=== PATIENT | female | born 1960 | race Caucasian/White ===

== ENCOUNTER 2017-08-21 05:50 | Day surgery (SDC) | payer OTHER ==
[~2017-08-21] VITALS: Ht 167.6 cm; Wt 53.5 kg
[~2017-08-21 05:50] MED LIST: ALLEGRA ALLERGY60 MG PO; CITRACAL + BON1 EACH PO; ESTRADIOL0.5 MG PO; HYDROCODON-ACE1 EA14 PO; PREMARIN0.625 MG PO; VALTREX1000 MG PO
[2017-08-21] MEDS ORDERED: ADVIL200 MG PO (06:10)
[2017-08-21] MEDS ORDERED: TYLENOL EXTRA500 MG PO (06:10)
--- NOTE | 2017-08-21 08:30 | NUR ---
08/21/17 0830 AntonioDerrick SAT 100, O2 REMOVED. PT AWOKE WITH THIS AND DENIES ANY PAIN.
--- NOTE | 2017-08-21 08:50 | NUR ---
PT UP TO BR W/RN STANDBY. PT REPORTS "A LITTLE" DIZZINESS. PT REPORTS SUCCESSFUL VOID AND IS BACK IN BED W/SCDS IN PLACE. ICE TO RIGHT SHOULDER. JESUS HUGGER ON WARM. ICED WATER GIVEN AND CALL LIGHT W/IN REACH.
--- NOTE | 2017-08-21 09:56 | NUR ---
PT EATS APPLESAUCE AND CRACKERS. MORE ICED WATER GIVEN. PT TOLERATING PO WELL.
[2017-08-21] MEDS ORDERED: ULTRAM50 MG PO (10:04)
--- NOTE | 2017-08-21 10:41 | NUR ---
VERBAL DC INSTRUCTIONS GIVEN IN PRESENCE OF PT'S , DAUGHTER AND SON. ALL VERBALIZE UNDERSTANDING. I HELP PT DRESS SELF AND SHE MANEUVERS WELL. PT TRANSFERS SELF WELL TO WC.
--- NOTE | 2017-08-26 07:19 | OR ---
[facility] [address], [place] [address] Signed DATE OF PROCEDURE: 08/21/17 PREOPERATIVE DIAGNOSIS Impingement, right shoulder with early partial-thickness rotator cuff tear. POSTOPERATIVE DIAGNOSIS Impingement, right shoulder with early partial-thickness rotator cuff tear. PROCEDURE Shoulder arthroscopy with subacromial decompression. SURGEON: Willie Olguin MD ANESTHESIA: General. SPECIMENS: None. COMPLICATIONS: None. TOURNIQUET: Not used. BLOOD LOSS: Minimal. DESCRIPTION OF PROCEDURE The patient was taken to the operating room. After anesthesia was induced and airway secured, the patient was placed in the modified beach chair position. After routine prep and sterile drape, the bony topography was outlined with a skin marking pen. The arthroscope was inserted into the shoulder joint through the standard posterior portal. The humeral head and glenoid were pristine. The biceps tendon was unremarkable as was the biceps anchor and the entire labrum. There were no anterior ligamentous abnormalities. The arm was then abduc charlie and we carefully inspected the supraspinatus, subscapularis and infraspinatus insertions and there were no significant tears on the articular side. We then redirected the scope into the subacromial space and created an auxiliary lateral portal. There was a rather red dense bursitis in the subacromial space. The VAPR electrosurgical device was then introduced and we were able to do a subacromial bursectomy. This allowed us to carefully inspect the bursal side of the rotator cuff and there was some small minor fraying on the bursal side of the supraspinatus. This was gently debrided with the VAPR. We then used the VAPR to remove the soft tissue off the undersurface of the acromion. Electronically Signed By: WILLIE OLGUIN MD 08/26/17 0719 PATIENT NAME: WILFREDO MANLEY OPERATIVE REPORT DATE OF : 62 PHYSICIAN: WILLIE OLGUIN MD REPORT #: [id number] REPORT IS CONFIDENTIAL AND NOT TO BE RELEASED WITHOUT AUTHORIZATION [facility] [address], [place] [address] Signed Once we had accomplished this, we used the 4 mm kristi to do a subacromial decompression. At this point, we moved medially and the AC joint appeared unremarkable. There did not appear to be any impingement of the distal clavicle on the supraspinatus, so we therefore did not resect any of the clavicle. The subacromial space was irrigated and drained. Routine wound closure was accomplished and sterile dressings applied. She was placed in a sling and awakened to the recovery room where she arrived in stable condition. Counts were correct and antibiotic protocols were followed. Willie Olguin MD WFB/Modl /[id number] cc: Brendon Loaiza MD Electronically Signed By: WILLIE OLUGIN MD 08/26/17 0719 PATIENT NAME: WILFREDO MANLEY OPERATIVE REPORT DATE OF : 62 PHYSICIAN: WILLIE OLGUIN MD REPORT #: [id number] REPORT IS CONFIDENTIAL AND NOT TO BE RELEASED WITHOUT AUTHORIZATION
[2017-10-16] MEDS ORDERED: NORCO 7.5-3251 EACH PO (11:56)
[2017-10-16] MEDS ORDERED: ZOFRAN ODT4 MG PO (11:58)
[2017-10-21] MEDS ORDERED: NORCO 7.5-3251 EACH PO (13:51)
== END 2017-08-21 10:35 | disposition home or self-care (01) ==
LOC: DS 05:50
PROVIDERS: Orthopaedic Surgery
PROC: 0RBJ4ZZ Excision of Right Shoulder Joint, Percutaneous Endoscopic Approach (ICD-10-PCS; principal; 2017-08-21 06:45)
DX: M25.811 Other specified joint disorders, right shoulder (principal); D64.9 Anemia, unspecified
CPT/HCPCS: 01630; 64415; 76942; J0690; J1100; J1885; J2250; J2370; J2405; J2704; J2765; J2795; J3010; J7120

== ENCOUNTER → 2017-10-21 | Emergency (ER) | payer OTHER ==
[~2017-10-21] VITALS: Ht 167.6 cm; Wt 53.5 kg
[~2017-10-21] MED LIST changes: +ADVIL200 MG PO; +NORCO 7.5-3251 EACH PO; +TYLENOL EXTRA500 MG PO; +ULTRAM50 MG PO; +ZOFRAN ODT4 MG PO
--- OUTSIDE RECORDS SUMMARY | 2017-10-21 14:13 | XMS ---
Demographics + + + | Address | [address] | | | [place] [address] | + + + | Preferred Language | Unknown | + + + | Marital Status | Unknown | + + + | Confucianism Affiliation | Unknown | + + + | Race | Unknown | + + + | Ethnic Group | Unknown | + + + Author + + + | Author | [facility] | + + + | Organization | [facility] | + + + | Address | [address] | | | [place], [place] [id number] | + + + | Phone | | + + + Care Team Providers + + + + | Care Genetic Counsellor Name | Role | Phone | + + + + Unavailable | Unavailable | + + + + PROBLEMS Unknown Problems ALLERGIES No Information SOCIAL HISTORY Never Assessed PLAN OF CARE VITAL SIGNS MEDICATIONS Unknown Medications RESULTS No Results PROCEDURES No Known procedures IMMUNIZATIONS No Known Immunizations MEDICAL (GENERAL) HISTORY + + +------+ | Type | Description | Date | + + +------+ | Medical History | back pain | | + + +------+ | Medical History | anemia | | + + +------+ | Surgical History | spinal fusion L5-S1 | 2014 | + + +------+ | Surgical History | Hysterectomy | 1990 | + + +------+ | Surgical History | tonsilectomy | 1977 | + + +------+ | Surgical History | Ovarian Cyst | 1987 | + + +------+"
--- OUTSIDE RECORDS SUMMARY | 2017-10-21 14:13 | XMS ---
Demographics + + + | Address | [address] | | | [place] [address] | + + + | Preferred Language | Unknown | + + + | Marital Status | Unknown | + + + | Shinto Affiliation | Unknown | + + + | Race | Unknown | + + + | Ethnic Group | Unknown | + + + Author + + + | Author | [facility] | + + + | Organization | [facility] | + + + | Address | [address] | | | [place] [id number] | + + + | Phone | | + + + Care Team Providers + + + + | Care Dispenser Operator Name | Role | Phone | + + + + Unavailable | Unavailable | + + + + PROBLEMS Unknown Problems ALLERGIES No Known Allergies SOCIAL HISTORY No smoking Hx information available PLAN OF CARE VITAL SIGNS MEDICATIONS No Known Medications RESULTS No Results PROCEDURES No Known procedures IMMUNIZATIONS No Known Immunizations"
--- OUTSIDE RECORDS SUMMARY | 2017-10-21 14:13 | XMS ---
Demographics + + + | Address | [address] | | | [place] [address] | + + + | Preferred Language | Unknown | + + + | Marital Status | Unknown | + + + | Jehovah'S Witness Affiliation | Unknown | + + + | Race | Unknown | + + + | Ethnic Group | Unknown | + + + Author + + + | Author | [facility] | + + + | Organization | [facility] | + + + | Address | [address] | | | [place], [place] [id number] | + + + | Phone | | + + + Care Team Providers + + + + | Care Business Operations Coordinator Name | Role | Phone | + [...]
== END ==
LOC: ED 13:33
DX: G89.18 Other acute postprocedural pain (principal); M25.512 Pain in left shoulder; M62.838 Other muscle spasm; Z90.710 Acquired absence of both cervix and uterus; Z88.5 Allergy status to narcotic agent; Z79.899 Other long term (current) drug therapy
CPT/HCPCS: 96372; 99283; J1885

== ENCOUNTER 2019-05-12 20:55 | Emergency (ER) | payer OTHER ==
[~2019-05-12] VITALS: Ht 167.6 cm; Wt 0.5 kg
[2019-05-12] MEDS ORDERED: OMEPRAZOLE20 MG PO (21:10)
--- NOTE | 2019-05-13 08:00 | EKG ---
[facility] [address] [facility] [place], [place] [address] Signed Sinus rhythm with marked sinus arrhythmia Nonspecific ST abnormality Abnormal ECG No previous ECGs available Confirmed by REYNALDO NARAYAN MD ([id number]) on 05/13/2019 8:00:12 AM Electronically Signed By: REYNALDO NARAYAN MD 05/13/19 0800 PATIENT NAME: WILFREDO MANLEY Electrocardiogram DATE OF : 62 PHYSICIAN: REYNALDO NARAYAN MD REPORT #: [id number] REPORT IS CONFIDENTIAL AND NOT TO BE RELEASED WITHOUT AUTHORIZATION
== END 2019-05-12 23:20 | disposition home or self-care (01) ==
LOC: ED 20:55
DX: R07.2 Precordial pain (principal); D64.9 Anemia, unspecified; Z88.5 Allergy status to narcotic agent; Z79.899 Other long term (current) drug therapy
CPT/HCPCS: 71045; 80053; 83735; 84484; 85025; 85379; 93005; 93010; 93225; 93226; 93227; 99285-25

== ENCOUNTER 2020-03-28 17:46 | Emergency (ER) | payer OTHER ==
[~2020-03-28] VITALS: Ht 167.6 cm; Wt 54.4 kg
--- OUTSIDE RECORDS SUMMARY | ~2020-03-28 | XMS | Encounter Summary ---
Demographics + + + | Address | [address] | | | [place] [address] | + + + | Home Phone | | + + + | Preferred Language | Unknown | + + + | Marital Status | | + + + | Mormonism Affiliation | 1027 | + + + | Race | Unknown | + + + | Ethnic Group | Unknown | + + + Author + + + | Author | [facility] | | | and [place] | + + + | Organization | [facility] | | | and [...] Team Providers + +------+ + | Care Senior Electronics Technician Name | Role | Phone | + +------+ + | Brendon Loaiza MD | PCP | | + +------+ + Reason for Visit +--------+ + | Reason | Comments | +--------+ + | Pain | | +--------+ + Encounter Details +--------+ + + + + | Date | Type | Department | Care Team | Description | +--------+ + + + + | 04/26/ | Telephone | [facility] [place] | Freddie Parham, | Pain | | 2015 | | NEUROSURGERY [address] | DO [address] | | | | | [address] | [address] [place], [place] | | | | | [place], [place] | [address] | | | | | [address] | | | | | | [phone] | | | +--------+ + + + [...] on file | | + + + + + + + | Job Start Date | Occupation | Industry | + + + + | Not on file | Not on file | Not on file | + + + + + + + + | Travel History | Travel Start | Travel End | + + + + + + | No recent travel history available. | + + documented as of this encounter Plan of Treatment +--------+ + + + + | Date | Type | Specialty | Care Team | Description | +--------+ + + + + | 04/06/ | Virtual | Pulmonology | Josr Garcia MD | | | 2019 | Office | | [address] | | | | Visit | | [place] | | | | | | [address] | | | | | | | | +--------+ + + + + documented as of this encounter Visit Diagnoses Not on filedocumented in this encounter"
--- OUTSIDE RECORDS SUMMARY | ~2020-03-28 | XMS | Encounter Summary ---
Demographics + + + | Address | [address] | | | [place] [address] | + + + | Home Phone | | + + + | Preferred Language | Unknown | + + + | Marital Status | | + + + | Adventism Affiliation | 1027 | + + + | Race | Unknown | + + + | Ethnic Group | Unknown | + + + Author + + + | Author | [facility] | | | and [place] | + + + | Organization | [facility] | | | [...] Team Providers + +------+ + | Care Transmission Specialist Name | Role | Phone | + +------+ + | Brendon Loaiza MD | PCP | | + +------+ + Reason for Visit +--------+ + | Reason | Comments | +--------+ + | Other | labs from [facility] | +--------+ + Encounter Details +--------+ + + + + | Date | Type | Department | Care Team | Description | +--------+ + + + + | 03/21/ | Documentati | [facility] | Messi, | Other (labs from | | 2019 | on | PULMONOLOGY [address] | Melania Christine, [facility] | [facility]) | | | | [address] | [employer]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 Labeled and scanned into PT chart documented in this encounter Plan of Treatment +--------+ + [...] [place] | | | | | | [address] | | | | | | | | +--------+ + + + + documented as of this encounter Visit Diagnoses Not on filedocumented in this encounter"
--- OUTSIDE RECORDS SUMMARY | ~2020-03-28 | XMS | Encounter Summary ---
Demographics + + + | Address | [address] | | | [place] [address] | + + + | Home Phone | | + + + | Preferred Language | Unknown | + + + | Marital Status | | + + + | Catholic Affiliation | 1027 | + + + | Race | Unknown | + + + | Ethnic Group | Unknown | + + + Author + + + | Author | [facility] | | | and [place] | + + + | Organization | [facility] | | [...] Team Providers + +------+ + | Care Wind Farm Designer Name | Role | Phone | + +------+ + | Brendon Loaiza MD | PCP | | + +------+ + Reason for Visit + + + | Reason | Comments | + + + | Follow-up | Pre-op | + + + Encounter Details +--------+---------+ + + + | Date | Type | Department | Care Team | Description | +--------+---------+ + + + | 07/12/ | Office | [facility] [place] | Hussein Mayers, | Osteoarthritis of | | 2015 | Visit | NEUROSURGERY [address] | PA-C [address] | spine with | | | | [address] | [address] [place] | radiculopathy, | | | | [place], [place] | [place] [address] | lumbar region | | | | [address] | [phone] | (Primary Dx) | | | | [phone] | | | +--------+---------+ + + + Social History + +-------+ [...] + + documented as of this encounter Last Filed Vital Signs + + + + + | Vital Sign | Reading | Time Taken | Comments | + + + + + | Blood Pressure | 108/63 | 07/12/2015 8:51 AM | | | | | PDT | | + + + + + | Pulse | 73 | 07/12/2015 8:51 AM | | | | | PDT | | + + + + + | Temperature | - | - | | + + + + + | Respiratory Rate | 16 | 07/12/2015 8:51 AM | | | | | PDT | | + + + + + | Oxygen Saturation | - | - | | + + + + + | Inhaled Oxygen | - | - | | | Concentration | | | | + + + + + | Weight | 53.8 kg (118 lb 9.6 | 07/12/2015 8:51 AM | | | | oz) | PDT | | + + + + + | Height | 167.6 cm (5' 6") | 07/12/2015 8:51 AM | | | | | PDT | | + + + + + | Body Mass Index | 19.14 | 07/12/2015 8:51 AM | | | | | PDT | | + + + + + documented in this encounter Patient Instructions Patient Instructions Hussein Mayers PA - 07/12/2015 9:41 AM PDTPlease remember not to take any anti-inflammatories within 7 days of surgery. This includes ibuprofen, Motrin, Adv il, aspirin, naproxen, and Aleve. You may have a small glass of water on the morning of to take your normal morning medications. Otherwise, nothing to eat or drink after midn ight. If you have any change in your health status, please call and let us know. Lastly, If you have any questions, please feel free to give our office a call. Otherwise, we will see you on the morning of surgery. documented in this encounter Progress Notes Hussein Mayers PA - 07/12/2015 9:19 AM PDTFormatting of this note might be different f rom the original. TAMMY Bui [address] [place] [address] [address] [place] [address] FAX: NEUROSURGERY HISTORY AND PHYSICAL EXAMINATION CHIEF COMPLAINT: Chief Complaint Patient presents with Follow-up Pre-op HISTORY OF PRESENT ILLNESS: Mady presents to our clinic today for a preoperative exam ination. She is scheduled for a L5-S1 fusion. The patient is a 55 y.o. female with the com plaint of back symptoms that began 6 months ago. The patient describes lifting heavy boxes and feeling an immediate change in her low back. The symptoms have been gradually improving . She rates the pain as moderate. The symptoms are daily, continuous. She describes the anthony n as aching. The patient describes leg symptoms that occur on right side. The leg symptoms account for greater than or equal to 50% of her symptoms. The leg symptoms are intermittent and the sym ptoms travels from the buttock down the side of her right leg. She has had no interval changes in the severity or character of her symptoms since her las t visit. She denies any shortness of breath or chest pain. She denies any fever or chills. She has no open sores on her body and has not had any antibiotics recently. The PCP has see n her and they have cleared her for surgery. The patient does not report any change in bowel or bladder function recently. Her symptoms improve with rest, changing position and standing. Her symptoms worsen with sitting, bending and twisting. She has tried lifestyle modification, rest, ice/heat, physical therapy, pain medications. PAST MEDICAL HISTORY: Past Medical History Diagnosis Date Anemia PAST SURGICAL HISTORY: Past Surgical History Procedure Laterality Date Hysterectomy Ovarian cyst surgery CURRENT MEDICATIONS: Current Outpatient Prescriptions Medication Sig Dispense Refill estradiol (ESTRACE) 1 mg tablet Take 1 mg by mouth Daily. valACYclovir (VALTREX) 500 mg tablet Take 500 mg by mouth Daily. No current facility-administered medications for this visit. ALLERGIES: No Known Allergies SOCIAL HISTORY: The patient reports that she has never smoked. She does not have any smokeless tobacco his tory on file. She reports that she does not drink alcohol or use illicit drugs. FAMILY HISTORY: Family History Problem Relation Age of Onset Cancer Paternal Grandmother Arthritis Father REVIEW OF SYSTEMS GENERALLY: No fever, no night sweats, + anemia, no fatigue, no recent profound weight giraldo es. EYES: No eye problems, + use of corrective lenses, no eye injury, no double vision, no blin dness. EARS, NOSE, AND THROAT: + changes in taste or smell, no hearing difficulty, no ringing in t he ears, no ear drainage, no dizziness, no voice changes, no difficulty swallowing, no signi ficant snoring, no sleep apnea, no sinus problems, no major dental work. NEUROLOGICALLY: Please see the review of systems discussed above in the history of present illness. In addition, the patient has pain in back. PSYCHIATRIC: No depression, no sleep disorders, no anxiety, no bipolar disorder, no psychot ic episodes. CARDIOVASCULAR: No heart attacks, no heart murmur, no heart fluttering, no chest pain, no a nkle swelling. LUNG DISEASE: No shortness of breath, no cough, no tuberculosis, no bloody cough, no asthma , no emphysema/COPD. GASTROINTESTINAL: No bowel disease, no nausea or vomiting, no rectal bleeding, no constipat ion, no stool incontinence, no liver disease, no gallbladder disease, no abdominal pain, no ulcers. KIDNEY DISEASE: No urinary frequency, no painful or difficult urination, no incontinence. ENDOCRINE: No diabetes, no thyroid disease, no osteopenia or osteoporosis, no breast draina ge. SKIN: No breast lumps, no skin changes, no rashes, no itches. HEMATOLOGIC/LYMPHATIC: No enlarged lymph nodes, no easy or unusual bleeding, no personal hi story of cancer. RHEUMATOLOGIC: No joint arthritis, no rheumatoid arthritis. PHYSICAL EXAMINATION: Blood pressure 108/63, pulse 73, resp. rate 16, height 1.676 m (5' 6"), weight 53.797 kg (1 18 lb 9.6 oz). Body mass index is 19.15 kg/(m^2). GENERAL: Mady Munoz is in no acute distress with unlabored respirations. The patien komal does appear uncomfortable throughout the exam today. HEENT: HEAD/FACE: EYES: EARS: NASOPHARNYX: OROPHARNYX: Normocephalic and atraumatic. There are no areas of recent trauma. Normal sclerae without icterus. No drainage or tenderness. Clear without drainage. Clear without erythema. NECK (ANTERIOR): Supple and without palpable masses. CHEST: Clear to ausculation without crackles or wheeze. HEART: Regular rate and rhythm without murmurs. ABDOMEN: Soft, non-tender, non-distended, and without palpable masses. The patient is notob vivi. SPINE: There is no tenderness in the midline of the cervical or thoracic spine. There is n o major palpable deformity of the spine. The lumbar spine shows there is tenderness in the midline of the L5, S1 levels. To palpati on, there is signficant bilateral myofascial tenderness. EXTREMITIES: No cyanosis, clubbing, or edema. Distal pulses are palpable. NEUROLOGICAL EXAM: MENTAL STATUS: The patient is awake, alert, and oriented. She follows simple and complex commands. She speech is fluent, her comprehends speech well, and her repeats well. She has no apparent deficits with short or intermediate manager memory. CRANIAL NERVES: II: Acuity is intact. Lewis are full to confrontation. III, IV, : The pupils are reactive. Extraocular movements are intact. No ptosis is note d. V: Facial sensation is intact and symmetric. VII: Facial movements are symmetric. VIII: Hearing is intact bilaterally. IX, X: The uvula and palate move appropriately. XI: Shrug is equal bilaterally. XII: Tongue protrusion is midline. MOTOR EXAM: (5 IS NORMAL) * Indicates pain limited MUSCLE/ MOVEMENT: RIGHT LEFT Hip Flexion 5 5 Hip Extension 5 5 Knee Flexion 5 5 Knee Extension 5 5 Dorsiflexion 5 5 Extensor Hallicus Longus 5 5 Plantarflexion 5 5 SENSORY EXAM: Sensory exam shows right L5 and S1-type dysesthesia. REFLEXES: (2 OR 2+ IS NORMAL) REFLEX: RIGHT LEFT PATELLAR 2 2 ACHILLES 2 2 ALEMAN'S ABSENT ABSENT PLANTAR DOWNGOING DOWNGOING GAIT: Gait is steady. PERIPHERAL NERVE/MISC: Straight leg raise is negative bilaterally. Jeff's test of the hips is negative bilaterally. RADIOGRAPHIC REVIEW: The patient's imaging was reviewed in detail with the patient today during the visit. The MRI of the lumbar spine from 02/03/15 demonstrates loss of lumbar lordosis. There is spondylos is and stenosis L5-S1 with a ventral epidural mass behind the L5 vertebral body consistent w ith a disc herniation. There is resulting central and lateral recess stenosis at L5-S1 and b ehind the L5 vertebral body. Lumbar flexion and extension views show no dynamic instability. ASSESSMENT: NEUROSURGICAL DIAGNOSES: Encounter Diagnosis Name Primary? Osteoarthritis of spine with radiculopathy, lumbar region Yes GENERAL DIAGNOSES: Past Medical History Diagnosis Date Anemia PLAN: Mady Munoz presented today, and it was a pleasure seeing this patient and assessing her problems. The patient has spondylosis and stenosis with a central disc herniation at L5 -S1. This is likely contributing to her back and leg pain. I had a lengthy discussion with the patient about her options for care including surgical a nd non-surgical options. Patient has received the facet injections which are of minimal riaz g-term help. She has failed conservative management and is very limited in her daily activi ties from back pain. She has voiced a preference for proceeding with definitive treatment a nd has no other questions or concerns at this time. We discussed the risks, alternatives, and benefits to surgical intervention with Ms. Ana virgen in clinic. These risks included but were not limited to , stroke, heart attack, numb ness, weakness, paralysis, failure of fusion, failure of hardware, subsidence, adjacent segm ent degeneration, cerebrospinal fluid leak, bleeding, infection, injury to surrounding tissu es and organs, injury from positioning, injury to the nerves, difficulty with breathing, dif ficulty with swallowing, difficulty with voice change, and need for additional surgery. Surgical options were discussed and the technique to be employed was described in detail to her. All her questions were answered. We discussed that the goal of the surgery is to prevent progression of her disease, but it is not considered a cure. We also discussed that although some patients may obtain 100% sym ptom relief, it is realistic to anticipate that some symptoms will continue postoperatively despite a successful surgery. We also discussed that there is no guarantee that surgery will provide improvement in her c ondition, and indeed may even worsen the symptoms. We also discussed that in the course of the procedure the operative plan may be altered to include more, less, or different levels d epending upon findings in order to provide her with the best possible outcome. I recommended for this patient that she be fitted with a brace before surgery to improve he r stability now to support her weak muscles and to reduce pain by restricting mobility. For multiple (more than 1 level fusions), I recommend the use of a bone growth stimulator p ostoperatively. This is to improve the probability and rate of fusion. Patient has been seen by her primary care doctor and she is medically cleared for surgery a t this time. ELECTRONICALLY SIGNED BY: TAMMY Bui, 07/12/2015 10:19 documented in this encounter Plan of Treatment +--------+ + + + + | Date | Type | Specialty | Care Team | Description | +--------+ + + + + | 04/06/ | Virtual | Pulmonology | Josr Garcia MD | | | 2019 | Office | | [address] | | | | Visit | | [place], [place] | | | | | | [address] | | | | | | | | +--------+ + + + + documented as of this encounter Visit Diagnoses + + | Diagnosis | + + | Osteoarthritis of spine with radiculopathy, lumbar region - Primary | + + documented in this encounter
--- OUTSIDE RECORDS SUMMARY | ~2020-03-28 | XMS | Encounter Summary ---
Demographics + + + | Address | [address] | | | [place] [address] | + + + | Home Phone | | + + + | Preferred Language | Unknown | + + + | Marital Status | | + + + | Congregational Affiliation | 1027 | + + + | Race | Unknown | + + + | Ethnic Group | Unknown | + + + Author + + + | Author | [facility] | | | and [place] | + + + | Organization | [facility] | | | [...] Team Providers + +------+ + | Care Rose Grader Name | Role | Phone | + +------+ + | Brendon Loaiza MD | PCP | | + +------+ + Reason for Visit + + + | Reason | Comments | + + + | Post-op Question | Neno monroe? | + + + Encounter Details +--------+ + + + + | Date | Type | Department | Care Team | Description | +--------+ + + + + | 05/19/ | Telephone | [facility] | Freddie Parham, | Post-op Question | | 2018 | | NEUROSURGERY [address] | DO [address] | (Roller coasters?) | | | | [address] | [address] [place], [place] | | | | | [place], [place] | [address] | | | | | [address] | | | | | | [phone] | | | +--------+ + + + [...] | | 2019 | Office | | [address] | | | | Visit | | [place] | | | | | | [address] | | | | | | | | +--------+ + + + + documented as of this encounter Visit Diagnoses Not on filedocumented in this encounter"
--- OUTSIDE RECORDS SUMMARY | ~2020-03-28 | XMS | Encounter Summary ---
Demographics + + + | Address | [address] | | | [place] [address] | + + + | Home Phone | | + + + | Preferred Language | Unknown | + + + | Marital Status | | + + + | Church Affiliation | 1027 | + + + | Race | Unknown | + + + | Ethnic Group | Unknown | + + + Author + + + | Author | [facility] | | | and [place] | + + + | Organization | [facility] | | | and [...] Team Providers + +------+ + | Care Affirmative Action Specialist Name | Role | Phone | + +------+ + | Brendon Loaiza MD | PCP | | + +------+ + Reason for Visit + + + | Reason | Comments | + + + | Referral | | + + + Encounter Details +--------+ + + + + | Date | Type | Department | Care Team | Description | +--------+ + + + + | 03/07/ | Telephone | [facility] | Kyree, | Referral | | 2020 | | PULMONOLOGY [address] | Aliya Benitez, | | | | | [address] | MD [address] | | | | | [facility] [place] | [place], | | | | | [address] | [place] [address] | | | | | [phone] | [phone] | | | | | | | [...] | | Visit | | [place] | | | | | | [address] | | | | | | | | +--------+ + + + + documented as of this encounter Visit Diagnoses Not on filedocumented in this encounter"
--- OUTSIDE RECORDS SUMMARY | ~2020-03-28 | XMS | Encounter Summary ---
Demographics + + + | Address | [address] | | | [place] [address] | + + + | Home Phone | | + + + | Preferred Language | Unknown | + + + | Marital Status | | + + + | Bahai Affiliation | 1027 | + + + [...] Team Providers + +------+ + | Care Musical Instrument Maker Name | Role | Phone | + +------+ + | Brendon Loaiza MD | PCP | | + +------+ + Encounter Details +--------+ + + + + | Date | Type | Department | Care Team | Description | +--------+ + + + + | 03/14/ | Preadmit | [facility] | Josr Garcia MD | | | 2020 | Visit | [facility] | [address] | | | | | CLINIC [address] | [place], [place] | | | | | [place], [place] | [address] | | | | | [address] | | | | | | [phone] | | | +--------+ + + + [...] over the phone. documented in this encounter Plan of Treatment +--------+ + + + + | Date | Type | Specialty | Care Team | Description | +--------+ + + + + | 04/06/ | Virtual | Pulmonology | Jors Garcia MD | | | 2019 | Office | | [address] | | | | Visit | | [place], [place] | | | | | | [address] | | | | | | | | +--------+ + + + + documented as of this encounter Visit Diagnoses Not on filedocumented in this encounter"
--- OUTSIDE RECORDS SUMMARY | ~2020-03-28 | XMS | Encounter Summary ---
Demographics + + + | Address | [address] | | | [place] [address] | + + + | Home Phone | | + + + | Preferred Language | Unknown | + + + | Marital Status | | + + + | Anabaptist Affiliation | 1027 | + + + | Race | Unknown | + + + | Ethnic Group | Unknown | + + + Author + + + | Author | [facility] | | | and [place] | + + + | Organization | [facility] | | | [...] Team Providers + +------+ + | Care Critical Care Unit Manager Name | Role | Phone | + +------+ + | Brendon Loaiza MD | PCP | | + +------+ + Encounter Details +--------+ + + + + | Date | Type | Department | Care Team | Description | +--------+ + + + + | 07/12/ | [facility] | [facility] | Freddie Parham, | Anemia, unspecified | | 2015 | Encounter | MED CTR | DO [address] | anemia type; | | | | [facility] | [address] [place], [place] | Lumbosacral | | | | [address] [place] | [address] | spondylosis without | | | | [place] [address] | | myelopathy; | | | | [phone] | | Displacement of | | | | | | lumbar | | | | | | intervertebral disc | | | | | | without myelopathy; | | | | | | Spinal stenosis, | | | | | | lumbar region, | | | | | | without neurogenic | | | | | | claudication | +--------+ + + + + Social [...] + + documented as of this encounter Medications at Time of Discharge [...] | | Visit | | [place], [place] | | | | | | [address] | | | | | | | | +--------+ + + + + + +------+--------+ + + | Name | Type | Priori | Associated Diagnoses | Order Schedule | | | | ty | | | + +------+--------+ + + | ECG 12 lead | ECG | Routin | Anemia, | 1 Occurrences | | | | e | unspecified anemia | starting 07/12/2015 | | | | | type Lumbosacral | until 07/12/2015 | | | | | spondylosis without | | | | | | myelopathy | | | | | | Displacement of | | | | | | lumbar | | | | | | intervertebral disc | | | | | | without myelopathy | | | | | | Spinal stenosis, | | | | | | lumbar region, | | | | | | without neurogenic | | | | | | claudication | | + +------+--------+ + + documented as of this encounter Visit Diagnoses + + | Diagnosis | + + | Anemia, unspecified anemia type | + + | Lumbosacral spondylosis without myelopathy | + + | Displacement of lumbar intervertebral disc without myelopathy | + + | Spinal stenosis, lumbar region, without neurogenic claudication | + + documented in this encounter"
--- OUTSIDE RECORDS SUMMARY | ~2020-03-28 | XMS | Encounter Summary ---
Demographics + + + | Address | [address] | | | [place] [address] | + + + | Home Phone | | + + + | Preferred Language | Unknown | + + + | Marital Status | | + + + | Latter Day Affiliation | 1027 | + + + | Race | Unknown | + + + | Ethnic Group | Unknown | + + + Author + + + | Author | [facility] | | | and [place] | + + + | Organization | [facility] | | | and [...] Team Providers + +------+ + | Care Vending Machine Collector Name | Role | Phone | + [...] + + | 03/17/ | Surgery | [facility] | Josr Garcia MD | ULTRASOUND | | 2020 | | [facility] | [address] | ENDOBRONCHIAL | | | | INTRA OP [address] | [place], [place] | | | | | [place], [place] | [id number] | | | | | [address] | | | | | | [phone] | | | +--------+---------+ + + + [...] + + + | Blood Pressure | 125/59 | 03/17/2020 4:21 PM | | | | | PDT | | + + + + + | Pulse | 56 | 03/17/2020 4:21 PM | | | | | PDT | | + + + + + | Temperature | 36.8 C (98.3 F) | 03/17/2020 4:21 PM | | | | | PDT | | + + + + + | Respiratory Rate | 16 | 03/17/2020 4:21 PM | | | | | PDT | | + + + + + | Oxygen Saturation | 100% | 03/17/2020 4:21 PM | | | | | PDT [...] of breath and diaphoresis, report immediately to [facility] Emergency Room or call . Diet: Regular [...] daily | capsule | | 20 | | | capsule | as needed for [...] lungs 2 times | | | | | | ol (ADVAIR, WIXELA | daily. [...] [place] | | | | | | [address] | | | | | | | [...] | + +--------+ + + + | [facility] | Routin | 03/17/2020 | [...] PATIENT NAME:MADY MANLEY | INCYTE | | RHODESGENDER: Enmanuel : 1960 SPECIMEN(S): A NBX, STATION [...] component | | | was performed by [facility], [address] | | | [place] [address] ([employer] Paralegal: Papi Bundy D.O.; CLIA#: | | | [id number]). Professionalinterpretation was performed by [facility] | | | Diagnostics[address], | | | [place] [address] ([employer] Paralegal: Trey Hernandez M.D.; CLIA#: | | | [id number]). Diagnostician: Cyndie Wagoner | | | CT([facility])CytotechnologistDiagnostician: Karine Christine Backer | | | MDPathologistElectronically Signed 03/20/2020 | [...] | |The technical component was performed by [facility], [address] [place] [address] ([employer] Paralegal: Papi Bundy D.O.; CLIA#: [id number]). Candace burns | | |interpretation was performed by [facility], [facility], [address] [place] [id number] ([employer] Paralegal: Trey Hernandez M.D.; CLIA#: [id number] ). | | | | | |Diagnostician: Cyndie Wagoner CT([facility]) | | |Vict[employer] Advocate Clerk/Specialist | | |Diagnostician: Karine Bales MD | [...] component was performed | | | by [facility], [address] [place] [address] (Medical | | | Director: Karine Bales MD; CLIA# [id number]). Professional | | | interpretation was performed by[facility], [facility] | | | [address] [address] (Medical | | | Director: Trey Hernandez M.D.; CLIA#: [id number]). Diagnostician: | | | Karine Bales MDPathologistElectronically Signed 03/20/2020 | | |question about this report, please contact Client Services. | | | | | |PERFORMING LABORATORY: | | |The technical component was performed by [facility], [address] [place] [address] ([employer] Paralegal: Karine Bales MD; CLIA# [id number]). Professional interpretation was performed by | | |[facility] [address] ([employer] Paralegal: Trey Hernandez M.D.; CLIA#: [id number]). | | | | | |Diagnostician: Karine [...] Performed At | + + + | Jaclyn | [place] | | [facility] | PROVATION | | [facility] | | | Patient Name: Mady Manley | | | Procedure Date: 03/17/2020 2:48 PMMRN: [id number] | | | Date of : 1960Note [...] | | | | | | Josr Radha, 03/17/2020 4:08:01 PMThis report has been | | | signed electronically.Number of Addenda: 0 Note Initiated On: | | | 03/17/2020 2:48 PM [facility] - Endoscopy | | | Department | | |This report has been signed electronically. | | |Number of Addenda: 0 | | | | | |Note Initiated On: 03/17/2020 2:48 PM | | | | | | [facility] - Endoscopy Department | | [...] + + + + + + | RBC | 3.62 (L) | 3.70 - 5.10 | [facility] | | | | | M/uL | LABORATORY | | [...] | | | Absolute | performed at [facility];[address] | K/uL | LABORATORY | | | | [facility], [place] | | | | | | [address] | | | | + + + + + + + + | Specimen | + + | Blood | + + + + + + + | Performing | Address | City/State/Zipcode | Phone Number | | Organization | | | | + + + + + | [facility] | [address] | [place] [address] | [phone] | + + + + + documented [...]
--- OUTSIDE RECORDS SUMMARY | ~2020-03-28 | XMS | Encounter Summary ---
Demographics + + + | Address | [address] | | | [place] [address] | + + + | Home Phone | | + + + | Preferred Language | Unknown | + + + | Marital Status | | + + + | Hindu Affiliation | 1027 | + + + | Race | Unknown | + + + | Ethnic Group | Unknown | + + + Author + + + | Author | [facility] | | | and [place] | + + + | Organization | [facility] | | | and [...] Team Providers + +------+ + | Care Drilling Superintendent Name | Role | Phone | + +------+ + | Brendon Loaiza MD | PCP | | + +------+ + Encounter Details +--------+ + + + + | Date | Type | Department | Care Team | Description | +--------+ + + + + | // | Orders Only | [facility] | Ferddie Parham, | Osteoarthritis of | | 2016 | | NEUROSURGERY [address] | DO [address] | spine with | | | | [address] | [address] [place], [place] | radiculopathy, | | | | [place], [place] | [address] | lumbar region; S/P | | | | [address] | | lumbar fusion | | | | [phone] | | | +--------+ + + + [...] [place] | | | | | | [address] | | | | | | | | +--------+ + + + + documented as of this encounter Visit Diagnoses + + | Diagnosis | + + | Osteoarthritis of spine with radiculopathy, lumbar region | + + | S/P lumbar fusion Arthrodesis status | + + documented in this encounter"
--- OUTSIDE RECORDS SUMMARY | ~2020-03-28 | XMS | Encounter Summary ---
Demographics + + + | Address | [address] | | | [place] [address] | + + + | Home Phone | | + + + | Preferred Language | Unknown | + + + | Marital Status | | + + + | Hoahaoism Affiliation | 1027 | + + + | Race | Unknown | + + + | Ethnic Group | Unknown | + + + Author + + + | Author | [facility] | | | and [place] | + + + | Organization | [facility] | | | [...] Team Providers + +------+ + | Care Rejoiner Name | Role | Phone | + [...] | | | | | | | CO ARTHDSIS | | | | | | [...] + + + + | 07/18/ | Anesthesia | [address] | Chris Kearney | | | 2015 | Event | MED CTR OR INTRA OP | MD Gin [address] | | | | | [address] | [address] [place] [address] | | | | | [place] | [address] | | | | | [address] | [phone] | | | | | [phone] | | | +--------+ + + + + Anesthesia Record + + + + + | Procedure Name | Responsible | Anesthesia Start | Anesthesia Stop Time | | | Anesthesiologist | Time | | + + + + + | L5-S1 Transforaminal | Chris Kearney, | 07/18/15 1206 | 07/18/15 1400 | | Lumbar Interbody | MD | | | | Fusion (Right Spine | | | | | Lumbar) | | | | + + + + + +----+---+ + + | Da | T | Event | Comment | | te | i | | | | | m | | | | | e | | | +----+---+ + + | 08 | 1 | | | | /1 | 1 | | | | 8/ | 5 | | | | 20 | 4 | | | | 15 | | | | +----+---+ + + | | 1 | An Checkout | Pre-use anesthesia machine/equipment checkout. | | | 2 | | | | | 0 | | | | | 0 | | | +----+---+ + + | | 1 | An Start | Reassessment prior to anesthesia induction/procedure. | | | 2 | | | | | 0 | | | | | 6 | | | +----+---+ + + | | 1 | an ambar now | IN OR #2 | | | 2 | | | | | 0 | | | | | 9 | | | +----+---+ + + | | 1 | Antibiotic | | | | 2 | Given | | | | 1 | | | | | 0 | | | +----+---+ + + | | 1 | Preoxygenat | | | | 2 | ed | | | | 1 | | | | | 3 | | | +----+---+ + + | | 1 | An | | | | 2 | Induction | | | | 1 | | | | | 5 | | | +----+---+ + + | | 1 | An | | | | 2 | Intubation | | | | 1 | | | | | 6 | | | +----+---+ + + | | 1 | an ambar now | PRONE | | | 2 | | | | | 2 | | | | | 1 | | | +----+---+ + + | | 1 | Pre-Procedu | | | | 2 | ral Timeout | | | | 2 | Completed | | | | 7 | | | +----+---+ + + | | 1 | an ambar now | Begin | | | 2 | | | | | 2 | | | | | 9 | | | +----+---+ + + | | 1 | an ambar now | SUPINE | | | 3 | | | | | 4 | | | | | 7 | | | +----+---+ + + | | 1 | Breathing | | | | 3 | Spontaneous | | | | 4 | ly | | | | 7 | | | +----+---+ + + | | 1 | Oropharynx | | | | 3 | Suctioned | | | | 5 | | | | | 0 | | | +----+---+ + + | | 1 | Extubated | | | | 3 | Deep | | | | 5 | | | | | 0 | | | +----+---+ + + | | 1 | an ambar now | PACU | | | 3 | | | | | 5 | | | | | 2 | | | +----+---+ + + | | 1 | an stop | | | | 3 | data | | | | 5 | | | | | 5 | | | +----+---+ + + | | 1 | An Stop | Patient handed off to recovery nurse. | | | 0 | | | | | 0 | | | +----+---+ + + +------+ | Meds | +------+ + +---------+ | Name | Total | + +---------+ | propofol | 150 mg | + +---------+ | ketamine | 25 mg | + +---------+ | fentaNYL | 100 mcg | + +---------+ | HYDROmorphone | 2 mg | + +---------+ | succinylcholine | 80 mg | + +---------+ | ondansetron | 4 mg | + +---------+ | dexamethasone | 8 mg | + +---------+ | ceFAZolin in dextrose (ANCEF) | 2 g | | IVPB 2 g | | + +---------+ | midazolam | 2 mg | + +---------+ | magnesium sulfate | 1 g | + +---------+ | sodium chloride 0.9% (NS) | 950 mL | | infusion | | + +---------+ + + | Name | + + | N2O Flow Rate (L/Min) | + + | O2 Flow Rate (L/Min) | + + | Insp O2 | + + | Exp SEV | + + | Air Flow Rate (L/Min) | + + + + | No blood administrations on file. | + + +--------+ + + + | Type | Details | Placement | Removal | +--------+ + + + | [READ | 07/18/15; 1027; 07/20/15; 1730 | 07/18/15 1027 by | 07/20/15 1730 by | | ONLY] | | Iman Goode, | Mady Rothman | | | | JOHN | JOHN Tillman | | Periph | | | | | eral | | | | | IV - | | | | | Single | | | | | Lumen | | | | | | | | | +--------+ + + + | Drain/ | 07/18/15; 1252; #1; Right:; | 07/18/15 1252 by | 07/20/15 1145 by | | Device | posterior; back; 10 fr round | Bhargav Justice RN | Mady Rothman | | Site | drain; 07/20/15; 1145 | | JHON Tillman | +--------+ + + + | Read | 07/18/15; 1321; back; 02/23/19 | 07/18/15 1321 by | 02/23/19 1342 by | | only - | (Completed/Removed by Utility); | Bhargav Justice RN | User Epic | | | 1342 (Completed/Removed by | | | | Incisi | Utility) | | | | on | | | | +--------+ + + + documented in this encounter Social History + +-------+ +--------+------+ | Tobacco [...] | | Visit | | [place] | | | | | | [address] | | | | | | | | +--------+ + + + + documented as of this encounter Visit Diagnoses Not on filedocumented in this encounter Administered Medications + +--------+ +------+------+------+ | Medication Order | MAR | Action | Dose | Rate | Site | | | Action | Date | | | | + +--------+ +------+------+------+ | ceFAZolin in dextrose (ANCEF) | Given | 07/18/20 | 2 g | | | | IVPB 2 g 2 g, Intravenous, | | 15 12:10 | | | | | Administer over 30 Minutes, Prior | | PM PDT | | | | | to Incision, Starting Fri | | | | | | | 07/18/15 at 0934, For 1 dose, | | | | | | | Administer within 1 hour of | | | | | | | surgical incision., Pre-op | | | | | | + +--------+ +------+------+------+ +---+---+ | | | +---+---+ + +-------+ +------+---+---+ | dexamethasone (DECADRON) 10 | Given | 07/18/20 | 8 mg | | | | mg/mL injection Intravenous, | | 15 12:10 | | | | | PRN, Starting Fri07/18/15 at | | PM PDT | | | | | 1210, Anesthesia Intra-op | | | | | | + +-------+ +------+---+---+ +---+---+ | | | +---+---+ + +-------+ +---------+---+---+ | fentaNYL injection | Given | 07/18/20 | 100 mcg | | | | Intravenous, PRN, Pain, Starting | | 15 12:10 | | | | | 07/18/15 at 1210, Anesthesia | | PM PDT | | | | | Intra-op | | | | | | + +-------+ +---------+---+---+ +---+---+ | | | +---+---+ + +-------+ +------+---+---+ | HYDROmorphone (PF) (DILAUDID) 2 | Given | 07/18/20 | 1 mg | | | | mg/mL injection Intravenous, | | 15 12:30 | | | | | PRN, Pain, Starting 07/18/15 | | PM PDT | | | | | at 1216, Anesthesia Intra-op | | | | | | + +-------+ +------+---+---+ +-------+ +------+---+---+ | Given | 08/18/20 | 1 mg | | | | | 15 12:16 | | | | | | PM PDT | | | | +-------+ +------+---+---+ +---+---+ | | | +---+---+ + +-------+ +-------+---+---+ | ketamine 50 mg/mL injection | Given | 07/18/20 | 25 mg | | | | Intravenous, PRN, Starting Tue | | 15 12:30 | | | | | 07/18/15 at 1230, Anesthesia | | PM PDT | | | | | Intra-op | | | | | | + +-------+ +-------+---+---+ +---+---+ | | | +---+---+ + +-------+ +-----+---+---+ | magnesium sulfate 500 mg/mL | Given | 07/18/20 | 1 g | | | | injection PRN, Starting Tue | | 15 12:30 | | | | | 15 at 1230, Anesthesia | | PM PDT | | | | | Intra-op | | | | | | + +-------+ +-----+---+---+ +---+---+ | | | +---+---+ + +-------+ +------+---+---+ | midazolam (VERSED) 1 mg/mL | Given | 07/18/20 | 2 mg | | | | injection Intravenous, PRN, | | 15 12:10 | | | | | Anxiety, Starting 07/18/15 at | | PM PDT | | | | | 1210, Anesthesia Intra-op | | | | | | + +-------+ +------+---+---+ +---+---+ | | | +---+---+ + +-------+ +------+---+---+ | ondansetron (ZOFRAN) injection | Given | 07/18/20 | 4 mg | | | | Intravenous, PRN, Nausea, | | 15 12:10 | | | | | Vomiting, Starting 07/18/15 at | | PM PDT | | | | | 1210, Anesthesia Intra-op | | | | | | + +-------+ +------+---+---+ +---+---+ | | | +---+---+ + +-------+ +--------+---+---+ | propofol (DIPRIVAN) injection | Given | 07/18/20 | 150 mg | | | | Intravenous, PRN, Starting Tue | | 15 12:15 | | | | | 07/18/15 at 1215, Anesthesia | | PM PDT | | | | | Intra-op | | | | | | + +-------+ +--------+---+---+ +---+---+ | | | +---+---+ + +-------+ +-------+---+---+ | succinylcholine (ANECTINE) | Given | 07/18/20 | 80 mg | | | | injection Intravenous, PRN, | | 15 12:15 | | | | | Starting 07/18/15 at 1215, | | PM PDT | | | | | Anesthesia Intra-op | | | | | | + +-------+ +-------+---+---+ +---+---+ | | | +---+---+ documented in this encounter"
--- OUTSIDE RECORDS SUMMARY | ~2020-03-28 | XMS | Encounter Summary ---
Demographics + + + | Address | [address] | | | [place] [address] | + + + | Home Phone | | + + + | Preferred Language | Unknown | + + + | Marital Status | | + + + | Gnosticism Affiliation | 1027 | + + + | Race | Unknown | + + + | Ethnic Group | Unknown | + + + Author + + + | Author | [facility] | | | and [place] | + + + | Organization | [facility] | | | [...] Team Providers + +------+ + | Care Leather Stripping Machine Operator Name | Role | Phone | + +------+ + | Brendon Loaiza MD | PCP | | + +------+ + Reason for Visit + + + | Reason | Comments | + + + | Follow-up | s/p fusion, follow up on symptoms | + + + Encounter Details +--------+---------+ + + + | Date | Type | Department | Care Team | Description | +--------+---------+ + + + | 05/17/ | Office | [facility] | Hussein Mayers, | S/P lumbar fusion | | 2016 | Visit | NEUROSURGERY [address] | PA-C [address] | (Primary Dx); Lumbar | | | | [address] | [address] [place] | strain, initial | | | | [place] | [place] [address] | encounter | | | | [id number] | [phone] | | | | | [phone] | | | +--------+---------+ + + + [...] + + + | Blood Pressure | 106/56 | 05/17/2016 9:33 AM | | | | | PDT | | + + + + + | Pulse | 62 | 05/17/2016 9:33 AM | | | | | PDT | | + + + + + | Temperature | - | - | | + + + + + | Respiratory Rate | 16 | 05/17/2016 9:33 AM | | | | | PDT | | + + + + + | Oxygen Saturation | - | - | | + + + + + | Inhaled Oxygen | - | - | | | Concentration | | | | + + + + + | Weight | 54.4 kg (120 lb) | 05/17/2016 9:33 AM | | | | | PDT | | + + + + + | Height | 170.2 cm (5' 7") | 05/17/2016 9:33 AM | | | | | PDT | | + + + + + | Body Mass Index | 18.79 | 05/17/2016 9:33 AM | | | | | PDT | | + + + + + documented in this encounter Patient Instructions Patient Instructions Hussein Mayers PA - 05/17/2016 10:19 AM PDTIf you're stomach will tolerate it, please begin taking 1 tablet of Aleve in the morning and 1 at nighttime with fo od. Also, please try and use wet heat applications for 20 minutes 3 times a day. In additi on, I would recommend going backinto your'e brace anytime you're getting up and walking [employer] for more than a few minutes. I would further recommend not bending over and picking up i tems, not twisting, and limit your lifting to 5 pounds. I suspect in the next 5-10 days wi ll begin to notice improvement in your back pain. In 2-3 weeks, if you're back pain improve s, you can very slowly begin increasing your activities as tolerated. If after a couple of weeks your back pain is not any better please call my office and I will order a CAT scan of your back. documented in this encounter Progress Notes Hussein Mayers PA - 05/17/2016 10:18 AM PDTFormatting of this note might be different f rom the original. TAMMY Bui [address] [facility], [address] [place], [place] [address] FAX: NEUROSURGERY FOLLOW-UP CHIEF COMPLAINT: Chief Complaint Patient presents with Follow-up s/p fusion, follow up on symptoms HISTORY OF PRESENT ILLNESS: The patient is a 56 y.o. female that had a L5-S1 fusion by me for back and leg pain on July 2015. She returns and overall is doing fair. Prior to armando rgery patient had significant leg pain. 6 months out from surgery patient reports that she was completely pain-free of her leg pain and to this day is still pain-free. However, appro ximately 2 weeks ago patient lifted the back of her treadmill she estimates weighs about 50 or 60 pounds. Since then patient has noticed a marked increase pain in her back. In the ea rly morning she states that her back pain is around a 1 or 2. However, by noon her pain is typically around a 5 or 6 and by the evening the pain commonly gets up to a 8 or 9. The pat ient is very reluctant to use any formal pain medication but has been using tramadol in the evening and this does help allowing her to get to sleep. Otherwise, patient has no complain ts of pain, tingling, or numbness in her legs. She has not experienced weakness in her legs . There have been no changes in her bowel or bladder status. PAST MEDICAL HISTORY: Past Medical History Diagnosis Date Anemia PONV (postoperative nausea and vomiting) Wears dentures upper front H/O cold sores PAST SURGICAL HISTORY: Past Surgical History Procedure Laterality Date Hysterectomy Ovarian cyst surgery Tonsillectomy Lumbar laminectomy Right 07/18/2015 Procedure: L5-S1 Transforaminal Lumbar Interbody Fusion; Surgeon: Freddie Parham, DO; Ryan ocation: [facility] CURRENT MEDICATIONS: Current Outpatient Prescriptions Medication Sig Dispense Refill estradiol (ESTRACE) 1 mg tablet Take 1 mg by mouth Daily. HYDROcodone-acetaminophen (NORCO) 5-325 mg per tablet Take 1-2 tablets by mouth every 4 hours as needed for Pain. 120 tablet 0 methocarbamol (ROBAXIN) 750 mg tablet Take 1 tablet by mouth 3 times daily. (Patient martinez mares differently: Take 750 mg by mouth as needed.) 90 tablet 1 traMADol (ULTRAM) 50 mg tablet Take 50 mg by mouth nightly. valACYclovir (VALTREX) 500 mg tablet Take 500 [...] Arthritis Father INTERIM PHYSICAL EXAMINATION: Blood pressure 106/56, pulse 62, resp. rate 16, height 1.702 m (5' 7"), weight 54.432 kg (1 20 lb), not currently . Body mass index is 18.79 kg/(m^2). GENERAL: Mady Munoz is in no acute distress with unlabored respirations. HEENT: HEAD/FACE: Normocephalic and atraumatic. There are no areas of recent trauma. CHEST: Clear to ausculation without crackles or wheeze. HEART: Regular rate and rhythm without murmurs. SPINE: The patient s incisions are healed well. EXTREMITIES: No lower extremity edema. NEUROLOGICAL EXAMINATION: MENTAL STATUS: The patient is awake, alert, and oriented. She follows simple and complex commands MOTOR EXAM: Motor strength is 5/5. SENSORY EXAM: The sensory examination is normal. REFLEXES: Reflexes are unchanged from her preoperative history and physical. RADIOGRAPHIC REVIEW: The patient s postoperative x-rays show stable instrumentation and alignment and were rev iewed with the patient today during the visit. There has not been increased arthrodesis sin ce the patient s last x-ray which was also reviewed for comparison. ASSESSMENT: Encounter Diagnoses Name Primary? S/P lumbar fusion Yes Lumbar strain, initial encounter Past Medical History Diagnosis Date Anemia PONV (postoperative nausea and vomiting) Wears dentures upper front H/O cold sores PLAN: Overall, the patient is doing fairly well. I think most likely with time her back pain chantell l improve. For now, I have recommended that she start taking Aleve twice daily along with w arm moist applications to her back. I've also recommended that she go back into her back br tanvi for a couple of weeks anytime she is walking around for extended periods. Lastly, I rec ommended that she implement lifting and twisting restrictions until we get better control of her pain. If after a couple of weeks her pain continues I will order a CAT scan. In a couple of weeks if her back pain is better she can begin to wean out of her back brace and slowly become more active. As a precaution, I will see the patient back in approximate ly 6 weeks. Otherwise, I will see her on an as-needed basis. ELECTRONICALLY SIGNED BY: TAMMY Bui, 05/17/2016 10:18 documented in this encounter Plan of Treatment +--------+ + + + + | Date | Type | Specialty | Care Team | Description | +--------+ + + + + | 04/06/ | Virtual | Pulmonology | Josr Garcia MD | | | 2019 | Office | | [address] | | | | Visit | | [facility] [place] | | | | | | [phone] | | | | | | | | +--------+ + + + + documented as of this encounter Visit Diagnoses + + | Diagnosis | + + | S/P lumbar fusion - Primary Arthrodesis status | + + | Lumbar strain, initial encounter | + + documented in this encounter
--- OUTSIDE RECORDS SUMMARY | ~2020-03-28 | XMS | Clinical Summary ---
Demographics + + + | Address | [address] | | | [place] [address] | + + + | Home Phone | | + + + | Preferred Language | Unknown | + + + | Marital Status | | + + + | Shinto Affiliation | 1027 | + + + | Race | Unknown | + + + | Ethnic Group | Unknown | + + + Author + + + | Author | [facility] | | | and [place] | + + + | Organization | [facility] | | | and [...] Team Providers + +------+ + | Care Airdrop Systems Technician Name | Role | Phone | + +------+ + | Brendon Loaiza MD | PCP | | + +------+ + Allergies + + + + + + | Active Allergy | Reactions | Severity | Noted | Comments | | | | | Date | | + + + + + + | Codeine | Nausea And Vomiting | High | 03/14/20 | | | | | | 20 | | + + + + + + | Morphine | Other (See Comments) | | 07/12/20 | " I don't like the | | | | | 15 | feeling", bad | | | | | | nightmares | + + + + + + | Morphine And Related | Nausea And Vomiting | | 03/14/20 | | | | | | 20 | | + + + + + + Medications + + + +---------+------+------+-------+ | Medication | Sig | Dispensed | Refills | Star | End | Statu | | | | | | t | Date | s | | | | | | Date | | | + + + +---------+------+------+-------+ | valACYclovir | Take 500 mg by mouth | | 0 | | | Activ | | (VALTREX) 500 mg | Daily. Oral Cold | | | | | e | | tablet | sores | | | | | | + + + +---------+------+------+-------+ | estradiol | Take 1 mg by mouth | | 0 | | | Activ | | (ESTRACE) 1 mg | Daily. | | | | | e | | tablet | | | | | | | + + + +---------+------+------+-------+ | benzonatate | Take 1 capsule by | 30 | 0 | 04/1 | | Activ | | (TESSALON) 100 mg | mouth 3 times daily | capsule | | 3/20 | | e | | capsule | as needed for Cough. | | | 20 | | | + + + +---------+------+------+-------+ | | Take by mouth | | 0 | | | Activ | | MAGNESIUM-POTASSIUM | nightly. RLS | | | | | e | | PO | | | | | | | + + + +---------+------+------+-------+ | Cholecalciferol | Take 2,000 Units by | | 0 | | | Activ | | (VITAMIN D-3 PO) | mouth nightly. | | | | | e | + + + +---------+------+------+-------+ | Biotin w/ Vitamins | Take by mouth | | 0 | | | Activ | | C & E | Daily. | | | | | e | | (HAIR/SKIN/NAILS PO) | | | | | | | + + + +---------+------+------+-------+ | ALBUTEROL IN | Inhale into the | | 0 | | | Activ | | | lungs Daily as | | | | | e | | | needed. | | | | | | + + + +---------+------+------+-------+ | | Inhale 1 puff into | | 0 | | | Activ | | fluticasone-salmeter | the lungs 2 times | | | | | e | | ol (ADVAIR, WIXELA | daily. | | | | | | | INHUB) 100-50 | | | | | | | | mcg/puff diskus | | | | | | | | inhaler | | | | | | | + + + +---------+------+------+-------+ | promethazine | Take 12.5 mg by | | 0 | | | Activ | | (PHENERGAN) 12.5 MG | mouth every 6 hours | | | | | e | | tablet | as needed for | | | | | | | | Nausea. | | | | | | + + + +---------+------+------+-------+ | predniSONE | 60mg for 4 days, | 20 | 0 | 04/2 | | Activ | | (DELTASONE) 10 mg | 40mg daily for 4 | tablet | | 0/20 | | e | | tablet | weeks | | | 20 | | | + + + +---------+------+------+-------+ | | Take 1 tablet by | 30 | 0 | 04/2 | | Activ | | sulfamethoxazole-tri | mouth Three times a | tablet | | 0/20 | | e | | methoprim (BACTRIM | week. | | | 20 | | | | DS) 800-160 mg per | | | | | | | | tablet | | | | | | | + + + +---------+------+------+-------+ | | Take 1-2 tablets by | 120 | 0 | 11/2 | 04/1 | Disco | | HYDROcodone-acetamin | mouth every 4 hours | tablet | | 0/20 | 3/20 | ntinu | | ophen (NORCO) 5-325 | as needed for Pain. | | | 15 | 20 | ed | | mg per tablet | | | | | | (Ther | | | | | | | | apy | | | | | | | | compl | | | | | | | | eted) | + + + +---------+------+------+-------+ | traMADol (ULTRAM) | Take 1 tablet by | 120 | 0 | 06/2 | 04/1 | Disco | | 50 mg | mouth nightly. | tablet | | 8/20 | 3/20 | ntinu | | tabletIndications: | | | | 16 | 20 | ed | | Lumbar radicular | | | | | | (Ther | | pain, Lumbosacral | | | | | | apy | | spondylosis without | | | | | | compl | | myelopathy | | | | | | eted) | + + + +---------+------+------+-------+ Active Problems + + + | Problem | Noted Date | + + + | Mediastinal lymphadenopathy | 03/13/2020 | + + + + + | Overview: Added automatically from request for surgery | | [id number] | + + + + + | S/P hysterectomy | 07/17/2015 | + + + | Drug Intolerance - Morphine | 07/17/2015 | + + + | Lumbosacral spondylosis without myelopathy | 07/17/2015 | + + + | Lumbar radicular pain | 07/17/2015 | + + + | Anemia | | + + + | PONV (postoperative nausea and vomiting) | | + + + Encounters +--------+ + + + + | Date | Type | Specialty | Care Team | Description | +--------+ + + + + | 03/28/ | Telephone | Pulmonology | Vita Loo RN | | 2019 | | | | | +--------+ + + + + | 03/21/ | Documentati | Pulmonology | Messi, | Hieu (labs from | | 2019 | on | | Emerald Limon | interpath) | | | | | Credit Analyst | | +--------+ + + + + | 03/20/ | Orders Only | Pulmonology | Josr Garcia MD | | 2019 | | | | | +--------+ + + + + | 03/17/ | Anesthesia | | Devonte García, | | | 2019 | Event | | COLBY Gaona, | | | | | | COLBY Abdi | | +--------+ + + + + | 03/17/ | Surgery | | Josr Garcia MD | ULTRASOUND | | 2020 | | | | ENDOBRONCHIAL | +--------+ + + + + | 03/17/ | Hospital | | Josr Garcia MD | Mediastinal | | 2020 | Encounter | | | lymphadenopathy; | | | | | | Mediastinal | | | | | | lymphadenopathy | +--------+ + + + + | 03/14/ | Preadmit | Pre-Admission | Josr Garcia MD | | | 2020 | Visit | Testing | | | +--------+ + + + + | 03/13/ | Office | Pulmonology | Josr Garcia MD | Mediastinal | | 2020 | Visit | | | lymphadenopathy | | | | | | (Primary Dx) | +--------+ + + + + | 03/07/ | Telephone | Pulmonology | Kyree, | Referral | | 2020 | | | Aliya Benitez, | | | | | | MD | | +--------+ + + + + from Last 3 Months Family History + + +------+ + | Medical History | Relation | Name | Comments | + + +------+ + | Arthritis | Father | | | + + +------+ + | Cancer | Paternal | | | | | Grandmoth | | | | | er | | | + + +------+ + | Malig hypertherm | Neg Hx | | | + + +------+ + + +------+ + + | Relation | Name | Status | Comments | + +------+ + + | Father | | | | + +------+ + + | Paternal Grandmother | | | Breast Cancer | | | | (Age | | | | | 65) | | + +------+ + + Social History + +-------+ +--------+------+ [...] recent travel history available. | + + Last Filed Vital Signs + + + [...] + + + + | Weight | 56.7 kg (125 lb) | 03/13/2020 12:33 PM | | | | | PDT | | + + + + + | Height | 170.2 cm (5' 7") | 05/17/2016 9:33 AM | | | | | PDT | | + + + + + | Body Mass Index | 19.58 | 05/17/2016 9:33 AM | | | | | PDT | | + + + + + Plan of Treatment +--------+ + + + + | Date | Type | Specialty | Care Team | Description | +--------+ + + + + | 04/06/ | Virtual | Pulmonology | Josr Garcia MD | | | 2020 | Office | | [address] | | | | Visit | | [place] | | | | | | [address] | | | | | | | | +--------+ + + + + + + + + + | Health Maintenance | Due Date | Last Done | Comments | + + + + + | Hepatitis C | | | | | Screening | 1 | | | + + + + + | Vaccine: | | | | | Dtap/Tdap/Td (1 - | 2 | | | | Tdap) | | | | + + + + + | Colorectal Cancer | | | | | Screening | 1 | | | | (Colonoscopy) | | | | + + + + + | Vaccine: Zoster (1 | | | | | of 2) | 1 | | | + + + + + | Breast Cancer | | | | | Screening | 6 | | | + + + + + | Vaccine: Influenza | | | | | (Season Ended) | 0 | | | + + + + + Implants + +------+--------+ +--------+--------+--------+ | Implanted | Type | Area | Manufacture | Device | Shelf | Model | | | | | r | | Expira | / | | | | | | Identi | tion | Serial | | | | | | fier | Date | / Lot | + +------+--------+ +--------+--------+--------+ | Graft Infuse Bone Kit Xxs - | | Right: | SOF[employer]UL[employer]OR | | 04/30/ | [id number] | | [id number]: Qty: 1 on | | Spine | DANEK - DIV | | 2016 | 0 / / | | 07/18/2015 by Freddie Parham | | | [employer] | | | | | A, DO at [facility] | | Lumbar | - [facility] | | | | | [facility] | | | | | | | + +------+--------+ +--------+--------+--------+ | Bone Chips 15cc - | | Right: | [place] | | 02/20/ | [id number] | | [id number]: Qty: 1 | | Spine | RED CROSS - | | 2020 | | | on 07/18/2015 by Dione, | | | AMRR | | | /[id number] | | Freddie Rothman DO at [facility] | | Lumbar | | | | 0-023 | | [facility] | | | | | | /38-34 | | | | | | | | 54 | + +------+--------+ +--------+--------+--------+ | Screw Beto Solera 6.5x45mm - | | Right: | SOFAMOR | | | [id number] | | [id number]: Qty: 1 on | | Spine | DANEK - DIV | | | [id number] | | 07/18/2015 by Freddie Parham | | | [employer] | | | / / | | DO Lorna at [facility] | | Lumbar | - [facility] | | | | | [facility] | | | | | | | + +------+--------+ +--------+--------+--------+ | Screw Beto Solera 6.5x50mm - | | Right: | SOFAMOR | | | [id number] | | [id number]: Qty: 1 on | | Spine | DANEK - DIV | | | [id number] | | 07/18/2015 by Freddie Parham | | | [employer] | | | / / | | DO Lorna at [facility] | | Lumbar | - [facility] | | | | | [facility] | | | | | | | + +------+--------+ +--------+--------+--------+ | Screw Mas G5 Slra 7.5x40 Cn - | | Right: | SOFAMOR | | | [id number] | | [id number]: Qty: 2 | | Spine | DANEK - DIV | | | [id number] | | on 07/18/2015 by Dione, | | | [employer] | | | / / | | Freddie Rothman DO at [facility] | | Lumbar | - [facility] | | | | | [facility] | | | | | | | + +------+--------+ +--------+--------+--------+ | Set Scrw Ns G5 Brk Off Ti | | Right: | SOFAMOR | | | [id number] | | 4.75 - [id number]: | | Spine | DANEK - DIV | | | 0 / / | | Qty: 4 on 07/18/2015 by | | | [employer] | | | | | Freddie Parham DO at [facility] | | Lumbar | - [facility] | | | | | [facility] | | | | | | | | [facility]ENTER | | | | | | | + +------+--------+ +--------+--------+--------+ | Thom Dorykomal Kedar [id number] - | | Right: | SOFAMOR | | | [id number] | | [id number]: Qty: 2 on | | Spine | DANEK - DIV | | | [id number] / | | 07/18/2015 by Freddie Parham | | | [employer] | | | / | | DO Lorna at [facility] | | Lumbar | - [facility] | | | | | [facility] | | | | | | | + +------+--------+ +--------+--------+--------+ | Impl Vincen r Stephaniee | | Right: | [employer] - | | 05/15/ | [id number] | | [id number] - [id number]: | | Spine | MEDT | | 2023 | 0 / | | Qty: 1 on 07/18/2015 by | | | | | | /[id number] | | Freddie Parham DO at [facility] | | Lumbar | | | | 235 | | [facility] | | | | | | | | CENTER | | | | | | | + +------+--------+ +--------+--------+--------+ Procedures + +--------+ + + + | [...] | + +--------+ + + + | ANE AIRWAY NOTE | Routin | 03/17/2020 | | Results for this | | | e | 3:00 PM | | procedure are in the | | | | PDT | | results section. | + +--------+ + + + | IN BRNCHSC INCL | Routin | 03/17/2020 | [...] | | + +--------+ + + + from Last 3 Months Results LABS - EXTERNAL SCAN (03/20/2020 12:00 [...] component | | | was performed by [facility], [address] [place] [address] | | | [place] [address] ([employer]: Papi Bnudy D.O.; CLIA#: | | | [id number]). Professionalinterpretation was performed by [facility] | | | [facility], | | | [place] [address] ([employer]: Trey Hernandez M.D.; CLIA#: | | | [id number]). Diagnostician: Cyndie Wagoner | | | CT([facility])CytotechnologistDiagnostician: Karine Christine Backer | | | MDPathologistElectronically [...] | |The technical component was performed by [facility], [address] [place] [address] ([employer]: Papi Bundy D.O.; CLIA#: [id number]). Candace burns | | |interpretation was performed by [facility], [address] [address] ([employer]: Trey Hernandez M.D.; CLIA#: [id number] ). | | | | | |Diagnostician: Cyndie HANSON([facility]) | | |Front Office Manager | | |Diagnostician: Karine Bales MD | | |Pathologist | | |Electronically Signed 03/20/2020 | | | | | | | | + + + + +---------+ + + | Performing | Address | City/State/Rustcode | Phone Number | | Organization | [...] component was performed | | | by [facility], [address] [place] [address] (Medical | | | Director: Karine Bales MD; CLIA# [id number]). Professional | | | [facility] | | | [place] [address] (Medical | | | Director: Trey Hernandez M.D.; CLIA#: [id number]). Diagnostician: | | | Karine HIathologistElectronically Signed 03/20/2020 | | |question about this report, please contact Client Services. | | | | | |PERFORMING LABORATORY: | | |The technical component was performed by [facility], [address] [place] [address] ([employer]: Karine Bales MD; CLIA# [id number]). Professional interpretation was performed by | | |[facility] [address] ([employer]: Trey Hernandez M.D.; CLIA#: [id number]). | | | | | |Diagnostician: Karine [...] | | | + +---------+ + + Airway (03/17/2020 3:00 PM PDT) + + + | Narrative | Performed At | + + + | Devonte García CRNA 03/17/2020 3:00 PM Anesthesia Airway | | | Placement 03/17/2020 2:51 PM Preprocedure check: patient | | | identified, oxygen, airway assessed, airway equipment checked, | | | patient reassessment prior to induction and suction Rapid Sequence | | | Induction: no Mask ventilation: easy Successful technique: Domenico | | | Laryngoscope blade size: 2 Airway grade: 1 (Full view of glottis) | | | Other equipment: stylette Attempts: 1 Airway type: endotracheal | | | Size: 8 Cuffed: cuffed Route, reference point: right side of mouth | | | Tube depth: 21 cm Tube secured with: adhesive tape Trauma: none | | | Tube placement verification: bilateral chest rise, carbon dioxide | | | detection and equal bilateral breath sounds Performing provider: Devonte | | | Lorna García CRNA Authorizing provider: Devonte García CRNA | | | Please see intraoperative grid for any additional medication | | | documentation. | | + + + Bronchoscopy (03/17/2020 2:48 PM PDT) + + | Specimen | + + | | + + + + + | Narrative | Performed At | + + + | [facility] | [facility] | | [facility] | PROVATION | | CenterPulmonology | | | Patient Name: Mady Manley | | | Procedure Date: 03/17/2020 2:48 PMMRN: [id number] | | | Date of : 1960Note [...] | | | right hilum using an RAZ Mobile EBUS-TBNA 19 gauge needle and sent | [...] | | | | | | Josr Garcia, 03/17/2020 4:08:01 PMThis report has been | | | signed electronically.Number of Addenda: 0 Note Initiated On: | | | 03/17/2020 2:[address] [facility] | | | Department | | |This report has been signed electronically. | | |Number of Addenda: 0 | | | | | |Note Initiated On: 03/17/2020 2:48 PM | | | | | | [facility] | | + + [...] | | | Absolute | performed at [facility] | LABORATORY | | | | [address];[place], [place] | | | | | | [address] | | | | + + + + + + + + | Specimen | + + | Blood | + + + + + + + | Performing | Address | City/State/Zipcode | Phone Number | | Organization | | | | + + + + + | [facility] | [address] | [place] [address] | [phone] | + + + + + from Last 3 Months Insurance + +--------+ +--------+ +---------+------+ | Payer | Benefi | Subscriber | Effect | Phone | Address | Type | | | t Plan | ID | aurea | | | | | | / | | Dates | | | | | | Group | | | | | | + +--------+ +--------+ +---------+------+ | [employer] | PACIFI | [id number] | 12/01/19 | [phone] | | PPO | | | [employer] | | 20-Pre | 2 | | | | | E | | sent | | | | | | FIRST | | | | | | | | CHOICE | | | | | | + +--------+ +--------+ +---------+------+ | [facility] | PHP | [id number] | 12/01/19 | [phone] | | PPO | | PLAN | PERSON | | 16-Pre | 5 | | | | | [place] | | sent | | | | | | OPEN | | | | | | | | OPTION | | | | | | + +--------+ +--------+ +---------+------+ + +--------+ +--------+ + + | Guarantor Name | Accoun | Relation to | Date | Phone | Billing Address | | | t Type | Patient | of | | | | | | | | | | + +--------+ +--------+ + + | Mady Manley | Person | Self [birth year] | [address] | | | al/Fam | | 1960 | [phone] | [place] | | | jimmie | | | [address] (Home) | [address] | + +--------+ +--------+ + + | Mady Manley | Person | Self | [birth year] | | [address] | | | al/Fam | | 1960 | [phone] | [place] | | | [place] | | | [address] (Home) | [address] | + +--------+ +--------+ + + Advance Directives + + + + + | Type | Date Recorded | Patient | Explanation | | | | Windscreen Fitter | | + + + + + | Power of | | | | | Sorter/Assay Tech | | | | + + + + + | Advance | 03/13/2020 1:34 | | | | Directive | PM | | | + + + + + + + + + + | Code Status | Date | Date | Comments | | | Activated | Inactivated | | + + + + + | Full Code | 07/18/2015 | 07/20/2015 | | | | 3:51 PM | 8:06 PM | | + + + + +
--- OUTSIDE RECORDS SUMMARY | ~2020-03-28 | XMS | Encounter Summary ---
Demographics + + + | Address | [address] | | | [place] [address] | + + + | Home Phone | | + + + | Preferred Language | Unknown | + + + | Marital Status | | + + + | Voodoo Affiliation | 1027 | + + + | Race | Unknown | + + + | Ethnic Group | Unknown | + + + Author + + + | Author | [facility] | | | and [place] | + + + | Organization | [facility] | | | [...] Team Providers + +------+ + | Care Cnc Operator Machinist Name | Role | Phone | + +------+ + | Brendon Loaiza MD | PCP | | + +------+ + Reason for Visit +--------+ + | Reason | Comments | +--------+ + | Nausea | | +--------+ + Encounter Details +--------+ + + + + | Date | Type | Department | Care Team | Description | +--------+ + + + + | 07/22/ | Telephone | [facility] | Max Gutierrez MD | Nausea | | 2015 | | NEUROSURGERY [address] | [address] | | | | | [address] | [place] [address] | | | | | [place] | [phone] | | | | | [address] | | | | | | [phone] | | | +--------+ + + + [...] [place] | | | | | | [address] | | | | | | | | +--------+ + + + + documented as of this encounter Visit Diagnoses Not on filedocumented in this encounter"
--- OUTSIDE RECORDS SUMMARY | ~2020-03-28 | XMS | Encounter Summary ---
Demographics + + + | Address | [address] | | | [place] [address] | + + + | Home Phone [...] Team Providers + +------+ + | Care Inspector Line Name | Role | Phone | + +------+ + | Marin Lima DO | PCP | | + +------+ + Encounter Details +--------+ + + + + | Date | Type | Department | Care Team | Description | +--------+ + + + + | 03/09/ | Orders Only | [facility] | Freddie Parham, | Back pain, | | 2015 | | NEUROSURGERY [address] | DO [address] | unspecified location | | | | [address] | [address] [place], [place] | (Primary Dx) | | | | [place] | [address] | | | | | [address] | | | | | | [phone] | | | +--------+ + + + [...] [place] | | | | | | [address] | | | | | | | | +--------+ + + + + documented as of this encounter Results XR Lumbar Spine 2 or 3 Vw (03/29/2015 10:23 AM PDT) + + | Specimen | + + | | + + + + + | Narrative | Performed At | + + + | XR LUMBAR SPINE 2 OR 3 VW. 03/29/2015 10:23 AM HISTORY: back | [facility] | | pain . COMPARISON: MRI lumbar spine 02/03/2015 FINDINGS: | [facility] | | Vertebral body alignment is maintained on the upright neutral view, | [facility] | | with anterolisthesis of L4 on L5 seen on the flexion view only. | - IMAGING | | Vertebral body heights are maintained. Mild degenerative disc disease. | | | Mild decrease in disc height at L1-2. No significant facet | | | degenerative hypertrophy. IMPRESSION - Anterolisthesis of L4 | | | on L5 seen on the flexion view only. Dictated and Signed by: Philip | | | MD Caden Electronically signed: 03/29/2015 3:47 PM | | + + + + + | Procedure Note | + + | David, Rad Results In - 03/29/2015 3:50 PM PDT XR LUMBAR SPINE 2 OR 3 VW. 03/29/2015 | | 10:23 AMHISTORY: back pain . COMPARISON: MRI lumbar spine 02/03/2015FINDINGS:Vertebral | | body alignment is maintained on the upright neutral view, withanterolisthesis of L4 on | | L5 seen on the flexion view only.Vertebral body heights are maintained. Mild | | degenerative disc disease. Milddecrease in disc height at L1-2. No significant facet | | degenerative hypertrophy.IMPRESSION -Anterolisthesis of L4 on L5 seen on the flexion | | view only.Dictated and Signed by: Philip Negrete MD Electronically signed: 03/29/2015 | | 3:47 PM | |anterolisthesis of L4 on L5 seen on the flexion view only. | |Vertebral body heights are maintained. Mild degenerative disc disease. Mild | |decrease in disc height at L1-2. No significant facet degenerative hypertrophy. | | | | | |IMPRESSION - | |Anterolisthesis of L4 on L5 seen on the flexion view only. | | | |Dictated and Signed by: Philip Negrete MD | | Electronically signed: 03/29/2015 3:47 PM | + + + + + + + | Performing | Address | City/State/Zipcode | Phone Number | | Organization | | | | + + + + + | [facility] | [address] | [place] | [phone] | | [facility] | | [address] | | | - IMAGING | | | | + + + + + documented in this encounter Visit Diagnoses + + | Diagnosis | + + | Back pain, unspecified location - Primary | + + documented in this encounter"
--- OUTSIDE RECORDS SUMMARY | ~2020-03-28 | XMS | Encounter Summary ---
Demographics + + + | Address | [address] | | | [place] [address] | + + + | Home Phone | | + + + | Preferred Language | Unknown | + + + | Marital Status | | + + + | Tenriism Affiliation | 1027 | + + + | Race | Unknown | + + + | Ethnic Group | Unknown | + + + Author + + + | Author | [facility] | | | and [place] | + + + | Organization | [facility] | | | [...] Team Providers + +------+ + | Care Demolition Expert Name | Role | Phone | + +------+ + | Brendon Loaiza MD | PCP | | + +------+ + Encounter Details +--------+ + + + + | Date | Type | Department | Care Team | Description | +--------+ + + + + | 08/10/ | Orders Only | [facility] | Freddie Parham, | Status post lumbar | | 2015 | | NEUROSURGERY [address] | DO [address] | spinal fusion | | | | [address] | [address] [place], [place] | (Primary Dx) | | | | [place], [place] | [address] | | | | | [address] | | | | | | [phone] | | | +--------+ + + + [...] | | Visit | | [place] | | | | | | [address] | | | | | | | | +--------+ + + + + + +---------+--------+ + + | Name | Type | Priori | Associated Diagnoses | Order Schedule | | | | ty | | | + +---------+--------+ + + | XR Lumbar Spine 2 or | Imaging | Routin | Status post lumbar | Expected: 08/07/2015 | | 3 Vw | | e | spinal fusion | (Approximate), | | | | | | Expires: 07/09/2016 | + +---------+--------+ + + documented as of this encounter Visit Diagnoses + + | Diagnosis | + + | Status post lumbar spinal fusion - Primary Arthrodesis status | + + documented in this encounter"
--- OUTSIDE RECORDS SUMMARY | ~2020-03-28 | XMS | Encounter Summary ---
Demographics + + + | Address | [address] | | | [place] [address] | + + + | Home Phone | | + + + | Preferred Language | Unknown | + + + | Marital Status | | + + + | Gnosticism Affiliation | 1027 | + + + | Race | Unknown | + + + | Ethnic Group | Unknown | + + + Author + + + | Author | [facility] | | | and [place] | + + + | Organization | [facility] | | | [...] Providers + +------+ + | Care Senior Interactive Developer Name | Role | Phone | + +------+ + | Brendon Loaiza MD | PCP | | + +------+ + Reason for Visit +--------+ + | Reason | Comments | +--------+ + | Pain | | +--------+ + Encounter Details +--------+ + + + + | Date | Type | Department | Care Team | Description | +--------+ + + + + | 10/09/ | Telephone | [facility] [place] | Freddie Parham, | Pain | | 2014 | | NEUROSURGERY [address] | DO [address] | | | | | [address] | [address] [place], [place] | | | | | [place], [place] | [address] | | | | | [address] | | | | | | [phone] | | | +--------+ + + + [...] [place] | | | | | | [address] | | | | | | | | +--------+ + + + + documented as of this encounter Visit Diagnoses Not on filedocumented in this encounter"
--- OUTSIDE RECORDS SUMMARY | ~2020-03-28 | XMS | Encounter Summary ---
Demographics + + + | Address | [address] | | | [place] [address] | + + + | Home Phone | | + + + | Preferred Language | Unknown | + + + | Marital Status | | + + + | Evangelical Affiliation | 1027 | + + + [...] Team Providers + +------+ + | Care Buffer Machine Name | Role | Phone | + [...] + + | 03/17/ | Hospital | [facility] | Josr Garcia MD | Mediastinal | | 2020 | Encounter | [facility] | [address] | lymphadenopathy; | | | | INTRA OP [address] | [address] [facility] [place] | Mediastinal | | | | [address], [place] | [address] | lymphadenopathy | | | | [address] | | | | | | [phone] | | | +--------+ + + + [...] of breath and diaphoresis, report immediately to [facility] Emergency Room or call . Diet: Regular [...] [place] | | | | | | [address] | | | | | | | [...] | + +--------+ + + + | [facility] | Routin | 03/17/2020 | [...] component | | | was performed by [facility], [address] [place] [address] | | | [place] [address] (Tank Wagon Operator: Papi Bundy D.O.; CLIA#: | | | [id number]). Professionalinterpretation was performed by [facility] | | | [facility], [address], | | | [place] [address] (Tank Wagon Operator: Trey Hernandez M.D.; CLIA#: | | | [id number]). Diagnostician: Cyndie Wagoner | | | CT([facility])CytotechnologistDiagnostician: Karine Christine Backer | | [...] | |The technical component was performed by [facility], [address] [place] [address] (Tank Wagon Operator: Papi Bundy D.O.; CLIA#: [id number]). Candace burns | | |interpretation was performed by [facility], [facility], [address] [place] [address] (Tank Wagon Operator: Trey Hernandez M.D.; CLIA#: [id number] ). | | | | | |Diagnostician: Cyndie HANSON([facility]) | | |Vat Operator | | |Diagnostician: Karine Bales MD | [...] | results with the patient's concurrent cytology ([id number]). | | | AMB:emb:C2NR MICROSCOPIC EXAMINATION:Histologic sections [...] component was performed | | | by [facility], [address] [place] [address] (Medical | | | Director: Karine Bales MD; CLIA# [id number]). Professional | | | interpretation was performed by[facility], [facility] | | | [address] [address] (Medical | | | Director: Trey Hernandez M.D.; CLIA#: [id number]). Diagnostician: | | | Karine HIathologistElectronically Signed 03/20/2020 | | |question about this report, please contact Client Services. | | | | | |PERFORMING LABORATORY: | | |The technical component was performed by [facility], [address] [place] [address] (Tank Wagon Operator: Karine Bales MD; CLIA# [id number]). Professional interpretation was performed by | | |[facility] [address] (Tank Wagon Operator: Trey Hernandez M.D.; CLIA#: [id number]). | | | | | |Diagnostician: Karine [...] Performed At | + + + | [facility] | [facility] | | [facility] | PROVATION | | [facility] | | | Patient Name: Mady Manley | | | Procedure Date: 03/17/2020 2:48 PMMRN: [id number] | | | Date of : 1960Note [...] On: | | | 03/17/2020 2:48 PM [facility] - Endoscopy | | | Department | | |This report has been signed electronically. | | |Number of Addenda: 0 | | | | | |Note Initiated On: 03/17/2020 2:48 PM | | | | | | [facility] - Endoscopy Department | | + [...] | | | Absolute | performed at [facility];[address] | [address] | LABORATORY | | | | Nicole Johnson;[place] | | | | | | [address] | | | | + + + + + + + + | Specimen | + + | Blood | + + + + + + + | Performing | Address | City/State/Zipcode | Phone Number | | Organization | | | | + + + + + | [facility] | Lakshmi Johnson | [place] [address] | [phone] | + + + + + documented [...]
--- OUTSIDE RECORDS SUMMARY | ~2020-03-28 | XMS | Encounter Summary ---
Demographics + + + | Address | [address] | | | [place] [address] | + + + | Home Phone | | + + + | Preferred Language | Unknown | + + + | Marital Status | | + + + | Tenriism Affiliation | 1027 | + + + | Race | Unknown | + + + | Ethnic Group | Unknown | + + + Author + + + | Author | [facility] | | | and [place] | + + + | Organization | [facility] | | | [...] Team Providers + +------+ + | Care Hog Buyer Name | Role | Phone | + +------+ + | Marin Lima DO | PCP | | + +------+ + Reason for Visit + + + | Reason | Comments | + + + | Back Pain | | + + + Evaluate & Treat (Routine) +--------+--------+ + + + + | Status | Reason | Specialty | Diagnoses / | Referred By | Referred To | | | | | Procedures | Contact | Contact | +--------+--------+ + + + + | Closed | | Neurosurgery | Diagnoses | Janie, | Dione, | | | | | Lumbar disc | Marin Calderon, | Freddie Rothman DO | | | | | | DO [address] | [address] | | | | | displacement | ST [place] | [address] | | | | | without | [place], [place] | [place] | | | | | myelopathy | [address] | [address] Phone: | | | | | Procedures | Phone: | [phone] | | | | | [place] OFFICE | [phone] | Fax: | | | | | CONSULTATION | Fax: | [phone] | | | | | NEW/ESTAB | [phone] | | | | | | PATIENT 60 | | | | | | | MIN | | | +--------+--------+ + + + + Encounter Details +--------+---------+ + + + | Date | Type | Department | Care Team | Description | +--------+---------+ + + + | 03/29/ | Office | [facility] | Freddie Parham, | Osteoarthritis of | | 2015 | Visit | NEUROSURGERY [address] | DO [address] | spine with | | | | [address] | [address] [place], [place] | radiculopathy, | | | | [place], [place] | [address] | lumbar region | | | | [address] | | (Primary Dx); Lumbar | | | | [phone] | | disc herniation; | | | | | | Lumbar stenosis; | | | | | | Lumbar radicular | | | | | | pain; Midline low | | | | | | back pain with | | | | | | right-sided sciatica | +--------+---------+ + + + Social History [...] + + + | Blood Pressure | 109/62 | 03/29/2015 10:41 AM | | | | | PDT | | + + + + + | Pulse | 60 | 03/29/2015 10:41 AM | | | | | PDT | | + + + + + | Temperature | - | - | | + + + + + | Respiratory Rate | 15 | 03/29/2015 10:41 AM | | | | | PDT | | + + + + + | Oxygen Saturation | - | - | | + + + + + | Inhaled Oxygen | - | - | | | Concentration | | | | + + + + + | Weight | 55.3 kg (122 lb) | 03/29/2015 10:41 AM | | | | | PDT | | + + + + + | Height | 167.6 cm (5' 6") | 03/29/2015 10:41 AM | | | | | PDT | | + + + + + | Body Mass Index | 19.69 | 03/29/2015 10:41 AM | | | | | PDT | | + + + + + documented in this encounter Patient Instructions Patient Instructions Freddie Parham DO - 03/29/2015 11:29 AM PDTPlease undergo bilateral L5-S1 facet injections. Please call if the injections do not help and you would like to proceed with surgery.Electr onically signed by Freddie Parham DO at 03/29/2015 11:30 AM PDT documented in this encounter Progress Notes Freddie Parham DO - 03/29/2015 11:30 AM PDTFormatting of this note might be different fro m the original. Freddie Parham DO [address] [facility], [address] [place], [place] [id number] FAX: NEUROSURGERY HISTORY AND PHYSICAL EXAMINATION CHIEF COMPLAINT: Chief Complaint Patient presents with Back Pain HISTORY OF PRESENT ILLNESS: The patient is a 54 y.o. female with the complaint of back sym ptoms that began 6 months ago. The patient describes lifting heavy boxes and feeling an imm ediate change in her low back. The symptoms [...] has no apparent deficits with short or prison memory. CRANIAL NERVES: II: Acuity is intact. [...] Intrinsics 5 5 Ulnar Intrinsics 5 5 Inspector Integrated Circuits Strength 5 5 Hip Flexion 5 5 [...] to continue conservative management. I will refer h er for bilateral L5-S1 facet injections. If this relieves her pain, she may follow-up as jessica dominique. If her symptoms persist, we discussed the [...] improve the probability and rate of fusion. She will call us after the facet injections if she would like to proceed with the surgical option. ELECTRONICALLY SIGNED BY: Freddie Parham DO, 03/29/2015 11:38 documented in this en counter Plan of [...] [place] | | | | | | [address] | | | | | | | | +--------+ + + + + documented as of this encounter Visit Diagnoses + + | Diagnosis | + + | Osteoarthritis of spine with radiculopathy, lumbar region - Primary | + + | Lumbar disc herniation Displacement of lumbar intervertebral disc without myelopathy | + + | Lumbar stenosis Spinal stenosis, lumbar region, without neurogenic claudication | + + | Lumbar radicular pain Thoracic or lumbosacral neuritis or radiculitis, unspecified | + + | Midline low back pain with right-sided sciatica | + + documented in this encounter
--- OUTSIDE RECORDS SUMMARY | ~2020-03-28 | XMS | Encounter Summary ---
Demographics + + + | Address | [address] | | | [place] [address] | + + + | Home Phone | | + + + | Preferred Language | Unknown | + + + | Marital Status | | + + + | Evangelical Affiliation | 1027 | + + + | Race | Unknown | + + + | Ethnic Group | Unknown | + + + Author + + + | Author | [facility] | | | and [place] | + + + | Organization | [facility] | | | [...] Team Providers + +------+ + | Care Slitter Cut Off Operator Name | Role | Phone | + +------+ + | Brendon Loaiza MD | PCP | | + +------+ + Reason for Visit +--------+ + | Reason | Comments | +--------+ + | Other | | +--------+ + Encounter Details +--------+ + + + + | Date | Type | Department | Care Team | Description | +--------+ + + + + | 02/12/ | Telephone | [facility] [place] | Freddie Parham, | Other | | 2015 | | NEUROSURGERY [address] | DO [address] | | | | | [address] | [address] [place], [place] | | | | | [place], [place] | [address] | | | | | [address] | | | | | | [phone] | | | +--------+ + + + [...] [place] | | | | | | [address] | | | | | | | | +--------+ + + + + documented as of this encounter Visit Diagnoses Not on filedocumented in this encounter"
--- OUTSIDE RECORDS SUMMARY | ~2020-03-28 | XMS | Encounter Summary ---
Demographics + + + | Address | [address] | | | [place] [address] | + + + | Home Phone | | + + + | Preferred Language | Unknown | + + + | Marital Status | | + + + | Cheondoism Affiliation | 1027 | + + + | Race | Unknown | + + + | Ethnic Group | Unknown | + + + Author + + + | Author | [facility] | | | and [place] | + + + | Organization | [facility] | | [...] Providers + +------+ + | Care Risk Lead Name | Role | Phone | + [...] + + | 04/18/ | Telephone | [facility] [place] | Avery Vaughan | Other | | 2014 | | PHYSIATRY [address] | T, [address] | | | | [address] | [place], [place] | | | | | [place], [place] | [address] | | | | | [address] | | | | | | [phone] | | | +--------+ + + + [...] | | Visit | | [address] [place] | | | | | | [id number] | | | | | | | | +--------+ + + + + documented as of this encounter Visit Diagnoses Not on filedocumented in this encounter"
--- OUTSIDE RECORDS SUMMARY | ~2020-03-28 | XMS | Encounter Summary ---
Demographics + + + | Address | [address] | | | [place] [address] | + + + | Home Phone | | + + + | Preferred Language | Unknown | + + + | Marital Status | | + + + | Sabianism Affiliation | 1027 | + + + | Race | Unknown | + + + | Ethnic Group | Unknown | + + + Author + + + | Author | [facility] | | | and [place] | + + + | Organization | [facility] | | [...] Team Providers + +------+ + | Care Outsole Handler Name | Role | Phone | + [...] | | | | | | | [place] [facility] | | | | | | [...] + + | 07/18/ | Hospital | [facility] | Freddie Parham, | | | 2014 - | Encounter | MED CTR SURGICAL | DO [address] | | | | | [address] | [address] | | | 07/20/ | | [place] [address] | [id number] | | | 2014 | | [phone] | | | +--------+ + + + [...] might be differen t from the original. [facility] NEUROSURGERY DISCHARGE SUMMARY Patient Name: Mady Munoz [...] sent through Care Everywhere.LUMBAR FUSION, DISCHARGE INSTRUCTIONS (GHANAIAN)SPINAL FUSION, DISCHARGE INSTRUCTIONS (GHANAIAN)TRANSFORAMINA L LUMBAR INTERBODY FUSION (TLIF) (GHANAIAN)documented in this encounter Medications at Time of [...] + documented as of this encounter Progress Jcarlos Hartmann PA - 07/19/2015 9:12 AM PDTFormatting of this note might be differen t from the original. [facility] PROGRESS NOTE Pt. Name/Age/: Mady Alexander 55 y.o. 1960 Med. Record Number: [id number] Date of admission: 07/18/2015 Subjective: The patient [...] Electronically signed by: Jcarlos Vasquez, 07/19/2015 9:12 [facility] documented in th is encounter Plan of Treatment +--------+ + + [...] [place] | | | | | | [address] | | | | | | | [...] formation is again evident within the superior [id number] endplate and is similar | | to [...] St | [place] | | | [facility] | | [address] | | | - BLOOD BANK | [...] | | | | Muscle spasms, Starting Fri | | PM PDT | | | [...]
--- OUTSIDE RECORDS SUMMARY | ~2020-03-28 | XMS | Encounter Summary ---
Demographics + + + | Address | [address] | | | [place] [address] | + + + | Home Phone | | + + + | Preferred Language | Unknown | + + + | Marital Status | | + + + | Roman Catholic Affiliation | 1027 | + + + | Race | Unknown | + + + | Ethnic Group | Unknown | + + + Author + + + | Author | [facility] | | | and [place] | + + + | Organization | [facility] | | [...] Team Providers + +------+ + | Care Single Resource Boss Name | Role | Phone | + +------+ + | Brendon Loaiza MD | PCP | | + +------+ + Encounter Details +--------+ + + + + | Date | Type | Department | Care Team | Description | +--------+ + + + + | 03/20/ | Orders Only | [facility] | Josr Garcia MD | | | 2020 | | PULMONOLOGY [address] | [address] | | | | | [address] | [address] [place], [place] | | | | | [place], [place] | [address] | | | | | [address] | | | | | | [phone] | | | +--------+ + + + [...] | | Visit | | [address] [place] | | | | | | [address] | | | | | | | | +--------+ + + + + documented as of this encounter Visit Diagnoses Not on filedocumented in this encounter"
--- OUTSIDE RECORDS SUMMARY | ~2020-03-28 | XMS | Encounter Summary ---
Demographics + + + | Address | [address] | | | [place] [address] | + + + | Home Phone | | + + + | Preferred Language | Unknown | + + + | Marital Status | | + + + | Jewish Affiliation | 1027 | + + + | Race | Unknown | + + + | Ethnic Group | Unknown | + + + Author + + + | Author | [facility] | | | and [place] | + + + | Organization | [facility] | | | and [...] Team Providers + +------+ + | Care Asthma Educator Name | Role | Phone | + +------+ + | Brendon Loaiza MD | PCP | | + +------+ + Encounter Details +--------+ + + + + | Date | Type | Department | Care Team | Description | +--------+ + + + + | 07/12/ | Hospital | [facility] | Freddie Parham, | | | 2014 | Encounter | MED CTR LABORATORY | DO [address] | | | | | [address] | [address] [place] | | | | | [place] | [address] | | | | | [address] | | | | | | [phone] | | | +--------+ + + + [...] [place] | | | | | | [id number] | | | | | | | | +--------+ + + + + documented as of this encounter Visit Diagnoses Not on filedocumented in this encounter"
--- OUTSIDE RECORDS SUMMARY | ~2020-03-28 | XMS | Encounter Summary ---
Demographics + + + | Address | [address] | | | [place] [address] | + + + | Home Phone | | + + + | Preferred Language | Unknown | + + + | Marital Status | | + + + | Mu-Ism Affiliation | 1027 | + + + | Race | Unknown | + + + | Ethnic Group | Unknown | + + + Author + + + | Author | [facility] | | | and [place] | + + + | Organization | [facility] | | | [...] Team Providers + +------+ + | Care Fish Bait Processing Supervisor Name | Role | Phone | + +------+ + PCP | Unavailable | + +------+ + Encounter Details +--------+ + + + + | Date | Type | Department | Care Team | Description | +--------+ + + + + | 08/16/ | Hospital | [facility] | | | | 2001 - | Encounter | MED CTR CANCER | | | | | | CENTER Timmy Oswald | | | | 11/14/ | | [place] | | | | 2001 | | [address] | | | | | | [phone] | | | +--------+ + + + [...] [place] | | | | | | [address] | | | | | | | | +--------+ + + + + documented as of this encounter Visit Diagnoses Not on filedocumented in this encounter"
--- OUTSIDE RECORDS SUMMARY | ~2020-03-28 | XMS | Encounter Summary ---
Demographics + + + | Address | [address] | | | [place] [address] | + + + | Home Phone | | + + + | Preferred Language | Unknown | + + + | Marital Status | | + + + | Voodoo Affiliation | 1027 | + + + | Race | Unknown | + + + | Ethnic Group | Unknown | + + + Author + + + | Author | [facility] | | | and [place] | + + + | Organization | [facility] | | [...] Team Providers + +------+ + | Care Marketing Analyst Name | Role | Phone | + +------+ + | Brendon Loaiza MD | PCP | | + +------+ + Reason for Visit +--------+ + | Reason | Comments | +--------+ + | Other | MRI scheduled | +--------+ + Encounter Details +--------+ + + + + | Date | Type | Department | Care Team | Description | +--------+ + + + + | 11/07/ | Telephone | [facility] | Freddie Parham, | Other (MRI | | 2015 | | NEUROSURGERY [address] | DO [address] | scheduled) | | | | [address] | [address] [place], [place] | | | | | [place], [place] | [address] | | | | | [address] | | | | | | [phone] | | | +--------+ + + + [...] [place] | | | | | | [address] | | | | | | | | +--------+ + + + + documented as of this encounter Visit Diagnoses Not on filedocumented in this encounter"
--- OUTSIDE RECORDS SUMMARY | ~2020-03-28 | XMS | Encounter Summary ---
Demographics + + + | Address | [address] | | | [place] [address] | + + + | Home Phone | | + + + | Preferred Language | Unknown | + + + | Marital Status | | + + + | Christianity Affiliation | 1027 | + + + | Race | Unknown | + + + | Ethnic Group | Unknown | + + + Author + + + | Author | [facility] | | | and [place] | + + + | Organization | [facility] | | [...] Team Providers + +------+ + | Care Waist Presser Name | Role | Phone | + [...] | | | | [address] | [place], [place] | | | | | | [place], | [address] Phone: | | | | | | [place] [address] | [phone] | | | | | | Phone: | Fax: | | | | | | [phone] | [phone] | | | | | | Fax: | | | | | | | [phone] | | + +--------+ + + + + Encounter Details +--------+---------+ + + + | Date | Type | Department | Care Team | Description | +--------+---------+ + + + | 03/13/ | Office | [facility] | Josr Garcia MD | Mediastinal | | 2020 | Visit | PULMONOLOGY [address] | [address] | lymphadenopathy | | | | [address] | [facility] | (Primary Dx) | | | | [place], [place] | [address] | | | | | [address] | | | | | | [phone] | | | +--------+---------+ + + + [...] Dec of this year when she visited [place]. She went to see a [employer] and when she came back from where she came back with severe cough along with shortness of breath. She complai pool of severe myalgias, fever. She was very sick and could barely move out of the bed. Her and her son also had similar symptoms. When she came back to her house in [facility] she was in touch with 2 other people from [facility] who got similar illness and then respecti [...] "chest heaviness". Went on va cation in [place] Dysphagia pills, foods, meats Exertional shortness of [...] file Gets together: Not on file Attends zoroastrian service: Not on file Active member of [...] mediastinal lymphadenopathy or lymphoma, sarcoidosis etc. Sh e will need an endobronchial ultrasound along with [...] Garcia MD Pulmonary and Critical Care Medicine [facility] [address], [facility] [place] [address] documented in this enco unter Plan of Treatment +--------+ + + + + | Date | Type | Specialty | Care Team | Description | +--------+ + + + + | 04/06/ | Virtual | Pulmonology | Josr Garcia MD | | | 2019 | Office | | [address] | | | | Visit | | [place], [place] | | | | | | [...]
--- OUTSIDE RECORDS SUMMARY | ~2020-03-28 | XMS | Encounter Summary ---
Demographics + + + | Address | [address] | | | [place] [address] | + + + | Home Phone | | + + + | Preferred Language | Unknown | + + + | Marital Status | | + + + | Islam Affiliation | 1027 | + + + | Race | Unknown | + + + | Ethnic Group | Unknown | + + + Author + + + | Author | [facility] | | | and [place] | + + + | Organization | [facility] | | [...] Providers + +------+ + | Care Corporate Compliance Officer Name | Role | Phone | + +------+ + | Brendon Loaiza MD | PCP | | + +------+ + Encounter Details +--------+ + + + + | Date | Type | Department | Care Team | Description | +--------+ + + + + | 03/28/ | Telephone | [facility] | Vita Loo RN | | | 2020 | | PULMONOLOGY [address] | | | | | | [address] | | | | | | [place] | | | | | | [address] | | | | | | [phone] | | | +--------+ + + + [...] [place] | | | | | | [address] | | | | | | | | +--------+ + + + + documented as of this encounter Visit Diagnoses Not on filedocumented in this encounter"
--- OUTSIDE RECORDS SUMMARY | ~2020-03-28 | XMS | Encounter Summary ---
Demographics + + + | Address | [address] | | | [place] [address] | + + + | Home Phone [...] Team Providers + +------+ + | Care Loading Supervisor Name | Role | Phone | + +------+ + | Brendon Loaiza MD | PCP | | + +------+ + Encounter Details +--------+ + + + + | Date | Type | Department | Care Team | Description | +--------+ + + + + | 07/12/ | Preadmit | [facility] | Freddie Parham, | Anemia, unspecified | | 2015 | Visit | [facility] | DO [address] | anemia type; | | | | CLINIC [address] | [address] [place], [place] | Lumbosacral | | | | [place], [place] | [address] | spondylosis without | | | | [address] | | myelopathy; | | | | [...] | | Visit | | [place] | | | | | | [phone] | | | | | | | [...] | | | | mmol/L | [facility] | | | [facility] | [facility]ICAL | | | | | | CENTER - | | | | | | LABORATORY | | + + + + + + | K | 3.8 | 3.5 - 5.1 | [facility] | | | | | mmol/L | [facility] | | | | [...] | | | | | | [facility] | | | | | | [facility]ICAL | | | | | | CENTER - | | | | | | LABORATORY | | + + + + + + | BUN | 10 | 7 - 18 mg/dL | [facility] | | | | | | [facility] | | | | | | [facility]ICAL | | | | | | CENTER - | | | | | | LABORATORY | | + + + + + + | Creatinine | 0.77 | 0.60 - 1.30 | [facility] | | | | | mg/dL | [facility] | | | | | | MEDICAL | | | | | | CENTER - | | | | | | LABORATORY | | + + + + + + | eGFR if not | >60Comment: GLOMERULAR | >=60 | [facility] | | | | FILTRATION | mL/min/1.73m2 | [facility] | | | AFGHAN | RATE,ESTIMATED | | MEDICAL | | | | mL/min/1.67e1Izfs than | | CENTER - | | [...] | | | | mg/dL | [facility] | | | | | | MEDICAL | | | | | | CENTER - | | | | | | LABORATORY | | + + + + + + | BUN/Creatin | 13.0 | | [facility] | | | ine Ratio | | | [facility] | | [...] + | [facility] | [address] | [place], [place] | [phone] | | [facility] | | [address] | | | - LABORATORY | | [...] [facility] | | | | | | [facility] | | | [...] | + + + + + | [facility] | [address] | [place] | [phone] | | [facility] | | [address] | | | - LABORATORY | | [...] | Time | | seconds | [facility] | | | | | | MEDICAL | | | | | | CENTER - | | | | | | LABORATORY | | + + + + + + | INR | 1.00Comment: Usual Oral | 0.90 - 1.10 | [facility] | | | | Anticoagulation Range: | | [facility] | | | | 2.0 - 3.0High [...] [address] | [place] | [phone] | | [facility] | | [address] | | | - LABORATORY | | | | + + + + + CBC with Differential (07/12/2015 10:44 AM PDT) + + + + + + | Component | Value | Ref Range | Performed | Pathologist | | | | | At | Signature | + + + + + + | WBC | 4.4 | 4.0 - 11.0 K/uL | [facility] | | | | | | [facility] | | | | | | MEDICAL | | | | | | CENTER - | | | | | | LABORATORY | | + + + + + + | RBC | 3.64 (L) | 3.70 - 5.20 | [facility] | | | | | M/uL | [facility] | | | | | | MEDICAL | | | | | | CENTER - | | | | | | LABORATORY | | + + + + + + | Hemoglobin | 12.6 | 11.5 - 16.0 | [facility] | | | | | g/dL | . [facility] | | | | | | [...] | Basophils | | K/uL | [facility] | [...] ST. | [address] | [place] | [phone] | | [facility] | | [address] | | | - LABORATORY | | [...]
--- OUTSIDE RECORDS SUMMARY | ~2020-03-28 | XMS | Encounter Summary ---
Demographics + + + | Address | [address] | | | [place] [address] | + + + | Home Phone | | + + + | Preferred Language | Unknown | + + + | Marital Status | | + + + | Sabianism Affiliation | 1027 | + + + | Race | Unknown | + + + | Ethnic Group | Unknown | + + + Author + + + | Author | [facility] | | | and [place] | + + + | Organization | [facility] | | | [...] Team Providers + +------+ + | Care Diesel Power Mechanic Name | Role | Phone | + +------+ + | Brendon Loaiza MD | PCP | | + +------+ + Reason for Visit + + + | Reason | Comments | + + + | Follow-up | Post-op | + + + Encounter Details +--------+ + + + + | Date | Type | Department | Care Team | Description | +--------+ + + + + | 07/26/ | Telephone | [facility] | Freddie Parham, | Follow-up (Post-op) | | 2015 | | Group Neurosurgery | DO [address] | | | | | Clinic [address] | [address] [place], [place] | | | | | [address] | [phone] | | | | | [place], [place] | | | | | | [address] | | | | | | [phone] | | | +--------+ + + + [...] [place] | | | | | | [address] | | | | | | | | +--------+ + + + + documented as of this encounter Visit Diagnoses Not on filedocumented in this encounter"
--- OUTSIDE RECORDS SUMMARY | ~2020-03-28 | XMS | Encounter Summary ---
Demographics + + + | Address | [address] | | | [place] [address] | + + + | Home Phone | | + + + | Preferred Language | Unknown | + + + | Marital Status | | + + + | Faith Affiliation | 1027 | + + + [...] Providers + +------+ + | Care Manager Application Name | Role | Phone | + [...] | Lumbosacral | [place], | [address] | | | | | spondylosis | Avery Vaz MD | [place], | | | | | without | [address] | [place] | | | | | myelopathy | [place] | [address] | | | | | Procedures | [place], [place] | Phone: | | | | | [place] | [address] | [phone] | | | | | DX/THER AGNT | Phone: | Fax: | | | | | [place] | [phone] | [phone] | | | | | FACET JOINT, | Fax: | | | | | | LUMBAR/SAC, | [phone] | | | | | | 1ST LEVEL | | | | | | | [place] | | | | | | | [...] + + | 05/11/ | Hospital | [facility] | Avery Vaughan | Lumbar spondylosis, | | 2015 | Encounter | MED CTR XRAY [address] | T, [address] | unspecified spinal | | | | [address] | [place], [place] | osteoarthritis | | | | [place] [address] | [address] | | | | | [phone] | | | | | | | Leather Products Supervisor, Marilyn | | | | | | [...] [place] | | | | | | [address] | | | | | | | [...] Bilateral Lumbar Facet Steroid Injections Diagnosis: | [facility] | | Lumbar Spondylosis ICD-9 Code 721.3 Madykehinde Munoz presents | [facility] | | to the fluoroscopy suite for fluoroscopically-guided bilateral [facility] | | L5-S1 facet injections as [...] + | Performing | Address | City/State/[facility] | Phone Number | | Organization | | | | + + + + + | [facility] | [address] | [place] | [phone] | | [facility] | | [address] | | | - IMAGING | | [...] 4:10 | | | | | ONCE, [facility] 05/11/15 at 1630, For 1 | | [...] PDT | | | | | ONCE, [facility] 05/11/15 at 1630, For 1 | | | | | | | dose, Shake well. Not for IV | | | | | | | use., | | | | | | + +-------+ +-------+---+---+ +---+---+ | | | +---+---+ documented in this encounter"
--- OUTSIDE RECORDS SUMMARY | ~2020-03-28 | XMS | Encounter Summary ---
Demographics + + + | Address | [address] | | | [place] [address] | + + + | Home Phone [...] Team Providers + +------+ + | Care Cementer Machine Name | Role | Phone | [...] Interbody | | | | [address] | [address] [place] | Fusion | | | | [place] | [address] | | | | | [address] | | | | | | [phone] | | | +--------+---------+ + + + [...] might be differen t from the original. [facility] NEUROSURGERY DISCHARGE SUMMARY Patient Name: Mady Munoz [...] sent through Care Everywhere.LUMBAR FUSION, DISCHARGE INSTRUCTIONS (BULGARIAN)SPINAL FUSION, DISCHARGE INSTRUCTIONS (BULGARIAN)TRANSFORAMINA L LUMBAR INTERBODY FUSION (TLIF) (BULGARIAN)documented in this encounter Medications at Time of [...] AM PDTFormatting of this note might be kimberly sauceda from the original. [facility] PROGRESS NOTE Pt. Name/Age/: Mady Munoz 55 y.o. 1960 Med. Record Number: [id number] Date of admission: 07/18/2015 Subjective: The patient [...] Electronically signed by: Jcarlos Vasquez, 07/19/2015 9:[address] [facility] documented in th is encounter Plan of Treatment +--------+ + + + + | Date | Type | Specialty | Care Team | Description | +--------+ + + + + | 04/06/ | Virtual | Pulmonology | Josr Garcia MD | | | 2019 | Office | | [address] | | | | Visit | | [place] | | | | | | [address] | | | | | | | [...] | Procedure Note | + + | Cristiano Hernandez Results In - 07/18/2015 5:43 PM PDT [...] formation is again evident within the superior [id number] endplate and is similar | | to [...] ST. | [address] | [place] | | | [facility] | | [address] | | | - BLOOD BANK | [...]
--- OUTSIDE RECORDS SUMMARY | ~2020-03-28 | XMS | Encounter Summary ---
Demographics + + + | Address | [address] | | | [place] [address] | + + + | Home Phone [...] Team Providers + +------+ + | Care Plastics Fabrication Supervisor Name | Role | Phone | [...] (Primary | | | | [address] | [address] [place], [place] | Dx); Lumbosacral | | | | [place] | [address] | spondylosis without | | | | [address] | | myelopathy; | | | | [phone] | | Displacement of | | | [...] [place] | | | | | | [address] | | | | | | | [...] + | Cristiano Hernandez Results In - 07/12/2015 11:04 AM PDT [...] | [facility] | [address] | [place] | [phone] | | [facility] | | [address] | | | - IMAGING | | [...] | | | | | mmol/L | [facility] | | | | | | MEDICAL | | | | | | CENTER - | | | | | | LABORATORY | | + + + + + + | K | 3.8 | 3.5 - 5.1 | [facility] | | | | | mmol/L | [facility] | | | | | [...] not | >60Comment: GLOMERULAR | >=60 | [facility] | | | | FILTRATION | mL/min/1.73m2 | [facility] | | | SUDANESE | RATE,ESTIMATED | | MEDICAL | | | | mL/min/1.21l1Huvj than | | CENTER - | | [...] [address] | [place] | [phone] | | [facility] | | [address] | | | - LABORATORY | | [...] [address] | [place] | [phone] | | [facility] | | [address] | | | - LABORATORY | | [...] [address] | [place] | [phone] | | [facility] | | [address] | | | - LABORATORY | | [...] [address] | [place] | [phone] | | [facility] | | [address] | | | - LABORATORY | | [...]
--- OUTSIDE RECORDS SUMMARY | ~2020-03-28 | XMS | Encounter Summary ---
Demographics + + + | Address | [address] | | | [place] [address] | + + + | Home Phone | | + + + | Preferred Language | Unknown | + + + | Marital Status | | + + + | Scientology Affiliation | 1027 | + + + | Race | Unknown | + + + | Ethnic Group | Unknown | + + + Author + + + | Author | [facility] | | | and [place] | + + + | Organization | [facility] | | | and [...] Team Providers + +------+ + | Care Specialty Person Name | Role | Phone | + [...] | Freddie Parham, | Other | | 2014 | | NEUROSURGERY [address] | DO [address] | | | | | [address] | [address] [place], [place] | | | | | [place] | [address] | | | | | [address] | | | | | | [phone] | | | +--------+ + + + [...] [place] | | | | | | [address] | | | | | | | | +--------+ + + + + documented as of this encounter Visit Diagnoses Not on filedocumented in this encounter"
--- OUTSIDE RECORDS SUMMARY | ~2020-03-28 | XMS | Encounter Summary ---
Demographics + + + | Address | [address] | | | [place] [address] | + + + | Home Phone [...] Team Providers + +------+ + | Care Refractory Grinder Operator Name | Role | Phone | + +------+ + | Brendon Loaiza MD | PCP | | + +------+ + Reason for Visit +--------+ + | Reason | Comments | +--------+ + | Other | Surgery Reminder | +--------+ + Encounter Details +--------+ + + + + | Date | Type | Department | Care Team | Description | +--------+ + + + + | 07/14/ | Telephone | [facility] | Freddie Parham, | Other (Surgery | | 2015 | | NEUROSURGERY [address] | DO [address] | Reminder) | | | | [address] | [address] [place], [place] | | | | | [place], [place] | [phone] | | | | | [address] | | | | | | [phone] | | | +--------+ + + + [...] [place] | | | | | | [address] | | | | | | | | +--------+ + + + + documented as of this encounter Visit Diagnoses Not on filedocumented in this encounter"
--- OUTSIDE RECORDS SUMMARY | ~2020-03-28 | XMS | Encounter Summary ---
Demographics + + + | Address | [address] | | | [place] [address] | + + + | Home Phone | | + + + | Preferred Language | Unknown | + + + | Marital Status | | + + + | Orthodox Affiliation | 1027 | + + + | Race | Unknown | + + + | Ethnic Group | Unknown | + + + Author + + + | Author | [facility] | | | and [place] | + + + | Organization | [facility] | | [...] Team Providers + +------+ + | Care Shoveler Name | Role | Phone | + +------+ + | Brendon Loaiza MD | PCP | | + +------+ + Reason for Visit + + + | Reason | Comments | + + + | Medication Refill | | + + + Encounter Details +--------+--------+ + + + [...] [address] [place] | | | | | [place], [place] | [place] [address] | | | | | [address] | [phone] | | | | | [phone] | | | +--------+--------+ + + + [...] [place] | | | | | | [address] | | | | | | | [...]
--- OUTSIDE RECORDS SUMMARY | ~2020-03-28 | XMS | Encounter Summary ---
Demographics + + + | Address | [address] | | | [place] [address] | + + + | Home Phone | | + + + | Preferred Language | Unknown | + + + | Marital Status | | + + + | Zoroastrianism Affiliation | 1027 | + + + | Race | Unknown | + + + | Ethnic Group | Unknown | + + + Author + + + | Author | [facility] | | | and [place] | + + + | Organization | [facility] | | [...] Team Providers + +------+ + | Care Paraprofessional Aide Teacher Name | Role | Phone | + +------+ + | Marin Lima DO | PCP | | + +------+ + Encounter Details +--------+ + + + + | Date | Type | Department | Care Team | Description | +--------+ + + + + | 03/29/ | Hospital | [facility] | Freddie Parham, | Back pain, | | 2015 | Encounter | MED CTR XRAY [address] | DO [address] | unspecified location | | | | [place] | [address] [place], [place] | | | | | [place] [address] | [address] | | | | | [phone] | | | +--------+ + + + [...] [place] | | | | | | [address] | | | | | | | [...] view only. Dictated and Signed by: Philip León | | MD Caden Electronically signed: 03/29/2015 [...] + + | Performing | Address | City/State/[facility] | Phone Number | | Organization | | | | + + + + + | [address] | [address] | [place] | [phone] | | [facility] | | [address] | | | - IMAGING | | | | + + + + + documented in this encounter Visit Diagnoses + + | Diagnosis | + + | Back pain, unspecified location | + + documented in this encounter"
--- OUTSIDE RECORDS SUMMARY | ~2020-03-28 | XMS | Encounter Summary ---
Demographics + + + | Address | [address] | | | [place] [address] | + + + | Home Phone | | + + + | Preferred Language | Unknown | + + + | Marital Status | | + + + | Confucianism Affiliation | 1027 | + + + | Race | Unknown | + + + | Ethnic Group | Unknown | + + + Author + + + | Author | [facility] | | | and [place] | + + + | Organization | [facility] [place] [facility] | | [...] Team Providers + +------+ + | Care Swing Grinder Name | Role | Phone | + [...] + + | 08/15/ | [facility] [place] | Hussein Mayers, | Osteoarthritis of | | 2014 | Visit | NEUROSURGERY [address] | PA-C [address] | spine with | | | | [address] | [address] [place] | radiculopathy, | | | | [place], [place] | [place] [address] | lumbar region | | | | [address] | [phone] | (Primary Dx); Status | | | | [phone] | | post lumbar spinal | | [...] you out of the brace slowly over th e next several weeks. WEEK 1 If [...] your back and use good technique when pick remover things and bending. documented in this encounter Progress Notes Hussein Mayers PA - 08/15/2015 11:29 AM PDTFormatting of this note might be different f rom the original. TAMMY Bui [address] [facility], [address] [place], [place] [address] FAX: NEUROSURGERY SURGICAL FOLLOW-UP CHIEF COMPLAINT: Chief [...] | | Visit | | [address] [place], [place] | | | | | | [phone] | | | | | | | [...]
--- OUTSIDE RECORDS SUMMARY | ~2020-03-28 | XMS | Encounter Summary ---
Demographics + + + | Address | [address] | | | [place] [address] | + + + | Home Phone [...] Team Providers + +------+ + | Care Psych Arnp Name | Role | Phone | + [...] 2014 | | PHYSIATRY [address] | EARTH SCIENCE TECHNICIAN | unspecified spinal | | | | [address] | | osteoarthritis | | | | [place] | | (Primary Dx) | | | | [address] | | | | | | [phone] | | | +--------+ + + + [...] | | Visit | | [place] | | | | | | [address] | | | | | | | [...] ICD-9 Code 721.3 Mady Munoz presents | [facility] | | to the fluoroscopy suite for fluoroscopically-guided bilateral [facility] | | L5-S1 facet injections as [...] | [facility] | [address] | [place] | [phone] | | [facility] | | [address] | | | - IMAGING | | | | + + + + + documented in this encounter Visit Diagnoses + + | Diagnosis | + + | Lumbar spondylosis, unspecified spinal osteoarthritis - Primary | + + documented in this encounter"
--- OUTSIDE RECORDS SUMMARY | ~2020-03-28 | XMS | Encounter Summary ---
Demographics + + + | Address | [address] | | | [place] [address] | + + + | Home Phone | | + + + | Preferred Language | Unknown | + + + | Marital Status | | + + + | Episcopal Affiliation | 1027 | + + + | Race | Unknown | + + + | Ethnic Group | Unknown | + + + Author + + + | Author | [facility] | | | and [place] | + + + | Organization | [facility] | | [...] Providers + +------+ + | Care Gas Operation Manager Name | Role | Phone | [...] | Radiology | Diagnoses | Dione | Marilyn Mri | | | | | | Freddie Rothman DO | [address] | | | | | Osteoarthrit | [address] | [place], | | | | | is of spine | [address] | [place] | | | | | with | [place] | [address] | | | | | radiculopath | [address] | Phone: | | | | | y, lumbar | Phone: | [phone] | | | | | region S/P | [phone] | Fax: | | | | | lumbar | Fax: | [phone] | | | | | fusion | [phone] | | | | | | Procedures [...] + + | 10/20/ | [facility] | [facility] | Freddie Parham, | Osteoarthritis of | | 2015 | Visit | NEUROSURGERY [address] | DO [address] | spine with | | | | [address] | [address] [place], [place] | radiculopathy, | | | | [place], [place] | [address] | lumbar region | | | | [address] | | (Primary Dx); S/P | | | | [phone] | | lumbar fusion | +--------+---------+ + [...] m the original. Freddie Parham DO [address] [facility], [address] [place], [place] [address] FAX: NEUROSURGERY FOLLOW-UP CHIEF COMPLAINT: Chief Complaint [...] | | Visit | | [address] [place] | | | | | | [id number] | | | | | | | [...]
--- OUTSIDE RECORDS SUMMARY | ~2020-03-28 | XMS | Encounter Summary ---
Demographics + + + | Address | [address] | | | [place] [address] | + + + | Home Phone | | + + + | Preferred Language | Unknown | + + + | Marital Status | | + + + | Pentecostalism Affiliation | 1027 | + + + | Race | Unknown | + + + | Ethnic Group | Unknown | + + + Author + + + | Author | [facility] | | | and [place] | + + + | Organization | [facility] | | | [...] Team Providers + +------+ + | Care Operator Specialist Communications Name | Role | Phone | + [...] [address] | DO [address] | | | | | [address] | [address] [place] | | | | | [place] | [address] | | | | | [address] | | | | | | [phone] | | | +--------+ + + + [...] [place] | | | | | | [address] | | | | | | | | +--------+ + + + + documented as of this encounter Visit Diagnoses Not on filedocumented in this encounter"
--- OUTSIDE RECORDS SUMMARY | ~2020-03-28 | XMS | Encounter Summary ---
Demographics + + + | Address | [address] | | | [place] [address] | + + + | Home Phone [...] Team Providers + +------+ + | Care Supervisor General Name | Role | Phone | + [...] [address] | [address] [place], [place] | | | | | [place], [place] | [address] | | | | | [address] | | | | | | [phone] | | | +--------+ + + + [...] [place] | | | | | | [address] | | | | | | | | +--------+ + + + + documented as of this encounter Visit Diagnoses Not on filedocumented in this encounter"
--- OUTSIDE RECORDS SUMMARY | ~2020-03-28 | XMS | Encounter Summary ---
Demographics + + + | Address | [address] | | | [place] [address] | + + + | Home Phone [...] | Author | [facility] | | | and [place] | + + + | Organization | [facility] | | | and [...] Team Providers + +------+ + | Care Abstract Writer Name | Role | Phone | + [...] + + | 03/17/ | Anesthesia | [facility] | Devonte García, | | | 2020 | Event [facility] | CARTRIDGE ASSEMBLING MACHINE ADJUSTER [address] | | | | | INTRA OP [address] | [place] [address] | | | | | BLVD [place], [place] | [phone] | | | | | [address] | | | | | | [phone] | Trinidad Gaona, | | | | | | CARTRIDGE ASSEMBLING MACHINE ADJUSTER [address] | | | | | | [place] [address] | | | | | | [phone] | | | | | | | [...] | Placement Time: 1450 (created via | Deovnte García CRNA | Devonte García CRNA | [...] [place] | | | | | | [address] | | | | | | | [...] | +---+---+ + +-------+ +--------+---+---+ | glycopyrrolate (NADINE) | Given | 03/17/20 | 0.4 mg [...] 3:36 | | | | | Starting Fri03/17/20 at 1536, | | PM PDT | [...]
--- OUTSIDE RECORDS SUMMARY | ~2020-03-28 | XMS | Encounter Summary ---
Demographics + + + | Address | [address] | | | [place] [address] | + + + | Home Phone [...] + | Author | [facility] | | | and [place] | + + + | Organization | [facility] | | | and [...] Team Providers + +------+ + | Care Traffic Analyst Name | Role | Phone | + +------+ + | Brendon Loaiza MD | PCP | | + +------+ + Encounter Details +--------+ + + + + | Date | Type | Department | Care Team | Description | +--------+ + + + + | 07/12/ | [facility] | [facility] | Freddie Parham, | Anemia, unspecified | | 2015 | Encounter | MED CTR XRAY [address] | DO [address] | anemia type; | | | | [place] | [address] [place], [place] | Lumbosacral | | | | [place] [address] | [address] | spondylosis without | | | | [phone] | | myelopathy; | | | | [...] mouth | 240 mL | 0 | 08/20/20 | | | mL solution | Daily [...] [place] | | | | | | [address] | | | | | | | [...] | [address] | [address] | [place] | [phone] | | [facility] | | [address] | | | - IMAGING | | [...]
--- OUTSIDE RECORDS SUMMARY | ~2020-03-28 | XMS | Encounter Summary ---
Demographics + + + | Address | [address] | | | [place] [address] | + + + | Home Phone [...] Team Providers + +------+ + | Care Structural Rigger Name | Role | Phone | + [...] | MRI | Diagnoses | Dione | [address] | | | | | Pain Leg | Freddie Rothman DO | [facility] | | | | | pain, | [address] | HOSPITAL | | | | | bilateral | [address] | [address] | | | | | Low back | [place] [address] | AVE | | | | | pain with | [id number] | [place], [place] | | | | | left-sided | Phone: | [address] | | | | | sciatica, | [phone] | Phone: | | | | | unspecified | Fax: | [phone] | | | | | back pain | [phone] | Fax: | | | | | laterality | | [phone] | | | | | Procedures | | | | | | | MRI Lumbar | | | | | | | Spine wo | | | | | | | Contrast | | | +--------+--------+ + + + + Reason for Visit +--------+ + | [...] [address] | [address] [place], [place] | | | | | [place], [place] | [address] | | | | | [address] | | | | | | [phone] | | | +--------+ + + + [...] | | Visit | | [place] | | | | | | [id number] | | | | | | | [...] laterality | + + documented in this encounter"
--- OUTSIDE RECORDS SUMMARY | ~2020-03-28 | XMS | Encounter Summary ---
Demographics + + + | Address | [address] | | | [place] [address] | + + + | Home Phone | | + + + | Preferred Language | Unknown | + + + | Marital Status | | + + + | Baptism Affiliation | 1027 | + + + | Race | Unknown | + + + | Ethnic Group | Unknown | + + + Author + + + | Author | [facility] | | | and [place] | + + + | Organization | [facility] | | [...] Team Providers + +------+ + | Care Paraffin Plant Operator Name | Role | Phone | [...] | | | | | | | [place] | | | | | | [...] + + | 07/18/ | Hospital | [facility] | Freddie Parham, | | | 2015 | Encounter | MED CTR XRAY [address] | DO [address] | | | | | [place] | [address] [place] | | | | | [place] [address] | [id number] | | | | | [phone] | | | +--------+ + + + [...] [place] | | | | | | [address] | | | | | | | [...] documented in this encounter Results SHWETA Pires Statbob No Charge (07/18/2015 1:40 PM PDT) + [...]
[~2020-03-28 17:46] MED LIST changes: +OMEPRAZOLE20 MG PO
[2020-03-28] MEDS ORDERED: PREDNISONE10 MG PO (18:06)
[2020-03-28] MEDS ORDERED: SULFAMETHOXAZO1 EAC1 PO (18:08)
--- NOTE | 2020-03-30 12:11 | EKG ---
[facility] [address] [facility] [place] [address] Signed Sinus rhythm with marked sinus arrhythmia Biatrial enlargement Nonspecific ST and T wave abnormality Abnormal ECG When compared with ECG of 12-MAY-2019 21:02, No significant change was found Confirmed by RENATA FREDERICK MD ([id number]) on 03/30/2020 12:11:23 PM Electronically Signed By: RENATA FREDERICK MD 03/30/20 1211 PATIENT NAME: VINEETWILFREDOES Electrocardiogram DATE OF : 62 PHYSICIAN: RENATA FREDERICK MD REPORT #: [id number] REPORT IS CONFIDENTIAL AND NOT TO BE RELEASED WITHOUT AUTHORIZATION
== END 2020-03-28 19:30 | disposition home or self-care (01) ==
LOC: ED 17:46
DX: D86.0 Sarcoidosis of lung (principal); D64.9 Anemia, unspecified; Z88.5 Allergy status to narcotic agent; Z79.899 Other long term (current) drug therapy
CPT/HCPCS: 71046; 80053; 84484; 85025; 85379; 93005; 93010; 99285-25

== ENCOUNTER 2020-08-04 17:49 | Emergency (ER) | payer OTHER ==
[~2020-08-04] VITALS: Ht 167.6 cm; Wt 54.4 kg
--- OUTSIDE RECORDS SUMMARY | ~2020-08-04 | XMS | Encounter Summary ---
Demographics + + + | Address | [address] | | | [place] [address] | + + + | Home Phone | | + + + | Preferred Language | Unknown | + + + | Marital Status | | + + + | Congregational Affiliation | 1027 | + + + | Race | White | + + + | Ethnic Group | Not or | + + + Author + + + | Author | [facility] | | | and [place] | + + + | Organization | [facility] | | | and [place] | + + + | Address | Unknown | + + + | Phone | Unavailable | + + + Support + + +---------+ + | Name | Relationship | Address | Phone | + + +---------+ + | Tavon Oatesard | ECON | Unknown | | + + +---------+ + Care Team Providers + +------+ + | Care Alum Mixer Name | Role | Phone | + +------+ + | Brendon Loaiza MD | PCP | | + +------+ + Encounter Details +--------+ + + + + | Date | Type | Department | Care Team | Description | +--------+ + + + + | 06/02/ | Orders Only | [facility] | Josr Garcia MD | ILD (interstitial | | 2020 | | PULMONOLOGY [address] | lung disease) (HCC) | | | | [address] | [place], [place] | (Primary Dx) | | | | [place], [place] | [address] | | | | | [address] | | | | | | [phone] | | | +--------+ + + + + Social History + +-------+ +--------+------+ | Tobacco Use | Types | Packs/Day | Years | Date | | | | | Used | | + +-------+ +--------+------+ | Never Smoker | | | | | + +-------+ +--------+------+ + +---+---+---+ | Smokeless Tobacco: | | | | | Never Used | | | | + +---+---+---+ + + +---------+ + | Alcohol Use | Drinks/Week | oz/Week | Comments | + + +---------+ + | No | | | | + + +---------+ + + + + | Sex Assigned at | Date Recorded | | | | + + + | Not on file | | + + + documented as of this encounter Plan of Treatment +--------+ + + + + | Date | Type | Specialty | Care Team | Description | +--------+ + + + + | 09/04/ | Virtual | Pulmonology | Josr Garcia MD | | | 2019 | Office | | [address] | | | | Visit | | [place] | | | | | | [address] | | | | | | | | +--------+ + + + + + +------+--------+ + + | Name | Type | Priori | Associated Diagnoses | Order Schedule | | | | ty | | | + +------+--------+ + + | Pulmonary function | PFT | Routin | ILD (interstitial | 1 Occurrences | | test | | e | lung disease) ([facility]) | starting 05/02/2020 | | | | | | until 05/02/2021 | + +------+--------+ + + documented as of this encounter Visit Diagnoses + + | Diagnosis | + + | ILD (interstitial lung disease) (HCC) - Primary Postinflammatory pulmonary fibrosis | + + documented in this encounter"
--- OUTSIDE RECORDS SUMMARY | ~2020-08-04 | XMS | Encounter Summary ---
Demographics + + + | Address | [address] | | | [place] [address] | + + + | Home Phone | | + + + | Preferred Language | Unknown | + + + | Marital Status | | + + + | Sikhism Affiliation | 1027 | + + + | Race | White | + + + | Ethnic Group | Not or | + + + Author + + + | Author | [facility] | | | and [place] | + + + | Organization | [facility] | | | and [place] | + + + | Address | Unknown | + + + | Phone | Unavailable | + + + Support + + +---------+ + | Name | Relationship | Address | Phone | + + +---------+ + | Tavon Munoz | ECON | Unknown | | + + +---------+ + Care Team Providers + +------+ + | Care Eye Technician Name | Role | Phone | + +------+ + | Marin Lima DO | PCP | | + +------+ + Reason for Visit +--------+--------+ + | Reason | Onset | Comments | | | Date | | +--------+--------+ + | Other | 04/18/ | | | | 2015 | | +--------+--------+ + Encounter Details +--------+ + + + + | Date | Type | Department | Care Team | Description | +--------+ + + + + | 04/18/ | Telephone | [facility] [place] | MariannAvery guevara | Other | | 2014 | | PHYSIATRY [address] | T, MD [address] | | | | [address] | [address] [place], [place] | | | | | [place], [place] | [address] | | | | | [address] | | | | | | [phone] | | | +--------+ + + + + Social History + +-------+ +--------+------+ | Tobacco Use | Types | Packs/Day | Years | Date | | | | | Used | | + +-------+ +--------+------+ | Never Smoker | | | | | + +-------+ +--------+------+ + + +---------+ + | Alcohol Use | Drinks/Week | oz/Week | Comments | + + +---------+ + | No | | | | + + +---------+ + + + + | Sex Assigned at | Date Recorded | | | | + + + | Not on file | | + + + documented as of this encounter Miscellaneous Notes Telephone Encounter - Abi Jordan CMA - 04/18/2015 10:33 AM PDTDocumented in referral Chikis ctronically signed by Abi Jordan CMA at 04/18/2015 10:37 AM PDTTelephone Encounter - Demi Hill - 04/18/2015 10:22 AM PDTPatient returned a call from the 7th to schedule injecti onKate Royalsa documented in this e ncounter Plan of Treatment +--------+ + + + + | Date | Type | Specialty | Care Team | Description | +--------+ + + + + | 09/04/ | Virtual | Pulmonology | Josr Garcia MD | | | 2019 | Office | | [address] | | | | Visit | | [place] | | | | | | [phone] | | | | | | | | +--------+ + + + + documented as of this encounter Visit Diagnoses Not on filedocumented in this encounter"
--- OUTSIDE RECORDS SUMMARY | ~2020-08-04 | XMS | Clinical Summary ---
Demographics + + + | Address | [address] | | | [place] [address] | + + + | Home Phone | | + + + | Preferred Language | Unknown | + + + | Marital Status | Unknown | + + + | Yarsanism Affiliation | Unknown | + + + | Race | Unknown | + + + | Ethnic Group | Unknown | + + + Author + + + | Author | [facility] | + + + | Organization | [facility] | + + + | Address | Unknown | + + + | Phone | Unavailable | + + + Care Team Providers + +------+ + | Care Loss Prevention Auditor Name | Role | Phone | + +------+ + PCP | Unavailable | + +------+ + Source Comments CONI is fully live on both EpicCare Ambulatory and EpicCare InPatient.[facility] Allergies Not on File Medications Not on file Active Problems Not on file Encounters +--------+ + + + + | Date | Type | Specialty | Care Team | Description | +--------+ + + + + | 07/25/ | Ui Developer | Pulmonary Disease | Tavon Schmid, | Sarcoidosis (Primary | | 2019 | | | MD | Dx); Hypercalcemia | | | | | | due to sarcoidosis; | | | | | | Encounter for | | | | | | screening for other | | | | | | viral diseases; | | | | | | Encounter for | | | | | | monitoring | | | | | | immunomodulating | | | | | | therapy; Abnormal CT | | | | | | of the chest | +--------+ + + + + | 07/25/ | Abstract | Pulmonary Disease | Service, Pulmonary | | | 2019 | | | Consult | | +--------+ + + + + from Last 3 Months Social History + +-------+ +--------+------+ | Tobacco Use | Types | Packs/Day | Years | Date | | | | | Used | | + +-------+ +--------+------+ | Never Assessed | | | | | + +-------+ +--------+------+ + + + | Sex Assigned at | Date Recorded | | | | + + + | Not on file | | + + + Last Filed Vital Signs Not on file Plan of Treatment + + +-------+ + | Health Maintenance | Due Date | Last | Comments | | | | Done | | + + +-------+ + | Influenza (Flu) | | | | | vaccination (#1) | 0 | | | + + +-------+ + | Pneumococcal | Aged Out | | No longer eligible based on patient's age | | vaccination | | | to complete this topic | + + +-------+ + Results Not on filefrom Last 3 Months"
--- OUTSIDE RECORDS SUMMARY | ~2020-08-04 | XMS | Encounter Summary ---
Demographics + + + | Address | [address] | | | [place] [address] | + + + | Home Phone | | + + + | Preferred Language | Unknown | + + + | Marital Status | | + + + | Church Affiliation | 1027 | + + + | Race | White | + + + | Ethnic Group | Not or | + + + Author + + + | Author | [facility] | | | and [place] | + + + | Organization | [facility] | | | [...] Team Providers + +------+ + | Care Lead Recreation Assistant Name | Role | Phone | + +------+ + | Brendon Loaiza MD | PCP | | + +------+ + Reason for Visit + + + | Reason | Comments | + + + | Follow-up | 4 Week PO | + + + Encounter Details +--------+---------+ + + + | Date | Type | Department | Care Team | Description | +--------+---------+ + + + | 08/15/ | Office | [facility] | Hussein Mayers, | Osteoarthritis of | | 2014 | Visit | NEUROSURGERY [address] | PA-C [address] | spine with | | | | [address] | [address] [place] | radiculopathy, | | | | [place], [place] | [place] [address] | lumbar region | | | | [address] | [phone] | (Primary Dx); Status | | | | [phone] | | post lumbar spinal | | | | | | fusion | +--------+---------+ + + + Social History [...] + + + | Blood Pressure | 106/68 | 08/15/2015 10:57 AM | | | | | PDT | | + + + + + | Pulse | 68 | 08/15/2015 10:57 AM | | | | | PDT | | + + + + + | Temperature | - | - | | + + + + + | Respiratory Rate | 16 | 08/15/2015 10:57 AM | | | | | PDT | | + + + + + | Oxygen Saturation | - | - | | + + + + + | Inhaled Oxygen | - | - | | | Concentration | | | | + + + + + | Weight | 51.7 kg (114 lb) | 08/15/2015 10:57 AM | | | | | PDT | | + + + + + | Height | 170.2 cm (5' 7") | 08/15/2015 10:57 AM | | | | | PDT | | + + + + + | Body Mass Index | 17.85 | 08/15/2015 10:57 AM | | | | | PDT | | + + + + + documented in this encounter Patient Instructions Patient Instructions Hussein Mayers PA - 08/15/2015 11:33 AM PDTYou may now slowly incr ease your lifting up to 15 pounds as tolerated. I would like you to start physical therapy in approximately 2 weeks. Lastly, you will see Dr. Parham in approximately 2 months where a new x-ray will be taken at that time. In the meantime, you can also begin to wean out of yo ur brace as instructed below. SPINE BRACE WEANING PROTOCOL (5 WEEKS) Below are instructions for weaning your brace. You can move through the weeks slower if yo u feel the need to do so, but the overall goal is to get you out of the brace slowly over e next several weeks. WEEK 1 If you have been using your brace for activities like sleeping, showering, do not use the b race for these activities any longer but continue using it for everything else. WEEK 2 Stop wearing your brace for sitting and short distance walking. You should use the brace f or anything more involved. WEEK 3 Stop using the brace for medium distance walking. You can bend and twist your back but sti ll proceed slowly with these activities. WEEK 4 Stop using the brace for everything but the most difficult tasks. You should now be able to go on long walks and lift more weight as directed. Add more bending and twisting as tolera charlie. WEEK 5 Stop using the brace for daily use. I would encourage you to use the brace in the future f or activities that you know might aggravate your back or cause pain. You should still work to strengthen your back and use good technique when curing pickling packer things and bending. documented in this encounter Progress Notes Hsusein Mayers PA - 08/15/2015 11:29 AM PDTFormatting of this note might be different f rom the original. TAMMY Bui [address] [facility] [address] [place], [place] [id number] FAX: NEUROSURGERY SURGICAL FOLLOW-UP CHIEF COMPLAINT: Chief Complaint Patient presents with Follow-up 4 Week PO HISTORY OF PRESENT ILLNESS: The patient is a 55 y.o. female that had a L5-S1 fusion for ba ck pain and leg discomfort around 4 weeks ago. She returns and overall is doing well. The patient complains of ongoing back pain. However, it is different and better than it was blessing or to surgery. The patient has been walking as much as possible. She is still taking pain medications at this point. However, she is only taking one tablet a day at the most. The p atient has had no issues with her surgical site. CURRENT MEDICATIONS: Current Outpatient Prescriptions Medication Sig Dispense Refill diazepam (VALIUM) 5 mg tablet Take 1 tablet by mouth every 6 hours as needed. 60 tablet 0 estradiol (ESTRACE) 1 mg tablet Take 1 mg by mouth Daily. gabapentin (NEURONTIN) 300 mg capsule Take 1 capsule by mouth 3 times daily. 90 capsule 2 HYDROcodone-acetaminophen (NORCO) 5-325 mg per tablet Take 1-2 tablets by mouth every 4 hours as needed for Pain. 60 tablet 0 ondansetron (ZOFRAN) 4 mg tablet Take 1 tablet by mouth every 8 hours as needed for Horacio sea. 60 tablet 1 traMADol (ULTRAM) 50 mg tablet Take 1 tablet by mouth every 6 hours as needed for Pain. 60 tablet 1 valACYclovir (VALTREX) 500 mg tablet Take 500 mg by mouth Daily. No current facility-administered medications for this visit. ALLERGIES: Allergies Allergen Reactions Morphine Other (See Comments) " I don't like the feeling", bad nightmares SOCIAL HISTORY: The patient reports that she has never smoked. She has never used smokeless tobacco. She r eports that she does not drink alcohol or use illicit drugs. INTERIM PHYSICAL EXAMINATION: Blood pressure 106/68, pulse 68, resp. rate 16, height 1.702 m (5' 7"), weight 51.71 kg (11 4 lb), not currently . Body mass index is 17.85 kg/(m^2). GENERAL: Mady Munoz is in no acute distress with unlabored respirations. SPINE: The patient s incisions are healing well without drainage, significant erythema, o r discharge EXTREMITIES: No lower extremity edema. NEUROLOGICAL EXAMINATION: MENTAL STATUS: The patient is awake, alert, and oriented. She follows simple and complex commands MOTOR EXAM: Motor strength is 5/5. This is improved, unchanged from the preoperative exam. SENSORY EXAM: The sensory examination improved from the preoperative exam. RADIOGRAPHIC REVIEW: The patient s postoperative x-rays show stable instrumentation and alignment and were rev iewed with the patient today. There have been no interval changes since the immediate posto perative films. Complete fusion has not yet occurred, but this is normal and would not be e xpected at this time. ASSESSMENT: Encounter Diagnoses Name Primary? Osteoarthritis of spine with radiculopathy, lumbar region Yes Status post lumbar spinal fusion Past Medical History Diagnosis Date Anemia PONV (postoperative nausea and vomiting) Wears dentures upper front H/O cold sores PLAN: Overall, the patient is doing well. Patient is excited to start going for longer walks and has opted to forego physical therapy at this time. I increased the patient s activities slowly now allowing 15 pound lifting and also will b egin the process of brace weaning. I would like the patient to advance slowly with this pro cess and discussed this at length during today's visit. I would also like the patient to co ntinue with postoperative rehabilitation and to advance with therapy as tolerated. We discussed that we can provide pain medications for up to two additional months. We disc ussed the need to continue tapering pain medication. If they need longer term pain medicati on, they should begin working on either pain management or with the primary care provider. I am hoping to see improvement over the coming weeks to months and plan to continue to foll ow this patient. The patient will follow-up in clinic in around 8 weeks for re-evaluation. ELECTRONICALLY SIGNED BY: TAMMY Bui, 08/15/2015 11:35 documented in this encounter Plan of Treatment +--------+ + + + + | Date | Type | Specialty | Care Team | Description | +--------+ + + + + | 09/04/ | Virtual | Pulmonology | Josr Garcia MD | | | 2019 | Office | | [address] | | | | Visit | | [place], [place] | | | | | | [id number] | | | | | | | | +--------+ + + + + + +---------+--------+ + + | Name | Type | Priori | Associated Diagnoses | Order Schedule | | | | ty | | | + +---------+--------+ + + | XR Lumbar Spine 2 or | Imaging | Routin | Osteoarthritis of | Expected: 11/13/2015 | | 3 Vw | | e | spine with | (Approximate), | | | | | radiculopathy, | Expires: 08/13/2016 | | | | | lumbar region | | | | | | Status post lumbar | | | | | | spinal fusion | | + +---------+--------+ + + documented as of this encounter Visit Diagnoses + + | Diagnosis | + + | Osteoarthritis of spine with radiculopathy, lumbar region - Primary | + + | Status post lumbar spinal fusion Arthrodesis status | + + documented in this encounter
--- OUTSIDE RECORDS SUMMARY | ~2020-08-04 | XMS | Encounter Summary ---
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 | Role | Phone | + +------+ + | Brendon Loaiza MD | PCP | | + +------+ + Reason for Visit Auth/Cert +--------+--------+ + + + + | Status | Reason | Specialty | Diagnoses / | Referred By | Referred To | | | | | Procedures | Contact | Contact | +--------+--------+ + + + + | Closed | | | Diagnoses | | | | | | | Lumbosacral | | | | | | | spondylosis | | | | | | | without | | | | | | | myelopathy | | | | | | | Lumbosacral | | | | | | | spondylosis | | | | | | | without | | | | | | | myelopathy | | | | | | | Procedures | | | | | | | [place] ARTHDSIS | | | | | | | POST/POSTERO | | | | | | | LATRL/POSTIN | | | | | | | TERBODY | | | | | | | LUMBAR | | | | | | | LAMINECTOMY | | | | | | | PLIF/TLIF | | | | | | | INSTRUMENTAT | | | | | | | ION | | | +--------+--------+ + + + + Encounter Details +--------+ + + + + | Date | Type | Department | Care Team | Description | +--------+ + + + + | 07/18/ | Hospital | [facility] | Freddie Parham, | | | 2015 - | Encounter | [facility] | DO [address] | | | | | [address] | [address] [place], [place] | | | 07/20/ | | [place] [id number] | [id number] | | | 2014 | | [phone] | | | +--------+ + + + [...] + + + | Blood Pressure | 110/44 | 07/20/2015 7:23 AM | | | | | PDT | | + + + + + | Pulse | 56 | 07/20/2015 7:23 AM | | | | | PDT | | + + + + + | Temperature | 37 C (98.6 F) | 07/20/2015 7:23 AM | | | | | PDT | | + + + + + | Respiratory Rate | 16 | 07/20/2015 7:23 AM | | | | | PDT | | + + + + + | Oxygen Saturation | 97% | 07/20/2015 7:23 AM | | | | | PDT | | + + + + + | Inhaled Oxygen | - | - | | | Concentration | | | | + + + + + | Weight | 51.7 kg (114 lb) | 07/18/2015 9:39 AM | | | | | PDT | | + + + + + | Height | 170.2 cm (5' 7") | 07/18/2015 9:39 AM | | | | | PDT | | + + + + + | Body Mass Index | 17.85 | 07/18/2015 9:39 AM | | | | | PDT | | + + + + + documented in this encounter Discharge Summaries Jcarlos Vasquez PA - 07/20/2015 11:07 AM PDTFormatting of this note might be differen t from the original. [facility] NEUROSURGERY DISCHARGE SUMMARY Patient Name: Mady Munoz Patient : 1960 PCP: Brendon Loaiza Date of Admission: 07/18/2015 Date of Discharge: 07/20/2015 Primary Discharge Dx: . Spondylosis, L5-S1. 2. Spinal stenosis, L5-S1. 3. Lumbosacral radiculopathy. 4. Lumbago. Secondary Discharge Dx(s): Patient Active Problem List Diagnosis Anemia S/P hysterectomy Drug Intolerance - Morphine PONV (postoperative nausea and vomiting) Lumbosacral spondylosis without myelopathy Lumbar radicular pain Procedures Procedure(s): L5-S1 Transforaminal Lumbar Interbody Fusion Hospital Course: Postop the patient did well following her surgery. She wished to avoid all narcotics and w as placed on tramadol for back pain as well as muscle relaxant. She seemed to do fairly wel l postop. She worked well with physical therapy occupational therapy. Her Symptoms were al ready improving. Condition on Discharge: Stable Discharge Medications: Discharge Medications New Medications Details diazepam 5 mg tablet Take 1 tablet by mouth every 6 hours as needed. aka: VALIUM HYDROcodone-acetaminophen 5-325 mg per tablet Take 1-2 tablets by mouth every 4 hours as needed for Pain. aka: NORCO lactulose 10 g/15 mL solution Take 30 mLs by mouth Daily as needed for up to 10 days. traMADol 50 mg tablet Take 1 tablet by mouth every 6 hours as needed for Pain. aka: ULTRAM Unchanged Medications Details estradiol 1 mg tablet Take 1 mg by mouth Daily. aka: ESTRACE valACYclovir 500 mg tablet Take 500 mg by mouth Daily. aka: VALTREX ; Current Discharge Medication List START taking these medications Medication Dose Last Dose Taken; diazepam (VALIUM) 5 mg tablet 5 mg Take 1 tablet by mouth every 6 hours as needed. Quantity: 60 tablet Refills: 0 Start date: 07/20/2015 HYDROcodone-acetaminophen (NORCO) 5-325 mg per tablet 1-2 tablets Take 1-2 tablets by mouth every 4 hours as needed for Pain. Quantity: 60 tablet Refills: 0 Start date: 07/20/2015 lactulose 10 g/15 mL solution 30 mLs Take 30 mLs by mouth Daily as needed for up to 10 days. Quantity: 240 mL Refills: PRN Start date: 07/20/2015 End date: 07/30/2015 traMADol (ULTRAM) 50 mg tablet 50 mg Take 1 tablet by mouth every 6 hours as needed for Pain. Quantity: 60 tablet Refills: 1 Start date: 07/20/2015 CONTINUE these medications which have NOT CHANGED Medication Dose Last Dose Taken; estradiol (ESTRACE) 1 mg tablet 1 mg Take 1 mg by mouth Daily. valACYclovir (VALTREX) 500 mg tablet 500 mg Take 500 mg by mouth Daily. Follow-Up: 4 weeks documented in th is encounter Discharge Instructions AttachmentsThe following attachments cannot be sent through Care Everywhere.LUMBAR FUSION, DISCHARGE INSTRUCTIONS (KYRGYZ)SPINAL FUSION, DISCHARGE INSTRUCTIONS (KYRGYZ)TRANSFORAMINA L LUMBAR INTERBODY FUSION (TLIF) (KYRGYZ)documented in this encounter Medications at Time of Discharge + + + +---------+ + + | Medication | Sig | Dispensed | Refills | Start | End Date | | | | | | Date | | + + + +---------+ + + | estradiol | Take 1 mg by mouth | | 0 | | | | (ESTRACE) 1 mg | Daily. | | | | | | tablet | | | | | | + + + +---------+ + + | valACYclovir | Take 500 mg by mouth | | 0 | | | | (VALTREX) 500 mg | Daily. Oral Cold | | | | | | tablet | sores | | | | | + + + +---------+ + + | diazepam (VALIUM) | Take 1 tablet by | 60 | 0 | 07/20/20 | | | 5 mg tablet | mouth every 6 hours | tablet | | 15 | 5 | | | as needed. | | | | | + + + +---------+ + + | | Take 1-2 tablets by | 60 | 0 | 07/20/20 | | | HYDROcodone-acetamin | mouth every 4 hours | tablet | | 15 | 5 | | ophen (NORCO) 5-325 | as needed for Pain. | | | | | | mg per tablet | | | | | | + + + +---------+ + + | lactulose 10 g/15 | Take 30 mLs by mouth | 240 mL | 0 | 07/20/20 | | | mL solution | Daily as needed for | | | 15 | 5 | | | up to 10 days. | | | | | + + + +---------+ + + | traMADol (ULTRAM) | Take 1 tablet by | 60 | 1 | 07/20/20 | | | 50 mg tablet | mouth every 6 hours | tablet | | 15 | 5 | | | as needed for Pain. | | | | | + + + +---------+ + + documented as of this encounter Progress Notes Jcarlos Vasquez PA - 07/19/2015 9:12 AM PDTFormatting of this note might be differen t from the original. [facility] PROGRESS NOTE Pt. Name/Age/: Mady Munoz 55 y.o. 1960 Med. Record Number: [id number] Date of admission: 07/18/2015 Subjective: The patient chart and medications were reviewed in detail and the patient was s een and examined. The patient is doing well postop. She needs some help getting in and out of bed but pain i s otherwise well-controlled. She has not been tolerant of narcotics in the past and is usin g tramadol for pain. Patient has started passing gas Objective: Temp: 35.8 C (96.5 F) BP: (!) 87/44 mmHg (Notfied RN) Pulse: 62 Resp: 16 SpO2: 100 % on Min/Max Temp past 24 hours:Temp Av.3 C (97.4 F) Min: 35.7 C (96.3 F) Max: 3 6.9 C (98.4 F) Intake/Output Summary (Last 24 hours) at 07/19/15 0912 Last data filed at 07/19/15 0752 Gross per 24 hour Intake 2463 ml Output 1425 ml Net 1038 ml Wt. Admission: Weight: 51.71 kg (114 lb) Wt. Current: Weight: 51.71 kg (114 lb) Exam: General: Alert and oriented Cardiovascular: RRR Respiratory: Clear Abdomen: Benign Extremities: No edema Neurological: Good strength lower extremities Diagnostic studies: Available data and images were reviewed personally. See reports. Signi ficant results and findings are addressed here or in the Assessment and Plan. Assessment and Plan: Status post lumbar fusion Patient Active Problem List Diagnosis Anemia S/P hysterectomy Drug Intolerance - Morphine PONV (postoperative nausea and vomiting) Lumbosacral spondylosis without myelopathy Lumbar radicular pain Plan: Continue to work with physical therapy and occupational therapy. I've asked the gerhard ent to be consistent with her tramadol and muscle relaxant to help with pain control. The p atient is doing very well and anticipate discharge either later today or tomorrow Electronically signed by: Jcarlos Vasquez, 07/19/2015 9:12 [facility] documented in th is encounter H&P Notes Freddie Parham DO - 07/18/2015 11:41 [facility] INTERIM HISTORY AND PHYSICAL UPDATE Pt. Name/Age/: Mady Munoz 55 y.o. 1960 Date of admission: 07/18/2015 The current H&P was reviewed. The patient was reexamined. Re-evaluation of the patient co nfirms the necessity for the scheduled procedure. No change has occurred in the patient s condition since the H&P was completed less than 30 days ago. Electronically signed by: Freddie Parham, 07/18/2015 11:41 [facility] reyFreddie chowdhury DO - 07/18/2015 11:41 AM PDT Freddie Parham DO [address] [facility] [address] [place] [address] FAX: NEUROSURGERY HISTORY AND PHYSICAL EXAMINATION CHIEF COMPLAINT: Chief Complaint Patient presents with Back Pain HISTORY OF PRESENT ILLNESS: The patient is a 54 y.o. female with the complaint of back symp toms that began 6 months ago. The patient describes lifting heavy boxes and feeling an immed iate change in her low back. The symptoms have been gradually improving. She rates the pain as moderate. The symptoms are daily, continuous. She describes the pain as aching. The patient describes leg symptoms that occur on right side. The leg symptoms account for g reater than or equal to 50% of her symptoms. The leg symptoms are intermittent and the sympt oms travels from the buttock down the side of her right leg. The patient does not report any change [...] no rheumatoid arthritis. PHYSICAL EXAMINATION: Blood pressure 109/62, pulse 60, resp. rate 15, height 1.676 m (5' 6"), weight 55.339 kg (1 22 lb). Body mass index is 19.7 kg/(m^2). GENERAL: Mady Munoz is in no [...] and without palpable masses. The patient is nancy bese. SPINE: There is no tenderness in the midline of the cervical or thoracic spine. There is n o major palpable deformity of the spine. The lumbar spine shows there is tenderness in the midline of the L5, S1 levels. To palpatio n, there is signficant bilateral myofascial tenderness. EXTREMITIES: No cyanosis, clubbing, or edema. Distal pulses are palpable. NEUROLOGICAL EXAM: MENTAL STATUS: The patient is awake, alert, and oriented. She follows simple and complex commands. She speech is fluent, her comprehends speech well, and her repeats well. 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 CRANIAL NERVES: II: Acuity is intact. Lewis are full to confrontation. III, IV, : The pupils are reactive. Extraocular movements are intact. No ptosis is noted . V: Facial sensation is intact and symmetric. VII: Facial movements are symmetric. VIII: Hearing is intact bilaterally. IX, X: The uvula and palate move appropriately. XI: Shrug is equal bilaterally. XII: Tongue protrusion is midline. MOTOR EXAM: (5 IS NORMAL) * Indicates pain limited MUSCLE/ MOVEMENT: RIGHT LEFT Deltoids 5 5 Biceps 5 5 Triceps 5 5 Wrist Flexion 5 5 Wrist Extension 5 5 Median Intrinsics 5 5 Ulnar Intrinsics 5 5 Rubber Washer Strength 5 5 Hip Flexion 5 5 Hip Extension 5 5 Knee Flexion 5 5 Knee Extension 5 5 Dorsiflexion 5 5 Extensor Hallicus Longus 5 5 Plantarflexion 5 5 SENSORY EXAM: Sensory exam shows right L5 and S1-type dysesthesia. REFLEXES: (2 OR 2+ IS NORMAL) REFLEX: RIGHT LEFT BICEPS 2 2 BRACHIORADIALIS 2 2 TRICEPS 2 2 PATELLAR 2 2 ACHILLES 2 2 ALEMAN'S ABSENT ABSENT PLANTAR DOWNGOING DOWNGOING GAIT: Gait is steady. PERIPHERAL NERVE/MISC: Tinel is negative at the wrists and elbows bilaterally. Phalen is negative. Straight leg raise is negative bilaterally. Jeff's test of the hips is negative bilaterally. RADIOGRAPHIC REVIEW: The patient's imaging was reviewed in detail with the patient today during the visit. The M RI of the lumbar spine from 02/03/15 demonstrates loss of lumbar lordosis. There is spondylosi s and stenosis L5-S1 with a ventral epidural mass behind the L5 vertebral body consistent wi th a disc herniation. There is resulting central and lateral recess stenosis at L5-S1 and be hind the L5 vertebral body. Lumbar flexion and extension views show no dynamic instability. ASSESSMENT: NEUROSURGICAL DIAGNOSES: Encounter Diagnoses Name Primary? Osteoarthritis of spine with radiculopathy, lumbar region Yes Lumbar disc herniation Lumbar stenosis Lumbar radicular pain Midline low back pain with right-sided sciatica GENERAL DIAGNOSES: Past Medical History Diagnosis Date Anemia PLAN: Mady Munoz presented today, and it was a pleasure seeing this patient and assessing her problems. The patient has spondylosis and stenosis with a central disc herniation at L5- S1. This is likely contributing to her back and leg pain. I had a lengthy discussion with the patient about her options for care including surgical a nd non-surgical options. She would like to continue conservative management. I will refer he r for bilateral L5-S1 facet injections. If this relieves her pain, she may follow-up as need ed. If her symptoms persist, we discussed the possibility of TLIF L5-S1 in the future. We discussed the risks, alternatives, and benefits to surgical intervention with Ms. Ana virgen in clinic. These risks included but were not limited to , stroke, heart attack, numbn ess, weakness, paralysis, failure of fusion, failure of hardware, subsidence, adjacent segme nt degeneration, cerebrospinal fluid leak, bleeding, infection, injury to surrounding tissue s and organs, injury from positioning, injury to the nerves, difficulty with breathing, diff iculty with swallowing, difficulty with voice change, and [...] that although some patients may obtain 100% symp marjan relief, it is realistic to anticipate that some symptoms will continue postoperatively d espite a successful surgery. We also discussed that there is no guarantee that surgery will provide improvement in her c ondition, and indeed may even worsen the symptoms. We also discussed that in the course of t he procedure the operative plan may be altered to include more, less, or different levels de pending upon findings in order to provide her [...] improve the probability and rate of fusion. documented in this en counter Miscellaneous Notes Plan of Care - Mady Tillman RN - 07/20/2015 2:12 PM PDTProblem: General Plan of Care (Adult, Obstetrics) Goal: Care Plan Shift Summary & Review . Outcome: Adequate for Discharge Date Met: 07/20/15 Pt up in halls with brace "B" on independently. Medicated with tylenol, valium and tramado l for pain. Still some numbness in left 3,4 and5 toe tingling. CALE removed by nurse at 1200 with 30cc serosanguanous drainage. 1/4 inch steri strips applied. Cleaned with chlorohexedi ne and adhesive applied. Went over AVS with no questions. Pt coming around 1800. D ischarge per wheelchair with with prescription lan of Care - Song Taylor Chaplain - 07/20/2015 10:58 AM PDTProblem: General Plan of Care (Adult, Obstetrics) Goal: Care Plan Shift Summary & Review . Spiritual Care Mady Munoz is a 55 y.o. female who is admitted for Lumbosacral spondylosis without m yelopathy [721.3]. Spiritual Evaluation: Patient (goes by "Migdalia") was resting in bed; she was awake and alert and conversational. She smiled and seemed to be in good spirits. She has been up and walking a lot with PT, and fee ls that she is recovering well. She is Buddhism, attends the [employer] christian in [place], [place], and is strong in her elvira. Her is in christian leadership; she has received blessings, and appreciates the prayers from her christian family. She confessed that she Googled Dr. Parham; she was impressed with his rating, and the positive comments from patients, and felt very se cure in his care. Spiritual Interventions: I offered supportive listening, ministry of presence, and words of encouragement. Spiritual Outcomes: Migdalia felt that she was in great spiritual care, and so our visit was more social; she is wel l-supported by her family and friends, and christian family. Spiritual Goals/Follow-up: Follow up with regular post-surgery visit, emotional and spiritual support. lan of Nila Price RN - 07/20/2015 3:10 AM PDTProblem: General Plan of Care (Adult, Obste trics) Goal: Care Plan Shift Summary & Review . Outcome: Progressing Pt is alert and oriented x 4. Ambulating independently in halls, LSO in place. MS 5/5x4.. L SC HRR BT+. Minimal complaints of pain, and opted only for tylenol with valium for pain reli ef. Plans to DC today. Electronically signed by: Nila Duran RN 07/20/2015 3:10 lan of Mercedez Higuera RN - 07/19/2015 4:28 PM PDTProblem: General Plan of Care (Adult, Obstetrics) Goal: Care Plan Shift Summary & Review . Outcome: Progressing Pt A&Ox4. Pt's px consistently 5-6/10 but pt states this is manageable. Pt up independently walking hallways x2. CALE draining small amount of serosanguinous fluid. Pt calls appropriate ly. lan of Care - Maty Acuña OT - 07/19/2015 12:10 PM PDTFormatting of this note might be different from alexx machado. Occupational Therapy Acute Initial Evaluation Note Patient Information Patient Name: Mady Munoz Date of : 1960 Age: 55 y.o. History No diagnosis found. Date of Onset: 07/18/15 Referring Physician: Dr. Parham/SUSIE Vasquez Past Medical History Diagnosis Date Anemia PONV (postoperative nausea and vomiting) Wears dentures upper front H/O cold sores Past Surgical History Procedure Laterality Date Hysterectomy Ovarian cyst surgery Tonsillectomy Allergies Allergen Reactions Morphine Other (See Comments) " I don't like the feeling", bad nightmares Precautions/Limitations: (b-Brace) LUE Weight-Bearing Status: (No overhead work) RUE Weight-Bearing Status: (No overhead work) LLE Weight-Bearing Status: full weight-bearing RLE Weight-Bearing Status: full weight-bearing Evaluation SUBJECTIVE: History of Presenting Problem: Mady Munoz is a 55 y.o. who presents to [facility] for Back sx x 6 monthss. Lifting some heavy boxes & feeling immediate changes in low back. Sx improving. RLE sx. Now s/p L5-S1 TLIF secondary to spondylosis, stenosis, centr al disc herniation Patient is right handed. 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 Patient s Goals: Go home when ready Criteria for Skilled Therapeutic interventions Met:: yes OT Visit Summary: Pt seen for OT evaluation following L5-S1 TLIF. She attended [facility] and feels well prepared for post-surgical needs. Reviewed spinal precautions w/ good reca ll. Supine-sit w/ mod I. Educated that LSO needs to be in place prior to standing w/ dress ing. Light sponge bath. Dressed easily but slowly & w/o need of tread cutter for LB dressing. Toilet & shower transfer supervision. Tolerated standing @ sink to complete grooming. Ambu lated w/o assistive device ~150 ft, slow & guarded gait but no LOB. Pain moderate but pt de clining pain medication. Discussed need to manage pain successfully & benefits of pain medi cation. Returned to chair @ bedside. Call light in place. Consult w/ RN regarding pain/pa in medication needs. No further OT. Occupational Therapy will follow Mady Munoz (1 x evaluation) . Occupational Therapy Discharge Recommendations are: Recommended discharge disposition: home with family/caregiver, safety assist, ADL assist Post discharge occupational therapy recommendation: no further OT Equipment Recommendations: (None currently) Planned Interventions:Planned Therapy Interventions: (Evaluation only) Patient Status/Goals Reflects last filed data of patient status; may be from multiple contributors. FIM: FIM Transfers Toilet: 5 Toilet Transfer Evidence: 5 Safety Supervision, 6 Extra Time Tub / Shower: 5 Tub/Shower Score Evidence: 5 Safety Supervision, 6 Extra Time FIM Self Care Groomin Grooming Score Evidence: 6 Extra Time Dressing - Upper Body: 6 Dressing Upper Score Evidence: 6 Extra Time Dressing - Lower Body: 6 Dressing Lower Score Evidence: 6 Extra Time Toiletin Toileting Score Evidence: 6 Extra Time Basic ADLs Upper Body Dressing Training, OT Eval Level Of [place]: Dress Upper Body: modified independent Lower Body Dressing Training, OT Eval Level Of [place]: Dress Lower Body: modified independent Toilet Training, OT Eval Level Of [place]: Toilet: modified independent Grooming Training, OT Eval Level Of [place]: Grooming: independent Transfers Transfer Skill: Toilet Transfer, Rehab Eval Level Of [place]: Toilet: supervision/set-up Transfer Skill: Walk-In Shower Transfers, Rehab Eval Level Of [place]: Shower: supervision/set-up Assessment: Occupational therapy orders received and acknowledged. Objective impairments i nclude very mildly impaired ADLs & functional mobility not currently requiring acute OT inte rvention. Prognosis: good Patient and/or family has indicated understanding of treatment needs and actively participa charlie in the creation of this plan for care. gracy's Treatment Start Time: 829 Stop time: 919 Time Calculation: 50 minutes Missed Treatment Time: minutes Total Treatment Time: 50 minutes TimedTreatment Code Minutes: 35 minutes Objective: Pt seen for OT evaluation. Please see above for addt'l info on status & outcom e. Pt also participated in ADLs, fxl mobility, and safety awareness Education: OT POC; safety awareness; spinal precautions Treatment Provided: ADL training; functional mobility; safety awareness Assessment: Pt doing very well post-operatively. Demonstrating safe practices w/ ADLs & fu nctional mobility, good recall of spinal precautions. Has good social network for post-surg ical needs & good family support. No further acute OT intevention indicated @ this time . D/c from OTservices. Plan for next treatment: No further OT Electronically signed by: Maty Acuña OT, 07/19/2015 12:10 lan of Care - Latesha Macario - 07/19/2015 11:18 AM PDTDischarge Planning: Patient didn't have any concerns or questions at the time of this discharge planners visit. Patient lives in [place] with her spouse, she has 2 steps at the entrance. She is up i ndependent and will not have any discharge needs. She gets her medication through [facility] n [place]. Her spouse will transport her home at discharge. Electronically signed by: Latesha Huff 07/19/2015 11:40 lan of Care - Joyce Schaefer, PT - 07/19/2015 10:33 AM PDTProblem: General Plan of Care (Adult, Obstetrics) Goal: Care Plan Shift Summary & Review . Physical Therapy Daily Treatment Note Patient Information Patient Name: Mady Munoz Date of : 1960 Age: 55 y.o. Precautions/Limitations: fall precautions, spinal precautions (B-brace) LLE Weight-Bearing Status: full weight-bearing RLE Weight-Bearing Status: full weight-bearing Start Time: 0930 Stop time: 1010 Time Calculation: 40 minutes Missed Treatment Time: minutes Total Treatment Time: 40 minutes TimedTreatment Code Minutes: 40 minutes Subjective: Pt reports doing well, has been up walking multiple times in halls, not using w alker presently. Objective: Treatment Provided: Able to verbalize grade B precautions upon review. Demonstrated modifie d indpt/indpt bed mobility, tranfers and gait with no AD needed or used x 650'. Up/down 8 st eps with 0-2 very light rail touching intermittently. Returned to room and pt used BR indpt, then practiced logroll in/OOB for supine/sidelying positions with technique and ease of tra nsition movts/decreased pain. All equipment replaced and in reach. Education: precautions, wear/fit/adjusting of LSO, stair trg, logroll trg Patient Status/Goals: Reflects last filed data of patient status; may be from multiple contributors. FIM: FIM Transfers Bed/Chair/Wheelchair: 6 Bed/Chair/WC Score Evidence: 6 Extra Time, 6 Uses Orthosis FIM Locomotion Walk: 7 Distance Walked (feet): 650 feet Walk Score Evidence: 7 Indep/150 ft+ FIM Modifier DC Locomotion: walk FIM Modifier Walk Distance: 3 150 feet Stairs: 8 Stairs Score Evidence: 5 Assessment: Pt doing very well overall, fair pain control with little medication. Gait is s teady w/o AD. Demonstrates good overall mobility and safety, knowledge of grade B precaution s/HEP walking program. No further PT indicated. Pt ok'd for inpdt in room and halls. RN inf ormed of status. Physical Therapy Discharge Recommendations are: Recommended discharge disposition: home with family/caregiver Post discharge physical therapy recommendation: outpatient therapy (when cleared by MD) In dpt HEP walking program after hospital d/c Plan for next treatment: No further PT indicated, d/c Electronically signed by: Geno Schaefer, PT, 07/19/2015 10:26 lan of [place] - Claudia merida, Bruce Barron RN - 07/19/2015 4:55 AM PDTProblem: General Plan of Care (Adult, Obstetrics) Goal: Care Plan Shift Summary & Review . A/O, HRR, LSC, BT's +, last BM on 07/17/2015, up to restroom to urinate multiple times duri ng night, urinating good amounts, 5 bandaids CDI, CALE draining small amount of serosanginous drainage, patient states she feels more weakness in R leg than L, no difference noted by RN, patient slept comfortably through the night, pain well controlled. lan of Care - S Nicole sommers RRT - 07/19/2015 4:43 AM PDTProblem: General Plan of Care (Adult, Obstetric s) Goal: Care Plan Shift Summary & Review . Outcome: Progressing Patient's SpO2: 100 % on 1liters/minute nasal cannula. Patient achieving 1000 of Predicted Level (mL)(Incentive Spirometer): 2450 lan of Care - Flavia Torres RN - 07/18/2015 11:42 PM PDTProblem: General Plan of Care (Adult, Obstetric s) Goal: Care Plan Shift Summary & Review . Outcome: Progressing Pt up in halls ambulating w/ SBA multiple times this evening. Bilateral leg strength 5/5 an d denies numbness or tingling to either leg. Pt following lumbar precautions well and needs only min assist w/ bed mobility. Pt don and doff her brace independently. Was taking only fl uids but is now eating some chicken noodle soup. Pt has been resisting taking pain med and r eporting low numbers on but did start her tramadol at bedtime. Is receiving IV Robaxin rout inely. IVF SL. Voiding w/o difficulty. lan of Care - Kye Shayy allen RN - 07/18/2015 7:22 PM PDTProblem: General Plan of Care (Adult, Obstet rics) Goal: Care Plan Shift Summary & Review . Outcome: Progressing Pt arrived to room 310 about 1545 s/p lumbar fusion, grade B brace. Pt has 5 bandaids to l ower back, CDI. CALE site w/o complications draining sanguineous output. See I&O for volumes . Denies numbness or tingling in lower extremities. Grade B brace, mod assist in and out o f bed and repositioning in bed. Max assist w/brace. CGA with ambulation. BT active, C/o n ausea, IV zofran given with positive result. Tolerating clear liquids, IV fluids running. Voiding w/o complications. lan of Care - Yue Williamson, PT - 07/18/2015 5:42 PM PDT Problem: General Plan of Care (Adult, Obstetrics) Goal: Care Plan Shift Summary & Review . Physical Therapy Acute Initial Evaluation Note Patient Information Patient Name: Mady Munoz Date of : 1960 Age: 55 y.o. History No diagnosis found. Date of Onset: 07/18/15 Referring Physician: Dr. Parham Past Medical History Diagnosis Date Anemia PONV (postoperative nausea and vomiting) Wears dentures upper front H/O cold sores Past Surgical History Procedure Laterality Date Hysterectomy Ovarian cyst surgery Tonsillectomy Allergies Allergen Reactions Morphine Other (See Comments) " I don't like the feeling", bad nightmares Precautions/Limitations: fall precautions, spinal precautions (B-brace), B-brace LLE Weight-Bearing Status: full weight-bearing RLE Weight-Bearing Status: full weight-bearing EVALUATION: SUBJECTIVE: History of Presenting Problem: Mady Munoz is a 55 y.o. who [facility] s/p lumbar fusion PT Diagnosis: Difficulty in walking Impairments Found: gait, locomotion, and balance Criteria for Skilled Therapeutic interventions met: yes Previous Level of Function: Ambulation: 0-->independent Transferrin-->independent Toiletin-->independent Bathin-->independent Dressin-->independent Eatin-->independent Communication: 0-->understands/communicates without difficulty Swallowin-->swallows foods and liquids without difficulty * Change In Functional Status Since Onset Of Current Illness/Injury: yes Living Environment/Accessibility: Lives With: spouse Living Arrangements: house Home Accessibility: stairs within home, stairs to enter home Number Of Stairs To Enter Home: 2 Number Of Stairs Within Home: 12 Financial Concerns: none Transportation Available: family or friend will provide Living Environment Comment: Dtr will be present to asst at home upon discharge Patient s Goals: Want to get back to a normal life, 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 Sensory Examination L LE General Sensation: intact R LE General Sensation: intact Bed Mobility Bed Mobility Skill: Rolling/Turning, PT Eval Level Of [place]: supervision/set-up Physical Assist/Nonphysical Assist: verbal cues Goal Bed Mobility Rolling/Turning Rolling/Turning STG Status: New STG Bed Mobility Rolling/Turning: independent Bed Mobility Skill: Sit To Supine, Rehab Eval Level Of [place]: Sit/Supine: supervision/set-up Physical Assist/Nonphysical Assist: Sit/Supine: verbal cues Goal Bed Mobility Sit to Supine Sit to Supine STG Status: New STG Bed Mobility Sit to Supine: independent Bed Mobility Skill: Supine To Sit, Rehab Eval Level Of [place]: Supine/Sit: supervision/set-up Physical Assist/Nonphysical Assist: Supine/Sit: verbal cues Goal Bed Mobility Supine to Sit Supine to Sit STG Status: New STG Bed Mobility Supine to Sit : independent Bed Mobility Analysis, Rehab Eval Bed Mobility Limitations: decreased ability to use arms for pushing/pulling, impaired abili ty to control trunk for mobility Transfers Transfer Skill: Bed To Chair/Chair To Bed, Rehab Eval Type of Transfer: step pivot Level Of [place]: Bed To Chair: contact guard assist (75% patients effort) Assistive Device: 2 wheeled walker Goal Transfers Bed to Chair/Chair to Bed Bed to Chair/Chair to Bed STG Status: New STG Transfers Bed to Chair/Chair to Bed: independent Transfer Skill: Sit To Stand, Rehab Eval Level Of [place]: Sit/Stand: contact guard assist (75% patients effort) Physical Assist/Nonphysical Assist: Sit/Stand: 1 person assist Assistive Device For Transfer: Sit/Stand: 2 wheeled walker Goal Transfers Sit to Stand Sit to Stand STG Status: New STG Transfers Sit to Stand : independent Transfer Skill: Stand To Sit, Rehab Eval Level Of [place]: Stand/Sit: contact guard assist (75% patients effort) Physical Assist/Nonphysical Assist: Stand/Sit: 1 person assist Assistive Device For Transfer: Stand/Sit: 2 wheeled walker Goal Transfers Stand to Sit Stand to Sit STG Status: New STG Transfers Stand to Sit: modified independent Transfer Safety Analysis, Rehab Eval Impaired Transfers: impaired balance, pain Gait Gait Skills, PT Eval Level Of [place]: Gait: supervision/set-up Physical Assist/Nonphysical Assist: Gait: 1 person assist Assistive Device For Transfer: Gait: 2 wheeled walker Gait Distance (feet): 200 Goal Gait Gait STG Status: New STG Gait: independent STG Gait Distance (feet): 400 Gait Analysis, PT Eval Gait Pattern Used: 2-point gait Gait Deviations Noted: decreased erum Impairments Contributing To Gait Deviations: impaired balance Stairs Stair, Performance Level Of [place]: did not occur today Goal Stairs Stairs STG Status: New STG Number of Stairs: 12 STG Stairs: modified independent ROM no ROM deficits were identified Strength Manual Muscle Testing (MMT) Manual Muscle Testing Results: no strength deficits were identified Additional Goals PT Status 1: New PT Goal 1: Pt will be indep w/ all spinal precautions To promote: Safe discharge home with family/caregiver PT Status 2: New PT Goal 2: Pt will be indep donning/doffing LSO To promote: Safe discharge home with family/caregiver FIM: FIM Transfers Bed/Chair/Wheelchair: 4 Bed/Chair/WC Score Evidence: 4 Steadying FIM Locomotion Walk: 5 Distance Walked (feet): 200 feet Walk Score Evidence: 5 Supervise/150 ft+ Stairs: 0 Stairs Score Evidence: 0 Did Not Occur Assessment: Physical therapy orders received and acknowledged. Objective impairments inclu de balance, activity tolerance and knowledge deficits. These impairments are causing functio nal limitations with patient s inability to mobilize at a level necessary for safe home di scharge. Complexities contributing to the need for skilled therapy include pain. Rehabilitation potential: Patient demonstrates good potential to achieve established goals to address the documented impairments by participating in skilled physical therapy services . PLAN: bed mobility training, gait training, manual therapy techniques, postural re-education, ort hotic fitting/training, transfer training Physical Therapy will follow Mady Alexander daily until discharge from therapy or discha rged from the hospital. Anticipated days that therapy will be provided: 04/20/15 Physical Therapy Discharge Recommendations are: Recommended discharge disposition: home with family/caregiver Post discharge physical therapy recommendation: outpatient therapy (when cleared by MD) Equipment Recommendations: front wheeled walker Patient and/or family has indicated understanding of treatment needs and actively participa charlie in the creation of this plan for care. Today's Treatment Start Time: 1635 Stop time: 1720 Time Calculation: 45 minutes Missed Treatment Time: minutes Total Treatment Time: 45 minutes TimedTreatment Code Minutes: 30 minutes Objective: Treatment Provided: PT eval completed, refer to above for details. Pt also participated in spinal education, LSO training, bed mob tr, transfer tr and gait tr. Pt required the use of a FWW for balance and safety w/ mobility at this time d/t instability from sedation. Pt retu rned to room and left on toilet w/ call cord w/in reach. RN notified of pt's location. Education: Role of PT, safety w/ mobility, spinal precautions, LSO Assessment: Pt presents w/ mobility deficits which will limit safe home discharge at this t [place]. Pt will benefit from PT to promote inc safety and indep w/ all fxn mob to allow for dis charge to home environment. Plan for next treatment: LKC, 1P, FWW, progressive activity tolerance and functional indep endence Electronically signed by: Yue Williamson PT, 07/18/2015 17:39 lan of Care - Geno Avilez RRT - 07/18/2015 4:33 PM PDTProblem: General Plan of Care (Adult, Obstetrics) Goal: Care Plan Shift Summary & Review . Outcome: Progressing BS clear. Patient achieving 1000 of Predicted Level (mL)(Incentive Spirometer): 2450. SpO 2: 98 % on 2liters/minute nasal cannula. Will continue to monitor. p Note - Freddie Parham DO - 07/18/2015 2:04 PM PDTDATE: 07/18/2015 SURGEON: Freddie Parham DO. ALL TERRAIN VEHICLE TECHNICIAN: TAMMY Lorenz. PREOPERATIVE DIAGNOSES 1. Spondylosis, L5-S1. 2. Spinal stenosis, L5-S1. 3. Lumbosacral radiculopathy. 4. Lumbago. POSTOPERATIVE DIAGNOSES 1. Spondylosis, L5-S1. 2. Spinal stenosis, L5-S1. 3. Lumbosacral radiculopathy. 4. Lumbago. PROCEDURES PERFORMED 1. Combined posterior interbody and posterolateral arthrodesis L5-S1. 2. Posterior spinal instrumentation L5-S1. 3. PEEK interbody at L5-S1. 4. Laminectomies L5, S1 for decompression. 5. Use of intraoperative microscope for microdissection. 6. Coregistration for neuro navigation of the spine. ESTIMATED BLOOD LOSS: 50 mL. ANESTHESIA: General endotracheal anesthesia. FINDINGS: Stenosis L5-S1. DRAINS: CALE. COMPLICATIONS: None. DISPOSITION: The patient stable to the PACU. INDICATION FOR THE PROCEDURE: Mrs. Munoz is a 55-year-old woman who presents with signs, symptoms, and radiographic evidence of spondylosis and stenosis L5-S1. MRI and dynamic x-ray s of the lumbar spine revealed the pathology. Given her symptoms, the patient decided to pro ceed with transforaminal lumbar interbody fusion L5-S1. SURGICAL RISKS: The patient was well-appraised of all objectives, benefits, risks, and pote ntial complications of the procedure including, but not limited to, worsening of his current status, possible need for further procedures, risk of infection, headache, CSF leak, possib le spinal nerve injury resulting in paralysis, injury to major vessels causing hemorrhage, s troke, loss of language function, and even . No assurance was given whether symptoms wo uld improve following the procedure. Informed consent was obtained and secured in the chart after the patient voiced understanding of these risks and decided to proceed with the operat ion. DESCRIPTION OF PROCEDURE: The patient was transferred to operating room #2. She was given p reoperative prophylactic IV antibiotics. The patient was sedated and intubated without diffi culty by the anesthesia service. Eyes were taped shut after ointment was applied to prevent corneal abrasion. Yana Hugger was placed over the upper and lower body to maintain control o f core body temperature. [place] catheter was not inserted. The patient was turned prone on Ja ckson table. All pressure points were carefully padded. OPERATIVE TECHNIQUE: The patient was prepped and draped in standard sterile fashion. The O- arm was draped sterilely and brought into the operative field. Levels of interest, which wer e L5 and S1, were targeted and an intraoperative scan with O-arm was performed for the purpo ses of coregistration with the Stealth navigation system. Using the Stealth probe, appropriate incisions bilaterally were outlined to allow for optim al pedicle screw placement, laminectomies, and facetectomy. The skin was marked with a marking pen along the planned incision and this was infiltrated with 0.25% Marcaine with epinephrine. The marked incision was opened sharply with a #10 blad e on the left side. The Stealth navigation probe was used to align a proper trajectory in th e L5 and S1 pedicles bilaterally. Tissue protector was slid over the probe and awl-TAP combi nation device was used to cannulate the pedicles at L5 and S1 on the left. Then, 6.5 mm x 45 mm Sextant Solera pedicle screws were then placed into the pedicles on the left at L5 and 7 .5 mm x 40 mm at the S1 level. Next attention was turned to the right side where the same procedure ensued. The appropriat e incision was marked with 0.25% Marcaine with epinephrine. This was opened sharply with a # 10 blade and the Stealth navigational probe was used to find the appropriate trajectory into the pedicles at the right L5 and S1 level. The tissue protector was slid over the probe, an d awl-TAP combination device was used to cannulate the pedicles, then guidewires were left i n place and snapped to the drape at the L5 and S1 pedicles on the right. The Stealth navigation probe was used to target the facet joint on the right side at L5-S1. This was dilated up to 22 mm and a 22 mm x 6 cm retractor was docked at the facet joint at L5-S1. The microscope was draped sterilely and brought into the operative field, and the sof t tissues were cleared away from the bone. Next, using high speed electric drilling, the facet joint at L5-S1 was resected. The patien t's bone dust was saved in a bone trap. The tube was then tilted superiorly and the inferior lamina of L5 was resected with high speed drilling down to the level of the ligamentum flav um, and then the tube was tilted inferiorly, and the superior lamina of S1 was resected with high speed electric drilling down to the level of the ligamentum flavum. Laminectomies were for the purpose of decompression. Next, the ligamentum flavum was uplifted and epidural space was encountered. The disk space at L5-S1 was reached. The S1 nerve and thecal sac were gently retracted, and an annulotomy was performed with a #11 scalpel blade. The diskectomy was carried out using a series of end plate steven, curettes, and rongeurs. Endplates were prepared and rasped to expose bleeding subchondral bone. The disk space was then packed with cancellous bone chips. Next, a 10 mm x 26 mm Ti-coated Capstone PEEK cage from [employer] was chosen. It was filled with Infuse and the patient's own autograft. It was tamped into the disk space under naviga tional guidance. The traversing and exiting nerve roots were found to be completely decompre ssed. Hemostasis was achieved and Gelfoam placed was placed over the neural elements, and the pat ient's own autograft was placed on top of the Gelfoam. The tubular retractor was then remove d. Next, attention was turned to the guidewires on the right at the L5 level and S1 level, a 6 .5 mm x 50 mm pedicle screw was inserted at L5 and 7.5 mm x 40 mm at S1. The screw extenders were interconnected bilaterally, and the measuring device was used to determine the appropr iate size rods. A 40 mm anahi was selected bilaterally. More cephalad transverse incisions were made bilaterally, and the rods were passed into the screw extenders. They were then reduced down and set screws were placed and torqued to the manufacture's recommended torque. The screw extenders were then removed bilaterally. Final A P and lateral fluoroscopy revealed ideal placement of all hardware. Hemostasis was meticulou sly achieved. Trino- Slater drain was placed on the patient's right side. The incisions were closed with 2-0 interrupted Vicryl in buried fashion, and the skin was r eapproximated with Mastisol and Steri-Strips. Band-Aids were placed over all the wounds. All sponge counts, needle counts, and instrument counts were correct at the end of the case x2. The patient tolerated the procedure well without any complication, and was transferred in s table condition to the recovery room. Electronically signed by Freddie Parham DO at 015 2:07 PM PDTBrief Op Note - Freddie Parham DO - 07/18/2015 2:03 PM PDTFormatting of t his note might be different from the original. Brief Operative Note Mady Munoz 55 y.o. female 1960 [id number] Proc. Date 07/18/2015 Preop Dx Lumbosacral spondylosis without myelopathy Postop Dx same Procedure Procedure(s):L5-S1 Transforaminal Lumbar Interbody Fusion Anesthesia General Surgeon Freddie Parham DO Pool Servicer TAMMY Lorenz EBL 50 mL Findings Findings consistent with scheduled procedure. No other abnormalities found. Complications none Specimens * No specimens in log * Drains Drain/Device Site 07/18/15 1252 #1 Right: posterior back collapsible closed device (Act aurea) Electronically signed by: Freddie Parham DO 07/18/2015 14:03 [facility] documented in this en counter Plan of Treatment +--------+ + + + + | Date | Type | Specialty | Care Team | Description | +--------+ + + + + | 09/04/ | Virtual | Pulmonology | Josr Garcia MD | | | 2019 | Office | | [address] | | | | Visit | | [place] | | | | | | [id number] | | | | | | | | +--------+ + + + + documented as of this encounter Procedures + +--------+ + + + | Procedure Name | Priori | Date/Time | Associated Diagnosis | Comments | | | ty | | | | + +--------+ + + + | RESPIRATORY THERAPY | Routin | 07/18/2015 | | | | COMMUNICATION | e | 4:34 PM | | | | | | PDT | | | + +--------+ + + + | XR LUMBAR SPINE 2 OR | STAT | 07/18/2015 | | Results for this | | 3 VW | | 3:36 PM | | procedure are in the | | | | PDT | | results section. | + +--------+ + + + | FL PRABHU STATS NO | Routin | 07/18/2015 | | Results for this | | CHARGE | e | 1:40 PM | | procedure are in the | | | | PDT | | results section. | + +--------+ + + + | LAMINECTOMY | | 07/18/2015 | Lumbosacral | | | PLIF/TLIF | | 11:54 AM | spondylosis without | | | INSTRUMENTATION | | PDT | myelopathy | | + +--------+ + + + +---+--------+ | | Case | | | Notes | | | | | | Origin | | | al | | | Schedu | | | ler | | | Commen | | | ts/Not | | | es | | | Sent | | | Over | | | 06/13/ | | | 2014 @ | | | | | | 0949:[id number] | | | rill, | | | Micros | | | cope, | | | Metrx | | | Est | | | time: | | | 1.5H | | | O-Arm, | | | | | | Stealt | | | h | | | Biolog | | | ics: | | | Infuse | | | , | | | Grafto | | | n, | | | Bone | | | ChipsT | | | able: | | | Jackso | | | n | | | Frame | +---+--------+ | | | | | Specia | | | l | | | Needs | | | Francisco | | | | | | Max | | | - | | | TLIF | | | Cage, | | | Screws | +---+--------+ + +--------+ +---+ + | TYPE AND SCREEN | Routin | 07/18/2015 | | Results for this | | | e | 10:14 AM | | procedure are in the | | | | PDT | | results section. | + +--------+ +---+ + documented in this encounter Results XR Lumbar Spine 2 or 3 Vw (07/18/2015 3:36 PM PDT) + + | Specimen | + + | | + + + + + | Narrative | Performed At | + + + | THREE VIEWS LUMBAR SPINE 07/18/2015 3:36 PM CLINICAL HISTORY: | [facility] | | post op fusion COMPARISON: LUMBAR MRI JUNE 13, LUMBAR RADIOGRAPHS | | | MARCH 29 FINDINGS: Five non rib-bearing, lumbar type vertebrae are | | | visible. Mild rightward lumbar curvature is present. Interbody and | | | posterior anahi and pedicle screw fusion hardware is now in position | | | at L5-S1 and appears to be well seated. Prominent Schmorl's node | | | formation is again evident within the superior L2 vertebral endplate | | | and is similar to preoperative imaging. Lumbar vertebral height, | | | disc spaces and alignment are otherwise maintained, without evident | | | fracture. The sacroiliac joints and imaged sacrum, bony pelvis and | | | lower ribs are unremarkable. A surgical drain projects in the right | | | dorsal lumbar soft tissues. There is mild to moderate gaseous | | | distention of the stomach. IMPRESSION - 1. SATISFACTORY | | | APPEARANCE STATUS POST OPERATIVE INTERBODY AND POSTERIOR ANAHI AND | | | PEDICLE SCREW FUSION AT L5-S1. Dictated and Signed by: Milton | | | MD Bart Electronically signed: 07/18/2015 5:40 PM | | + + + + + | Procedure Note | + + | David, Rad Results In - 07/18/2015 5:43 PM PDT THREE VIEWS LUMBAR SPINE 07/18/2015 3:36 | | PMCLINICAL HISTORY: post op fusionCOMPARISON: LUMBAR MRI JUNE 13, LUMBAR RADIOGRAPHS | | MARCH 29FINDINGS: Five non rib-bearing, lumbar type vertebrae are visible. Mildrightward | | lumbar curvature is present. Interbody and posterior anahi and pediclescrew fusion | | hardware is now in position at L5-S1 and appears to be well seated. Prominent Schmorl's | | node formation is again evident within the superior [id number] endplate and is similar | | to preoperative imaging. Lumbar vertebralheight, disc spaces and alignment are | | otherwise maintained, without evidentfracture. The sacroiliac joints and imaged sacrum, | | bony pelvis and lower ribsare unremarkable. A surgical drain projects in the right | | dorsal lumbar softtissues. There is mild to moderate gaseous distention of the | | stomach.IMPRESSION -1. SATISFACTORY APPEARANCE STATUS POST OPERATIVE INTERBODY AND | | POSTERIOR RODAND PEDICLE SCREW FUSION AT L5-S1.Dictated and Signed by: Milton Arriaga MD | | Electronically signed: 07/18/2015 5:40 PM | |are unremarkable. A surgical drain projects in the right dorsal lumbar soft | |tissues. There is mild to moderate gaseous distention of the stomach. | | | |IMPRESSION - | | | |1. SATISFACTORY APPEARANCE STATUS POST OPERATIVE INTERBODY AND POSTERIOR ANAHI | |AND PEDICLE SCREW FUSION AT L5-S1. | | | |Dictated and Signed by: Milton Arriaga MD | | Electronically signed: 07/18/2015 5:40 PM | + + + +---------+ + + | Performing | Address | City/State/Zipcode | Phone Number | | Organization | | | | + +---------+ + + | [facility] | | | | + +---------+ + + [place] C-Arm Stats No Charge (07/18/2015 1:40 PM PDT) + + | Specimen | + + | | + + + + + | Narrative | Performed At | + + + | No Radiologist interpretation, please see Chart Review. | [facility] | + + + + +---------+ + + | Performing | Address | City/State/Zipcode | Phone Number | | Organization | | | | + +---------+ + + | [facility] | | | | + +---------+ + + Type and Screen (07/18/2015 10:14 AM PDT) + + + + + + | Component | Value | Ref Range | Performed | Pathologist | | | | | At | Signature | + + + + + + | ABO | AB | | [facility] | | | | [facility] | | | [facility] | | | | | [facility] - | | | | | | [facility] BANK | | + + + + + + | Rh Type | Positive | | [facility] | | [facility] | | | [facility] - | | | | | | [facility] BANK | | + + + + + + | Antibody | Negative | | [facility] | | | Screen | | | [facility] | | | | | | [facility] | | | | | | [facility] - | | | | | | BLOOD BANK | | + + + + + + + + | Specimen | + + | Blood specimen | | (specimen) | + + + + + + + | Performing | Address | City/State/Zipcode | Phone Number | | Organization | | | | + + + + + | [facility] | [address] | [place] | | | [facility] | | [address] | | | - BLOOD BANK | | | | + + + + + documented in this encounter Visit Diagnoses + + | Diagnosis | + + | Lumbosacral spondylosis without myelopathy | + + | Lumbar radicular pain Thoracic or lumbosacral neuritis or radiculitis, unspecified | + + documented in this encounter Admitting Diagnoses + + | Diagnosis | + + | Lumbosacral spondylosis without myelopathy | + + documented in this encounter Administered Medications + +--------+ +--------+------+------+ | Medication Order | MAR | Action | Dose | Rate | Site | | | Action | Date | | | | + +--------+ +--------+------+------+ | acetaminophen (TYLENOL) tablet | Given | 07/20/20 | 650 mg | | | | 650 mg 650 mg, Oral, EVERY 4 | | 15 1:20 | | | | | HOURS PRN, Pain, Starting Tue | | PM PDT | | | | | 07/18/15 at 1551, Post-op/Phase II | | | | | | + +--------+ +--------+------+------+ +-------+ +--------+---+---+ | Given | 07/20/20 | 650 mg | | | | | 15 5:46 | | | | | | AM PDT | | | | +-------+ +--------+---+---+ | Given | 07/19/20 | 650 mg | | | | | 15 9:58 | | | | | | PM PDT | | | | +-------+ +--------+---+---+ +---+---+ | | | +---+---+ + +---------+ +-----+-------+---+ | ceFAZolin in dextrose (ANCEF) | New Bag | 07/19/20 | 2 g | 100 | | | IVPB 2 g 2 g, Intravenous, | | 15 3:13 | | mL/hr | | | Administer over 30 Minutes, EVERY | | AM PDT | | | | | 8 HOURS INTERVAL, First dose on | | | | | | | 07/18/15 at 2000, For 2 doses, | | | | | | | Start 8 hours after previous | | | | | | | dose. Last dose to be given | | | | | | | within 24 hours of surgery end | | | | | | | time., Post-op/Phase II | | | | | | + +---------+ +-----+-------+---+ +---------+ +-----+-------+---+ | New Bag | 07/18/20 | 2 g | 100 | | | | 15 9:29 | | mL/hr | | | | PM PDT | | | | +---------+ +-----+-------+---+ +---+---+ | | | +---+---+ + +-------+ +------+---+---+ | diazepam (VALIUM) tablet 5 mg | Given | 07/20/20 | 5 mg | | | | 5 mg, Oral, EVERY 6 HOURS PRN, | | 15 5:34 | | | | | Muscle spasms, Starting Tue | | PM PDT | | | | | 07/18/15 at 1551, Use if | | | | | | | methocarbamol and cyclobenzaprine | | | | | | | ineffective or not ordered., | | | | | | | Post-op/Phase II | | | | | | + +-------+ +------+---+---+ +-------+ +------+---+---+ | Given | 07/20/20 | 5 mg | | | | | 15 11:39 | | | | | | AM PDT | | | | +-------+ +------+---+---+ | Given | 07/20/20 | 5 mg | | | | | 15 5:46 | | | | | | AM PDT | | | | +-------+ +------+---+---+ +---+---+ | | | +---+---+ + +-------+ +-------+---+---+ | diphenhydrAMINE (BENADRYL) | Given | 07/19/20 | 25 mg | | | | tablet 25 mg 25 mg, Oral, EVERY | | 15 9:58 | | | | | 4 HOURS PRN, Itching, Starting | | PM PDT | | | | | 07/18/15 at 1551, Oral route | | | | | | | is preferred., Post-op/Phase II | | | | | | + +-------+ +-------+---+---+ +---+---+ | | | +---+---+ + +-------+ +--------+---+---+ | docusate sodium (COLACE) | Given | 07/20/20 | 100 mg | | | | capsule 100 mg 100 mg, Oral, 2 | | 15 7:48 | | | | | TIMES DAILY PRN, Constipation, | | AM PDT | | | | | Starting Fri07/18/15 at 1551, | | | | | | | First line agent for | | | | | | | constipation, Post-op/Phase II | | | | | | + +-------+ +--------+---+---+ +---+---+ | | | +---+---+ + +-------+ +------+---+---+ | estradiol (ESTRACE) tablet 1 mg | Given | 07/19/20 | 1 mg | | | | 1 mg, Oral, DAILY, First dose | | 15 8:20 | | | | | on Fri07/18/15 at 1615, | | PM PDT | | | | | Hazardous: Use appropriate | | | | | | | handling precautions., | | | | | | | Post-op/Phase II | | | | | | + +-------+ +------+---+---+ +-------+ +------+---+---+ | Given | 07/18/20 | 1 mg | | | | | 15 9:30 | | | | | | PM PDT | | | | +-------+ +------+---+---+ +---+---+ | | | +---+---+ + +-------+ +--------+---+---+ | fentaNYL injection 25-50 mcg | Given | 07/18/20 | 25 mcg | | | | 25-50 mcg, Intravenous, EVERY 5 | | 15 2:34 | | | | | MIN PRN, Pain, Starting Tue | | PM PDT | | | | | 07/18/15 at 1341, Maximum total | | | | | | | dose 250 mcg. PACU IV Narcotic | | | | | | | Priority: Only use fentanyl for | | | | | | | immediate post-op pain (one dose) | | | | | | | or breakthrough pain when any | | | | | | | other IV narcotics ordered have | | | | | | | been ineffective (if ordered). | | | | | | | If both morphine and | | | | | | | hydromorphone are ordered, use | | | | | | | morphine first, and use | | | | | | | hydromporphone if morphine | | | | | | | ineffective., Recovery/Phase I | | | | | | + +-------+ +--------+---+---+ +-------+ +--------+---+---+ | Given | 07/18/20 | 25 mcg | | | | | 15 2:23 | | | | | | PM PDT | | | | +-------+ +--------+---+---+ | Given | 07/18/20 | 25 mcg | | | | | 15 2:18 | | | | | | PM PDT | | | | +-------+ +--------+---+---+ +---+---+ | | | +---+---+ + +-------+ +--------+---+---+ | HYDROmorphone (DILAUDID) | Given | 07/18/20 | 0.3 mg | | | | injection 0.2-0.5 mg 0.2-0.5 mg, | | 15 2:40 | | | | | Intravenous, EVERY 5 MIN PRN, | | PM PDT | | | | | Pain, Starting Fri07/18/15 at | | | | | | | 1341, Maximum total dose 4 mg. | | | | | | | PACU IV Narcotic Priority: Only | | | | | | | use fentanyl for immediate | | | | | | | post-op pain (one dose) or | | | | | | | breakthrough pain when any other | | | | | | | IV narcotics ordered have been | | | | | | | ineffective (if ordered). If | | | | | | | both morphine and hydromorphone | | | | | | | are ordered, use morphine first, | | | | | | | and use hydromporphone if | | | | | | | morphine ineffective., | | | | | | | Recovery/Phase I | | | | | | + +-------+ +--------+---+---+ +-------+ +--------+---+---+ | Given | 07/18/20 | 0.2 mg | | | | | 15 2:35 | | | | | | PM PDT | | | | +-------+ +--------+---+---+ | Given | 07/18/20 | 0.4 mg | | | | | 15 2:30 | | | | | | PM PDT | | | | +-------+ +--------+---+---+ +---+---+ | | | +---+---+ + +---------+ +--------+--------+---+ | methocarbamol (ROBAXIN) 750 mg | New Bag | 07/19/20 | 750 mg | 143.3 | | | in sodium chloride 0.9% 100 mL | | 15 4:02 | | mL/hr | | | IVPB 750 mg, Intravenous, | | AM PDT | | | | | Administer over 45 Minutes, EVERY | | | | | | | 6 HOURS (4 times per day), First | | | | | | | dose on Fri07/18/15 at 1430, For | | | | | | | 3 doses, Post-op/Phase II | | | | | | + +---------+ +--------+--------+---+ +---------+ +--------+--------+---+ | New Bag | 07/18/20 | 750 mg | 143.3 | | | | 15 10:34 | | mL/hr | | | | PM PDT | | | | +---------+ +--------+--------+---+ | New Bag | 07/18/20 | 750 mg | 143.3 | | | | 15 2:14 | | mL/hr | | | | PM PDT | | | | +---------+ +--------+--------+---+ +---+---+ | | | +---+---+ + +-------+ +------+---+---+ | ondansetron (ZOFRAN) injection | Given | 07/18/20 | 4 mg | | | | 4 mg 4 mg, Intravenous, ONCE | | 15 2:19 | | | | | PRN, Nausea, Starting Fri07/18/15 | | PM PDT | | | | | at 1341, For 1 dose, | | | | | | | Recovery/Phase I | | | | | | + +-------+ +------+---+---+ +---+---+ | | | +---+---+ + +-------+ +------+---+---+ | ondansetron (ZOFRAN) injection | Given | 07/18/20 | 4 mg | | | | 4 mg 4 mg, Intravenous, EVERY 6 | | 15 5:31 | | | | | HOURS PRN, Nausea, Vomiting, | | PM PDT | | | | | Starting 07/18/15 at 1551, | | | | | | | First line agent Use PO option | | | | | | | unless NPO status or unable to | | | | | | | tolerate., Post-op/Phase II | | | | | | + +-------+ +------+---+---+ +---+---+ | | | +---+---+ + +-------+ +--------+---+---+ | senna (SENOKOT) tablet 8.6 mg | Given | 07/20/20 | 8.6 mg | | | | 8.6 mg, Oral, 2 TIMES DAILY PRN, | | 15 7:48 | | | | | Constipation, Starting Tue | | AM PDT | | | | | 07/18/15 at 1551, If docusate | | | | | | | ineffective or not ordered, | | | | | | | Post-op/Phase II | | | | | | + +-------+ +--------+---+---+ +---+---+ | | | +---+---+ + +---------+ +--------+-------+---+ | sodium chloride 0.9% (NS) | New Bag | 07/18/20 | 1,000 | 100 | | | infusion at 100 mL/hr, | | 15 2:00 | mLs | mL/hr | | | Intravenous, CONTINUOUS, Starting | | PM PDT | | | | | 07/18/15 at 1000 | | | | | | + +---------+ +--------+-------+---+ +---------+ +---+-------+---+ | New Bag | 07/18/20 | | 100 | | | | 15 10:37 | | mL/hr | | | | AM PDT | | | | +---------+ +---+-------+---+ +---+---+ | | | +---+---+ + +-------+ +-------+---+---+ | traMADol (ULTRAM) tablet 25 mg | Given | 07/20/20 | 25 mg | | | | 25 mg, Oral, EVERY 6 HOURS PRN, | | 15 7:48 | | | | | Pain, Starting 07/18/15 at | | AM PDT | | | | | 1551, Post-op/Phase II | | | | | | + +-------+ +-------+---+---+ +-------+ +-------+---+---+ | Given | 07/19/20 | 25 mg | | | | | 15 3:53 | | | | | | PM PDT | | | | +-------+ +-------+---+---+ | Given | 07/19/20 | 25 mg | | | | | 15 8:10 | | | | | | AM PDT | | | | +-------+ +-------+---+---+ +---+---+ | | | +---+---+ documented in this encounter
--- OUTSIDE RECORDS SUMMARY | ~2020-08-04 | XMS | Encounter Summary ---
Demographics + + + | Address | [address] | | | [place] [address] | + + + | Home Phone | | + + + | Preferred Language | Unknown | + + + | Marital Status | | + + + | Advent Affiliation | 1027 | + + + | Race | White | + + + | Ethnic Group | Not or | + + + Author + + + | Author | [facility] | | | and [place] | + + + | Organization | [facility] | | | and [place] | + + + | Address | Unknown | + + + | Phone | Unavailable | + + + Support + + +---------+ + | Name | Relationship | Address | Phone | + + +---------+ + | Tavon Morena Munoz | ECON | Unknown | | + + +---------+ + Care Team Providers + +------+ + | Care Risk Compliance Manager Name | Role | Phone | + +------+ + | Brendon Loaiza MD | PCP | | + +------+ + Encounter Details +--------+ + + + + | Date | Type | Department | Care Team | Description | +--------+ + + + + | 03/14/ | Preadmit | [facility] | Josr Garcia MD | | | 2020 | Visit | CENTER [facility] | [address] | | | | | CLINIC [address] | [place] [address] [place], [place] | | | | | [place], [place] | [address] | | | | | [address] | | | | | | [phone] | | | +--------+ + + + [...] + + documented as of this encounter Patient Instructions Instructions Yen Garcia RN - 03/14/2020Given over the phone. documented in this encounter Miscellaneous Notes Preadmit Clinic Note - Yen Garcia RN - 03/14/2020 9:00 AM PDT>4 mets per [facility]HA guidelin es for non emergent surgery. Denies cardiac hx, CP. Increased fatigue and exertional SOB s edwige 01/2020. [facility] was on vacation in [place] and developed flu-type S/S, coughing, SOB, f ever, body aches, sore throat. [facility] since then fever, sore throat and body aches have res olved, but coughing, SOB continue. [facility] family members and friends also developed same S/ S illness. Was not tested for Covid-19, [facility] had negative flu swab. Instructed patient t o ask for mask upon arrival on DOS. Aware ride will need to wait outside hospital. [facility] is having TB test today; encouraged her to bring documentation of result or form to read test by nurse or Dr. Garcia. States she will. documented in this encounter Plan of Treatment [...] [place] | | | | | | [id number] | | | | | | | | +--------+ + + + + documented as of this encounter Visit Diagnoses Not on filedocumented in this encounter"
--- OUTSIDE RECORDS SUMMARY | ~2020-08-04 | XMS | Encounter Summary ---
Demographics + + + | Address | [address] | | | [place] [address] | + + + | Home Phone | | + + + | Preferred Language | Unknown | + + + | Marital Status | | + + + | Judaism Affiliation | 1027 | + + + | Race | White | + + + | Ethnic Group | Not or | + + + Author + + + | Author | [facility] | | | and [place] | + + + | Organization | [facility] | | | [...] Team Providers + +------+ + | Care Manager Switch Name | Role | Phone | + [...] + + | 03/21/ | Documentati | [facility] | Messi, | Other (labs from | | 2019 | on | PULMONOLOGY [address] | Melania Christine, Medical | interpath) | | | | [address] | [employer] | | | | | [place], [place] | | | | | | [address] | | | | | | [phone] | | | +--------+ + + + [...] + documented as of this encounter Progress Melania Sorensen, Press Manager - 03/21/2020 10:49 AM PDTReceived labs from [...] [place] | | | | | | [id number] | | | | | | | | +--------+ + + + + documented as of this encounter Visit Diagnoses Not on filedocumented in this encounter"
--- OUTSIDE RECORDS SUMMARY | ~2020-08-04 | XMS | Encounter Summary ---
Demographics + + + | Address | [address] | | | [place] [address] | + + + | Home Phone | | + + + | Preferred Language | Unknown | + + + | Marital Status | | + + + | Confucianism Affiliation | 1027 | + + + | Race | White | + + + | Ethnic Group | Not or | + + + Author + + + | Author | [facility] | | | and [place] | + + + | Organization | [facility] | | | and [place] | + + + | Address | Unknown | + + + | Phone | Unavailable | + + + Support + + +---------+ + | Name | Relationship | Address | Phone | + + +---------+ + | Tavonprudence Munoz | ECON | Unknown | | + + +---------+ + Care Team Providers + +------+ + | Care Travel Physical Therapist Name | Role | Phone | + +------+ + | Brendon Loaiza MD | PCP | | + +------+ + Encounter Details +--------+ + + + + | Date | Type | Department | Care Team | Description | +--------+ + + + + | 03/20/ | Orders Only | [facility] | Josr Garcia MD | | | 2020 | | PULMONOLOGY [address] | [address] | | | | | [address] | [address] [place], [place] | | | | | [place], [place] | [address] | | | | | [address] | | | | | | [phone] | | | +--------+ + + + [...] Garcia MD | | | 2020 | Office | | [address] | | | | Visit | | [place] [address] [place] | | | | | | [address] | | | | | | | | +--------+ + + + + documented as of this encounter Visit Diagnoses Not on filedocumented in this encounter"
--- OUTSIDE RECORDS SUMMARY | ~2020-08-04 | XMS | Encounter Summary ---
Demographics + + + | Address | [address] | | | [place] [address] | + + + | Home Phone | | + + + | Preferred Language | Unknown | + + + | Marital Status | | + + + | Gnosticist Affiliation | 1027 | + + + | Race | White | + + + | Ethnic Group | Not or | + + + Author + + + | Author | [facility] | | | and [place] | + + + | Organization | [facility] | | | [...] Team Providers + +------+ + | Care Tumbler Plater Name | Role | Phone | + +------+ + | Brendon Loaiza MD | PCP | | + +------+ + Reason for Visit +--------+--------+ + | Reason | Onset | Comments | | | Date | | +--------+--------+ + | Pain | 04/26/ | | | | 2015 | | +--------+--------+ + Encounter Details +--------+ + + + + | Date | Type | Department | Care Team | Description | +--------+ + + + + | 04/26/ | Telephone | [facility] | Freddie Parham, | Pain | | 2016 | | NEUROSURGERY [address] | DO [address] | | | | | [address] | [address] [place], [place] | | | | | [place], [place] | [address] | | | | | [address] | | | | | | [phone] | | | +--------+ + + + [...] this encounter Miscellaneous Notes Telephone Encounter - Edith David RN - 05/06/2016 9:16 AM PDTCalled Migdalia and advised her per Dr. Parham and scheduled her with Hussein Mayers PA-C on 05/17/16 at 0930. She was advised to seek immediate medical attention with worsening pain, loss of bowel/blad mercedes control, and sudden onset of weakness/numbness in her extremities, she verbalized unders tanding. elephone En alvarado - Freddie Parham DO - 05/03/2016 1:12 PM PDTX-rays look really good. So follow-up with Hussein would be a good next step if she would like. He can then order appropriate advan reid imaging. Thanks. elephone Araceli Griffin Cert MA - 05/03/2016 12:34 PM PDTXR's are on I-site for review. Araceli arthur advise. ARACELI VEGA elephone Encounte r - Araceli Vega Cert MA - 05/03/2016 10:25 AM PDTI called and requested images to I-site from [facility]. Once available, I will forward to Dr. Parham. elephone Larry Moya - 05/03/2016 10:13 AM PDTPatient called, Xrays completed. Please call i f necessary. elephone Edith Morse RN - 04/26/2016 12:41 PM PDTCalled Migdalia and advised her per Dr. Natalie mark. Lumbar xray order faxed via [employer] to [facility]. She will call us once completed. She wants t o wait to see what the xray results are prior to making an appointment. Electronically cassidy d by Edith David RN at 04/26/2016 12:45 PM PDTTelephone Encounter - Freddie Parham DO - 04/26/2016 10:01 AM PDTLet's have her get an AP and lateral x-ray of the lumbar spine to see how things look. She could follow-up with Hussein or myself if she wants or wait to see wh at I think about the x-rays. Up to her. Thanks. elephone Edith Sarmiento RN - 04/26/2016 9:05 AM PDTPost-op patient: Yes". Type of Procedure: L5-S1 Fusion Date of Procedure: 07/18/16 Next Office Visit: No future appointments Reason for call: Increased back pain after lifting her treadmill in 01/2016. She states sherron t this pain is progressively worsening. She states that when she straightens up after bendin g is when the pain "really hurts". It also hurts to sit again (something she was experiencin g prior to surgery). Type of pain: Constant, aching Location of Pain: Surgical site Pain Level: 02/07 New Pain: Yes. When did pain start to increase or change: January 2016 after lifting the treadmill Worse with activity: Yes. Radiates into buttock and or legs: No. Sudden onset of loss of bowel/bladder control: No. Sudden onset of Lower or Upper extremity weakness: No. Denies numbness. Current intake of pain medication/or muscle relaxants: Tramadol & Hydrocodone She wants to know if she should start PT again? Please advise further. elephone Encounter - Yuri Montgomery - 04/26/2016 8:58 AM PDTPatient called in stating she has been having a lot of increased pain, especially when she bends over to pick something up. Has she straighten s her back back out the pain gets worse. Would like a call back today [phone] Surgery date 07/18/2015 documented in this encounter Plan of Treatment +--------+ + + + + | Date | Type | Specialty | Care Team | Description | +--------+ + + + + | 10/05/ | Virtual | Pulmonology | Josr Garcia MD | | | 2019 | Office | | [address] | | | | Visit | | [place] | | | | | | [address] | | | | | | | | +--------+ + + + + documented as of this encounter Visit Diagnoses Not on filedocumented in this encounter
--- OUTSIDE RECORDS SUMMARY | ~2020-08-04 | XMS | Encounter Summary ---
Demographics + + + | Address | [address] | | | [place] [address] | + + + | Home Phone | | + + + | Preferred Language | Unknown | + + + | Marital Status | | + + + | Restorationism Affiliation | [id number] | + + + [...] | + + +---------+ + | Tavon Manley | ECON | Unknown | | + + +---------+ + Care Team Providers + +------+ + | Care Marine Service Operator Name | Role | Phone | + +------+ + | Brendon Loaiza MD | PCP | | + +------+ + Reason for Visit Auth/Cert +--------+--------+ + + + + | Status | Reason | Specialty | Diagnoses / | Referred By | Referred To | | | | | Procedures | Contact | Contact | +--------+--------+ + + + + | | | | Diagnoses | | | | | | | Mediastinal | | | | | | | | | | | | | | lymphadenopa | | | | | | | thy | | | | | | | Procedures | | | | | | | ULTRASOUND | | | | | | | ENDOBRONCHIA | | | | | | | L | | | +--------+--------+ + + + + Encounter Details +--------+---------+ + + + | Date | Type | Department | Care Team | Description | +--------+---------+ + + + | 03/17/ | Surgery | [facility] | Josr Garcia MD | ULTRASOUND | | 2020 | | [facility] | [address] | ENDOBRONCHIAL | | | | INTRA OP [address] | [facility] [place] [facility] | | | | | MANUELA BILLINGS MD | [phone] | | | | | [address] | | | | | | [phone] | | | +--------+---------+ + + + [...] + + + | Blood Pressure | 106/70 | 03/17/2020 1:16 PM | | | | | PDT | | + + + + + | Pulse | 68 | 03/17/2020 1:16 PM | | | | | PDT | | + + + + + | Temperature | 37.3 C (99.1 F) | 03/17/2020 1:16 PM | | | | | PDT | | + + + + + | Respiratory Rate | 18 | 03/17/2020 1:16 PM | | | | | PDT | | + + + + + | Oxygen Saturation | 100% | 03/17/2020 1:16 PM | | | | | PDT | | + + + + + | Inhaled Oxygen | - | - | | | Concentration | | | | + + + + + | Weight | - | - | | + + + + + | Height | - | - | | + + + + + | Body Mass Index | - | - | | + + + + + documented in this encounter Discharge Instructions Instructions Carol Garcia RN - 03/17/2020Bronchoscopy Discharge Instructions Bronchoscopy is an exam used to help diagnose lung problems. A thin, flexible tube called a bronchoscope is used. A special light and a tiny camera are attached to the tube. This equi pment lets your doctor view your breathing passages. The medication used for sedation-analgesia may cause drowsiness, dizziness, or blurred visi on. Rest for the remainder of the day. DO NOT drive or perform other tasks requiring alertness and coordination for the remaind er of the day DO NOT make important decisions today. Avoid drinking alcoholic beverages including beer. Report to your doctor if you experience: Shortness of breath Coughing up blood Fever/Temperature greater than 100 degrees F Unusual pain Any problems or concerns related to this procedure If you experience chest pain, shortness of breath and diaphoresis, report immediately to [facility] Emergency Room or call . Diet: Regular Additional Instructions: none Patient Discharged to Home by ambulatory and in a wheelchair via Personal vehicle accompani ed by accompanied by spouse These instructions have been explained to the patient/escort. The patient received a copy and the patient/escort verbalized understanding of these instructions. Patient or Escort Signature Date/Time Nurse's Signature Date/Time documented in this encounter Medications at Time of Discharge + + + +---------+ + + | Medication | Sig | Dispensed | Refills | Start | End Date | | | | | | Date | | + + + +---------+ + + | ALBUTEROL IN | Inhale into the | | 0 | | | | | lungs Daily as | | | | | | | needed. | | | | | + + + +---------+ + + | Biotin w/ Vitamins | Take by mouth | | 0 | | | | C & E | Daily. | | | | | | (HAIR/SKIN/NAILS PO) | | | | | | + + + +---------+ + + | Cholecalciferol | Take 2,000 Units by | | 0 | | | | (VITAMIN D-3 PO) | mouth nightly. | | | | | + + + +---------+ + + | estradiol | Take 1 mg by mouth | | 0 | | | | (ESTRACE) 1 mg | Daily. | | | | | | tablet | | | | | | + + + +---------+ + + | | Take by mouth | | 0 | | | | MAGNESIUM-POTASSIUM | nightly. RLS | | | | | | PO | | | | | | + + + +---------+ + + | promethazine | Take 12.5 mg by | | 0 | | | | (PHENERGAN) 12.5 MG | mouth every 6 hours | | | | | | tablet | as needed for | | | | | | | Nausea. | | | | | + + + +---------+ + + | valACYclovir | Take 500 mg by mouth | | 0 | | | | (VALTREX) 500 mg | Daily. Oral Cold | | | | | | tablet | sores | | | | | + + + +---------+ + + | benzonatate | Take 1 capsule by | 30 | 0 | 03/13/20 | | | (TESSALON) 100 mg | mouth 3 times daily | capsule | | 20 | 0 | | capsule | as needed for Cough. | | | | | + + + +---------+ + + | | Inhale 1 puff into | | 0 | | | | fluticasone-salmeter | the lungs 2 times | | | | 0 | | ol (ADVAIR, WIXELA | daily. | | | | | | INHUB) 100-50 | | | | | | | mcg/puff diskus | | | | | | | inhaler | | | | | | + + + +---------+ + + documented as of this encounter H&P Notes Josr Garcia MD - 03/17/2020 2:45 PM PDT [facility] Service: Pulmonology Pre-Operative History & Physical DIAGNOSIS: Mediastinal lymphadenopathy INDICATION: Diagnostic PROCEDURE: EBUS CHIEF COMPLAINT: Cough History Obtained From: History obtained from the patient. HISTORY OF PRESENT ILLNESS The patient is 59 y.o. female with significant past medical history of cough who presents with mediastinal lymphadenopathy . Please see the clinic notes for details REVIEW OF SYSTEMS Review of Systems Constitutional: Negative. HENT: Negative. Eyes: Negative. Respiratory: Positive for cough. Cardiovascular: Negative. Gastrointestinal: Negative. Musculoskeletal: Negative. Skin: Negative. Neurological: Negative. Endo/Heme/Allergies: Negative. Psychiatric/Behavioral: Negative. History: Past Medical History: Diagnosis Date Anemia low iron intermittently - ongoing Claustrophobia Cough 01/2020 flu type S/S; sore throat, body aches, fever w/ fatigue and "chest heaviness". Went [place] Dysphagia pills, foods, meats Exertional shortness of breath 01/2020 since onset of cough Gastric ulcer take occ omeprozole H/O cold sores Lymph nodes enlarged 01/2020 Lungs Panic attacks MRI PONV (postoperative nausea and vomiting) with oral opioids Presence of partial dental prosthetic device upper front plate Retained orthopedic hardware Lumbar spine RLS (restless legs syndrome) Past Surgical History: Procedure Laterality Date COLONOSCOPY EGD HYSTERECTOMY LUMBAR FUSION 07/18/2015 with hardware LUMBAR LAMINECTOMY Right 07/18/2015 Procedure: L5-S1 Transforaminal Lumbar Interbody Fusion; Surgeon: Freddie Parham DO; Lo cation: [facility] MAIN OR OVARIAN CYST SURGERY SHOULDER SURGERY Bilateral rotator cuff; calcium deposit BRANDON AND BSO TONSILLECTOMY Social History Socioeconomic History Marital status: Spouse name: Not on file Number of children: 3 Years of education: Not on file Highest education level: Not on file Occupational History Not on file Social Needs Financial resource strain: Not on file Food insecurity: Worry: Not on file Inability: Not on file Transportation needs: Medical: Not on file Non-medical: Not on file Tobacco Use Smoking status: Never Smoker Smokeless tobacco: Never Used Substance and Sexual Activity Alcohol use: No Drug use: No Sexual activity: Never Lifestyle Physical activity: Days per week: Not on file Minutes per session: Not on file Stress: Not on file Relationships Social connections: Talks on phone: Not on file Gets together: Not on file Attends christianity service: Not on file Active member of club or organization: Not on file Attends meetings of clubs or organizations: Not on file Relationship status: Not on file Intimate partner violence: Fear of current or ex partner: Not on file Emotionally abused: Not on file Physically abused: Not on file Forced sexual activity: Not on file Other Topics Concern Not on file Social History Narrative Not on file Family History Problem Relation Age of Onset Cancer Paternal Grandmother Arthritis Father Pooja hypertherm Neg Hx Allergies: Allergies Allergen Reactions Codeine Nausea And Vomiting Morphine Other (See Comments) " I don't like the feeling", bad nightmares Opioid [Morphine And Related] Nausea And Vomiting Current Medications: No current facility-administered medications on file prior to encounter. Current Outpatient Medications on File Prior to Encounter Medication Sig Dispense Refill benzonatate (TESSALON) 100 mg capsule Take 1 capsule by mouth 3 times daily as needed f or Cough. 30 capsule 0 estradiol (ESTRACE) 1 mg tablet Take 1 mg by mouth Daily. valACYclovir (VALTREX) 500 mg tablet Take 500 mg by mouth Daily. Oral Cold sores PHYSICAL EXAM Vital Signs: Vitals: 03/17/20 1316 BP: 106/70 Pulse: 68 Resp: 18 Temp: 37.3 C (99.1 F) There were no vitals taken for this visit. Physical Exam Physical Exam Constitutional: She is oriented to person, place, and time and well-developed, well-nourish ed, and in no distress. HENT: Head: Normocephalic and atraumatic. Mouth/Throat: No oropharyngeal exudate. Eyes: Pupils are equal, round, and reactive to light. Conjunctivae and EOM are normal. Neck: Normal range of motion. Neck supple. No JVD present. No tracheal deviation present. Cardiovascular: Normal rate, regular rhythm and normal heart sounds. No murmur heard. Pulmonary/Chest: Effort normal and breath sounds normal. No respiratory distress. She has n o wheezes. She has no rales. She exhibits no tenderness. Musculoskeletal: Normal range of motion. General: No edema. Neurological: She is alert and oriented to person, place, and time. No cranial nerve defici t. Gait normal. Skin: Skin is warm. Psychiatric: Affect and judgment normal. DATA Reviewed PROBLEM LIST Patient Active Problem List Diagnosis Date Noted POA S/P hysterectomy 07/17/2015 Unknown Priority: Low Drug Intolerance - Morphine 07/17/2015 Unknown Priority: Low Mediastinal lymphadenopathy 03/13/2020 Unknown Lumbosacral spondylosis without myelopathy 07/17/2015 Unknown Lumbar radicular pain 07/17/2015 Unknown PONV (postoperative nausea and vomiting) Unknown Anemia Unknown ASSESSMENT & PLAN 1. Patient is a 59 y.o. female with above specified procedure planned. 2. Procedure options, risks, benefits and alternatives reviewed with patient who express( es) understanding. Any and all questions were answered to their satisfaction. Primary Care Physician: MD Josr Rojo MD 03/17/2020 documented in this enco unter Miscellaneous Notes D-C Instructions Provation - Josr Garcia MD - 03/17/2020 2:48 PM PDTPatient Instruction s After Bronchoscopy Patient: Mady Manley Procedure Date: Tuesday, March 17, 2020 Attending MD: Josr Garcia; This Bronchoscopy was performed on Tuesday, March 17, 2020. My impressions and recommendations are as follows: Impressions : - Endobronchial ultrasound was performed. - A transbronchial needle aspiration was performed. - Transbronchial lung biopsies were performed. Recommendations : - Await test results. You have received sedation for your procedure. You may feel normal, but your reflexes and memory are impaired. The precautions to take for 12- 24 hours after receiving sedation include: Do not drive a car. Do not make major decisions or sign legal documents. Do no activities requiring skilled physical coordination or hand-eye coordination. Alcohol should be avoided for a period of 24 hours. It is recommended that someone be available to assist you for 24 hours. It is normal for your throat to be sore after the exam. Gargling with warm salt water, taking ice chips, or throat lozenges may help relieve any discomfort. Call your physician if any of the following occur: Unexplained fever Neck or chest pain Coughing up blood Difficulty swallowing New onset of shortness of breath If you feel you need immediate attention and are unable to contact your doctor, go to an Emergency Department or the closest emergency facility. Josr Garcia, 03/17/2020 4:08:01 PM This report has been signed electronically.Electronically signed by Josr Garcia MD at 4:08 PM PDTdocumented in this encounter Plan of Treatment +--------+ [...] [place] | | | | | | [phone] | | | | | | | | +--------+ + + + + documented as of this encounter Procedures + +--------+ + + + | Procedure Name | Priori | Date/Time | Associated Diagnosis | Comments | | | ty | | | | + +--------+ + + + | LABS - EXTERNAL SCAN | | 03/20/2020 | | Results for this | | | | 12:00 AM | | procedure are in the | | | | PDT | | results section. | + +--------+ + + + | MEDICAL CYTOLOGY | Routin | 03/17/2020 | | Results for this | | | e | 3:37 PM | | procedure are in the | | | | PDT | | results section. | + +--------+ + + + | SURGICAL PATHOLOGY | Routin | 03/17/2020 | Mediastinal | Results for this | | EXAM | e | 3:08 PM | lymphadenopathy | procedure are in the | | | | PDT | | results section. | + +--------+ + + + | OH BRNCHSC INCL | Routin | 03/17/2020 | | Results for this | | FLUOR GDNCE DX | e | 2:48 PM | | procedure are in the | | W/CELL WASHG SPX | | PDT | | results section. | + +--------+ + + + | ULTRASOUND | | 03/17/2020 | Mediastinal | | | ENDOBRONCHIAL | | 2:30 PM | lymphadenopathy | | | | | PDT | | | + +--------+ + + + | CBC WITH | STAT | 03/17/2020 | | Results for this | | DIFFERENTIAL | | 1:08 PM | | procedure are in the | | | | PDT | | results section. | + +--------+ + + + | OXYGEN THERAPY | Routin | 03/17/2020 | | | | | e | 1:05 PM | | | | | | PDT | | | + +--------+ + + + documented in this encounter Results LABS - EXTERNAL SCAN (03/20/2020 12:00 AM PDT) + + + | Narrative | Performed At | + + + | Ordered by an | | | unspecified provider. | | + + + Medical Cytology (03/17/2020 3:37 PM PDT) + + | Specimen | + + | Body Fluid - | | Bronchoscope, device | | (physical object) | + + + + + | Narrative | Performed At | + + + | ORDERING | [facility] | | PHYSICIAN:Josr Garcia MD PATIENT NAME:MADY MANLEY | [facility] | | KAARNGENDER: Enmanuel : 1960 SPECIMEN(S): A NBX, STATION | | | 4RSPECIMEN(S): B NBX, STATION 4LSPECIMEN(S): C NBX, STATION | | | 7SPECIMEN(S): D NBX, STATION 11R GROSS DESCRIPTION: A) 20ML CLEAR, | | | FAITN BROWN FLUID W/ WHITE CORE IN CYTOLYT; B) 20ML CLEAR, RED FLUID | | | W/ MULTIPLE WHITE CORES IN CYTOLYT; C) 20ML CLOUDY, RED FLUID W/ | | | MULTIPLE WHITE CORES INCYTOLYT; D) 20ML CLEAR, LIGHT RED FLUID W/ | | | WHITE CORE IN CYTOL CLINICAL HISTORY: NO CLINICAL DATA PROVIDED | | | LABORATORY PREPARATIONS: A) 1 MONOLAYER, 1 CELL BLOCK; B) 1 | | | MONOLAYER, 1 CELL BLOCK; C) 1 MONOLAYER, 1 CELL BLOCK; D) 1 MONOLAYER, | | | 1 CELL BLOCK CYTOLOGIC INTERPRETATION:A. 4R, needle sampling:- | | | Negative for malignant cells. B. 4L, needle sampling:- Negative | | | for malignant cells. C. Station 7, needle sampling:- Negative for | | | malignant cells. - Noncaseating granulomas present. D. 11R, | | | needle sampling:- Negative for malignant cells. - | | | Noncaseating granulomas present. AMB:caw DESCRIPTION:A, B, C, D. | | | Monolayers and cell blocks for 4R (A), 4L (B), station 7 (C) and 11R | | | (D) are reviewed. All preparations contain small lymphocytes | | | consistent with sampling of a lymph node. Cytologicfeatures of | | | malignancy are not identified. The samples from station 7 and 11R (C | | | and D) also contain loose aggregates of histiocytes consistent with | | | noncaseating granulomas. Overall, these findingsare most consistent | | | with sarcoidosis.AMB:caw PERFORMING LABORATORY:The technical component | | | was performed by [facility], [facility] | | | [place] [address] (Supervisor Order Takers: Papi Bundy D.OCelestine; CLIA#: | | | [id number]). Professionalinterpretation was performed by [facility] | | | [address], | | | [place] [address] (Supervisor Order Takers: Trey Hernandez M.D.; CLIA#: | | | [id number]). Diagnostician: Cyndie Wagoner | | | CT([facility])CytotechnologistDiagnostician: Karine Bales | | | MDPathologistElectronically Signed 03/20/2020 | | | - Noncaseating granulomas present. | | | | | |AMB:caw | | | | | |DESCRIPTION: | | |A, B, C, D. Monolayers and cell blocks for 4R (A), 4L (B), station 7 (C) and 11R (D) are reviewed. All preparations contain small lymphocytes consistent with sampling of a lymph n ode. Cytologic | | |features of malignancy are not identified. The samples from station 7 and 11R (C and D) a lso contain loose aggregates of histiocytes consistent with noncaseating granulomas. Overa ll, these findings | | |are most consistent with sarcoidosis. | | |AMB:caw | | | | | |PERFORMING LABORATORY: | | |The technical component was performed by [facility], [address] [place] [address] (Supervisor Order Takers: Papi Bundy D.O.; CLIA#: [id number]). Candace burns | | |interpretation was performed by [facility], [address] [address] (Supervisor Order Takers: Trey Hernandez M.D.; CLIA#: [id number] ). | | | | | |Diagnostician: Cyndie HANSON([facility]) | | |[employer] | | |Diagnostician: Karine Bales MD | | |Pathologist | | |Electronically Signed 03/20/2020 | | | | | | | | + + + + +---------+ + + | Performing | Address | City/State/Zipcode | Phone Number | | Organization | | | | + +---------+ + + | [facility] | | | | | [facility] | | | | + +---------+ + + Surgical Pathology Exam (03/17/2020 3:08 PM PDT) + + | Specimen | + + | Tissue - Lymph node | | sample (specimen) | + + + + + | Narrative | Performed At | + + + | SPECIMEN(S): A | [facility] | | SUBCARINAL LYMPH NODE LEVEL 7 BIOPSY SPECIMEN SOURCE:A. SUBCARINAL | [facility] | | LYMPH NODE LEVEL 7 BIOPSY CLINICAL HISTORY:Mediastinal | | | lymphadenopathy. R59.0 (localized enlarged lymph nodes) FINAL | | | PATHOLOGIC DIAGNOSIS:Subcarinal lymph node level 7, biopsies:- | | | Benign fibromuscular tissue, no lymphoid tissue identified.- | | | Negative for malignancy. See comment. COMMENT:Please correlate these | | | results with the patient's concurrent cytology ([id number]). | | | AMB:emb:C2NR MICROSCOPIC EXAMINATION:Histologic sections of all | | | submitted blocks are examined by light microscopy. These findings, | | | together with the gross examination, support the pathologic diagnosis. | | | GROSS DESCRIPTION:The specimen, labeled "EL, subcarinal lymph node | | | level 7 biopsy," is received in formalin and consists of scanty gay | | | soft tissue fragments measuring 0.5 x 0.1 x 0.1 cm in aggregate. | | | Specimen isfiltered, inked with eosin, and entirely submitted in | | | cassette (A1). May not survive processing.AT (under the direct | | | supervision of a pathologist) The Gross Description was prepared using | | | a voice recognition system. The report was reviewed for accuracy; | | | however, sound-alike word errors, addition and/or deletions may occur. | | | If there is anyquestion about this report, please contact Client | | | Services. PERFORMING LABORATORY:The technical component was performed | | | by [facility], [address] [place] [address] (Medical | | | Director: Karine Bales MD; CLIA# [id number]). Professional | | | interpretation was performed [facility] | | | [place] [id number] (Medical | | | Director: Trey Hernandez M.D.; CLIA#: [id number]). Diagnostician: | | | Karine Bales MDPathologistElectronically Signed 03/20/2020 | | |question about this report, please contact Client Services. | | | | | |PERFORMING LABORATORY: | | |The technical component was performed by [facility], [address] [place] [address] (Supervisor Order Takers: Karine Bales MD; CLIA# [id number]). Professional interpretation was performed by | | |[facility] [address] (Supervisor Order Takers: Trey Hernandez M.D.; CLIA#: [id number]). | | | | | |Diagnostician: Karine Bales MD | | |Pathologist | | |Electronically Signed 03/20/2020 | | | | | | | | + + + + +---------+ + + | Performing | Address | City/State/Zipcode | Phone Number | | Organization | | | | + +---------+ + + | [facility] | | | | | [facility] | | | | + +---------+ + + Bronchoscopy (03/17/2020 2:48 PM PDT) + + | Specimen | + + | | + + + + + | Narrative | Performed At | + + + | [facility] | MDMT | | [facility] | [facility] | | [facility] | | | Patient Name: Mady Manley | | | Procedure Date: 03/17/2020 2:48 PMMRN: [id number] | | | Date of : 1960Note Status: Finalized | | | Attending MD: Josr Garcia , | | | | | | Procedure: BronchoscopyMedicines: | | | Monitored Anesthesia CareComplications: No | | | immediate | | | complications | | | Procedure: Pre-Anesthesia Assessment: | | | - A History and Physical has been performed. The patient's | | | medications, allergies and sensitivities have been reviewed. | | | - The risks and benefits of the procedure and the sedation options | | | and risks were discussed with the patient. All questions were | | | answered and informed consent was obtained. After I | | | obtained informed consent, the scope was passed under direct | | | vision. Throughout the procedure, the patient's blood pressure, pulse, | | | and oxygen saturations were monitored continuously. The | | | Bronchoscope was introduced through the mouth, via the | | | endotracheal tube (the patient was intubated for the procedure) | | | and advanced to the tracheobronchial tree. | | | | | | Estimated Blood Loss: Estimated blood loss: None. | | | Estimated blood loss: none.Findings: An endobronchial | | | ultrasound endoscope was utilized in order to assist with fine | | | needle aspiration in the right paratracheal area, in the left | | | paratracheal area, in the subcarinal area and in the right hilum. | | | Transbronchial needle aspirations of a lesion were performed in the | | | left and right paratracheal and subcarinal areas and in the | | | right hilum using an Olympus EBUS-TBNA 19 gauge needle and sent | | | for flow cytometry. The procedure was guided by ultrasound. | | | Four samples were obtained. Transbronchial biopsies of a lesion | | | were performed in the subcarinal area core dx and sent for | | | histopathology examination. The procedure was guided by | | | ultrasound. Three biopsy passes were performed. Three biopsy | | | samples were obtained. | | | | | | Impression: - Endobronchial ultrasound was performed. - A | | | transbronchial needle aspiration was performed. - Transbronchial | | | lung biopsies were performed. | | | | | | Recommendation: - Await test | | | results. | | | | | | | | | Josr Roseat, 03/17/2020 4:08:01 PMThis report has been | | | signed electronically.Number of Addenda: 0 Note Initiated On: | | | 03/17/2020 2:48 PM [facility] - Endoscopy | | | Department | | |This report has been signed electronically. | | |Number of Addenda: 0 | | | | | |Note Initiated On: 03/17/2020 2:48 PM | | | | | | [facility] - Endoscopy Department | | + + + + +---------+ + + | Performing | Address | City/State/Zipcode | Phone Number | | Organization | | | | + +---------+ + + | [facility] | | | | + +---------+ + + CBC with Differential (03/17/2020 1:08 PM PDT) + + + + + + | Component | Value | Ref Range | Performed | Pathologist | | | | | At | Signature | + + + + + + | WBC | 4.59 | 3.80 - 11.00 | [facility] | | | | | K/uL | LABORATORY | | + + + + + + | Red Blood | 3.62 (L) | 3.70 - 5.10 | [facility] | | | Cells | | M/uL | LABORATORY | | + + + + + + | Hemoglobin | 12.5 | 11.3 - 15.5 | [facility] | | | | | g/dL | LABORATORY | | + + + + + + | Hematocrit | 35.5 | 34.0 - 46.0 % | [facility] | | | | | | LABORATORY | | + + + + + + | MCV | 98.1 | 80.0 - 100.0 fl | [facility] | | | | | | LABORATORY | | + + + + + + | MCH | 34.5 (H) | 27.0 - 34.0 pg | [facility] | | | | | | LABORATORY | | + + + + + + | MCHC | 35.2 | 32.0 - 35.5 | [facility] | | | | | g/dL | LABORATORY | | + + + + + + | RDW-SD | 44.1 | 37 - 53 fl | [facility] | | | | | | LABORATORY | | + + + + + + | Platelet | 246 | 150 - 400 K/uL | [facility] | | | Count | | | LABORATORY | | + + + + + + | MPV | 12.0Comment: NO NORMAL | fl | [facility] | | | | RANGE ESTABLISHED | | LABORATORY | | + + + + + + | Diff Type | AUTOMATED | | [facility] | | | | | | LABORATORY | | + + + + + + | % nRBC | 0.0 | 0 /100WBC | [facility] | | | | | | LABORATORY | | + + + + + + | % | 57.90 | % | [facility] | | | Neutrophils | | | LABORATORY | | + + + + + + | IMMATURE | 0.20 | % | [facility] | | | GRANULOCYTE | | | LABORATORY | | + + + + + + | % | 28.80 | % | [facility] | | | Lymphocytes | | | LABORATORY | | + + + + + + | Monocyte % | 8.90 | % | [facility] | | | | | | LABORATORY | | + + + + + + | Eosinophils | 3.50 | % | [facility] | | | % | | | LABORATORY | | + + + + + + | Basophils % | 0.70 | % | [facility] | | | | | | LABORATORY | | + + + + + + | Neutrophils | 2.66 | 1.90 - 7.40 | [facility] | | | , Absolute | | K/uL | LABORATORY | | + + + + + + | IMMATURE | 0.01Comment: NOTE NEW | 0.00 - 0.07 | [facility] | | | GRANS AB | REFERENCE RANGE | K/uL | LABORATORY | | + + + + + + | Absolute | 1.32 | 1.00 - 3.90 | [facility] | | | Lymphocytes | | K/uL | LABORATORY | | + + + + + + | Absolute | 0.41 | 0.00 - 0.80 | [facility] | | | Monocytes | | K/uL | LABORATORY | | + + + + + + | Eosinophils | 0.16 | 0.00 - 0.50 | [facility] | | | , Absolute | | K/uL | LABORATORY | | + + + + + + | Basophils, | 0.03Comment: Testing | 0.00 - 0.10 | [facility] | | | Absolute | performed at [facility];[address] | K/uL | LABORATORY | | | | Nicole Johnson;[place], [place] | | | | | | [address] | | | | + + + + + + + + | Specimen | + + | Blood | + + + + + + + | Performing | Address | City/State/Zipcode | Phone Number | | Organization | | | | + + + + + | [facility] | [address] | [place] [address] | [phone] | + + + + + documented in this encounter Visit Diagnoses + + | Diagnosis | + + | Mediastinal lymphadenopathy Enlargement of lymph nodes | + + documented in this encounter Admitting Diagnoses + + | Diagnosis | + + | Mediastinal lymphadenopathy Enlargement of lymph nodes | + + documented in this encounter Administered Medications + +---------+ +------+ +--------+ | Medication Order | MAR | Action | Dose | Rate | Site | | | Action | Date | | | | + +---------+ +------+ +--------+ | sodium chloride 0.9% (NS) | New Bag | 03/17/20 | | 50 mL/hr | Right | | infusion at 50 mL/hr, | | 20 1:17 | | | Arm | | Intravenous, CONTINUOUS, Starting | | PM PDT | | | | | 03/17/20 at 1330, Pre-op | | | | | | + +---------+ +------+ +--------+ +---+---+ | | | +---+---+ documented in this encounter
--- OUTSIDE RECORDS SUMMARY | ~2020-08-04 | XMS | Encounter Summary ---
Demographics + + + | Address | [address] | | | [place] [address] | + + + | Home Phone | | + + + | Preferred Language | Unknown | + + + | Marital Status | | + + + | Episcopal Affiliation | 1027 | + + + | Race | White | + + + | Ethnic Group | Not or | + + + Author + + + | Author | [facility] | | | and [place] | + + + | Organization | [facility] | | | [...] Providers + +------+ + | Care Manager Of Application Development Name | Role | Phone | + +------+ + | Brendon Loaiza MD | PCP | | + +------+ + Reason for Visit Evaluate & Treat (Urgent) + +--------+ + + + + | Status | Reason | Specialty | Diagnoses / | Referred By | Referred To | | | | | Procedures | Contact | Contact | + +--------+ + + + + | Authorizatio | | Pulmonology | Diagnoses | Josse, | Radha, | | n not | | | Cough | Brendon | MD Josr | | Required | | | | MD Alyce | [address] | | | | | | [address] | | | | | | [place] | [place] | | | | | | [place], | [address] Phone: | | | | | | [place] [address] | [phone] | | | | | | Phone: | Fax: | | | | | | [phone] | [phone] | | | | | | Fax: | | | | | | | [phone] | | + +--------+ + + + + Encounter Details +--------+ + + + + | Date | Type | Department | Care Team | Description | +--------+ + + + + | 07/03/ | Virtual | [facility] | Josr Garcia MD | Sarcoidosis (Primary | | 2019 | Office | PULMONOLOGY [address] | Dx) | | | Visit | [address] | [place], [place] | | | | | [place], [place] | [address] | | | | | [address] | | | | | | [phone] | | | +--------+ + + + [...] documented as of this encounter Progress Notes Josr Garcia MD - 07/03/2020 1:20 PM PDT Service was provided [id number] with the patient via interactive videoconferencing (256-b it AES encrypted). Coding will be based on Medical Decision Making. The patient was presented with information regarding the risks and benefits of telemedicine , given the opportunity to ask questions, and consented [facility] The patient confirms they are currently physically located at the permanent address on file . I, Josr Garcia MD, confirmed this is a state in which I am licensed. Subjective: Patient ID: Mady Munoz [id number] y.o. is here for follow up for cough and shortness of br eath. HPI Patient's medications, allergies, past medical, surgical, social and family histories were obtained and reviewed as appropriate. The patient is a pleasant 59-year-old female who was in her usual state of health until Dec of this year when she visited [place]. She went [place] and when she came back from where she came back with severe cough along with shortness of breath. She complai pool of severe myalgias, fever. She was very sick and could barely move out of the bed. Her and her son also had similar symptoms. When she came back to her house in [facility] she was in touch with 2 other people from [place] who got similar illness and then antoinette shipman their families got the similar symptoms. Over the next couple of weeks she started having a cough along with chest heaviness. The c ough is worse /. There were no aggravating or relieving factors. She used albuterol wit h no relief. She continues to have nausea or vomiting. She was seen by her primary care ph ysician and a chest CT was ordered which revealed significant mediastinal lymphadenopathy an d she was referred here for evaluation. The patient has intermittent joint pains. She denies any rashes, photosensitivity, rash. She denies any need for oxygen. She denies any ocular complaints. She denies any headache. The patient is a lifetime non-smoker and denies using drugs. 04/06/2020 Since the last visit the patient underwent a endobronchial ultrasound with biopsy of the me diastinal lymph nodes. The biopsy was consistent with noncaseating granulomas. She was sta rted on prednisone 60 mg daily for 2 weeks and has been using 40 mg now. She has been using Septra. Her cough has slowly been improving. 05/09/2020 The patient is doing much better now. Her cough is minimal. She had a CT scan done and is here to discuss the results. 06/20/2020 The patient was able to tolerate the prednisone down to 20 mg daily. After couple of days of bringing it down to 20 mg she started having symptoms of chest heaviness. She was compla ining of cough and feels like she is breathing through straws. Her fatigue is come back. Interim history 07/03/2020 In the last visit we had increased her prednisone to 40 mg daily. She did not feel any sig nificant change in her symptoms. She got her vitamin D level tested but we do not have the results back yet. She been having some dysphagia for which she was seen by ENT. A nasophar yngoscopy was done without any significant abnormalities and a barium swallow was ordered. She continues to have a feeling of chest heaviness. She does say that she is 15 to 20 pound s heavier than before. Review of Systems Constitutional: Negative. HENT: Negative. Eyes: Negative. Respiratory: Positive for shortness of breath. Cardiovascular: Negative. Gastrointestinal: Negative. Musculoskeletal: Negative. Skin: Negative. Neurological: Negative. Endo/Heme/Allergies: Negative. Psychiatric/Behavioral: Negative. History: Past Medical History: Diagnosis Date Anemia low iron intermittently - ongoing Claustrophobia Cough 01/2020 flu type S/S; sore throat, body aches, fever w/ fatigue and "chest heaviness". Went on va cation in [place] Dysphagia pills, foods, meats Exertional shortness of [...] Financial resource strain: Not on file Food insecurity Worry: Not on file Inability: Not on file Transportation needs Medical: Not on file Non-medical: Not on file Tobacco Use Smoking status: Never Smoker Smokeless tobacco: Never Used Substance and Sexual Activity Alcohol use: No Drug use: No Sexual activity: Never Lifestyle Physical activity Days per week: Not on file Minutes per session: Not on file Stress: Not on file Relationships Social connections Talks on phone: Not on file Gets together: Not on file Attends scientologist service: Not on file Active member of club or organization: Not on file Attends meetings of clubs or organizations: Not on file Relationship status: Not on file Intimate partner violence Fear of current or ex partner: Not on file Emotionally abused: Not on file Physically abused: Not on file Forced sexual activity: Not on file Other Topics Concern Not on file Social History Narrative Not on file Family History Problem Relation Age of Onset Cancer Paternal Grandmother Arthritis Father Malig hypertherm Neg Hx Allergies: Allergies Allergen Reactions Codeine Nausea And Vomiting Morphine Other (See Comments) " I don't like the feeling", bad nightmares Opioid [Morphine And Related] Nausea And Vomiting Current Medications: Current Outpatient Medications on File Prior to Visit Medication Sig Dispense Refill ALBUTEROL IN Inhale into the lungs Daily as needed. Biotin w/ Vitamins C & E (HAIR/SKIN/NAILS PO) Take by mouth Daily. Cholecalciferol (VITAMIN D-3 PO) Take 2,000 Units by mouth nightly. estradiol (ESTRACE) 1 mg tablet Take 1 mg by mouth Daily. MAGNESIUM-POTASSIUM PO Take by mouth nightly. RLS predniSONE (DELTASONE) 10 mg tablet 60mg for 4 days, 40mg daily for 4 weeks 120 tablet 4 promethazine (PHENERGAN) 12.5 MG tablet Take 12.5 mg by mouth every 6 hours as needed f or Nausea. sulfamethoxazole-trimethoprim (BACTRIM DS) 800-160 mg per tablet Take 1 tablet by mouth Three times a week. 30 tablet 3 valACYclovir (VALTREX) 500 mg tablet Take 500 mg by mouth Daily. Oral Cold sores No current facility-administered medications on file prior to visit. Objective: There were no vitals filed for this visit. No results found. CT chest with contrast 03/03/2020 Mediastinal and bilateral lateral hilar lymphadenopathy. Scattered granulomatous Pulmonary function test May 2020 Normal Assessment and plan 1. Sarcoidosis The patient has radiological, histopathological finding suggestive of sarcoidosis. I am no t sure whether her current symptoms are secondary to sarcoidosis or chest weight gain. Incr easing the prednisone did not seem to resolve the problem. I have advised her to decrease h er prednisone to 20 mg daily for a week followed by alternating 15 mg and 10 mg for 2 weeks followed by 10 mg daily. If there is no improvement in her symptoms I will repeat a pulmona ry function test along with a CT of the chest and consider starting her on methotrexate if t here is recurrence of the symptoms. If there is no improvement in her symptoms and the follow-up CT and PFT did not show any ch keyona then she will continue to work on weight loss. I have advised her to let me know when her barium swallow study comes back and she will req uest her primary care physician to forward me the results of the vitamin D. Thank you for allowing me to participate in your patient's care. We will review test result s that we have ordered with the patient once they become available. A return visit has been scheduled in 4 weeks. Josr Garcia MD Pulmonary and Critical Care Medicine [facility] [address], [place] [address] documented in this enco unter Plan of Treatment +--------+ + + + + | Date | Type | Specialty | Care Team | Description | +--------+ + + + + | 09/04/ | Virtual | Pulmonology | Josr Garcia MD | | | 2019 | Office | | [address] | | | | Visit | | [place], [place] | | | | | | [address] | | | | | | | | +--------+ + + + + documented as of this encounter Visit Diagnoses + + | Diagnosis | + + | Sarcoidosis - Primary | + + documented in this encounter
--- OUTSIDE RECORDS SUMMARY | ~2020-08-04 | XMS | Encounter Summary ---
Demographics + + + | Address | [address] | | | [place] [address] | + + + | Home Phone | | + + + | Preferred Language | Unknown | + + + | Marital Status | | + + + | Amish Affiliation | 1027 | + + + | Race | White | + + + | Ethnic Group | Not or | + + + Author + + + | Author | [facility] | | | and [place] | + + + | Organization | [facility] | | | [...] Team Providers + +------+ + | Care Train Station Agent Name | Role | Phone | + +------+ + | Brendon Loaiza MD | PCP | | + +------+ + Encounter Details +--------+ + + + + | Date | Type | Department | Care Team | Description | +--------+ + + + + | 07/12/ | Preadmit | [facility] | Dione Freddie Lorna, | Anemia, unspecified | | 2015 | Visit | [facility] | DO [address] | anemia type; | | | | CLINIC [address] | [address] [place], [place] | Lumbosacral | | | | [place], [place] | [address] | spondylosis without | | | | [address] | | myelopathy; | | | | | | Displacement [...] [place] | | | | | | [address] | | | | | | | | +--------+ + + + + documented as of this encounter Procedures + +--------+ + + + | Procedure Name | Priori | Date/Time | Associated Diagnosis | Comments | | | ty | | | | + +--------+ + + + | PTT | Routin | 07/12/2015 | Anemia, | Results for this | | | e | 10:44 AM | unspecified anemia | procedure are in the | | | | PDT | type Lumbosacral | results section. | | | | | spondylosis without [...] | | | claudication | | + +--------+ + + + | PROTIME INR | Routin | 07/12/2015 | Anemia, | Results for this | | | e | 10:44 AM | unspecified anemia | procedure are in the | | | | PDT | type Lumbosacral | results section. | | | | | spondylosis without [...] | | | claudication | | + +--------+ + + + | CBC WITH | Routin | 07/12/2015 | Anemia, | Results for this | | DIFFERENTIAL | e | 10:44 AM | unspecified anemia | procedure are in the | | | | PDT | type Lumbosacral | results section. | | | | | spondylosis without [...] | | | claudication | | + +--------+ + + + | BASIC METABOLIC | Routin | 07/12/2015 | Anemia, | Results for this | | PANEL | e | 10:44 AM | unspecified anemia | procedure are in the | | | | PDT | type Lumbosacral | results section. | | | | | spondylosis without [...] | | | claudication | | + +--------+ + + + documented in this encounter Results Basic Metabolic Panel (07/12/2015 10:44 AM PDT) + + + + + + | Component | Value | Ref Range | Performed | Pathologist | | | | | At | Signature | + + + + + + | Na | 139 | 136 - 149 | [facility] | | | | | mmol/L | [facility] | | | | | | [facility] | | | | | | C[facility] - | | | | | | LABORATORY | | + + + + + + | K | 3.8 | 3.5 - 5.1 | [facility] | | | | | mmol/L | [facility] | | | | | | [facility] | | | | | | CENTER - | | | | | | LABORATORY | | + + + + + + | Cl | 104 | 98 - 109 mmol/L | [facility] | | | | | | [facility] | | | | | | [facility] | | | | | | CENTER - | | | | | | LABORATORY | | + + + + + + | CO2 | 30 | 24 - 31 mmol/L | [facility] | | | | | | [facility] | | | | | | [facility] | | | | | | C[facility] - | | | | | | LABORATORY | | + + + + + + | Anion Gap | 5 | 3 - 16 mmol/L | [facility] | | | | | | [facility] | | | | | | [facility] | | | | | | C[facility] - | | | | | | LABORATORY | | + + + + + + | Glucose | 76 | 70 - 109 mg/dL | [facility] | | | | | | [facility] | | | | | | [facility] | | | | | | CENTER - | | | | | | LABORATORY | | + + + + + + | BUN | 10 | 7 - 18 mg/dL | [facility] | | | | | | [facility] | | | | | | [facility] | | | | | | C[facility] - | | | | | | LABORATORY | | + + + + + + | Creatinine | 0.77 | 0.60 - 1.30 | [facility] | | | | | mg/dL | [facility] | | | | | | MEDICAL | | | | | | CENTER - | | | | | | LABORATORY | | + + + + + + | eGFR, | >60Comment: GLOMERULAR | >=60 | [facility] | | | non- | FILTRATION | mL/min/1.73m2 | [facility] | | | Turkmen | RATE,ESTIMATED | | MEDICAL | | | | mL/min/1.08t3Wpln than | | CENTER - | | | | 60 Chronic kidney | | LABORATORY | | | | disease,if found over a | | | | | | 3-month period.Less than | | | | | | 15 Kidney failureFor | | | | | | | | | | | | Americans,multiply the | | | | | | calculated GFR by 1.21. | | | | | | | | | | + + + + + + | Calcium | 9.4 | 8.3 - 10.5 | [facility] | | | | | mg/dL | [facility] | | | | | | [facility] | | | | | | CENTER - | | | | | | LABORATORY | | + + + + + + | BUN/Creatin | 13.0 | | [facility] | | | ine Ratio | | | [facility] | | | | | | MEDICAL | | | | | | CENTER - | | | | | | LABORATORY [...] [address] | [place] | [phone] | | [facility] | | [address] | | | - LABORATORY | | | | + + + + + PTT (07/12/2015 10:44 AM PDT) + +-------+ + + + | Component | Value | Ref Range | Performed | Pathologist | | | | | At | Signature | + +-------+ + + + | aPTT | 26 | 22 - 36 seconds | [facility] | | | | | | [facility] | | | | | | MEDICAL | | | | | | CENTER - | | | | | | LABORATORY | | + +-------+ + + + + + | Specimen | + + | Blood | + + + + + + + | Performing | Address | City/State/Zipcode | Phone Number | | Organization | | | | + + + + + | [facility] | [address] | [place] | [phone] | | [facility] | | [address] | | | - LABORATORY | | | | + + + + + Protime INR (07/12/2015 10:44 AM PDT) + + + + + + | Component | Value | Ref Range | Performed | Pathologist | | | | | At | Signature | + + + + + + | Prothrombin | 13.2 | 11.3 - 13.9 | [facility] | | | Time | | seconds | [facility] | | | | | | MEDICAL | | | | | | CENTER - | | | | | | LABORATORY | | + + + + + + | INR | 1.00Comment: Usual Oral | 0.90 - 1.10 | [facility] | | | | Anticoagulation Range: | | [facility] | | | | 2.0 - 3.0High | | MEDICAL | | | | Level Oral | | CENTER - | | | | Anticoagulation Range: | | LABORATORY | | | | 2.5 - 3.5 | | | | + + + + + + + + | Specimen | + + | Blood | + + + + + + + | Performing | Address | City/State/Zipcode | Phone Number | | Organization | | | | + + + + + | [facility] | [address] | [place] | [phone] | | [facility] | | [address] | | | - LABORATORY | | | | + + + + + CBC with Differential (07/12/2015 10:44 AM PDT) + + + + + + | Component | Value | Ref Range | Performed | Pathologist | | | | | At | Signature | + + + + + + | White Blood | 4.4 | 4.0 - 11.0 K/uL | [facility] | | | Cells | | | [facility] | | | | | | MEDICAL | | | | | | CENTER - | | | | | | LABORATORY | | + + + + + + | Red Blood | 3.64 (L) | 3.70 - 5.20 | [facility] | | | Cells | | M/uL | [facility] | | | | | | MEDICAL | | | | | | CENTER - | | | | | | LABORATORY | | + + + + + + | Hemoglobin | 12.6 | 11.5 - 16.0 | [facility] | | | | | g/dL | [facility] | | | | | | MEDICAL | | | | | | CENTER - | | | | | | LABORATORY | | + + + + + + | Hematocrit | 37.8 | 34.0 - 47.0 % | [facility] | | | | | | [facility] | | | | | | [facility]ICAL | | | | | | CENTER - | | | | | | LABORATORY | | + + + + + + | MCV | 103.9 (H) | 83.0 - 101.0 fL | [facility] | | | | | | [facility] | | | | | | MEDICAL | | | | | | CENTER - | | | | | | LABORATORY | | + + + + + + | MCH | 34.7 | 28.0 - 35.0 pg | [facility] | | | | | | [facility] | | | | | | MEDICAL | | | | | | CENTER - | | | | | | LABORATORY | | + + + + + + | MCHC | 33.4 | 32.0 - 36.0 | [facility] | | | | | g/dL | [facility] | | | | | | MEDICAL | | | | | | CENTER - | | | | | | LABORATORY | | + + + + + + | RDW-CV | 13.4 | <15.0 % | [facility] | | | | | | [facility] | | | | | | MEDICAL | | | | | | CENTER - | | | | | | LABORATORY | | + + + + + + | Platelet | 173 | 140 - 440 K/uL | [facility] | | | Count | | | [facility] | | | | | | MEDICAL | | | | | | CENTER - | | | | | | LABORATORY | | + + + + + + | MPV | 9.1 | fL | [facility] | | | | | | [facility] | | | | | | MEDICAL | | | | | | CENTER - | | | | | | LABORATORY | | + + + + + + | % | 54.1 | 45.0 - 82.0 % | [facility] | | | Neutrophils | | | [facility] | | | | | | MEDICAL | | | | | | CENTER - | | | | | | LABORATORY | | + + + + + + | % | 32.4 | 20.0 - 45.0 % | [facility] | | | Lymphocytes | | | [facility] | | | | | | MEDICAL | | | | | | CENTER - | | | | | | LABORATORY | | + + + + + + | % Monocytes | 9.9 | 4.0 - 12.0 % | [facility] | | | | | | [facility] | | | | | | MEDICAL | | | | | | CENTER - | | | | | | LABORATORY | | + + + + + + | % | 2.5 | 0.0 - 5.0 % | [facility] | | | Eosinophils | | | [facility] | | | | | | MEDICAL | | | | | | CENTER - | | | | | | LABORATORY | | + + + + + + | % Basophils | 1.1 (H) | 0.0 - 1.0 % | [facility] | | | | | | [facility] | | | | | | MEDICAL | | | | | | CENTER - | | | | | | LABORATORY | | + + + + + + | Absolute | 2.40 | 1.80 - 8.50 | [facility] | | | Neutrophils | | K/uL | [facility] | | | | | | MEDICAL | | | | | | CENTER - | | | | | | LABORATORY | | + + + + + + | Absolute | 1.40 | 0.60 - 3.20 | [facility] | | | Lymphocytes | | K/uL | [facility] | | | | | | MEDICAL | | | | | | CENTER - | | | | | | LABORATORY | | + + + + + + | Absolute | 0.40 | 0.00 - 1.00 | [facility] | | | Monocytes | | K/uL | [facility] | | | | | | MEDICAL | | | | | | CENTER - | | | | | | LABORATORY | | + + + + + + | Absolute | 0.10 | 0.00 - 0.40 | [facility] | | | Eosinophils | | K/uL | [facility] | | | | | | MEDICAL | | | | | | CENTER - | | | | | | LABORATORY | | + + + + + + | Absolute | 0.00 | 0.00 - 0.10 | [facility] | | | Basophils | | K/uL | [facility] | | | | | | MEDICAL | | | | | | CENTER - | | | | | | LABORATORY | | + + + + + + + + | Specimen | + + | Blood | + + + + + + + | Performing | Address | City/State/Zipcode | Phone Number | | Organization | | | | + + + + + | [facility] | [address] | [place] | [phone] | | [facility] | | [address] | | | - LABORATORY | | | | + + + [...]
--- OUTSIDE RECORDS SUMMARY | ~2020-08-04 | XMS | Encounter Summary ---
Demographics + + + | Address | [address] | | | [place] [address] | + + + | Home Phone | | + + + | Preferred Language | Unknown | + + + | Marital Status | | + + + | Oriental Orthodox Affiliation | 1027 | + + + | Race | White | + + + | Ethnic Group | Not or | + + + Author + + + | Author | [facility] | | | and [place] | + + + | Organization | [facility] | | | and [...] Team Providers + +------+ + | Care Gas Tester Name | Role | Phone | + +------+ + | Brendon Loaiza MD | PCP | | + +------+ + Reason for Visit + +--------+ + | Reason | Onset | Comments | | | Date | | + +--------+ + | Medication Refill | 05/27/ | | | | 2015 | | + +--------+ + Encounter Details +--------+--------+ + + + | Date | Type | Department | Care Team | Description | +--------+--------+ + + + | 05/27/ | Refill | [facility] [place] | Hussein Mayers, | Medication Refill | | 2015 | | NEUROSURGERY [address] | PA-C [address] | | | | | [address] | [address] [place] | | | | | [place], [place] | [place] [address] | | | | | [address] | [phone] | | | | | [phone] | | | +--------+--------+ + + + Social History + +-------+ [...] this encounter Miscellaneous Notes Telephone Encounter - Marya Andino Cert MA - 05/28/2016 1:48 PM PDTI called in the Rx fo r Tramadol 50mg #120 to patients [facility] pharmacy. Original Rx destroyed. I attempted to reach the patient to update her of this but no VM option and she did not answer. MARYA ANDINO elephone Encounte r - Hussein Mayers PA - 05/28/2016 12:06 PM PDTDOS was 07/18/15. He needs to get refills from PCP. I will give her a one time Rx of 120 but after this it needs to come from PCP. I did see her recently and said if she is not getting better we should get a CT. If she is sti ll in pain and not improving lets get that. Please. Thank You. elephone Encounter - Betty Amador - 05/27 3:44 PM PDTLast refill 05/17/16. S/P Lumbar Fusion 07/18/16. Refill request received from the pharmacy. Please approve/deny. documented in this encounter Plan of Treatment [...] [place] | | | | | | [address] | | | | | | | | +--------+ + + + + documented as of this encounter Visit Diagnoses + + | Diagnosis | + + | Lumbar radicular pain - Primary Thoracic or lumbosacral neuritis or radiculitis, | | unspecified | + + | Lumbosacral spondylosis without myelopathy | + + documented in this encounter"
--- OUTSIDE RECORDS SUMMARY | ~2020-08-04 | XMS | Encounter Summary ---
Demographics + + + | Address | [address] | | | [place] [address] | + + + | Home Phone | | + + + | Preferred Language | Unknown | + + + | Marital Status | | + + + | Congregational Affiliation | 1027 | + + + | Race | White | + + + | Ethnic Group | Not or | + + + Author + + + | Author | [facility] | | | and [place] | + + + | Organization | [facility] | | | [...] Team Providers + +------+ + | Care Gridcap Machine Operator Name | Role | Phone | + +------+ + | Brendon Loaiza MD | PCP | | + +------+ + Reason for Referral Diagnostic/Screening (Routine) +--------+--------+ + + + + | Status | Reason | Specialty | Diagnoses / | Referred By | Referred To | | | | | Procedures | Contact | Contact | +--------+--------+ + + + + | Closed | | Radiology | Diagnoses | Dione | [facility] | | | | | | Freddie A, DO | [address] | | | | | Osteoarthrit | [address] | [place], | | | | | is of spine | [address] | [place] | | | | | with | [place] | [address] | | | | | radiculopath | [address] | Phone: | | | | | y, lumbar | Phone: | [phone] | | | | | region S/P | [phone] | Fax: | | | | | lumbar | Fax: | [phone] | | | | | fusion | [phone] | | | | | | Procedures | | | | | | | MRI Lumbar | | | | | | | Spine wo | | | | | | | Contrast | | | +--------+--------+ + + + + Reason for Visit + + + | Reason | Comments | + + + | Follow-up | 3 Month PO | + + + Encounter Details +--------+---------+ + + + | Date | Type | Department | Care Team | Description | +--------+---------+ + + + | 10/20/ | Office | [facility] | Freddie Parham, | Osteoarthritis of | | 2015 | Visit | NEUROSURGERY [address] | DO [address] | spine with | | | | [address] | [address] [place], [place] | radiculopathy, | | | | [place], [place] | [address] | lumbar region | | | | [address] | | (Primary Dx); S/P | | | | [phone] | | lumbar fusion | +--------+---------+ + + + Social [...] + + + | Blood Pressure | 105/60 | 10/20/2015 8:53 AM | | | | | PST | | + + + + + | Pulse | 58 | 10/20/2015 8:53 AM | | | | | PST | | + + + + + | Temperature | - | - | | + + + + + | Respiratory Rate | 16 | 10/20/2015 8:53 AM | | | | | PST | | + + + + + | Oxygen Saturation | - | - | | + + + + + | Inhaled Oxygen | - | - | | | Concentration | | | | + + + + + | Weight | 51.7 kg (114 lb) | 10/20/2015 8:53 AM | | | | | PST | | + + + + + | Height | 170.2 cm (5' 7") | 10/20/2015 8:53 AM | | | | | PST | | + + + + + | Body Mass Index | 17.85 | 10/20/2015 8:53 AM | | | | | PST | | + + + + + documented in this encounter Patient Instructions Patient Instructions Freddie Parham DO - 10/20/2015 9:22 AM PSTPlease undergo MRI of the lumbar spine and call when completed. Please undergo new x-rays of the lumbar spine in 3 and 9 months. Please follow-up with me as needed. documented in this encounter Progress Notes Freddie Parham DO - 10/20/2015 9:23 AM PSTFormatting of this note might be different fro m the original. Freddie Parham DO [address] [facility] [address] [place] [address] FAX: NEUROSURGERY FOLLOW-UP CHIEF COMPLAINT: Chief Complaint Patient presents with Follow-up 3 Month PO HISTORY OF PRESENT ILLNESS: The patient is a 55 y.o. female that had a TLIF L5-S1 by me fo r back and leg pain around 3 months ago . She returns and overall is doing poorly. The pat ient complains of continued low back pain and right leg pain similar to before surgery. She was doing much better than this, but then run into a table very forcefully about three weeks ago. Since then the pain has been worse. The patient is still taking minimal narcotics for pain management. The patient has been walking as directed and has tried to remain active. Overall, the patient is not pleased with her improvement. PAST MEDICAL HISTORY: Past Medical History Diagnosis Date Anemia PONV (postoperative nausea and vomiting) Wears dentures upper front H/O cold sores PAST SURGICAL HISTORY: Past Surgical History Procedure Laterality Date Hysterectomy Ovarian cyst surgery Tonsillectomy Lumbar laminectomy Right 07/18/2015 Procedure: L5-S1 Transforaminal Lumbar Interbody Fusion; Surgeon: Freddie Parham DO; L ocation: [facility] CURRENT MEDICATIONS: Current Outpatient Prescriptions Medication Sig Dispense Refill estradiol (ESTRACE) 1 mg tablet Take 1 mg by mouth Daily. HYDROcodone-acetaminophen (NORCO) 5-325 mg per tablet Take 1-2 tablets by mouth every 4 hours as needed for Pain. 120 tablet 0 methocarbamol (ROBAXIN) 750 mg tablet Take 1 tablet by mouth 3 times daily. 90 tablet 1 valACYclovir (VALTREX) 500 mg tablet [...] of Onset Cancer Paternal Grandmother Arthritis Father INTERIM PHYSICAL EXAMINATION: Blood pressure 105/60, pulse 58, resp. rate 16, height 1.702 m (5' [...] EXAM: Motor strength is 5/5. This is unchanged from the preoperative exam. SENSORY EXAM: The sensory examination unchanged from the preoperative exam. Continued righ t L5-type pain. REFLEXES: Reflexes are unchanged from her preoperative history and physical. RADIOGRAPHIC REVIEW: The patient s postoperative x-rays show stable instrumentation and alignment and were rev iewed with the patient today. There have been no interval changes since the immediate posto perative films. Complete fusion has yet occurred, but this is normal and would not be expec charlie at this time. ASSESSMENT: S/P TLIF L5-S1: Encounter Diagnoses Name Primary? Osteoarthritis of spine with radiculopathy, lumbar region Yes S/P lumbar fusion Past Medical History Diagnosis Date Anemia PONV (postoperative nausea and vomiting) Wears dentures upper front H/O cold sores PLAN: Overall, the patient is doing poorly. This was discussed with the patient today. I have i ncreased the patient s activities further as tolerated, and I would like the patient to co ntinue to advance with activities as tolerated and as directed. I will order a repeat MRI of the lumbar spine to assess any new or persistent nerve impinge ment. She will undergo repeat x-ray of the back in 3 and 9 months and follow-up with me as needed . ELECTRONICALLY SIGNED BY: Freddie Parham DO, 10/20/2015 9:25 documented in this encounter Plan of Treatment [...] [place] | | | | | | [address] | | | | | | | | +--------+ + + + + + +---------+--------+ + + | Name | Type | Priori | Associated Diagnoses | Order Schedule | | | | ty | | | + +---------+--------+ + + | MRI Lumbar Spine wo | Imaging | Routin | Osteoarthritis of | Expected: 10/20/2015 | | Contrast | | e | spine with | (Approximate), | | | | | radiculopathy, | Expires: 10/20/2016 | | | | | lumbar region S/P | | | | | | lumbar fusion | | + +---------+--------+ + + | XR Lumbar Spine 2 or | Imaging | Routin | Osteoarthritis of | Expected: 01/20/2016 | | 3 Vw | | e | spine with | (Approximate), | | | | | radiculopathy, | Expires: 10/19/2016 | | | | | lumbar region S/P | | | | | | lumbar fusion | | + +---------+--------+ + + | XR Lumbar Spine 2 or | Imaging | Routin | Osteoarthritis of | Expected: 07/20/2016 | | 3 Vw | | e | spine with | (Approximate), | | | | | radiculopathy, | Expires: 10/19/2016 | | | | | lumbar region S/P | | | | | | lumbar fusion | | + +---------+--------+ + + documented as of this encounter Visit Diagnoses + + | Diagnosis | + + | Osteoarthritis of spine with radiculopathy, lumbar region - Primary | + + | S/P lumbar fusion Arthrodesis status | + + documented in this encounter
--- OUTSIDE RECORDS SUMMARY | ~2020-08-04 | XMS | Encounter Summary ---
Demographics + + + | Address | [address] | | | [place] [address] | + + + | Home Phone | | + + + | Preferred Language | Unknown | + + + | Marital Status | | + + + | Gnosticism Affiliation | 1027 | + + + | Race | White | + + + | Ethnic Group | Not or | + + + Author + + + | Author | [facility] | | | and [place] | + + + | Organization | [facility] | | | [...] Team Providers + +------+ + | Care Capacity Management Specialist Name | Role | Phone | [...] | | | | | | | NE ARTHDSIS | | | | | | [...] Description | +--------+---------+ + + + | 07/18/ | Surgery | [address] | Freddie Parham, | L5-S1 Transforaminal | | 2014 | | [facility] | DO [address] | Lumbar Interbody | | | | [address] | [address] [place] | Fusion | | | | [place] | [address] | | | | | [address] | | | | | | [phone] | | | +--------+---------+ + + + [...] + + + | Blood Pressure | 115/56 | 07/18/2015 9:39 AM | | | | | PDT | | + + + + + | Pulse | 71 | 07/18/2015 9:39 AM | | | | | PDT | | + + + + + | Temperature | 36.7 C (98.1 F) | 07/18/2015 9:39 AM | | | | | PDT | | + + + + + | Respiratory Rate | 18 | 07/18/2015 9:39 AM | | | | | PDT | | + + + + + | Oxygen Saturation | 100% | 07/18/2015 9:39 AM | | | [...] might be differen t from the original. [facility] NEUROSURGERY DISCHARGE SUMMARY Patient Name: Mady Munoz [...] sent through Care Everywhere.LUMBAR FUSION, DISCHARGE INSTRUCTIONS (TURKMEN)SPINAL FUSION, DISCHARGE INSTRUCTIONS (TURKMEN)TRANSFORAMINA L LUMBAR INTERBODY FUSION (TLIF) (TURKMEN)documented in this encounter Medications at Time of [...] might be differen t from the original. [facility] PROGRESS NOTE Pt. Name/Age/: Mady Munoz 55 y.o. 1960 Med. Record Number: [id number] Date of admission: 07/18/2015 Subjective: The patient [...] Electronically signed by: Jcarlos Vasquez, 07/19/2015 9:12 [facility] documented in th is encounter H&P Notes Freddie Parham DO - 07/18/2015 11:41 [facility] INTERIM HISTORY AND PHYSICAL [...] Electronically signed by: Freddie Parham, 07/18/2015 11:41 [facility] reyFreddie chowdhury DO - 07/18/2015 11:41 AM PDT Freddie Parham DO [address] [facility], [address] [place], [place] [id number] FAX: NEUROSURGERY HISTORY AND PHYSICAL EXAMINATION CHIEF [...] has no apparent deficits with short or terminologist memory. CRANIAL NERVES: II: Acuity is intact. [...] Intrinsics 5 5 Ulnar Intrinsics 5 5 Pool Installer Strength 5 5 Hip Flexion 5 5 [...] alternatives, and benefits to surgical intervention with . Ana virgen in clinic. These risks included [...] that she is recovering well. She is Zoroastrianism, attends the [facility] in [place], [place], and is strong in her elvira. Her is in [employer] leadership; she has received blessings, and appreciates the prayers from her [employer] family. She confessed that she Googled Dr. [...] l-supported by her family and friends, and advent family. Spiritual Goals/Follow-up: Follow up with regular post-surgery visit, emotional and spiritual support. lan of Nila Price, RN - 07/20/2015 3:10 AM PDTProblem: General [...] Nila Duran RN 07/20/2015 3:10 lan of Care - Mercedez Sunshine RN - 07/19/2015 4:28 PM PDTProblem: General [...] a 55 y.o. who presents to [facility] for Back sx x 6 monthss. 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 Toilet & shower transfer [...] Body Dressing Training, OT Eval Level Of Pierson: Dress Upper Body: modified independent Lower Body Dressing Training, OT Eval Level Of Pierson: Dress Lower Body: modified independent Toilet Training, OT Eval Level Of Pierson: Toilet: modified independent Grooming Training, OT Eval Level Of Pierson: Grooming: independent Transfers Transfer Skill: Toilet Transfer, Rehab Eval Level Of Pierson: Toilet: supervision/set-up Transfer Skill: Walk-In Shower Transfers, Rehab Eval Level Of Pierson: Shower: supervision/set-up Assessment: Occupational therapy orders received [...] this discharge planners visit. Patient lives in [place] with her spouse, she has 2 steps at the entrance. She is up i ndependent and will not have any discharge needs. She gets her medication through [facility] [place]. Her spouse will transport her home at [...] Geno Schaefer, PT, 07/19/2015 10:26 lan of Care - Claudia merida, Bruce Barron RN - [...] pain well controlled. lan of Care - Nicole Workman RRT - 07/19/2015 4:43 AM PDTProblem: General [...] Voiding w/o difficulty. lan of Care - Shayy Boggs RN - 07/18/2015 7:22 PM PDTProblem: General [...] fluids running. Voiding w/o complications. lan of [facility] - Yue Williamson, PT - 07/18/2015 5:42 [...] a 55 y.o. 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 Sensory Examination L LE General Sensation: intact R LE General Sensation: intact Bed Mobility Bed Mobility Skill: Rolling/Turning, PT Eval Level Of Pierson: supervision/set-up Physical Assist/Nonphysical Assist: verbal cues Goal Bed Mobility Rolling/Turning Rolling/Turning STG Status: New STG Bed Mobility Rolling/Turning: independent Bed Mobility Skill: Sit To Supine, Rehab Eval Level Of Pierson: Sit/Supine: supervision/set-up Physical Assist/Nonphysical Assist: Sit/Supine: verbal cues Goal Bed Mobility Sit to Supine Sit to Supine STG Status: New STG Bed Mobility Sit to Supine: independent Bed Mobility Skill: Supine To Sit, Rehab Eval Level Of Pierson: Supine/Sit: supervision/set-up Physical Assist/Nonphysical Assist: Supine/Sit: verbal [...] Type of Transfer: step pivot Level Of Pierson: Bed To Chair: contact guard assist (75% patients effort) Assistive Device: 2 wheeled walker Goal Transfers Bed to Chair/Chair to Bed Bed to Chair/Chair to Bed STG Status: New STG Transfers Bed to Chair/Chair to Bed: independent Transfer Skill: Sit To Stand, Rehab Eval Level Of Pierson: Sit/Stand: contact guard assist (75% patients effort) Physical Assist/Nonphysical Assist: Sit/Stand: 1 person assist Assistive Device For Transfer: Sit/Stand: 2 wheeled walker Goal Transfers Sit to Stand Sit to Stand STG Status: New STG Transfers Sit to Stand : independent Transfer Skill: Stand To Sit, Rehab Eval Level Of Pierson: Stand/Sit: contact guard assist (75% patients effort) Physical Assist/Nonphysical Assist: Stand/Sit: 1 person assist Assistive Device For Transfer: Stand/Sit: 2 wheeled walker Goal Transfers Stand to Sit Stand to Sit STG Status: New STG Transfers Stand to Sit: modified independent Transfer Safety Analysis, Rehab Eval Impaired Transfers: impaired balance, pain Gait Gait Skills, PT Eval Level Of Pierson: Gait: supervision/set-up Physical Assist/Nonphysical Assist: Gait: 1 person assist Assistive Device For Transfer: Gait: 2 wheeled walker Gait Distance (feet): 200 Goal Gait Gait STG Status: New STG Gait: independent STG Gait Distance (feet): 400 Gait Analysis, PT Eval Gait Pattern Used: 2-point gait Gait Deviations Noted: decreased erum Impairments Contributing To Gait Deviations: impaired balance Stairs Stair, Performance Level Of Pierson: did not occur today Goal Stairs Stairs [...] a level necessary for safe home di arh [facility]. Complexities contributing to the need for skilled therapy include pain. Rehabilitation potential: Patient demonstrates good potential to achieve established goals to address the documented impairments by participating in skilled physical therapy services . PLAN: bed mobility training, gait training, manual therapy techniques, postural re-education, ort hotic fitting/training, transfer training Physical Therapy will follow Mady Munoz daily until discharge from therapy or discha [...] functional indep endence Electronically signed by: Yue Williamson, PT, 07/18/2015 17:39 lan of Care - Sunshine on, Geno Calderon DIESEL POWERPLANT SUPERVISOR - 07/18/2015 4:33 PM PDTProblem: General Plan of Care (Adult, Obstetrics) Goal: Care Plan Shift Summary & Review . Outcome: Progressing BS clear. Patient achieving 1000 of Predicted Level (mL)(Incentive Spirometer): 2450. SpO 2: 98 % on 2liters/minute nasal cannula. Will continue to monitor. p Note - Freddie Parham DO - 07/18/2015 2:04 PM PDTDATE: 07/18/2015 SURGEON: Freddie Parham DO. CAMPUS RECRUITING INTERNSHIP: [employer]. PREOPERATIVE DIAGNOSES 1. Spondylosis, L5-S1. [...] 26 mm Ti-coated Capstone PEEK cage from [employer] was chosen. It was filled with Infuse [...] Note Mady Munoz 55 y.o. female 1960 [id number] Proc. Date 07/18/2015 Preop Dx Lumbosacral spondylosis without myelopathy Postop Dx same Procedure Procedure(s):L5-S1 Transforaminal Lumbar Interbody Fusion Anesthesia General Surgeon Freddie Parham DO [facility] [employer] EBL 50 mL Findings Findings consistent with scheduled procedure. No other abnormalities found. Complications none Specimens * No specimens in log * Drains Drain/Device Site 07/18/15 1252 #1 Right: posterior back collapsible closed device (Act aurea) Electronically signed by: Freddie Parham DO 07/18/2015 14:03 [facility] documented in this en counter Plan of [...] [place] | | | | | | [address] | | | | | | | [...] formation is again evident within the superior [id number] endplate and is similar | | to [...] | + + + + + | [address] | [address] | [place] | | | [facility] | | [address] | | | - BLOOD BANK | [...] in this encounter Administered Medications + +--------+ +--------+------+ + | Medication Order | MAR | Action | Dose | Rate | Site | | | Action | Date | | | | + +--------+ +--------+------+ + | bupivacaine (liposomal) | Given | 07/18/20 | 20 mLs | | Surgical | | (EXPAREL) 1.3% injection PRN, | | 15 1:35 | | | Site | | Starting 07/18/15 at 1335, | | PM PDT | | | | | Intra-op | | | | | | + +--------+ +--------+------+ + +---+---+ | | | +---+---+ + +-------+ +--------+---+ + | bupivacaine 0.25%-EPINEPHrine | Given | 07/18/20 | 20 mLs | | Surgical | | 1:200,000 injection PRN, | | 15 12:57 | | | Site | | Starting 07/18/15 at 1257, | | PM PDT | | | | | Intra-op | | | | | | + +-------+ +--------+---+ + +---+---+ | | | +---+---+ documented in this encounter
--- OUTSIDE RECORDS SUMMARY | ~2020-08-04 | XMS | Encounter Summary ---
Demographics + + + | Address | [address] | | | [place] [address] | + + + | Home Phone | | + + + | Preferred Language | Unknown | + + + | Marital Status | | + + + | Baptism Affiliation | 1027 | + + + | Race | White | + + + | Ethnic Group | Not or | + + + Author + + + | Author | [facility] | | | and [place] | + + + | Organization | [facility] | | [...] Team Providers + +------+ + | Care Dock Operator Name | Role | Phone | + +------+ + | Brendon Loaiza MD | PCP | | + +------+ + Reason for Visit + +--------+ + | Reason | Onset | Comments | | | Date | | + +--------+ + | Referral | 03/07/ | | | | 2020 | | + +--------+ + Encounter Details +--------+ + + + + | Date | Type | Department | Care Team | Description | +--------+ + + + + | 03/07/ | Telephone | [facility] | Kyree, | Referral | | 2020 | | PULMONOLOGY [address] | Aliya Benitez, | | | | | [address] | [address] | | | | | [facility] [place] | [place], | | | | | [address] | [place] [address] | | | | | [phone] | [phone] | | | | | | | [...] this encounter Miscellaneous Notes Telephone Encounter - Ca Nelson - 03/08/2020 4:01 PM Swapnil, is calling again for Referral and would like a call back. Additional Call Details: Calling again, for an update on scheduling. Please call home numb trenton eCelsa Kong I - 03/07/2020 3:21 PM Jake, is calling regarding Referral and would like a call back. Additional Call Details: Schedule from new referral. Call back on home number listed. If this is a symptom based call, was patient offered triage? Not Applicable If this is a symptom based call and you were unable to immediately transfer the call to a jamal strong fingernail sculptor was caller made aware that if at any time she feels it is an emergency they sh ould call 911 or go to the nearest emergency room? not applicable documented in this encounter Plan of Treatment +--------+ + + + + | Date | Type | Specialty | Care Team | Description | +--------+ + + + + | 09/04/ | Virtual | Pulmonology | Josr Garcia MD | | 2019 | Office | | [address] | | | | Visit | | [place] | | | | | | [phone] | | | | | | | | +--------+ + + + + documented as of this encounter Visit Diagnoses Not on filedocumented in this encounter"
--- OUTSIDE RECORDS SUMMARY | ~2020-08-04 | XMS | Encounter Summary ---
Demographics + + + | Address | [address] | | | [place] [address] | + + + | Home Phone | | + + + | Preferred Language | Unknown | + + + | Marital Status | | + + + | Religion Affiliation | 1027 | + + + | Race | White | + + + | Ethnic Group | Not or | + + + Author + + + | Author | [facility] | | | and [place] | + + + | Organization | [facility] | | | [...] Team Providers + +------+ + | Care Aquatics Instructor Name | Role | Phone | + +------+ + PCP | Unavailable | + +------+ + Encounter Details +--------+ + + + + | Date | Type | Department | Care Team | Description | +--------+ + + + + | 08/16/ | Hospital | [facility] | | | | 2001 - | Encounter | [facility] | | | | | | CENTER Timmy Oswald | | | | 11/14/ | | [place] | | | | 2001 | | [address] | | | | | | [phone] | | | +--------+ + + + [...] [place] | | | | | | [id number] | | | | | | | | +--------+ + + + + documented as of this encounter Visit Diagnoses Not on filedocumented in this encounter"
--- OUTSIDE RECORDS SUMMARY | ~2020-08-04 | XMS | Encounter Summary ---
Demographics + + + | Address | [address] | | | [place] [address] | + + + | Home Phone | | + + + | Preferred Language | Unknown | + + + | Marital Status | | + + + | Congregation Affiliation | 1027 | + + + | Race | White | + + + | Ethnic Group | Not or | + + + Author + + + | Author | [facility] | | | and [place] | + + + | Organization | [facility] | | | [...] Team Providers + +------+ + | Care Securities Compliance Examiner Name | Role | Phone | + [...] + + | 03/17/ | Hospital | [facility] | Josr Garcia MD | Mediastinal | | 2020 | Encounter | [facility] | [address] | lymphadenopathy; | | | | INTRA [address] | [address] [place], [place] | Mediastinal | | | | [place], [place] | [address] | lymphadenopathy | | | | [address] | | | | | | [phone] | | | +--------+ + + + [...] of breath and diaphoresis, report immediately to [facility] Emergency Room or call . Diet: Regular [...] Garcia MD - 03/17/2020 2:45 PM PDT [facility] Service: Pulmonology Pre-Operative History & Physical DIAGNOSIS: [...] "chest heaviness". Went on [place] cation in [place] Dysphagia pills, foods, meats Exertional shortness of [...] Lumbar Interbody Fusion; Surgeon: Freddie Parham, DO; Lo cation: [facility] [...] file Gets together: Not on file Attends yarsani service: Not on file Active member of [...] [place] | | | | | | [address] | | | | | | | [...] | + +--------+ + + + | [facility] | Routin | 03/17/2020 | [...] PATHOLOGY | | PHYSICIAN:Josr Garcia MD PATIENT NAME:JOSEP MANLEYBETH | INCYTE | | HELDER: Enmanuel : 1960 SPECIMEN(S): A NBX, STATION [...] component | | | was performed by [facility], [facility] | | | [place] [address] (Supervisor Statement Clerks: Papi Bundy D.O.; CLIA#: | | | [id number]). Professionalinterpretation was performed by [facility] | | | Diagnostics, [address], | | | [place] [address] (Supervisor Statement Clerks: Trey Hernandez M.D.; CLIA#: | | | [id number]). Diagnostician: Cyndie Wagoner | | | CT(ASC)CytotechnologistDiagnostician: Karine Bales | | | MDPathologistElectronically Signed [...] | |The technical component was performed by [facility], [address] [place] [address] (Supervisor Statement Clerks: Papi Bundy D.O.; CLIA#: [id number]). Cadnace burns | | |interpretation was performed by [facility], [address] [address] (Supervisor Statement Clerks: Trey Hernandez M.D.; CLIA#: [id number] ). | | | | | |Diagnostician: Cyndie HANSON(ASC) | | |Mandrel Maker | | |Diagnostician: Karine Bales MD | [...] component was performed | | | by [facility], [address] [place] [address] (Medical | | | Director: Karine Bales MD; CLIA# [id number]). Professional | | | interpretation was performed [facility] | | | [address] [address] (Medical | | | Director: Trey Hernandez M.D.; CLIA#: [id number]). Diagnostician: | | | Karine Bales MDPathologistElectronically Signed 03/20/2020 | | |question about this report, please contact Client Services. | | | | | |PERFORMING LABORATORY: | | |The technical component was performed by [facility], [address] [place] [address] (Supervisor Statement Clerks: Karine Bales MD; CLIA# [id number]). Professional interpretation was performed by | | |[place] [address] (Supervisor Statement Clerks: Trey Hernandez M.D.; [facility]#: [id number]). | | | | | |Diagnostician: Karine [...] Performed At | + + + | [facility] | [facility] | | [facility] | PROVATION | | CenterPmonology | | | Patient Name: Mady Manley | | | Procedure Date: 03/17/2020 2:48 PMMRN: [id number] | | | Date of : 1960Note [...] On: | | | 03/17/2020 2:48 PM [facility] - Endoscopy | | | Department | | |This report has been signed electronically. | | |Number of Addenda: 0 | | | | | |Note Initiated On: 03/17/2020 2:48 PM | | | | | | [facility] - Endoscopy Department | | + [...] | | | Absolute | performed at [facility];[address] | LABORATORY | | | | [address];[place], [place] | | | | | | [address] | | | | + + + + + + + + | Specimen | + + | Blood | + + + + + + + | Performing | Address | City/State/Zipcode | Phone Number | | Organization | | | | + + + + + | [facility] | [address] | [place] [address] | [phone] | + + + + + documented in this encounter Visit Diagnoses + + | Diagnosis | + + | Mediastinal lymphadenopathy - Primary Enlargement of lymph nodes | + + [...]
--- OUTSIDE RECORDS SUMMARY | ~2020-08-04 | XMS | Encounter Summary ---
Demographics + + + | Address | [address] | | | [place] [address] | + + + | Home Phone | | + + + | Preferred Language | Unknown | + + + | Marital Status | | + + + | Judaism Affiliation | 1027 | + + + | Race | White | + + + | Ethnic Group | Not or | + + + Author + + + | Author | [facility] | | | and [place] | + + + | Organization | [facility] | | | [...] Team Providers + +------+ + | Care Spraying Machine Operator Name | Role | Phone [...] | | | | | | | AL ARTHDSIS | | | | | | [...] + + | 07/18/ | Hospital | [facility] | Freddie Parham, | | | 2014 | Encounter | MED CTR XRAY [address] | DO [address] | | | | | [place] | [address] [place] | | | | | [place] [address] | [id number] | | | | | [phone] | | | +--------+ + + + [...] [place] | | | | | | [address] | | | | | | | | +--------+ + + + + documented as of this encounter Procedures + +--------+ + + + | Procedure Name | Priori | Date/Time | Associated Diagnosis | Comments | | | ty | | | | + +--------+ + + + | SHWETA PELLETIER STATS NO | Routin | 07/18/2015 | | Results for this | | CHARGE | e | 1:40 PM | | procedure are in the | | | | PDT | | results section. | + +--------+ + + + documented in this encounter Results SHWETA Pires Stats No Charge (07/18/2015 1:40 PM PDT) [...] | | | + +---------+ + + documented in this encounter Visit Diagnoses Not on filedocumented in this encounter"
--- OUTSIDE RECORDS SUMMARY | ~2020-08-04 | XMS | Encounter Summary ---
Demographics + + + | Address | [address] | | | [place] [address] | + + + | Home Phone | | + + + | Preferred Language | Unknown | + + + | Marital Status | | + + + | Protestant Affiliation | 1027 | + + + | Race | White | + + + | Ethnic Group | Not or | + + + Author + + + | Author | [facility] | | | and [place] | + + + | Organization | [facility] | | [...] Team Providers + +------+ + | Care Chocolate Refining Roller Name | Role | Phone | + +------+ + | Brendon Loaiza MD | PCP | | + +------+ + Reason for Visit +--------+--------+ + | Reason | Onset | Comments | | | Date | | +--------+--------+ + | Other | 11/07/ | MRI scheduled | | | 2014 | | +--------+--------+ + Encounter Details +--------+ + + + + | Date | Type | Department | Care Team | Description | +--------+ + + + + | 11/07/ | Telephone | [facility] | Freddie Parham, | Other (MRI | | 2015 | | NEUROSURGERY [address] | DO [address] | scheduled) | | | | [address] | [address] [place], [place] | | | | | [place], [place] | [address] | | | | | [address] | | | | | | [phone] | | | +--------+ + + + [...] this encounter Miscellaneous Notes Telephone Encounter - Araceli Andino Cert MA - 11/28/2015 10:47 AM PSTI called and spoke trey Negron. She said that about 2 weeks ago she feels like she "turned a corner". She is feeli ng so much better. She rode in a car the other day and only had some pain in her low back, no leg pain. She feels like the nerve pain has greatly improved. She is not taking her anthony n medication any longer and hasn't needed to for about 3 weeks. She will have a 6m po xray done in January. ARACELI ANDINO elephone [employer] bowling - Freddie Parham DO - 11/28/2015 6:17 AM PSTThe MRI looks really good compared to the p reoperative MRI. The nerves look completely free. Is she feeling better since I saw her last time? Thanks. elephone Enco laquita - Nila Frias RN - 11/22/2015 4:30 PM PSTMRI available for review on [facility]. Araceli arthur advise. elephone E alexi - Nila Frias RN - 11/07/2015 4:02 PM PSTMessage relayed to patient. She verb alized understanding. Will forward MRI to Dr. Parham once completed. elephone Fela - Nila Frias RN - 3:01 PM PSTLeft voicemail for patient to return call. MRI scheduled at [facility] for at 1400 with a check in time at 1345. Electronically signed by Nila Frias RN at 1 01/08/2015 3:09 PM PSTdocumented in this encounter Plan of Treatment +--------+ [...] [place] | | | | | | [id number] | | | | | | | | +--------+ + + + + documented as of this encounter Visit Diagnoses Not on filedocumented in this encounter
--- OUTSIDE RECORDS SUMMARY | ~2020-08-04 | XMS | Encounter Summary ---
Demographics + + + | Address | [address] | | | [place] [address] | + + + | Home Phone [...] Author + + + | Author | [facility] | | | and [place] | + + + | Organization | [facility] | | | and [place] | + + + | Address | Unknown | + + + | Phone | Unavailable | + + + Support + + +---------+ + | Name | Relationship | Address | Phone | + + +---------+ + | Tavno Oatesard | ECON | Unknown | | + + +---------+ + Care Team Providers + +------+ + | Care Corporate Administrative Assistant Name | Role | Phone | [...] [address] [place] | radiculopathy, | | | | [place], [place] | [place] [address] | lumbar region | | | | [address] | [phone] | (Primary Dx) | | | | [phone] | | | +--------+---------+ + + + [...] glass of water on the morning of phil cheli to take your normal morning medications. Otherwise, [...] f rom the original. TAMMY Bui [address] [facility], [address] [place], [place] [id number] FAX: NEUROSURGERY HISTORY AND PHYSICAL EXAMINATION CHIEF [...] has no apparent deficits with short or custodial memory. CRANIAL NERVES: II: Acuity is intact. [...]
--- OUTSIDE RECORDS SUMMARY | ~2020-08-04 | XMS | Encounter Summary ---
Demographics + + + | Address | [address] | | | [place] [address] | + + + | Home Phone [...] Team Providers + +------+ + | Care Oversize Load Pilot Escort Name | Role | Phone | + +------+ + | Brendon Loaiza MD | PCP | | + +------+ + Reason for Visit +--------+--------+ + | Reason | Onset | Comments | | | Date | | +--------+--------+ + | Pain | 10/09/ | | | | 2014 | | +--------+--------+ [...] [address] | [address] [place], [place] | | | | | [place], [place] | [address] | | | | | [address] | | | | | | [phone] | | | +--------+ + + + [...] Encounter - Marya Andino Cert MA - 10/10/2015 8:58 AM PSTThis message was rela yed to Migdalia. MARYA ANDINO eleFreddie Orozco DO - 10/10/2015 5:52 AM PSTActivity as tolerated - she should see what works for her. Still 15 pound lifting restriction. Normally I would say to increase activit y, but I don't want her to worsen her pain. So she can take it easy if that what helps for n ow. Yes, colonoscopy is fine. Thanks. eleMarya Fields Cert MA - 10/09/2015 3:43 PM PSTThe message was relayed to Migdalia in counts include [facility] beds at the [facility]. She wonders if she should be doing anything specific with her restrictions at this ti me? As in, should she stop sitting for certain amounts of time, go back on her lifting, etc? She still wonders if she can have a colonoscopy? MARYA ANDINO elephone Freddie Ma DO - 10/09/2015 3:19 PM PSTEveryone heals differently, so some people are doing well at this point and some are still hurting. If the leg pain is the worst, she c ould try neurontin. I will order it. The back pain should get better as her bone heals. The x-ray from 08/10/15 looked great already. So her bone is fusing. I'll see her later this month and discuss everything more. Thanks. eleMarya Fields Cert MA - 10/09/2015 12:58 PM PSTI returned Migdalia' call. She C/O more and more pain and feels she is "going down hill". She has pain around her surgical site sherron t travels down her right leg. She says the pain that goes down her leg has been hurting sin ce she ran into a table a few weeks ago. The pain in her back is like a bad "tooth ache" and the pain down her leg is described as a tingling, burning type pain. She is not taking the Gabapentin. She says "I have a high tolerance for pain so it's not like I cant deal with i t but it is there". She is taking Hydrocodone 1-2 PO daily. She says she has been doing a lot of sitting (riding long distance in the car, taoism, meetings). She wonders if she coul d be doing too much sitting? She feels that this far out from surgery, she should be doing much better than she is. She also wonders if she is okay to have a colonscopy? She is S/P L5-S1 TLIF on 07/18/15. Next visit is on 10/20/2015. Please advise. MARYA ANDINO eleMilagros Cat - 10/09/2015 10:32 AM PSTPatient called because she is "having a lot of problems since having surgery in July." would like a call back to discuss. documented in this encounter Plan of Treatment +--------+ + + + + | Date | Type | Specialty | Care Team | Description | +--------+ + + + + | 09/04/ | Virtual | Pulmonology | Josr Garcia MD | | | 2019 | Office | | [address] | | | | Visit | | [place] | | | | | | [address] | | | | | | | | +--------+ + + + + documented as of this encounter Visit Diagnoses Not on filedocumented in this encounter
--- OUTSIDE RECORDS SUMMARY | ~2020-08-04 | XMS | Encounter Summary ---
Demographics + + + | Address | [address] | | | [place] [address] | + + + | Home Phone | | + + + | Preferred Language | Unknown | + + + | Marital Status | Unknown | + + + | Evangelical Affiliation | Unknown | + + + | Race | Unknown | + + + | Ethnic Group | Unknown | + + + Author + + + | Author | [facility] | + + + | Organization | [facility] | + + + | Address | Unknown | + + + | Phone | Unavailable | + + + Care Team Providers + +------+ + | Care Packer Dried Beef Name | Role | Phone | + +------+ + PCP | Unavailable | + +------+ + Encounter Details +--------+ + + + + | Date | Type | Department | Care Team | Description | +--------+ + + + + | 07/25/ | Abstract | Pulmonary & | Service, Pulmonary | | | 2020 | | Critical Care | Consult [address] | | | | | Medicine at | [facility] | | | | | [facility] | Road [place], [place] | | | | | [address] | [address] | | | | | [facility] | | | | | | [place], [address] [place] [address] | | | | | | [place], [place] | | | | | | [address] | | | | | | [phone] | | | +--------+ + + + [...] as of this encounter Plan of Treatment Not on filedocumented as of this encounter Visit Diagnoses Not on filedocumented in this encounter"
--- OUTSIDE RECORDS SUMMARY | ~2020-08-04 | XMS | Encounter Summary ---
Demographics + + + | Address | [address] | | | [place] [address] | + + + | Home Phone | | + + + | Preferred Language | Unknown | + + + | Marital Status | | + + + | Druze Affiliation | 1027 | + + + | Race | White | + + + | Ethnic Group | Not or | + + + Author + + + | Author | [facility] | | | and [place] | + + + | Organization | [facility] | | | [...] Team Providers + +------+ + | Care Type Photography Supervisor Name | Role | Phone | + +------+ + | Brendon Loaiza MD | PCP | | + +------+ + Reason for Visit + +--------+ + | Reason | Onset | Comments | | | Date | | + +--------+ + | Medication Refill | 05/31/ | | | | 2020 | | + +--------+ + Encounter Details +--------+--------+ + + + | Date | Type | Department | Care Team | Description | +--------+--------+ + + + | 05/31/ | Refill | [facility] | Josr Garcia MD | Medication Refill | | 2019 | | PULMONOLOGY [address] | | | | [address] | [place], [place] | | | | | [place], [place] | [address] | | | | | [address] | | | | | | [phone] | | | +--------+--------+ + + + [...] [place] | | | | | | [address] | | | | | | | | +--------+ + + + + documented as of this encounter Visit Diagnoses + + | Diagnosis | + + | Sarcoidosis - Primary | + + documented in this encounter"
--- OUTSIDE RECORDS SUMMARY | ~2020-08-04 | XMS | Encounter Summary ---
Demographics + + + | Address | [address] | | | [place] [address] | + + + | Home Phone | | + + + | Preferred Language | Unknown | + + + | Marital Status | | + + + | Uatsdin Affiliation | 1027 | + + + | Race | White | + + + | Ethnic Group | Not or | + + + Author + + + | Author | [facility] | | | and [place] | + + + | Organization | [facility] | | | [...] Team Providers + +------+ + | Care Activities Manager Name | Role | Phone | + +------+ + | Marin Lima DO | PCP | | + +------+ + Encounter Details +--------+ + + + + | Date | Type | Department | Care Team | Description | +--------+ + + + + | 03/29/ | Hospital | [facility] | Freddie Parham, | Back pain, | | 2015 | Encounter | MED CTR XRAY [address] | DO [address] | unspecified location | | | | [place] | [address] [place] | | | | | [place] [address] | [address] | | | | | [phone] | | | +--------+ + + + [...] at Time of Discharge + + + +---------+--------+ + | Medication | Sig | Dispensed | Refills | Start | End Date | | | | | | Date | | + + + +---------+--------+ + | estradiol | Take 1 mg by mouth | | 0 | | | | (ESTRACE) 1 mg | Daily. | | | | | | tablet | | | | | | + + + +---------+--------+ + | valACYclovir | Take 500 mg by mouth | | 0 | | | | (VALTREX) 500 mg | Daily. Oral Cold | | | | | | tablet | sores | | | | | + + + +---------+--------+ + documented as of this encounter Plan of Treatment +--------+ + + + + | Date | Type | Specialty | Care Team | Description | +--------+ + + + + | 09/04/ | Virtual | Pulmonology | Josr Garcia MD | | | 2019 | Office | | [address] | | | | Visit | | [place] | | | | | | [address] | | | | | | | | +--------+ + + + + documented as of this encounter Procedures + +--------+ + + + | Procedure Name | Priori | Date/Time | Associated Diagnosis | Comments | | | ty | | | | + +--------+ + + + | XR LUMBAR SPINE 2 OR | Routin | 03/29/2015 | Back pain, | Results for this | | 3 VW | e | 10:23 AM | unspecified location | procedure are in the | | | | PDT | | results section. | + +--------+ + + + documented in this encounter Results XR [...] MRI lumbar spine 02/03/2015 FINDINGS: | [facility] | | Vertebral body alignment is maintained on the upright neutral view, | [facility] | | with anterolisthesis of L4 on [...] | + + + + + | [facility] | [address] | [place] | [phone] | | [facility] | | [address] | | | - IMAGING | | | | + + + + + documented in this encounter Visit Diagnoses + + | Diagnosis | + + | Back pain, unspecified location | + + documented in this encounter"
--- OUTSIDE RECORDS SUMMARY | ~2020-08-04 | XMS | Encounter Summary ---
Demographics + + + | Address | [address] | | | [place] [address] | + + + | Home Phone [...] Team Providers + +------+ + | Care Multimedia Assistant Name | Role | Phone | + +------+ + | Brendon Loaiza MD | PCP | | + +------+ + Reason for Visit + +--------+ + | Reason | Onset | Comments | | | Date | | + +--------+ + | Follow-up | 07/26/ | Post-op | | | 2014 | | + +--------+ + Encounter Details +--------+ + + + + | Date | Type | Department | Care Team | Description | +--------+ + + + + | 07/26/ | Telephone | [facility] | Freddie Parham, | Follow-up (Post-op) | | 2015 | | Group Neurosurgery | DO [address] | | | | | Clinic [address] | [address] [place], [place] | | | | | [address] | [address] | | | | | [place], [place] | | | | | | [address] | | | | | | [phone] | | | +--------+ + + + [...] this encounter Miscellaneous Notes Telephone Encounter - Sharif Macias RN - 07/26/2015 3:20 PM PDTProcedure: L5-S1 Transforam inal Lumbar Interbody Fusion Date of Surgery: 07/18/15 1. How are you feeling (pain type/often)? constant, tingling and numbness(pain running down right leg to ankle), tooth achy pain when sitting (down lower back). 2. If pain, where (Legs/surgical site)? Pain running down right leg to ankle and down lower back. 3. Weakness/Numbness (New onset)? No new weakness or numbness. 4.Taking pain meds (Name/Dosage)? Tylenol x2 (regular strength 325mg), this morning took 1 [place] (5-325). 5.Loss of Bowel or Bladder (When/Chronic)? Fine no loss of control or function. 6.Ambulating (How often)? Been walking frequently, ambulating every 2 hours for about and h our every time. SURGICAL ISSUES 1.What does the dressing look like? Dressing is clean and intact. 2.Is there drainage from the site? If yes, What does it look like? None, looks good. Miguel Angel sauceda son in law checked the site (he is a nurse). 3.Do you have a fever? No symptoms of fever. 4.Follow up appointments? 08/15/2015 @1100, patient reminded to have xrays done prior. Silverio nt well be having xrays done at [facility] the day before their appointment. 5.What could we have done to make your visit better? Thought everything was great everyone was wonderful. 6. Has preoperative pain improved? Pain has improved, right leg pain has not improved, surg ical site pain. documented in this encou nter Plan of Treatment +--------+ + + + + | Date | Type | Specialty | Care Team | Description | +--------+ + + + + | 09/04/ | Virtual | Pulmonology | Josr Garcia MD | | | 2020 | Office | | [address] | | | | Visit | | [place] | | | | | | [id number] | | | | | | | | +--------+ + + + + documented as of this encounter Visit Diagnoses Not on filedocumented in this encounter"
--- OUTSIDE RECORDS SUMMARY | ~2020-08-04 | XMS | Encounter Summary ---
Demographics + + + | Address | [address] | | | [place] [address] | + + + | Home Phone | | + + + | Preferred Language | Unknown | + + + | Marital Status | | + + + | Latter-Day Affiliation | 1027 | + + + | Race | White | + + + | Ethnic Group | Not or | + + + Author + + + | Author | [facility] | | | and [place] | + + + | Organization | [facility] | | [...] Team Providers + +------+ + | Care Precision Machine Operator Name | Role | Phone [...] | | | MD Alyce | [address] | | | | | | [address] | | | | | | [place] | [place], [place] | | | | | | [place], | [address] Phone: | | | | | | [place] [address] | [phone] | | | | | | Phone: | Fax: | | | | | | [phone] | [phone] | | | | | | Fax: | | | | | | | [phone] | | + +--------+ + + + + Encounter Details +--------+---------+ + + + | Date | Type | Department | Care Team | Description | +--------+---------+ + + + | 03/13/ | Office | [facility] | Josr Garcia MD | Mediastinal | | 2020 | Visit | PULMONOLOGY [address] | [address] | lymphadenopathy | | | | [place] | [place]rid[place] | (Primary Dx) | | | | [place], [place] | [address] | | | | | [address] | | | | | | [phone] | | | +--------+---------+ + + + [...] + + + | Blood Pressure | 107/75 | 03/13/2020 12:33 PM | | | | | PDT | | + + + + + | Pulse | 69 | 03/13/2020 12:33 PM | | | | | PDT | | + + + + + | Temperature | 36.5 C (97.7 F) | 03/13/2020 12:33 PM | | | | | PDT | | + + + + + | Respiratory Rate | - | - | | + + + + + | Oxygen Saturation | 97% | 03/13/2020 12:33 PM | | | [...] + + + documented in this encounter Progress Notes Josr Garcia MD - 03/13/2020 12:30 PM PDT Subjective: Patient ID: Mady Munoz 59 y.o. is here for evaluation of cough and shortness of carmenza ath. HPI Patient's medications, allergies, past medical, surgical, social and family histories were obtained and reviewed as appropriate. The patient is a pleasant 59-year-old female who was in her usual state of health until Dec of this year when she visited [place]. She went to see a [place] [employer] [place] and when she came back from where she came back with severe cough along with shortness of breath. She complai pool of severe myalgias, fever. She was very sick and could barely move out of the bed. Her and her son also had similar symptoms. When she came back to her house in [facility] she was in touch with 2 other people from [facility] who got similar illness and then falloni nicholey their families got the similar symptoms. Over [...] a lifetime non-smoker and denies using drugs. Review of Systems Constitutional: Negative. HENT: Negative. Eyes: Negative. Respiratory: Positive for cough and shortness of breath. Cardiovascular: Negative. Gastrointestinal: Negative. Musculoskeletal: Negative. Skin: Negative. Neurological: Negative. Endo/Heme/Allergies: Negative. Psychiatric/Behavioral: Negative. History: Past Medical History: Diagnosis Date Anemia low iron intermittently - ongoing Claustrophobia Cough 01/2020 flu type S/S; sore throat, body aches, fever w/ fatigue and "chest heaviness". Went on va cation in [place] Dysphagia pills, foods, meats Exertional shortness of [...] file Gets together: Not on file Attends jew service: Not on file Active member of [...] Prior to Visit Medication Sig Dispense Refill estradiol (ESTRACE) 1 mg tablet Take 1 mg by mouth Daily. valACYclovir (VALTREX) 500 mg tablet Take 500 mg by mouth Daily. Oral Cold sores No current facility-administered medications on file prior to visit. Objective: Vitals: 03/13/20 1233 BP: 107/75 Pulse: 69 Temp: 36.5 C (97.7 F) Physical Exam Constitutional: She is oriented to [...] is warm. Psychiatric: Affect and judgment normal. No results found. CT chest with contrast 03/03/2020 Mediastinal and bilateral lateral hilar lymphadenopathy. Scattered granulomatous Assessment and plan 1. Mediastinal lymphadenopathy The patient is a pleasant 59-year-old female who presents with mediastinal lymphadenopathy. Ideally in isolation the CT is very suggestive of sarcoidosis however it appears to be sta rting after a infectious process. Other differential diagnosis are worsening autoimmune dis eases along with lymphocytic interstitial pneumonia. Danny does not have any major endemi c disease except for possible blastomycosis but she did not travel into any caves and she re mained in a resort. Since she interacted with people of multiple ethnicity tuberculosis is a possibility but she states that she has received BCG in the past. I will check a QuantiFE TERESA gold. I will also get a autoimmune panel. I will get a erythrocyte sedimentation rate to see if there is any active infection or inflammation. The differential diagnosis of mediastinal lymphadenopathy or lymphoma, sarcoidosis etc. Sh estephania will need an endobronchial ultrasound along with biopsies of the lymph node. The risks an d benefits of the procedures were discussed with the patient. The procedure has been schedu led for 03/17/2020 - Quantiferon Gold; Future - RICHELLE Panel, Quant; Future - ANCA Panel, no reflex; Future - Antinuclear AB Multiple; Future - Sedimentation Rate; Future - Case Request - OR/ENDO/ASC/OB: ULTRASOUND ENDOBRONCHIAL Thank you for allowing me to participate in your patient's care. We will review test result s that we have ordered with the patient once they become available. A return visit has been scheduled in 6 weeks. Josr Garcia MD Pulmonary and Critical Care Medicine [address], [place] [address] documented in this enco unter Plan of [...] [place] | | | | | | [address] | | | | | | | | +--------+ + + + + + +------+--------+ + + | Name | Type | Priori | Associated Diagnoses | Order Schedule | | | | ty | | | + +------+--------+ + + | Quantiferon Gold | Lab | Routin | Mediastinal | 1 Occurrences | | | | e | lymphadenopathy | starting 03/13/2020 | | | | | | until 03/13/2021 | + +------+--------+ + + | RICHELLE Panel, Quant | Lab | Routin | Mediastinal | 1 Occurrences | | | | e | lymphadenopathy | starting 03/13/2020 | | | | | | until 03/13/2021 | + +------+--------+ + + | ANCA Panel, no | Lab | Routin | Mediastinal | 1 Occurrences | | reflex | | e | lymphadenopathy | starting 03/13/2020 | | | | | | until 03/13/2021 | + +------+--------+ + + | Antinuclear AB | Lab | Routin | Mediastinal | 1 Occurrences | | Multiple | | e | lymphadenopathy | starting 03/13/2020 | | | | | | until 03/13/2021 | + +------+--------+ + + | Sedimentation Rate | Lab | Routin | Mediastinal | 1 Occurrences | | | | e | lymphadenopathy | starting 03/13/2020 | | | | | | until 03/13/2021 | + +------+--------+ + + documented as of this encounter Visit Diagnoses + + | Diagnosis | + + | Mediastinal lymphadenopathy - Primary Enlargement of lymph nodes | + + documented in this encounter
--- OUTSIDE RECORDS SUMMARY | ~2020-08-04 | XMS | Encounter Summary ---
Demographics + + + | Address | [address] | | | [place] [address] | + + + | Home Phone | | + + + | Preferred Language | Unknown | + + + | Marital Status | | + + + | Buddhist Affiliation | 1027 | + + + | Race | White | + + + | Ethnic Group | Not or | + + + Author + + + | Author | [facility] | | | and [place] | + + + | Organization | [facility] | | [...] Team Providers + +------+ + | Care Manual Machinist Name | Role | Phone | + +------+ + | Brendon Loaiza MD | PCP | | + +------+ + Encounter Details +--------+ + + + + | Date | Type | Department | Care Team | Description | +--------+ + + + + | 07/12/ | Hospital | [facility] | Freddie Parham, | | | 2015 | Encounter | MED CTR LABORATORY | DO [address] | | | | | [address] | [address] [address] | | | | | [place] | [address] | | | | | [address] | | | | | | [phone] | | | +--------+ + + + [...] [place] | | | | | | [address] | | | | | | | | +--------+ + + + + documented as of this encounter Visit Diagnoses Not on filedocumented in this encounter"
--- OUTSIDE RECORDS SUMMARY | ~2020-08-04 | XMS | Encounter Summary ---
Demographics + + + | Address | [address] | | | [place] [address] | + + + | Home Phone | | + + + | Preferred Language | Unknown | + + + | Marital Status | | + + + | Anabaptist Affiliation | 1027 | + + + | Race | White | + + + | Ethnic Group | Not or | + + + Author + + + | Author | [facility] | | | and [place] | + + + | Organization | [facility] | | | [...] Team Providers + +------+ + | Care Pull Socket Assembler Name | Role | Phone | + +------+ + | Brendon Loaiza MD | PCP | | + +------+ + Reason for Visit Service/Procedure (Routine) +--------+--------+ + + + + | Status | Reason | Specialty | Diagnoses / | Referred By | Referred To | | | | | Procedures | Contact | Contact | +--------+--------+ + + + + | Closed | | Radiology | Diagnoses | | [facility] | | | | | Lumbosacral | [place], | [address] | | | | | spondylosis | Avery Vaz MD | [place], | | | | | without | [address] | [place] | | | | | myelopathy | [place] | [address] | | | | | Procedures | [place], [place] | Phone: | | | | | [place] | [address] | [phone] | | | | | DX/THER AGNT | Phone: | Fax: | | | | | [place] | [phone] | [phone] | | | | | FACET JOINT, | Fax: | | | | | | LUMBAR/SAC, | [phone] | | | | | | 1ST LEVEL | | | | | | | [place] | | | | | | | TRIAMCINOLON | | | | | | | E ACET INJ | | | | | | | NOS, 10 MG | | | | | | | Bilateral | | | | | | | L5-S1 | | | | | | | Facet-Referr | | | | | | | al from | | | | | | | Dione | | | +--------+--------+ + + + + Encounter Details +--------+ + + + + | Date | Type | Department | Care Team | Description | +--------+ + + + + | 05/11/ | Hospital | [facility] | Avery Vaughan | Lumbar spondylosis, | | 2015 | Encounter | MED CTR XRAY [address] | T, MD [address] | unspecified spinal | | | | [address] [place] | [address] [place], [place] | osteoarthritis | | | | [place] [address] | [address] | | | | | [phone] | | | | | | | Project/Production Manager Imaging, [place]n | | | | | | [place] | | +--------+ + + + + [...] this encounter Last Filed Vital Signs + +---------+ + + | Vital Sign | Reading | Time Taken | Comments | + +---------+ + + | Blood Pressure | 132/65 | 05/11/2015 4:22 PM | | | | | PDT | | + +---------+ + + | Pulse | 56 | 05/11/2015 4:22 PM | | | | | PDT | | + +---------+ + + | Temperature | - | - | | + +---------+ + + | Respiratory Rate | - | - | | + +---------+ + + | Oxygen Saturation | - | - | | + +---------+ + + | Inhaled Oxygen | - | - | | | Concentration | | | | + +---------+ + + | Weight | - | - | | + +---------+ + + | Height | - | - | | + +---------+ + + | Body Mass Index | - | - | | + +---------+ + + documented in this encounter Medications at Time [...] | | Visit | | [place] | | | | | | [id number] | | | | | | | | +--------+ + + + + documented as of this encounter Procedures + +--------+ + + + | Procedure Name | Priori | Date/Time | Associated Diagnosis | Comments | | | ty | | | | + +--------+ + + + | FL FACET INJECTION | Routin | 05/11/2015 | Lumbar | Results for this | | LUMBAR SACRAL | e | 4:21 PM | spondylosis, | procedure are in the | | | | PDT | unspecified spinal | results section. | | | | | osteoarthritis | | + +--------+ + + + documented in this encounter Results FL Facet Injection Lumbar Sacral (05/11/2015 4:21 PM PDT) + + | Specimen | + + | | + + + + + | Narrative | Performed At | + + + | 05/11/2015 Bilateral Lumbar Facet Steroid Injections Diagnosis: | [facility] | | Lumbar Spondylosis ICD-9 Code 721.3 Mady Munoz presents | [facility] | | to the fluoroscopy suite for fluoroscopically-guided bilateral [facility] | | L5-S1 facet injections as part of conservative management for | - IMAGING | | chronic pain with lumbar spondylosis. After informed consent was | | | obtained, the patient laid in the prone position on the fluoroscopy | | | table. The areas were identified under fluoroscopic guidance. The | | | areas were prepped and draped in sterile fashion. A 25-gauge, | | | 1.5-inch needle was inserted into each region and approximately 3 mL | | | of buffered 1% lidocaine was infused. Then, a 22-gauge spinal needle | | | was inserted into the superior portion of each facet under | | | fluoroscopic guidance. Confirmation into the joint spaces was | | | obtained with infusion of approximately 1 mL of Omnipaque contrast | | | which showed outline of the facet joints. Then, a combination of 1 | | | mL of 1% lidocaine and 1 mL of 40 mg/mL Kenalog was infused divided | | | between the 2 joints. The patient tolerated the procedure well | | | without complications. Pre- and post-procedure blood pressures were | | | stable. The patient was given verbal as well as written follow-up | | | instructions. Prior to the start of the procedure, the following | | | were performed and/or verified, including correct patient identity, | | | correct site/side marked and visible, agreement on the procedure to | | | be done, correct patient positioning and an accurate procedure | | | consent form. Any safety precautions based on clinical history | | | and/or medication use have been addressed. I personally performed | | | the procedure above. Estimated blood loss: Minimal Complications: | | | None Findings: As expected Anesthesia: Local 1% Lidocaine | | + + + + + + + + | Performing | Address | City/State/Zipcode | Phone Number | | Organization | | | | + + + + + | [facility] | [address] | [place] | [phone] | | [facility] | | [address] | | | - IMAGING | | | | + + + + + documented in this encounter Visit Diagnoses + + | Diagnosis | + + | Lumbar spondylosis, unspecified spinal osteoarthritis | + + documented in this encounter Administered Medications + +--------+ +-------+------+------+ | Medication Order | MAR | Action | Dose | Rate | Site | | | Action | Date | | | | + +--------+ +-------+------+------+ | iohexol (OMNIPAQUE 300) 300 | Given | 05/11/20 | 3 mLs | | | | mg/mL injection 3 mL 3 mL, | | 15 4:15 | | | | | INTRATHECAL, ONCE, Vero 05/11/15 at | | PM PDT | | | | | 1630, For 1 dose | | | | | | + +--------+ +-------+------+------+ +---+---+ | | | +---+---+ + +-------+ +-------+---+ + | lidocaine 1% injection 5 mL 5 | Given | 05/11/20 | 5 mLs | | Other | | mL, Intradermal, ONCE, Vero | | 15 4:10 | | | (Comment | | 05/11/15 at 1630, For 1 dose | | PM PDT | | | ) | + +-------+ +-------+---+ + +---+---+ | | | +---+---+ + +-------+ +-------+---+---+ | sodium bicarbonate (NEUT) 4% | Given | 05/11/20 | 2 mLs | | | | injection 2 mL 2 mL, Topical, | | 15 4:10 | | | | | ONCE, Vero 05/11/15 at 1630, For 1 | | PM PDT | | | | | dose | | | | | | + +-------+ +-------+---+---+ +---+---+ | | | +---+---+ + +-------+ +-------+---+---+ | triamcinolone acetonide | Given | 05/11/20 | 40 mg | | | | (KENALOG-40) 40 mg/mL injection | | 15 4:15 | | | | | 40 mg 40 mg, Intra-articular, | | PM PDT | | | | | ONCE, [facility] 05/11/15 at 1630, For 1 | | | | | | | dose, Shake well. Not for IV | | | | | | | use., | | | | | | + +-------+ +-------+---+---+ +---+---+ | | | +---+---+ documented in this encounter"
--- OUTSIDE RECORDS SUMMARY | ~2020-08-04 | XMS | Encounter Summary ---
Demographics + + + | Address | [address] | | | [place] [address] | + + + | Home Phone | | + + + | Preferred Language | Unknown | + + + | Marital Status | | + + + | Jewish Affiliation | 1027 | + + + [...] Team Providers + +------+ + | Care Income Tax Advisor Name | Role | Phone | + +------+ + | Brendon Loaiza MD | PCP | | + +------+ + Reason for Visit + +--------+ + | Reason | Onset | Comments | | | Date | | + +--------+ + | Post-op Question | 05/19/ | [place] mon[place]? | | | 2018 | | + +--------+ + Encounter Details +--------+ + + + + | Date | Type | Department | Care Team | Description | +--------+ + + + + | 05/19/ | Telephone | [facility] | Freddie Parham, | Post-op Question | | 2017 | | NEUROSURGERY [address] | DO [address] | ([employer]ler coasters?) | | | | [address] [facility] [address] | [address] [place], [place] | | | | | [place], [place] | [address] | | | | | [address] | | | | | | [phone] | | | +--------+ + + + [...] this encounter Miscellaneous Notes Telephone Encounter - Althea Montgomery RN - 05/19/2018 9:42 AM PDTPost op: Yes 07/18/2015 L5-S1 TLIF Last seen 05/17/2016 (Talib) Patient asked if ok to ride the [employer] at an amusement park. Reviewed OV notes. Patient denies injuries or new issues with low back. Acknowledges increased pain with certa in movements or activities but no concerns r/t 2015 lumbar fusion. Discussed that new activities, increasing activities and suddenly changing activities may f lare inflammation and increase pain. Encouraged patient to use her best judgment on the rid e options and avoid any that are likely to flare symptoms. Suggested wearing lumbar brace a nd trying gentler rides first to see how she tolerates them and increase gradually, as leti ated. Also suggested planning for rest periods and to recognize flare of nerve irritation i f it occurs even later in the evening after a day at the amusement park. If a flare of symp toms occurs, allow additional rest, ice, heat, massage, stretching and time to calm symptoms which may take several days. For any symptoms that worsen instead of improving or that per sist intolerably, seek evaluation. Patient verbalized understanding and plans to try the ge Back[employer]ler rides first and advance as tolerated. She expressed appreciation for the advice.Elect ronically signed by Althea Montgomery RN at 05/19/2018 9:50 AM PDTdocumented in this encount er Plan of Treatment +--------+ + + + + | Date | Type | Specialty | Care Team | Description | +--------+ + + + + | 09/04/ | Virtual | Pulmonology | Josr Garcia MD | | | 2019 | Office | | [address] | | | | Visit | | [place], [place] | | | | | | [address] | | | | | | | | +--------+ + + + + documented as of this encounter Visit Diagnoses Not on filedocumented in this encounter"
--- OUTSIDE RECORDS SUMMARY | ~2020-08-04 | XMS | Encounter Summary ---
Demographics + + + | Address | [address] | | | [place] [address] | + + + | Home Phone | | + + + | Preferred Language | Unknown | + + + | Marital Status | | + + + | Lutheran Affiliation | 1027 | + + + | Race | White | + + + | Ethnic Group | Not or | + + + Author + + + | Author | [facility] | | | and [place] | + + + | Organization | [facility] | | | and [...] Team Providers + +------+ + | Care Community Health Promoter Name | Role | Phone | + +------+ + | Brendon Loaiza MD | PCP | | + +------+ + Reason for Visit + +--------+ + | Reason | Onset | Comments | | | Date | | + +--------+ + | Medication Question | 05/30/ | | | | 2020 | | + +--------+ + Encounter Details +--------+ + + + + | Date | Type | Department | Care Team | Description | +--------+ + + + + | 05/30/ | Telephone | [facility] | Josr Garcia MD | Medication Question | | 2020 | | PULMONOLOGY [address] | [address] | | | | | [address] | [place], [place] | | | | | [place], [place] | [address] | | | | | [address] | | | | | | [phone] | | | +--------+ + + + [...] this encounter Miscellaneous Notes Telephone Encounter - Melania Swenson, Librarian Special Collections - 05/31/2020 7:59 AM PDTThen the pt needs another refill on this. elephone Encounter - Edwin Swenson, Librarian Special Collections - 05/30/2020 10:44 AM PDTPT called with question regarding the Isidro trim. She states she is still doing the prednisone as discussed at her last appointment, but nothing was discussed about the bactrim. She states she is out of this now and not sure if she should be stopping. documented in this encounter Plan of Treatment +--------+ + + + + | Date | Type | Specialty | Care Team | Description | +--------+ + + + + | 09/04/ | Virtual | Pulmonology | Josr Garcia MD | | 2019 | Office | | [address] | | | | Visit | | [place], [place] | | | | | | [address] | | | | | | | | +--------+ + + + + documented as of this encounter Visit Diagnoses Not on filedocumented in this encounter"
--- OUTSIDE RECORDS SUMMARY | ~2020-08-04 | XMS | Encounter Summary ---
Demographics + + + | Address | [address] | | | [place] [address] | + + + | Home Phone [...] + + + | Author | [facility] | | | and [place] | + + + | Organization | [facility] | | | and [...] Team Providers + +------+ + | Care Lime Supervisor Name | Role | Phone | [...] + + | 03/17/ | Anesthesia | [facility] | Devonte García, | | | 2020 | [facility] | [facility] | PHOTOGRAMMETRIC TECH [address] | | | | | INTRA [address] | [place] [address] | | | | | BLVD [place], [place] | [phone] | | | | | [address] | | | | | | [phone] | Trinidad Gaona, | | | | | | PHOTOGRAMMETRIC TECH [address] | | | | | | [place] [address] | | | | | | [phone] | | | | | | | | +--------+ + + + + Anesthesia Record + + + + + | Procedure Name | Responsible | Anesthesia Start | Anesthesia Stop Time | | | Anesthesiologist | Time | | + + + + + | ULTRASOUND | Devonte García CRNA | 03/17/20 1444 | 03/17/20 1549 | | ENDOBRONCHIAL | | | | | (Bilateral Bronchus) | | | | + + + + + +----+---+ + + | Da | T | Event | Comment | | te | i | | | | | m | | | | | e | | | +----+---+ + + | 04 | 1 | | | | /1 | 3 | | | | 7/ | 3 | | | | 20 | 7 | | | | 20 | | | | +----+---+ + + | | 1 | An Start | Reassessment prior to anesthesia induction/procedure. | | | 4 | | | | | 4 | | | | | 4 | | | +----+---+ + + | | 1 | First | | | | 4 | Inc/Proc St | | | | 4 | | | | | 9 | | | +----+---+ + + | | 1 | An | | | | 4 | Induction | | | | 5 | | | | | 0 | | | +----+---+ + + | | 1 | An | | | | 4 | Intubation | | | | 5 | | | | | 1 | | | +----+---+ + + | | 1 | Anesthesia | | | | 4 | Ready | | | | 5 | | | | | 3 | | | +----+---+ + + | | 1 | Extubation/ | | | | 5 | Airway LDA | | | | 4 | Removal | | | | 8 | | | +----+---+ + + | | 1 | an stop | | | | 5 | data | | | | 4 | | | | | 9 | | | +----+---+ + + | | 1 | An Stop | Patient handed off to recovery nurse. | | | 4 | | | | | 9 | | | +----+---+ + + | | 1 | Quick Note | During the recovery period the patient was feeling nauseated and | | | 5 | | ondansetron was given IV | | | 5 | | | | | 8 | | | +----+---+ + + +------+ | Meds | +------+ + +---------+ | Name | Total | + +---------+ | fentaNYL | 100 mcg | + +---------+ | lidocaine 2% | 100 mg | + +---------+ | propofol | 130 mg | + +---------+ | rocuronium | 30 mg | + +---------+ | succinylcholine | 100 mg | + +---------+ | dexamethasone | 8 mg | + +---------+ | ondansetron | 8 mg | + +---------+ | neostigmine | 3 mg | + +---------+ | glycopyrrolate | 0.4 mg | + +---------+ | sodium chloride 0.9% (NS) | 700 mL | | infusion | | + +---------+ + + | Name | + + | N2O Flow Rate (L/Min) | + + | O2 Flow Rate (L/Min) | + + | Insp O2 | + + | Exp N2O | + + | Exp SEV | + + | Air Flow Rate (L/Min) | + + + + | No blood administrations on file. | + + +--------+ + + + | Type | Details | Placement | Removal | +--------+ + + + | Periph | 03/17/20; 1306; Right; Forearm; | 03/17/20 1306 by | 03/17/20 1632 by | | eral | 20 gauge; 03/17/20; 1632 | Shayy Sandoval RN | Carol Garcia RN | | IV | | | | +--------+ + + + | Airway | Placement Date: 03/17/20; | 03/17/20 145 by | 03/17/20 154 by | | | Placement Time: 1450 (created via | Devonte García CRNA | Devonte García CRNA | | | procedure documentation); Mask | | | | | Ventilation: EZ; Airway Grade: 1; | | | | | Successful Technique: Acuña; | | | | | Laryngoscope Blade Size: 2; | | | | | Attempts: 1; Airway Type: | | | | | endotracheal; Size: 8; Airway | | | | | Tube Secured At: 21; Trauma: | | | | | none; Other Equipment: stylette; | | | | | Placement Check: exhaled CO2 | | | | | detection device, bilateral chest | | | | | rise, breath sounds equal | | | | | bilaterally; Removal Date: | | | | | 03/17/20; Removal Time: 1547 | | | +--------+ + + + [...] + + documented as of this encounter OR Notes Anesthesia Postprocedure Evaluation - Devonte García CRNA - 03/17/2020 3:50 PM PDTFormatt ing of this note might be different from the original. ANESTHESIA POSTANESTHESIA EVALUATION Mady Munoz 59 y.o. female 1960 [id number] Procedure(s) ULTRASOUND ENDOBRONCHIAL (Bilateral Bronchus) Cooperates? Yes Mental Status Performs simple tasks. Respiratory Satisfactory - Airway patent (self maintained). Cardiovascular Satisfactory - Blood pressure and heart rate acceptable Temperature Satisfactory Pain Satisfactory N/V Control Satisfactory Hydration Satisfactory - No signs of dehydration Adverse Events ADVERSE EVENTS: No adverse events Vitals Value Taken Time Temp 97.9 Pulse 79 Resp 14 BP 144/71 Arterial Line BP Arterial Line BP 2 SpO2 100 Electronically signed by Devonte García CRNA 03/17/2020 3:50 PM [facility] Devonte García CRNA at 0 3:51 PM PDTAnesthesia Procedure Notes - Devonte García CRNA - 03/17/2020 3:00 PM PDTAss ociated Order(s): AirwayAnesthesia Airway Placement 03/17/2020 2:51 PM Preprocedure check: patient identified, oxygen, airway assessed, airway equipment checked, patient reassessment prior to induction and suction Rapid Sequence Induction: no Mask ventilation: easy Successful technique: Acuña Laryngoscope blade size: 2 Airway grade: 1 (Full view of glottis) Other equipment: stylette Attempts: 1 Airway type: endotracheal Size: 8 Cuffed: cuffed Route, reference point: right side of mouth Tube depth: 21 cm Tube secured with: adhesive tape Trauma: none Tube placement verification: bilateral chest rise, carbon dioxide detection and equal bilat eral breath sounds Performing provider: Devonte García CRNA Authorizing provider: Devonte García CRNA Please see intraoperative grid for any additional medication documentation. nesthesia Preproced ure Evaluation - Devonte García CRNA - 03/17/2020 8:13 AM PDT ANESTHESIA PREANESTHESIA EVALUATION Mady Munoz 59 y.o. female 1960 [id number] Procedure(s): ULTRASOUND ENDOBRONCHIAL (Bilateral Bronchus) Medical,anesthesia, drug, allergy histories reviewed, NPO status verified. Review of Systems / Med History Anesthesia History (+) previous surgery or anesthesia, PONV. Family Anesthesia History (+) family history of PONV. Cardiovascular Negative except where noted below. Exercise tolerance <4 METS. Pulmonary Has inhaler at home but patient reports no improvement in symptoms so she has st opped using it. . (+) shortness of breath. Gastrointestinal/Hepatic (+) peptic ulcer disease: Renal Negative except where noted below. Endocrine Negative except where noted below. Hematology/Other Negative except where noted below. Cancer Negative except where noted below. Obstetrics Negative except where noted below. Pediatric History Negative except where noted below. Neuromuscular Negative except where noted below. Psychology (+) psychiatric history of anxiety. Additional Comments: Anemia S/P hysterectomy Drug Intolerance - Morphine PONV (postoperative nausea and vomiting) Lumbosacral spondylosis without myelopathy Lumbar radicular pain Mediastinal lymphadenopathy Physical Exam Airway MP II, TM >3 FB, Mouth opening >2 FB. Neck: full ROM, extends >30 degrees. Jaw protrus ion normal. Facial hair present: No Dental grossly normal except where noted below. (+) implants(s)/bridges(s)/caps(s). CV cardiovascular normal Pulm Clear to auscultation bilaterally. Neuro grossly normal. Anesthesia Plan ASA: 2 Type: General. ET tube Induction: Intravenous. Potential problems: None anticipated. Monitors: Standard ASA monitors. Postop Pain Management: Consent statement: Anesthetic plan, alternatives, risks and benefits discussed with patient. discussed risks t o teeth, drug reaction, heart problems, ICU placement, muscle aches, nausea, pain, periopera tive CV events, post-op intubation, respiratory events, sore throat, voice injury Blood transfusion concerns: None. Consenting person understands and agrees to proceed. Discussed plan with PHOTOGRAMMETRIC TECH. Electronically Signed by: Devonte García CRNA ESig date/time: 03/17/2020 1:35 PM documented in this e ncounter Miscellaneous Notes Anesthesia Post-op Handoff - Devonte García CRNA - 03/17/2020 3:49 PM PDTFormatting of th is note might be different from the original. ANESTHESIA HANDOFF NOTE Mady Munoz 59 y.o. female 1960 [id number] ULTRASOUND ENDOBRONCHIAL (Bilateral Bronchus) HANDOFF NOTE Handoff Protocol Used: post-procedure handoff checklist completed The following were completed during the transfer of care: 1. Identification of patient 2. Identification of responsible practitioner (primary service) 3. Discussion of pertinent medical history 4. Discussion of the surgical/procedure course (procedure, reason for surgery, procedure pe rformed) 5. Intraoperative anesthetic management and issues/concerns 6. Expectations/plans for the early post-procedure period 7. Opportunity for questions and acknowledgement of understanding of report from receiving team Patient Location: Phase I Condition: awake, responds to stimuli and alert Airway/O2: face mask with O2 Multimodal analgesia: multimodal analgesia not used between 6 hours prior to anesthesia sta rt to PACU discharge Multimodal analgesia not used reason: No medical reason exists for NOT using multimodal carrillo lgesia. The significant anesthesia concerns and VS in Epic were reviewed with the receiving team. Devonte García CRNA 03/17/2020 3:49 PM [facility] by Devonte García CRNA at 0 3:49 PM PDTdocumented in this encounter Plan of Treatment +--------+ + + + + | Date | Type | Specialty | Care Team | Description | +--------+ + + + + | 09/04/ | Virtual | Pulmonology | Josr Garcia MD | | | 2019 | Office | | [address] | | | | Visit | | [place] | | | | | | [address] | | | | | | | [...] + + documented in this encounter Results Airway (03/17/2020 3:00 PM PDT) + + [...] Induction: no Mask ventilation: easy Successful technique: Acuña | | | Laryngoscope blade size: 2 [...] equal bilateral breath sounds Performing provider: Devonte León | | Lorna García CRNA Authorizing provider: Devonte García CRNA | | | Please see intraoperative grid for any additional medication | | | documentation. | | + + + documented in this encounter Visit Diagnoses Not on filedocumented in this encounter Administered Medications + +--------+ +------+------+------+ | Medication Order | MAR | Action | Dose | Rate | Site | | | Action | Date | | | | + +--------+ +------+------+------+ | dexamethasone (DECADRON) 4 | Given | 03/17/20 | 8 mg | | | | mg/mL injection Intravenous, | | 20 2:57 | | | | | PRN, Starting Fri03/17/20 at | | PM PDT | | | | | 1457, Anesthesia Intra-op | | | | | | + +--------+ +------+------+------+ +---+---+ | | | +---+---+ + +-------+ +--------+---+---+ | fentaNYL (PF) injection | Given | 03/17/20 | 50 mcg | | | | Intravenous, PRN, Starting Fri | | 20 2:59 | | | | | 03/17/20 at 1459, Anesthesia | | PM PDT | | | | | Intra-op | | | | | | + +-------+ +--------+---+---+ +-------+ +--------+---+---+ | Given | 03/17/20 | 50 mcg | | | | | 20 2:48 | | | | | | PM PDT | | | | +-------+ +--------+---+---+ +---+---+ | | | +---+---+ + +-------+ +--------+---+---+ | glycopyrrolate (ROBINUL) | Given | 03/17/20 | 0.4 mg | | | | injection Intravenous, PRN, | | 20 3:36 | | | | | Starting 03/17/20 at 1536, | | PM PDT | | | | | Anesthesia Intra-op | | | | | | + +-------+ +--------+---+---+ +---+---+ | | | +---+---+ + +-------+ +--------+---+---+ | lidocaine (PF) 2% injection | Given | 03/17/20 | 100 mg | | | | Intravenous, PRN, Starting Fri | | 20 2:49 | | | | | 03/17/20 at 1449, Anesthesia | | PM PDT | | | | | Intra-op | | | | | | + +-------+ +--------+---+---+ +---+---+ | | | +---+---+ + +-------+ +------+---+---+ | neostigmine (BLOXIVERZ) 1 mg/mL | Given | 03/17/20 | 3 mg | | | | injection Intravenous, PRN, | | 20 3:36 | | | | | Starting 03/17/20 at 1536, | | PM PDT | | | | | Anesthesia Intra-op | | | | | | + +-------+ +------+---+---+ +---+---+ | | | +---+---+ + +-------+ +------+---+---+ | ondansetron (ZOFRAN) injection | Given | 03/17/20 | 4 mg | | | | Intravenous, PRN, Starting Fri | | 20 3:57 | | | | | 03/17/20 at 1500, Anesthesia | | PM PDT | | | | | Intra-op | | | | | | + +-------+ +------+---+---+ +-------+ +------+---+---+ | Given | 03/17/20 | 4 mg | | | | | 20 3:00 | | | | | | PM PDT | | | | +-------+ +------+---+---+ +---+---+ | | | +---+---+ + +-------+ +--------+---+---+ | propofol (DIPRIVAN) injection | Given | 03/17/20 | 130 mg | | | | Intravenous, PRN, Starting Fri | | 20 2:50 | | | | | 03/17/20 at 1450, Anesthesia | | PM PDT | | | | | Intra-op | | | | | | + +-------+ +--------+---+---+ +---+---+ | | | +---+---+ + +-------+ +-------+---+---+ | rocuronium (ZEMURON) injection | Given | 03/17/20 | 30 mg | | | | Intravenous, PRN, Starting Fri | | 20 2:50 | | | | | 03/17/20 at 1450, Anesthesia | | PM PDT | | | | | Intra-op | | | | | | + +-------+ +-------+---+---+ +---+---+ | | | +---+---+ + +-------+ +--------+---+---+ | succinylcholine (ANECTINE) | Given | 03/17/20 | 100 mg | | | | injection Intravenous, PRN, | | 20 2:50 | | | | | Starting 03/17/20 at 1450, | | PM PDT | | | | | Anesthesia Intra-op | | | | | | + +-------+ +--------+---+---+ +---+---+ | | | +---+---+ documented in this encounter"
--- OUTSIDE RECORDS SUMMARY | ~2020-08-04 | XMS | Encounter Summary ---
Demographics + + + | Address | [address] | | | [place] [address] | + + + | Home Phone | | + + + | Preferred Language | Unknown | + + + | Marital Status | | + + + | Hinduism Affiliation | 1027 | + + + | Race | White | + + + | Ethnic Group | Not or | + + + Author + + + | Author | [facility] | | | and [place] | + + + | Organization | [facility] | | | [...] Team Providers + +------+ + | Care Campus Monitor Name | Role | Phone | + +------+ + | Brendon Loaiza MD | PCP | | + +------+ + Reason for Visit +--------+--------+ + | Reason | Onset | Comments | | | Date | | +--------+--------+ + | Other | 07/14/ | Surgery Reminder | | | 2014 | | +--------+--------+ + Encounter Details +--------+ + + + + | Date | Type | Department | Care Team | Description | +--------+ + + + + | 07/14/ | Telephone | [facility] | Freddie Parham, | Other (Surgery | | 2015 | | [address]ERY [address] | DO [address] | Reminder) | | | | [address] | [address] [place], [place] | | | | | [place], [place] | [address] | | | | | [address] | | | | | | [phone] | | | +--------+ + + + [...] encounter Miscellaneous Notes Telephone Encounter - Marya Vega Cert MA - 07/14/2015 8:21 AM PDTAll presurgical check -in instructions given Surgery date: 07/18/15 Check-in Time: 09:15am No solids or liquids after midnight the night before surgery. Follow the cleansing instructions provided beginning the night before surgery after you jovi wer or bathe. No showering the morning of surgery. Please do not wear jewelry, contact lenses, nail faroese (on fingers or toes), or make-up to surgery check-in. If you have dentures, hearing aids, or glasses please bring the cases with you to check-in. Medications instructions: None documented in this encounter Plan of Treatment [...] [place] | | | | | | [phone] | | | | | | | | +--------+ + + + + documented as of this encounter Visit Diagnoses Not on filedocumented in this encounter"
--- OUTSIDE RECORDS SUMMARY | ~2020-08-04 | XMS | Encounter Summary ---
Demographics + + + | Address | [address] | | | [place] [address] | + + + | Home Phone [...] + + + | Author | [facility] | | | and [place] | + + + | Organization | [facility] | | | [...] Team Providers + +------+ + | Care Store Clerk Checker Name | Role | Phone | + +------+ + | Marin Lima DO | PCP | | + +------+ + Encounter Details +--------+ + + + + | Date | Type | Department | Care Team | Description | +--------+ + + + + | 03/27/ | Abstract | [facility] [place] | Freddie Parham, | | | 2014 | | NEUROSUR[address]ERY [address] | [address] | | | | | [address] | [address] [place] | | | | | [place], [place] | [address] | | | | | [address] | | | | | | [phone] | | | +--------+ + + + [...] [place] | | | | | | [phone] | | | | | | | | +--------+ + + + + documented as of this encounter Visit Diagnoses Not on filedocumented in this encounter"
--- OUTSIDE RECORDS SUMMARY | ~2020-08-04 | XMS | Encounter Summary ---
Demographics + + + | Address | [address] | | | [place] [address] | + + + | Home Phone | | + + + | Preferred Language | Unknown | + + + | Marital Status | | + + + | Confucianism Affiliation | 1027 | + + + | Race | White | + + + | Ethnic Group | Not or | + + + Author + + + | Author | [facility] | | | and [place] | + + + | Organization | [facility] | [...] Team Providers + +------+ + | Care Tower Loader Operator Name | Role | Phone | + +------+ + | Brendon Loaiza MD | PCP | | + +------+ + Reason for Visit +--------+--------+ + | Reason | Onset | Comments | | | Date | | +--------+--------+ + | Other | 02/12/ | | | | 2015 | | +--------+--------+ + Encounter Details +--------+ + + + + | Date | Type | Department | Care Team | Description | +--------+ + + + + | 02/12/ | Telephone | [facility] [place] | Freddie Parham, | Other | | 2016 | | NEUR[address]UR[address] | DO [address] | | | | | [address] | [address] [place], [place] | | | | | [place], [place] | [address] | | | | | [address] | | | | | | [phone] | | | +--------+ + + + [...] Telephone Encounter - Edith David RN - 02/14/2016 9:38 AM PDTCalled Migdalia and advised her per Dr. Parham, she verbalized understanding. elephone Encounter - Freddie Parham DO - 02/14/2016 8:52 AM PDTThe x-ray looks fine. The action she described probably pulled against her fusion. It sh ould heal again over time, but she should take it easy, stay on top of her pain with whateve [employer] works, and keep an eye on her symptoms. The leg pain she describes is from a nerve two lev els away from her surgery. If it does not improve over the next week or two, I would recomme nd a new lumbar MRI without contrast. Thanks. elephone Edith Sarmiento RN - 02/14/2016 8:14 AM PDTCalled Migdalia and advised her per Dr. Bryce mays. She states that she has an abundance of Flexeril, Tramadol, and Hydrocodone from her armando rgery and doesn't know what she should take because the Hydrocodone isn't cutting it. She wa s asked to describe the pain and she stated, "I am not a good indicator of pain". She did st ate that the pain is achy. She wants to know what to do in the meantime? She was advised to call her PCP and she stated that she alreay did a couple of weeks ago and he prescribed her Flexeril. She stated that she took the Flexeril one time and it did not work and made her fe el funny. Lumbar imaging available on [facility]. Please Advise elephone Fela - Freddie Parham DO - 02/13/2016 4:04 PM PDTI'll start by taking a look at those x-rays. If things don't improve and the x-rays look fine, then I'll probably order a new MRI of the lumbar spine. Thanks. elephone Marya Griffin Cert MA - 02/13/2016 3:30 PM PDTLiz states that she lifted one side of her treadmil to get to an area to vacuum (approximately 45lbs) and when doing so she felt a "pulling type pain" in her low back. This was done about 2 weeks ago. She C/O burning t ype pain in her right leg that is on the top of her leg and goes into her knee. She also C/ O an aching type pain in her low back. She is back to using the Hydrocodone 5/325mg 1 PO at night. She wonders if she could have just caused a strain or if she could have damaged her fusion? She is S/P L5-S1 Fusion on 07/18/15. She is going to be having X-rays done for her 6m PO at [facility] this week. Please advise. MARYA ANDINO documented in this encounter Plan of Treatment [...] [place] | | | | | | [phone] | | | | | | | | +--------+ + + + + documented as of this encounter Visit Diagnoses Not on filedocumented in this encounter
--- OUTSIDE RECORDS SUMMARY | ~2020-08-04 | XMS | Encounter Summary ---
Demographics + + + | Address | [address] | | | [place] [address] | + + + | Home Phone | | + + + | Preferred Language | Unknown | + + + | Marital Status | | + + + | Zoroastrian Affiliation | 1027 | + + + | Race | White | + + + | Ethnic Group | Not or | + + + Author + + + | Author | [facility] | | | and [place] | + + + | Organization | [facility] | | | and [place] | + + + | Address | Unknown | + + + | Phone | Unavailable | + + + Support + + +---------+ + | Name | Relationship | Address | Phone | + + +---------+ + | Tavon Berg Alexander | ECON | Unknown | | + + +---------+ + Care Team Providers + +------+ + | Care Prepress Proofer Name | Role | Phone | + [...] | | | | | myelopathy | [address] | [id number] Phone: | | | | | Procedures | Phone: | [phone] | | | | | [facility] | [phone] | Fax: | | | | | CONSULTATION | Fax: | [phone] | | | | | NEW/ESTAB | [phone] | | | | | | PATIENT 60 | | | | | | | MIN | | | +--------+--------+ + + + + Encounter Details +--------+---------+ + + + | Date | Type | Department | Care Team | Description | +--------+---------+ + + + | 03/29/ | Office | [facility] | Freddie Parham, | Osteoarthritis of | | 2015 | Visit | NEUROSUR[address] | DO [address] | spine with | | | | [address] | [address] [place], [place] | radiculopathy, | | | | [place], [place] | [address] | lumbar region | | | | [address] | | (Primary Dx); Lumbar | | | | [phone] | | disc herniation; | | | [...] m the original. Freddie Parham DO [address] [facility], [address] [place] [address] FAX: NEUROSURGERY HISTORY AND PHYSICAL EXAMINATION CHIEF [...] has no apparent deficits with short or moth exterminator memory. CRANIAL NERVES: II: Acuity is intact. [...] Intrinsics 5 5 Ulnar Intrinsics 5 5 Clinical Appeals Auditor Strength 5 5 Hip Flexion 5 5 [...] [place] | | | | | | [address] | | | | | | | [...]
--- OUTSIDE RECORDS SUMMARY | ~2020-08-04 | XMS | Encounter Summary ---
Demographics + + + | Address | [address] | | | [place] [address] | + + + | Home Phone | | + + + | Preferred Language | Unknown | + + + | Marital Status | | + + + | Scientology Affiliation | 1027 | + + + | Race | White | + + + | Ethnic Group | Not or | + + + Author + + + | Author | [facility] | | | and [place] | + + + | Organization | [facility] | | | [...] Team Providers + +------+ + | Care Health Safety Engineer Name | Role | Phone | + +------+ + | Brendon Loaiza MD | PCP | | + +------+ + Reason for Referral Evaluate & Treat (Routine) + + + + + + + | Status | Reason | Specialty | Diagnoses / | Referred By | Referred To | | | | | Procedures | Contact | Contact | + + + + + + + | Authorizatio | Specialty | Gastroenterol | Diagnoses | Radha, | Dariel | | n not | Services | ogy | | MD Josr | Gastroenterol | | Required | Required | | Gastroesopha | [address] | [address] | | | | | geal reflux | [address] | | | | | disease, | [address] | [place], [place] | | | | | esophagitis | [place], [place] | [address] | | | | | presence not | [address] | Phone: | | | | | specified | Phone: | [phone] | | | | | | [phone] | Fax: | | | | | | Fax: | [phone] | | | | | | [phone] | | + + + + + + + Reason for Visit + + + | Reason | Comments | + + + | Follow-up | | + + + | Sarcoidosis | | + + + Encounter Details +--------+ + + + + | Date | Type | Department | Care Team | Description | +--------+ + + + + | 08/03/ | Virtual | [facility] | Josr Garcia MD | Gastroesophageal | | 2019 | Office | PULMONOLOGY [address] | [address] | reflux disease, | | | Visit | [address] | [address] [place], [place] | esophagitis presence | | | | [place], [place] | [address] | not specified | | | | [address] | | (Primary Dx); | | | | [phone] | | Sarcoidosis | +--------+ + + + + Social [...] + documented as of this encounter Progress Josr Márquez MD - 08/03/2020 12:40 PM PDT Service was provided [id number] with the patient via interactive videoconferencing (256-b it AES encrypted). Coding will be based on Medical Decision Making. The patient was presented with information regarding the risks and benefits of telemedicine , given the opportunity to ask questions, and consented to participate in a video visit tokyra scott. The patient confirms they are currently physically [...] Dec of this year when she visited [place]. She went to see a [employer] park and when she came back from where she came back with severe cough along with shortness of breath. She complai pool of severe myalgias, fever. She was very sick and could barely move out of the bed. Her and her son also had similar symptoms. When she came back to her house in [facility] she was in touch with 2 other people from [facility] who got similar illness and then respecti vely their families got the similar symptoms. Over the next couple of weeks she started having a cough along with chest heaviness. The c ough is worse 23/06. There were no aggravating or relieving factors. [...] through straws. Her fatigue is come back. 07/03/2020 In the last visit we had [...] to 20 pound s heavier than before. Interim history 08/03/2020 The patient is down to 10 mg of prednisone. She underwent a swallow study which did not re veal any significant abnormality. She has intermittent symptoms of shortness of breath. Ve ry minimal cough. Review of Systems Constitutional: Negative. HENT: Negative. Eyes: Negative. Respiratory: Positive for shortness of breath. Cardiovascular: Negative. Gastrointestinal: Negative. Musculoskeletal: Negative. Skin: Negative. Neurological: Negative. Endo/Heme/Allergies: Negative. Psychiatric/Behavioral: Negative. History: Past Medical History: Diagnosis Date Anemia low iron intermittently - ongoing Claustrophobia Cough 01/2020 flu type S/S; sore throat, body aches, fever w/ fatigue and "chest heaviness". Went on va cation in [place] Dysphagia pills, foods, meats Exertional shortness of [...] Lumbar Interbody Fusion; Surgeon: Freddie Parham DO; Caro cation: [facility] MAIN OR OVARIAN CYST SURGERY [...] file Gets together: Not on file Attends orthodoxy service: Not on file Active member of [...] of Onset Cancer Paternal Grandmother Arthritis Father Malarchana hypertherm Neg Hx Allergies: Allergies Allergen Reactions [...] 4 days, 40mg daily for 4 weeks (Patient ta vishnu differently: , 40mg daily for 4 weeks.) 120 tablet 4 promethazine (PHENERGAN) 12.5 MG tablet Take 12.5 mg by mouth every 6 hours as needed f or Nausea. sulfamethoxazole-trimethoprim (BACTRIM DS) 800-160 mg per tablet Take 1 tablet by mouth Three times a week. (Patient not taking: Reported on 08/03/2020.) 30 tablet 3 valACYclovir (VALTREX) 500 mg [...] did not seem to resolve the problem. We have been working on decreasi ng the dose of prednisone. She is down to 10 mg daily. I have advised the patient to continue the taper further. We will alternate prednisone 10 mg with 5 mg. She will do that for 2 weeks followed by which she will drop it down to 5 mg daily. I will try to review the barium swallow from [place]. I will also refer her to gastroenterology for ruling out GERD as a cause of cough. I belie ve she needs a Cavazos study. At the end of the 4 weeks patient has symptoms I will consider further testing. 2. GERD Please see above. Thank you for allowing me to participate in your patient's care. We will review test result s that we have ordered with the patient once they become available. A return visit has been scheduled in 4 weeks. Josr Garcia MD Pulmonary and Critical Care Medicine [facility] [address] [facility] [place] [address] documented in this enco unter Plan of [...] [place] | | | | | | [address] | | | | | | | | +--------+ + + + + + + +--------+ + + | Name | Type | Priori | Associated Diagnoses | Order Schedule | | | | ty | | | + + +--------+ + + | Ambulatory Referral | Outpatient | Routin | Gastroesophageal | Ordered: 08/03/2020 | | to [facility] | Referral | e | reflux disease, | | | Gastroenterology | | | esophagitis presence | | | | | | not specified | | + + +--------+ + + documented as of this encounter Visit Diagnoses + + | Diagnosis | + + | Gastroesophageal reflux disease, esophagitis presence not specified - Primary | + + | Sarcoidosis | + + documented in this encounter
--- OUTSIDE RECORDS SUMMARY | ~2020-08-04 | XMS | Encounter Summary ---
Demographics + + + | Address | [address] | | | [place] [address] | + + + | Home Phone | | + + + | Preferred Language | Unknown | + + + | Marital Status | | + + + | Restorationist Affiliation | 1027 | + + + | Race | White | + + + | Ethnic Group | Not or | + + + Author + + + | Author | [facility] | | | and [place] | + + + | Organization | [facility] | | [...] Team Providers + +------+ + | Care Credit Review Analyst Name | Role | Phone | + +------+ + | Brendon Loaiza MD | PCP | | + +------+ + Reason for Visit + + + | Reason | Comments | + + + | Follow-up | 1 month | + + + Evaluate & Treat (Urgent) + +--------+ + [...] | | | | | | [address] | [address] | | | | | | [place] | [place] | | | | | | [place], | [address] Phone: | | | | | | [place] [address] | [phone] | | | | | | Phone: | Fax: | | | | | | [phone] | [phone] | | | | | | Fax: | | | | | | | [phone] | | + +--------+ + + + + Encounter Details +--------+ + + + + | Date | Type | Department | Care Team | Description | +--------+ + + + + | 05/09/ | Virtual | [facility] | Josr Garcia MD | Mediastinal | | 2020 | Office | PULMONOLOGY [address] | [address] | adenopathy (Primary | | | Visit | [address] | [address] [place], [place] | Dx); Thrush | | | | [place], [place] | [address] | | | | | [address] | | | | | | [phone] | | | +--------+ + + + [...] encounter Progress Notes Josr Garcia MD - 05/09/2020 12:40 PM PDT This exam was initially conducted via a secure 256-bit AES encrypted bidirectional video se ssion. Service was provided [id number] with the patient via interactive videoconferencing Coding will be based on Medical Decision Making. You have chosen to receive care through the use of telemedicine. Telemedicine enables [facility] care providers at different locations to provide safe, effective and convenient care throu gh the use of technology. As with any health care service, there are risks associated with t he use of telemedicine, including equipment failure, poor image resolution and information s ecurity issues. Do you understand the risks and benefits of telemedicine as I have explained them to you? " Yes" Have your questions regarding telemedicine been answered? "Yes" Participant is currently at home Do you consent to the use of telemedicine in your medical care today? Yes. Last question, I need to confirm where are you physically located right now? Answer: Patient confirms they are located in a state where IJosr MD am licensed . Subjective: Patient ID: Mady Munoz [id number] y.o. is here for follow up for cough and shortness of br eath. HPI Patient's medications, allergies, past medical, surgical, social and family histories were obtained and reviewed as appropriate. The patient is a pleasant 59-year-old female who was in her usual state of health until Dec of this year when she visited [place]. She went to see a [employer] park and when she came back from where she came back with severe cough along with shortness of breath. She complai pool of severe myalgias, fever. She was very sick and could barely move out of the bed. Her and her son also had similar symptoms. When she came back to her house in [facility] she was in touch with 2 other people from [place] who got similar illness and then respecti [facility] their families got the similar symptoms. Over [...] Septra. Her cough has slowly been improving. Interim history 05/09/2020 The patient is doing much better now. Her cough is minimal. She had a CT scan done and is here to discuss the results. Review of Systems Constitutional: Negative. HENT: Negative. [...] "chest heaviness". Went on va cation in [place] Dysphagia pills, foods, meats Exertional shortness of [...] file Gets together: Not on file Attends latter day service: Not on file Active member of [...] Onset Cancer Paternal Grandmother Arthritis Father Pooja olivarez Neg Hx Allergies: Allergies Allergen Reactions Codeine [...] tablet Take 1 mg by mouth Daily. fluticasone-salmeterol (ADVAIR DISKUS) 250-50 mcg/puff diskus inhaler Inhale 1 puff int o the lungs 2 times daily. 1 each 11 MAGNESIUM-POTASSIUM PO Take by mouth nightly. RLS predniSONE (DELTASONE) 10 mg tablet 60mg for 4 days, 40mg daily for 4 weeks 120 tablet 4 promethazine (PHENERGAN) 12.5 MG tablet Take 12.5 mg by mouth every 6 hours as needed f or Nausea. sulfamethoxazole-trimethoprim (BACTRIM DS) 800-160 mg per tablet Take 1 tablet by mouth Three times a week. 30 tablet 0 valACYclovir (VALTREX) 500 mg tablet Take 500 mg by mouth Daily. Oral Cold sores No current facility-administered medications on file prior to visit. Objective: There were no vitals filed for this visit. No results found. CT chest with contrast 03/03/2020 Mediastinal and bilateral lateral hilar lymphadenopathy. Scattered granulomatous CT chest with IV contrast. Assessment and plan 1. Sarcoidosis The patient has bilateral lymphadenopathy. The biopsy did not show any malignancy or evide nce of lymphoma. She has noncaseating granulomas which are suggestive of sarcoidosis. I am concerned that this may be an atypical presentation of abnormal cellular response due to a long viral infection. Considering the current COVID-19 pandemic I am seeing a lot of patien ts who present with a long febrile viral illness with all symptoms of COVID-19 and then not requiring hospitalization however there presenting with mediastinal lymphadenopathy and the biopsies are showing noncaseating granuloma. She seems to be doing better with the steroids . I have ordered a serology for COVID-19. Her autoimmune work-up was negative. I have advised the patient to decrease prednisone to 30 mg daily. She will do that for 4 w eeks followed by 20 mg daily. The follow-up CT shows significant improvement in the mediastinal lymphadenopathy. Thank you for allowing me to participate in your patient's care. We will review test result s that we have ordered with the patient once they become available. A return visit has been scheduled in 6 weeks. Josr Garcia MD Pulmonary and Critical Care Medicine [facility] [address], [place] [address] documented in this enco unter Plan of Treatment +--------+ + + + + | Date | Type | Specialty | Care Team | Description | +--------+ + + + + | 09/04/ | Virtual | Pulmonology | Josr Garcia MD | | | 2019 | Office | | [address] | | | | Visit | | [place], [place] | | | | | | [id number] | | | | | | | | +--------+ + + + + + +------+--------+ + + | Name | Type | Priori | Associated Diagnoses | Order Schedule | | | | ty | | | + +------+--------+ + + | SARS-COV-2 | Lab | Routin | Mediastinal | 1 Occurrences | | (COVID-19) [facility] | | e | adenopathy | starting 05/09/2020 | | (SEROLOGY) | | | | until 05/09/2021 | + +------+--------+ + + documented as of this encounter Visit Diagnoses + + | Diagnosis | + + | Mediastinal adenopathy - Primary Enlargement of lymph nodes | + + | Thrush Candidiasis of mouth | + + documented in this encounter
--- OUTSIDE RECORDS SUMMARY | ~2020-08-04 | XMS | Encounter Summary ---
Demographics + + + | Address | [address] | | | [place] [address] | + + + | Home Phone | | + + + | Preferred Language | Unknown | + + + | Marital Status | | + + + | Episcopal Affiliation | 1027 | + + + | Race | White | + + + | Ethnic Group | Not or | + + + Author + + + | Author | [facility] | | | and [place] | + + + | Organization | [facility] | | [...] Team Providers + +------+ + | Care Stud Setter Name | Role | Phone | + +------+ + | Brendon Loaiza MD | PCP | | + +------+ + Encounter Details +--------+ + + + + | Date | Type | Department | Care Team | Description | +--------+ + + + + | 06/13/ | Orders Only | [facility] [place] | Freddie Parham, | Anemia, unspecified | | 2015 | | NEUROSURGERY [address] | DO [address] | anemia type (Primary | | | | [address] | [address] [place], [place] | Dx); Lumbosacral | | | | [place], [place] | [address] | spondylosis without | | | | [address] | | myelopathy; | | | | [phone] | | Displacement of | | | [...] [place] | | | | | | [address] | | | | | | | [...] | e | unspecified anemia | starting 06/13/2015 | | | | | type Lumbosacral | until 06/13/2016 | | | | | spondylosis without [...] documented as of this encounter Results XR Chest PA and Lateral (07/12/2015 11:00 AM PDT) + + | Specimen | + + | | + + + + + | Narrative | Performed At | + + + | XR CHEST PA AND LATERAL 07/12/2015 10:59 AM HISTORY: PRE | [facility] | | OPERATIVE EXAM. COMPARISON: None. Findings: Heart size is | [facility] | | within normal limits. Aorta is normal. Mediastinum is unremarkable. | [facility]ENTER | | Central pulmonary vasculature is normal. The bilateral lungs are | - IMAGING | | clear with no evidence for pleural effusion or pneumothorax. There are | | | no acute osseous abnormalities. IMPRESSION - No acute findings. | | | Dictated and Signed by: Jose Alexander MD Electronically | | | signed: 07/12/2015 11:01 AM | | + + + + + | Procedure Note | + + | David, Rad Results In - 07/12/2015 11:04 AM PDT XR CHEST PA AND LATERAL 07/12/2015 10:59 | | AMHISTORY: PRE OPERATIVE EXAM.COMPARISON: None.Findings:Heart size is within normal | | limits. Aorta is normal. Mediastinum isunremarkable. Central pulmonary vasculature is | | normal. The bilateral lungs areclear with no evidence for pleural effusion or | | pneumothorax. There are no acuteosseous abnormalities.IMPRESSION -No acute | | findings.Dictated and Signed by: Jose Alexander MD Electronically signed: 07/12/2015 11:01 | | AM | |Heart size is within normal limits. Aorta is normal. Mediastinum is | |unremarkable. Central pulmonary vasculature is normal. The bilateral lungs are | |clear with no evidence for pleural effusion or pneumothorax. There are no acute | |osseous abnormalities. | | | |IMPRESSION - | |No acute findings. | | | |Dictated and Signed by: Jose Alexander MD | | Electronically signed: 07/12/2015 11:01 AM | + + + + + + + | Performing | Address | City/State/Zipcode | Phone Number | | Organization | | | | + + + + + | [facility] | [address] | [place] | [phone] | | [facility] | | [address] | | | - IMAGING | | | | + + + + + Basic Metabolic Panel (07/12/2015 10:44 AM PDT) [...] | mL/min/1.73m2 | [facility] | | | [place] | RATE,ESTIMATED | | MEDICAL | | | | mL/min/1.41r1Kfuf than | | CENTER - | | [...] | | ine Ratio | | | [facility] | | | | | | MEDICAL [...] + + + + + | [facility] | [address] | [place] | [phone] | | [facility] | | [address] | | | - LABORATORY | | [...] + | [facility] | [address] | [place] | [phone] | | [facility] | | [address] | | | - LABORATORY | | [...] | | Time | | seconds | [facility] | | | | | | MEDICAL | | | | | | CENTER - | | | | | | LABORATORY | | + + + + + + | INR | 1.00Comment: Usual Oral | 0.90 - 1.10 | [facility] | | | | Anticoagulation Range: | | [facility] | | | | 2.0 - [...] [address] | [place] | [phone] | | [facility] | | [address] | | | - LABORATORY | | [...] | | | | g/dL | [facility] | | | | | | MEDICAL [...] | | Eosinophils | | K/uL | [facility] | | | | | | [...] [address] | [place] | [phone] | | [facility] | | [address] | | | - LABORATORY | | | | + + + + + documented in this encounter Visit Diagnoses + + | Diagnosis | + + | Anemia, unspecified anemia type - Primary | + + | Lumbosacral spondylosis without myelopathy | + + | Displacement of lumbar intervertebral disc without myelopathy | + + | Spinal stenosis, lumbar region, without neurogenic claudication | + + documented in this encounter"
--- OUTSIDE RECORDS SUMMARY | ~2020-08-04 | XMS | Encounter Summary ---
Demographics + + + | Address | [address] | | | [place] [address] | + + + | Home Phone [...] + + + | Author | [facility] | | | and [place] | + + + | Organization | [facility] | | | and [...] Team Providers + +------+ + | Care [employer] Team Member Name | Role | Phone | + +------+ + | Brendon Loaiza MD | PCP | | + +------+ + Encounter Details +--------+ + + + + | Date | Type | Department | Care Team | Description | +--------+ + + + + | 08/10/ | Orders Only | [facility] [place] | Freddie Parham, | Status post lumbar | | 2015 | | NEUROSURGERY [address] | DO [address] | spinal fusion | | | | [address] | [address] [place], [place] | (Primary Dx) | | | | [place], [place] | [address] | | | | | [address] | | | | | | [phone] | | | +--------+ + + + [...] [place] | | | | | | [id number] | | | | | | | [...]
--- OUTSIDE RECORDS SUMMARY | ~2020-08-04 | XMS | Encounter Summary ---
Demographics + + + | Address | [address] | | | [place] [address] | + + + | Home Phone | | + + + | Preferred Language | Unknown | + + + | Marital Status | Unknown | + + + | Uatsdin Affiliation | Unknown | + + + | Race | Unknown | + + + | Ethnic Group | Unknown | + + + Author + + + | Author | [facility] | + + + | Organization | [facility] | + + + | Address | Unknown | + + + | Phone | Unavailable | + + + Care Team Providers + +------+ + | Care Pantograph Watcher Name | Role | Phone | + +------+ + PCP | Unavailable | + +------+ + Reason for Referral Consultation (Routine) + +--------+ + + + + | Status | Reason | Specialty | Diagnoses / | Referred By | Referred To | | | | | Procedures | Contact | Contact | + +--------+ + + + + | New Request | | Rheumatology | Diagnoses | [place] | [facility] | | | | | Sarcoidosis | Tavon Silver MD | [address] | | | | | | [address] | [address] | | | | | Hypercalcemi | [address] | Loop | | | | | a due to | [place] | Physician's | | | | | sarcoidosis | [place], [place] | [address], [address] | | | | | Encounter | [address] | Floor | | | | | for | Phone: | [place], [place] | | | | | screening | [phone] | [address] | | | | | for other | Fax: | Phone: | | | | | viral | [phone] | [phone] | | | | | diseases | | Fax: | | | | | Encounter | | [phone] | | | | | for | | | | | | | monitoring | | | | | | | immunomodula | | | | | | | ting therapy | | | | | | | Abnormal | | | | | | | CT of the | | | | | | | chest | | | | | | | Procedures | | | | | | | CONSULT TO | | | | | | | RHEUMATOLOGY | | | + +--------+ + + + + Encounter Details +--------+ + + + + | Date | Type | Department | Care Team | Description | +--------+ + + + + | 07/25/ | [facility] | Pulmonary & | Tavon Schmid, | Sarcoidosis (Primary | | 2019 | | Critical Care | [address] | Dx); Hypercalcemia | | | | Medicine at | [facility] | due to sarcoidosis; | | | | [facility] | [place], [place] | Encounter for | | | | [address] | [address] | screening for other | | | | Loop Physician's | [phone] | viral diseases; | | | | [address], [address] Floor | | Encounter for | | | | [place], [place] | | monitoring | | | | [address] | | immunomodulating | | | | [phone] | | therapy; Abnormal CT | | | | | | of the chest | +--------+ + + + + Social [...] as of this encounter Plan of Treatment + +------+--------+ + + | Name | Type | Priori | Associated Diagnoses | Order Schedule | | | | ty | | | + +------+--------+ + + | HIV AB/AG SCREENING | Lab | Routin | Sarcoidosis | Expected: 07/31/2020 | | W/REFLEX TO CONFIRM | | e | Hypercalcemia due to | (Approximate), | | | | | sarcoidosis | Expires: 08/30/2021 | | | | | Encounter for | | | | | | screening for other | | | | | | viral diseases | | | | | | Encounter for | | | | | | monitoring | | | | | | immunomodulating | | | | | | therapy Abnormal CT | | | | | | of the chest | | + +------+--------+ + + | HEPATITIS B CORE AB, | Lab | Routin | Sarcoidosis | Expected: 07/31/2020 | | SERUM | | e | Hypercalcemia due to | (Approximate), | | | | | sarcoidosis | Expires: 08/30/2021 | | | | | Encounter for | | | | | | screening for other | | | | | | viral diseases | | | | | | Encounter for | | | | | | monitoring | | | | | | immunomodulating | | | | | | therapy Abnormal CT | | | | | | of the chest | | + +------+--------+ + + | HEPATITIS B SURFACE | Lab | Routin | Sarcoidosis | Expected: 07/31/2020 | | AG W/REFLEX | | e | Hypercalcemia due to | (Approximate), | | CONFIRMATION IF | | | sarcoidosis | Expires: 08/30/2021 | | INDETERMINATE | | | Encounter for | | | RESULTS | | | screening for other | | | | | | viral diseases | | | | | | Encounter for | | | | | | monitoring | | | | | | immunomodulating | | | | | | therapy Abnormal CT | | | | | | of the chest | | + +------+--------+ + + | QUANTIFERON TB GOLD, | Lab | Routin | Sarcoidosis | Expected: 07/31/2020 | | BLOOD | | e | Hypercalcemia due to | (Approximate), | | | | | sarcoidosis | Expires: 08/30/2021 | | | | | Encounter for | | | | | | screening for other | | | | | | viral diseases | | | | | | Encounter for | | | | | | monitoring | | | | | | immunomodulating | | | | | | therapy Abnormal CT | | | | | | of the chest | | + +------+--------+ + + | HEPATITIS C VIRUS | Lab | Routin | Sarcoidosis | Expected: 07/31/2020 | | W/CONFIRMATION | | e | Hypercalcemia due to | (Approximate), | | | | | sarcoidosis | Expires: 08/30/2021 | | | | | Encounter for | | | | | | screening for other | | | | | | viral diseases | | | | | | Encounter for | | | | | | monitoring | | | | | | immunomodulating | | | | | | therapy Abnormal CT | | | | | | of the chest | | + +------+--------+ + + | VITAMIN | Lab | Routin | Sarcoidosis | Expected: 07/31/2020 | | D,1,25-DIHYDROXY, | | e | Hypercalcemia due to | (Approximate), | | SERUM | | | sarcoidosis | Expires: 08/30/2021 | | | | | Encounter for | | | | | | screening for other | | | | | | viral diseases | | | | | | Encounter for | | | | | | monitoring | | | | | | immunomodulating | | | | | | therapy Abnormal CT | | | | | | of the chest | | + +------+--------+ + + | CBC, WITH | Lab | Routin | Sarcoidosis | Expected: 07/31/2020 | | DIFFERENTIAL | | e | Hypercalcemia due to | (Approximate), | | | | | sarcoidosis | Expires: 08/30/2021 | | | | | Encounter for | | | | | | screening for other | | | | | | viral diseases | | | | | | Encounter for | | | | | | monitoring | | | | | | immunomodulating | | | | | | therapy Abnormal CT | | | | | | of the chest | | + +------+--------+ + + | COMPLETE METABOLIC | Lab | Routin | Sarcoidosis | Expected: 07/31/2020 | | SET | | e | Hypercalcemia due to | (Approximate), | | (NA,K,CL,CO2,BUN,CRE | | | sarcoidosis | Expires: 08/30/2021 | | AT,GLUC,CA,AST,ALT,B | | | Encounter for | | | ANTHONY TOTAL,ALK | | | screening for other | | | PHOS,ALB,PROT TOTAL) | | | viral diseases | | | | | | Encounter for | | | | | | monitoring | | | | | | immunomodulating | | | | | | therapy Abnormal CT | | | | | | of the chest | | + +------+--------+ + + | MAGNESIUM, PLASMA | Lab | Routin | Sarcoidosis | Expected: 07/31/2020 | | | | e | Hypercalcemia due to | (Approximate), | | | | | sarcoidosis | Expires: 08/30/2021 | | | | | Encounter for | | | | | | screening for other | | | | | | viral diseases | | | | | | Encounter for | | | | | | monitoring | | | | | | immunomodulating | | | | | | therapy Abnormal CT | | | | | | of the chest | | + +------+--------+ + + | URINE, MICROSCOPIC | Lab | Routin | Sarcoidosis | Expected: 07/31/2020 | | EXAM | | e | Hypercalcemia due to | (Approximate), | | | | | sarcoidosis | Expires: 08/30/2021 | | | | | Encounter for | | | | | | screening for other | | | | | | viral diseases | | | | | | Encounter for | | | | | | monitoring | | | | | | immunomodulating | | | | | | therapy Abnormal CT | | | | | | of the chest | | + +------+--------+ + + | VITAMIN D, | Lab | Routin | Sarcoidosis | Expected: 07/31/2020 | | 25-HYDROXY, SERUM | | e | Hypercalcemia due to | (Approximate), | | | | | sarcoidosis | Expires: 08/30/2021 | | | | | Encounter for | | | | | | screening for other | | | | | | viral diseases | | | | | | Encounter for | | | | | | monitoring | | | | | | immunomodulating | | | | | | therapy Abnormal CT | | | | | | of the chest | | + +------+--------+ + + | VITAMIN B6, PLASMA | Lab | Routin | Sarcoidosis | Expected: 07/31/2020 | | | | e | Hypercalcemia due to | (Approximate), | | | | | sarcoidosis | Expires: 08/30/2021 | | | | | Encounter for | | | | | | screening for other | | | | | | viral diseases | | | | | | Encounter for | | | | | | monitoring | | | | | | immunomodulating | | | | | | therapy Abnormal CT | | | | | | of the chest | | + +------+--------+ + + | VITAMIN B-12 | Lab | Routin | Sarcoidosis | Expected: 07/31/2020 | | | | e | Hypercalcemia due to | (Approximate), | | | | | sarcoidosis | Expires: 08/30/2021 | | | | | Encounter for | | | | | | screening for other | | | | | | viral diseases | | | | | | Encounter for | | | | | | monitoring | | | | | | immunomodulating | | | | | | therapy Abnormal CT | | | | | | of the chest | | + +------+--------+ + + | VITAMIN B1, WHOLE | Lab | Routin | Sarcoidosis | Expected: 07/31/2020 | | BLOOD | | e | Hypercalcemia due to | (Approximate), | | | | | sarcoidosis | Expires: 08/30/2021 | | | | | Encounter for | | | | | | screening for other | | | | | | viral diseases | | | | | | Encounter for | | | | | | monitoring | | | | | | immunomodulating | | | | | | therapy Abnormal CT | | | | | | of the chest | | + +------+--------+ + + | LAB OTHER | Lab | Routin | Sarcoidosis | Expected: 07/31/2020 | | | | e | Hypercalcemia due to | (Approximate), | | | | | sarcoidosis | Expires: 08/30/2021 | | | | | Encounter for | | | | | | screening for other | | | | | | viral diseases | | | | | | Encounter for | | | | | | monitoring | | | | | | immunomodulating | | | | | | therapy Abnormal CT | | | | | | of the chest | | + +------+--------+ + + | ALLERGEN, | Lab | Routin | Sarcoidosis | Expected: 07/31/2020 | | RESPIRATORY PANEL, | | e | Hypercalcemia due to | (Approximate), | | REGION 17, PNW, IGE | | | sarcoidosis | Expires: 08/30/2021 | | | | | Encounter for | | | | | | screening for other | | | | | | viral diseases | | | | | | Encounter for | | | | | | monitoring | | | | | | immunomodulating | | | | | | therapy Abnormal CT | | | | | | of the chest | | + +------+--------+ + + documented as of this encounter Visit Diagnoses + + | Diagnosis | + + | Sarcoidosis - Primary | + + | 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
--- OUTSIDE RECORDS SUMMARY | ~2020-08-04 | XMS | Encounter Summary ---
Demographics + + + | Address | [address] | | | [place] [address] | + + + | Home Phone | | + + + | Preferred Language | Unknown | + + + | Marital Status | | + + + | Synagogue Affiliation | 1027 | + + + [...] Team Providers + +------+ + | Care Coach Operator Name | Role | Phone | + +------+ + | Brendon Loaiza MD | PCP | | + +------+ + Reason for Visit +--------+--------+ + | Reason | Onset | Comments | | | Date | | +--------+--------+ + | Other | 09/29/ | | | | 2014 | | +--------+--------+ + Encounter Details +--------+ + + + + | Date | Type | Department | Care Team | Description | +--------+ + + + + | 09/29/ | Telephone | [facility] | Freddie Parham, | Other | | 2015 | | NEUROSURGERY [address] | DO [address] | | | | | [address] | [address] [place], [place] | | | | | [place], [place] | [address] | | | | | [address] | | | | | | [phone] | | | +--------+ + + + [...] Encounter - Marya Andino Cert MA - 10/02/2015 10:44 AM PSTThe message was relay ed to Migdalia. She verbalizes understanding. MARYA ANDINO elephone Freddie Ma DO - 09/29/2015 3:13 PM PDTShe probably just strained the area. Let's give it a week with her taking it easy and see how it feels. If it continues to hurt, then w e'll start with repeat x-rays. Thanks. elephone Enco unttrenton - Marya Andino Cert MA - 09/29/2015 10:51 AM PDTLiz called today stating that last n ight she bent over to tie her shoes and when she tried standing back up, she got a lot of pa in right around her surgical site. She also reports running into a table last night, hittin g her right hip. She says it "fide" her back and is having an increase in back pain and i s having pain that shoots down her left leg. The pain is not excruciating but she says she is "scared" she could have damaged something. She is not having any numbness or weakness do wn her legs. No loss of bowel or bladder control. She is taking Hydrocodone 1 times a day and often times just PRN. She is S/P L5-S1 fusion on 07/18/15. Next visit is on 10/20/2015. Please advise. MARYA ANDINO documented in this encounter Plan of Treatment +--------+ + + + + | Date | Type | Specialty | Care Team | Description | +--------+ + + + + | 09/04/ | Virtual | Pulmonology | Josr Garcia MD | | | 2019 | Office | | [address] | | | | Visit | | [place], [place] | | | | | | [id number] | | | | | | | | +--------+ + + + + documented as of this encounter Visit Diagnoses Not on filedocumented in this encounter
--- OUTSIDE RECORDS SUMMARY | ~2020-08-04 | XMS | Encounter Summary ---
Demographics + + + | Address | [address] | | | [place] [address] | + + + | Home Phone | | + + + | Preferred Language | Unknown | + + + | Marital Status | | + + + | Baptist Affiliation | 1027 | + + + [...] Team Providers + +------+ + | Care Water Hauler Name | Role | Phone | + +------+ + | Brendon Loaiza MD | PCP | | + +------+ + Reason for Visit +--------+--------+ + | Reason | Onset | Comments | | | Date | | +--------+--------+ + | Other | 07/10/ | | | | 2014 | | +--------+--------+ + Encounter Details +--------+ + + + + | Date | Type | Department | Care Team | Description | +--------+ + + + + | 07/10/ | Telephone | [facility] [place] | Freddie Parham, | Other | | 2015 | | NEUROSURGERY [address] | DO [address] | | | | | [address] | [address] [place], [place] | | | | | [place], [place] | [address] | | | | | [address] | | | | | | [phone] | | | +--------+ + + + [...] this encounter Miscellaneous Notes Telephone Encounter - Fabby Day, Plug Shaper Hand - 07/10/2015 9:20 AM PDTRetu rned patients call and she is rescheduled for 07/12/15 for pre-op and pre-admit studies. Vera Day elephone Encounter - Nazia Bell - 07/10/2015 8:25 AM PDTPatient called asking to joe edule her pre-op appointment this July 15. Her appointment is at 10:30 a.m. and she has a to attend in [place] at 11:00 a.m. Please call back.Electronically sig pool by Nazia Bell at 07/10/2015 8:27 AM PDTdocumented in this encounter Plan of Treatment [...] [place] | | | | | | [address] | | | | | | | | +--------+ + + + + documented as of this encounter Visit Diagnoses Not on filedocumented in this encounter"
--- OUTSIDE RECORDS SUMMARY | ~2020-08-04 | XMS | Encounter Summary ---
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 spinal | | | | [address] | | osteoarthritis | | | | [place] | | (Primary Dx) | | | | [address] | | | | | | [phone] | | | +--------+ + + + [...] | 2020 | Office | | [address] | | | | Visit | | [place] | | | | | | [address] | | | | | | | | +--------+ + + + + documented as of this encounter Results FL Facet Injection Lumbar Sacral (05/11/2015 4:21 PM PDT) + + | Specimen | + + | | + + + + + | Narrative | Performed At | + + + | 05/11/2015 Bilateral Lumbar Facet Steroid Injections Diagnosis: | [facility] | | Lumbar Spondylosis ICD-9 Code 721.3 Madykehinde Munoz presents | [facility] | | to the fluoroscopy suite for fluoroscopically-guided bilateral | [facility] | | L5-S1 facet injections as part [...] + + | Performing | Address | City/State[facility] | Phone Number | | Organization | | | | + + + + + | [facility] | [address] | [place], [place] | [phone] | | [facility] | | [address] | | | - IMAGING | | | | + + + + + documented in this encounter Visit Diagnoses + + | Diagnosis | + + | Lumbar spondylosis, unspecified spinal osteoarthritis - Primary | + + documented in this encounter"
--- OUTSIDE RECORDS SUMMARY | ~2020-08-04 | XMS | Encounter Summary ---
Demographics + + + | Address | [address] | | | [place] [address] | + + + | Home Phone | | + + + | Preferred Language | Unknown | + + + | Marital Status | | + + + | Samaritan Affiliation | 1027 | + + + [...] Team Providers + +------+ + | Care Mail List Librarian Name | Role | Phone | + +------+ + | Brendon Loaiza MD | PCP | | + +------+ + Reason for Visit +--------+--------+ + | Reason | Onset | Comments | | | Date | | +--------+--------+ + | Nausea | 07/22/ | | | | 2014 | | [...] | | [address] | [place] [address] | | | | | [place] | [phone] | | | | | [address] | | | | | | [phone] | | | +--------+ + + + [...] this encounter Miscellaneous Notes Telephone Encounter - Max Gutierrez MD - 07/22/2015 11:50 AM PDTCalled through the [employer] service about nausea due to pain medication. She did not answer two calls placed. I sent in an Rx for zofran for her. She was left instructions through the answering [employer] to reduce her pain medication dosing. Max Gutierrez documented in this encou nter Plan of [...] [place] | | | | | | [address] | | | | | | | | +--------+ + + + + documented as of this encounter Visit Diagnoses Not on filedocumented in this encounter"
--- OUTSIDE RECORDS SUMMARY | ~2020-08-04 | XMS | Encounter Summary ---
Demographics + + + | Address | [address] | | | [place] [address] | + + + | Home Phone | | + + + | Preferred Language | Unknown | + + + | Marital Status | | + + + | Sikh Affiliation | 1027 | + + + | Race | White | + + + | Ethnic Group | Not or | + + + Author + + + | Author | [facility] | | | and [place] | + + + | Organization | [facility] | | | [...] Team Providers + +------+ + | Care Utility Tech Name | Role | Phone | + +------+ + | Brendon Loaiza MD | PCP | | + +------+ + Reason for Visit + +--------+ + | Reason | Onset | Comments | | | Date | | + +--------+ + | Shortness of Breath | 06/12/ | | | | 2020 | | + +--------+ + Encounter Details +--------+ + + + + | Date | Type | Department | Care Team | Description | +--------+ + + + + | 06/12/ | Telephone | [facility] | Vita Loo RN | Shortness of Breath | | 2019 | | PULMONOLOGY [address] | | | | | | [address] | | | | | | [place], [place] | | | | | | [address] | | | | | | [phone] | | | +--------+ + + + [...] this encounter Miscellaneous Notes Telephone Encounter - Vita Loo RN - 06/14/2020 8:45 AM PDTCalled and spoke to Migdalia. Melvin best follow up appointment for next week. Migdalia states she feels about the same as yesterday. Migdalia had no further questions or concerns. elephone Encounter - Vita Loo RN - 06/12/2020 9:45 AM PDTMigdalia called agustina casper that her symptoms are returning. She states she is feeling more short of breath lately. S he denies fevers, chills, cough, wheezing, or any other symptoms. She states it is not somet casey she needs urgent treatment for, but she was told to call if symptoms start to come back . She states she is using albuterol and taking 20 mg prednisone daily. She states she stoppe d advair due to thrush. Let Migdalia know that Dr. Garcia is out of office this week, but I would forward this information to him. Let Migdalia know that if her symptoms worsen in anyway she shou ld seek urgent care/ED. Migdalia stated understanding of all instructions and had no further ques tions or concerns. Fox guerra in this encounter Plan of Treatment +--------+ + + + + | Date | Type | Specialty | Care Team | Description | +--------+ + + + + | 09/04/ | Virtual | Pulmonology | Josr Garcia MD | | 2019 | Office | | [address] | | | | Visit | | [place] | | | | | | [address] | | | | | | | | +--------+ + + + + documented as of this encounter Visit Diagnoses Not on filedocumented in this encounter"
--- OUTSIDE RECORDS SUMMARY | ~2020-08-04 | XMS | Encounter Summary ---
Demographics + + + | Address | [address] | | | [place] [address] | + + + | Home Phone | | + + + | Preferred Language | Unknown | + + + | Marital Status | | + + + | Christian Affiliation | 1027 | + + + | Race | White | + + + | Ethnic Group | Not or | + + + Author + + + | Author | [facility] | | | and [place] | + + + | Organization | [facility] | | | [...] Team Providers + +------+ + | Care Fuel Oil Truck Driver Name | Role | Phone | + +------+ + | Brendon Loaiza MD | PCP | | + +------+ + Reason for Visit + +--------+ + | Reason | Onset | Comments | | | Date | | + +--------+ + | Medication Problem | 04/26/ | | | | 2020 | | + +--------+ + Encounter Details +--------+ + + + + | Date | Type | Department | Care Team | Description | +--------+ + + + + | 04/26/ | Telephone | [facility] | Josr Garcia MD | Medication Problem | | 2019 | | PULMONOLOGY [address] | | | | | [address] | [place], [place] | | | | | [place], [place] | [address] | | | | | [address] | | | | | | [phone] | | | +--------+ + + + [...] this encounter Miscellaneous Notes Telephone Encounter - Josr Garcia MD - 04/26/2020 2:25 PM PDTNo continue 40mg Electroni ross signed by Josr Garcia MD at 04/26/2020 2:26 PM PDTTelephone Encounter - Ander Hackett, Turf Grower - 04/26/2020 2:16 PM PDTPatient called and said that she got a re fill for prednisone and finished the fist course of prednisone 60mg for 4 days and 40mg for 4wks. Patient was wondering if she should repeat the course of 60mg for 4 days and 40mg for 4wks or should she take it differently documented in this encounter Plan of Treatment [...] [place] | | | | | | [id number] | | | | | | | | +--------+ + + + + documented as of this encounter Visit Diagnoses Not on filedocumented in this encounter"
--- OUTSIDE RECORDS SUMMARY | ~2020-08-04 | XMS | Encounter Summary ---
Demographics + + + | Address | [address] | | | [place] [address] | + + + | Home Phone | | + + + | Preferred Language | Unknown | + + + | Marital Status | | + + + | Jain Affiliation | 1027 | + + + | Race | White | + + + | Ethnic Group | Not or | + + + Author + + + | Author | [facility] | | | and [place] | + + + | Organization | [facility] | | | [...] Team Providers + +------+ + | Care Radiotelegraphist Name | Role | Phone | + +------+ + | Brendon Loaiza MD | PCP | | + +------+ + Reason for Visit + +--------+ + | Reason | Onset | Comments | | | Date | | + +--------+ + | Chest Pain | 03/28/ | | | | 2020 | | + +--------+ + Encounter Details +--------+ + + + + | Date | Type | Department | Care Team | Description | +--------+ + + + + | 03/28/ | Telephone | [facility] | Vita Loo RN | Chest Pain | | 2019 | | PULMONOLOGY [address] | | | | | | [address] | | | | | | [place], [place] | | | | | | [address] | | | | | | [phone] | | | +--------+ + + + [...] Telephone Encounter - Vita Loo RN - 03/30/2020 2:42 PM PDTSpoke to Migdalia. She states she is much better. She states her cough has continued to improve. She will call this office wi th any further questions or concerns. elephone Encounter - Aliya Adorno MD - 03/28/2020 7:09 PM PDTR eceived a phone call from the ED physician maxx who evaluated her. Her CXR, D dimer, EKG were normal. VS and PE are normal. He would like to let Dr Garcia know. Vita kindly follow up on patient. Thanks. Aliyajose Adorno MD Pulmonary and Critical Care Medicine [facility] [address], [facility] [place] [address] elephone Encounter - Vita Loo RN - 03/28/2020 4:08 PM PDTElikehinde called stating that she is h aving worst shortness of breath and a constant chest pain that hurts when she breaths. She s tates she is on 40 mg prednisone daily. She states she thought the prednisone was working an d felt better the first few days after she was placed on prednisone. She states her cough flores s gotten much better. She states the symptoms of shortness of breath and chest pressure/pain has worsened over the last few days. She denies fevers or any other symptoms. Spoke to Dr. Garcia. Gave instructions for Mady to go to ed closest to her for detailed evaluation. Ryan schultz stated understanding of all instructions and had no further questions or concerns. Elec tronically signed by Vita Loo RN at 03/28/2020 4:20 PM PDTdocumented in this encounter Plan of Treatment +--------+ + + + + | Date | Type | Specialty | Care Team | Description | +--------+ + + + + | 09/04/ | Virtual | Pulmonology | Josr Garcia MD | | | 2019 | Office | | [address] | | | | Visit | | [place], [place] | | | | | | [address] | | | | | | | | +--------+ + + + + documented as of this encounter Visit Diagnoses Not on filedocumented in this encounter"
--- OUTSIDE RECORDS SUMMARY | ~2020-08-04 | XMS | Encounter Summary ---
Demographics + + + | Address | [address] | | | [place] [address] | + + + | Home Phone | | + + + | Preferred Language | Unknown | + + + | Marital Status | | + + + | Religion Affiliation | 1027 | + + + | Race | White | + + + | Ethnic Group | Not or | + + + Author + + + | Author | [facility] | | | and [place] | + + + | Organization | [facility] | | | and [...] Team Providers + +------+ + | Care Geodesy Teacher Name | Role | Phone | + +------+ + | Brendon Loaiza MD | PCP | | + +------+ + Reason for Visit +---------+--------+ + | Reason | Onset | Comments | | | Date | | +---------+--------+ + | Results | 05/15/ | | | | 2020 | | +---------+--------+ + Encounter Details +--------+ + + + + | Date | Type | Department | Care Team | Description | +--------+ + + + + | 05/15/ | Telephone | [facility] | Vita Loo RN | Results | | 2020 | | PULMONOLOGY [address] | | | | | | [address] | | | | | | [place] | | | | | | [address] | | | | | | [phone] | | | +--------+ + + + [...] Telephone Encounter - Vita Loo RN - 05/15/2020 8:26 AM PDTCalled and gave Migdalia results of recent normal pft. Migdalia stated understanding of all results and had no further questions o r concerns. documented in this encounter Plan of Treatment [...] [place] | | | | | | [id number] | | | | | | | | +--------+ + + + + documented as of this encounter Visit Diagnoses Not on filedocumented in this encounter"
--- OUTSIDE RECORDS SUMMARY | ~2020-08-04 | XMS | Encounter Summary ---
Demographics + + + | Address | [address] | | | [place] [address] | + + + | Home Phone [...] Team Providers + +------+ + | Care Agency Service Coordinator Name | Role | Phone | + +------+ + | Brendon Loaiza MD | PCP | | + +------+ + Encounter Details +--------+ + + + + | Date | Type | Department | Care Team | Description | +--------+ + + + + | 02/20/ | Orders Only | [facility] [place] | Dione Freddie Rothman, | Osteoarthritis of | | 2016 | | NEUROSURGERY [address] | DO [address] | spine with | | | | [address] | [address] [place] | radiculopathy, | | | | [place], [place] | [address] | lumbar region; S/P | | | | [address] | | lumbar fusion | | | | [phone] | | | +--------+ + + + [...] [place] | | | | | | [address] | | | | | | | | +--------+ + + + + documented as of this encounter Visit Diagnoses + + | Diagnosis | + + | Osteoarthritis of spine with radiculopathy, lumbar region | + + | S/P lumbar fusion Arthrodesis status | + + documented in this encounter"
--- OUTSIDE RECORDS SUMMARY | ~2020-08-04 | XMS | Encounter Summary ---
Demographics + + + | Address | [address] | | | [place] [address] | + + + | Home Phone [...] Team Providers + +------+ + | Care Medical Massage Therapist Name | Role | Phone | + +------+ + | Marin Lima DO | PCP | | + +------+ + Encounter Details +--------+ + + + + | Date | Type | Department | Care Team | Description | +--------+ + + + + | 03/09/ | Orders Only | [facility] [place] | Dione, Freddie A, | Back pain, | | 2015 | | NEUROSURGERY [address] | DO [address] | unspecified location | | | | [address] | [address] [place], [place] | (Primary Dx) | | | | [place] | [address] | | | | | [address] | | | | | | [phone] | | | +--------+ + + + [...] | | Visit | | [place] | | | | | | [address] | | | | | | | [...] + | [address] | [address] | [place] | [phone] | | [facility] | | [address] | | | - IMAGING | | | | + + + + + documented in this encounter Visit Diagnoses + + | Diagnosis | + + | Back pain, unspecified location - Primary | + + documented in this encounter"
--- OUTSIDE RECORDS SUMMARY | ~2020-08-04 | XMS | Encounter Summary ---
Demographics + + + | Address | [address] | | | [place] [address] | + + + | Home Phone | | + + + | Preferred Language | Unknown | + + + | Marital Status | | + + + | Anabaptism Affiliation | 1027 | + + + [...] Providers + +------+ + | Care Health Education Teacher Name | Role | Phone | [...] + + + | Closed | | MRI | Diagnoses | Dione | [facility] ST | | | | | Pain Leg | Freddie Rothman DO | [facility] | | | | | pain, | [address] | HOSPITAL | | | | | bilateral | [address] | [address] | | | | | Low back | [address] | AVE | | | | | pain with | [address] | [place], [place] | | | | | left-sided | Phone: | [phone] | | | | | sciatica, | [phone] | Phone: | | | | | unspecified | Fax: | [phone] | | | | | back pain | [phone] | Fax: | | | | | laterality | | [phone] | | | | | Procedures | | | | | | | MRI Lumbar | | | | | | | Spine wo | | | | | | | Contrast | | | +--------+--------+ + + + + Reason for Visit +--------+--------+ + | Reason | Onset | Comments | | | Date | | +--------+--------+ + | Other | 05/22/ | | | | 2014 | | +--------+--------+ + Encounter Details +--------+ + + + + | Date | Type | Department | Care Team | Description | +--------+ + + + + | 05/22/ | Telephone | [facility] [place] | Freddie Parham, | Other | | 2014 | | NEUROSURGERY [address] | DO [address] | | | | | [address] | [address] [place], [place] | | | | | [place], [place] | [address] | | | | | [address] | | | | | | [phone] | | | +--------+ + + + [...] documented as of this encounter Miscellaneous Notes Addendum Note - Kristian Moyer Master of Arts - 05/24/2015 2:41 PM PDT Addended by: KRISTIAN MOYER on: 05/24/2015 14:41 Modules accepted: Orders e lephone Encounter - Kristian Moyer Master of Arts - 05/24/2015 2:05 PM PDTCalled pat ient to relay Dr. Parham's instructions. Patient verbalized understanding. Patient is sche duled to see Dr. Parham on 07/14/15 at 10:30am. She would like to have her MRI completed at [facility] in [place]. Referrals placed in [facility] for MRI and TLIF L5-S1 to get authoriz ation process started..Vera Moyer ele phone Encounter - Freddie Parham DO - 05/24/2015 9:01 AM PDTLets have her come back and s ee me. In the meantime, please try to get authorization for a TLIF L5-S1 and a repeat MRI of the lumbar spine to make sure there isn't something new happening. Thanks. elephone Keyono laquita - Araceli Andion Cert MA - 05/23/2015 3:07 PM PDT. CATALINO Parham. ARACELI ANDINO elephone Encounte r - Sisi Zarate, Master of Arts - 05/23/2015 2:12 PM PDTPatient given this message. S he was seen yesterday by her PCP and given a medrol dose pack which she is hoping will help with the excruciating pain. Patient advised that Dr. Vaughan is recommending a follow up visit in neurosurgery which she does not think she could tolerate at this time because of he r pain level. Patient was advised if things do not get better to contact Dr. Parham's office . I did verify with patient if right after injection while the area was still numb if she no charlie any improvement which she notes she did not have any improvement even right away. She wa s very thankful for the call back. elephone Encounter - Avery Vaughan MD - 05/23/2015 12:13 PM PDTNo. That is definitely not a normal response. The injections don't even get near the n erves going into the legs. I reviewed her MRI and it is quite likely that those issues are related to the disc herniation at L5-S1. It may have worsened. She should probably follow- up with [facility] or Dr. Parham since she is already established with them. I'd be willing to s ee her if she wants as well. 12: 16 PM PDTTelephone Encounter - Sisi Zarate, Master of Arts - 05/22/2015 2:58 PM PDTTh e patient called today stating she had a bilateral L5-S1 facet injection which was performed on 05/11/2015 at the request of Dr. Parham.Patient states the pain is much worse now than be fore she had the injection. She is having trouble with doing any activities such as lifting and even such things as lifting her leg. The patient states her pain now is exactly as it w as when she first "blew her disc". The patient is complaining of pain radiating down the catalino k of both legs to just above the knees. Patient states she is unable to sit with her legs ou t in front of her without crying. The patient would like to know if this is a normal respons e. Please advise. 3: 27 PM PDTTelephone Encounter - Araceli Andino Cert MA - 05/22/2015 1:16 PM PDTLiz C/O incre ased pain since her injection a week ago. She states she had pain on a scale of 2 or 3/10 wh ich has increased to a 8 or 9/10. She has pain across her low back and down the back of bot h her legs to her knee. The pain is described as an aching type pain. Movement brings on a sharp type pain. She wants to know if this is normal after an injection? I advised she as k Dr. Castro office this question. She does report helping her daughter lay down tammie after the injection and wonders if the combination of the injection and the activity she did could have caused the increase in pain. She reports having relief with PT and wonders if s he can do more of this? She was previously going to PT at [facility] in [place]. She was transferred to Dr. Castro office today. Please advise. ARACELI ANDINO documented in this encounter Plan of Treatment +--------+ + + + + | Date | Type | Specialty | Care Team | Description | +--------+ + + + + | 09/04/ | Virtual | Pulmonology | Josr Garcia MD | | | 2020 | Office | | [address] | | | | Visit | | [place] | | | | | | [address] | | | | | | | | +--------+ + + + + + +---------+--------+ + + | Name | Type | Priori | Associated Diagnoses | Order Schedule | | | | ty | | | + +---------+--------+ + + | MRI Lumbar Spine wo | Imaging | Routin | Pain Leg pain, | Expected: | | Contrast | | e | bilateral Low back | 05/24/2015, Expires: | | | | | pain with left-sided | 05/24/2016 | | | | | sciatica, | | | | | | unspecified back | | | | | | pain laterality | | + +---------+--------+ + + documented as of this encounter Visit Diagnoses + + | Diagnosis | + + | Pain - Primary Generalized pain | + + | Leg pain, bilateral Pain in limb | + + | Low back pain with left-sided sciatica, unspecified back pain laterality | + + documented in this encounter
--- OUTSIDE RECORDS SUMMARY | ~2020-08-04 | XMS | Clinical Summary ---
Demographics + + + | Address | [address] | | | [place] [address] | + + + | Home Phone | | + + + | Preferred Language | Unknown | + + + | Marital Status | | + + + | Yazdanism Affiliation | 1027 | + + + | Race | White | + + + | Ethnic Group | Not or | + + + Author + + + | Author | [facility] | | | and [place] | + + + | Organization | [facility] | | | [...] Team Providers + +------+ + | Care Road Cutter Name | Role | Phone | + [...] predniSONE | 60mg for 4 days, | 120 | 4 | 05/0 | | Activ | | (DELTASONE) 10 mg | 40mg daily for 4 | tablet | | 06/19 | | e | | tablet | weeks | | | 20 | | | + + + +---------+------+------+-------+ +---+ + | | Additional | | | InformationPatient | | | taking differently: | | | , 40mg daily for 4 | | | weeks, Reported on | | | 07/03/2020 1:36 PM | +---+ + + + +--------+---+------+---+-------+ | | Take 1 tablet by | 30 | 3 | 07/0 | | Activ | | sulfamethoxazole-tri | mouth Three times a | tablet | | 12/20 | | e | | methoprim (BACTRIM | week. | | | 20 | | | | DS) 800-160 mg per | | | | | | | | tabletIndications: | | | | | | | | Sarcoidosis | | | | | | | + + +--------+---+------+---+-------+ +---+ + | | Additional | | | InformationPatient | | | not taking. Reported | | | on 08/03/2020 12:37 | | | PM | +---+ + Active Problems + + + | Problem | Noted Date | + + + | Mediastinal lymphadenopathy | 03/13/2020 | + + + + + | Overview: Added automatically from request for surgery | | [id number] | + + + + + | [...] + + | 08/03/ | Virtual | Pulmonology | Josr Garcia MD | Gastroesophageal | | 2019 | Office | | | reflux disease, | | | Visit | | | esophagitis presence | | | | | | not specified | | | | | | (Primary Dx); | | | | | | Sarcoidosis | +--------+ + + + + | 07/06/ | Telephone | Pulmonology | Vita Loo RN | Results | 2019 | | | | | +--------+ + + + + | 07/03/ | Virtual | Pulmonology | Josr Garcia MD | Sarcoidosis (Primary | 2019 | Office | | | Dx) | | | Visit | | | | +--------+ + + + + | 06/20/ | Virtual | Pulmonology | Josr Garcia MD | Sarcoidosis (Primary | 2019 | Office | | | Dx) | | | Visit | | | | +--------+ + + + + | 06/12/ | Telephone | Pulmonology | Vita Loo RN | Shortness of Breath | | 2019 | | | | | +--------+ + + + + | 05/31/ | Refill | Pulmonology | Josr Garcia MD | Medication Refill | 2019 | | | | | +--------+ + + + + | 05/30/ | Telephone | Pulmonology | Josr Garcia MD | Medication Question | 2019 | | | | | +--------+ + + + + | 05/15/ | Telephone | Pulmonology | Vita Loo RN | Results | | 2019 | | | | | +--------+ + + + + | 05/09/ | Virtual | Pulmonology | Josr Garcia MD | Mediastinal | | 2020 | Office | | | adenopathy (Primary | | | Visit | | | Dx); Thrush | +--------+ + + + + from [...] + + + Last Filed Vital Signs + [...] [place] | | | | | | [address] | | | | | | | | +--------+ + + + + + + +-------+ + | Health Maintenance | Due Date | Last | Comments | | | | Done | | + + +-------+ + | Hepatitis C | | | | | Screening | 1 | | | + + +-------+ + | Vaccine: | | | | | Dtap/Tdap/Td (1 - | 0 | | | | Tdap) | | | | + + +-------+ + | Colorectal Cancer | | | | | Screening | 1 | | | | (Colonoscopy) | | | | + + +-------+ + | Vaccine: Zoster (1 | | | | | of 2) | 1 | | | + + +-------+ + | Breast Cancer | | | | | Screening | 6 | | | + + +-------+ + | Vaccine: Influenza | | | | | (#1) | 0 | | | + + +-------+ + Implants + +------+--------+ +--------+--------+--------+ | Implanted [...] Kit Xxs - | | Right: | SOFAMOR | | 04/30/ | [id number] | | [id number]: Qty: 1 on | | Spine | DANEK - DIV | | 2016 | 0 / / | | 07/18/2015 by Freddie Parham | | | [employer] | | | | | DO Lorna at [facility] | | Lumbar | - SFDK | | | | | [facility] | | | | | | | + +------+--------+ +--------+--------+--------+ | Bone Chips 15cc - | | Right: | BERMUDIAN | | 02/20/ | [id number] | | [id number]: Qty: 1 | | Spine | RED CROSS - | | 2020 | | | on 07/18/2015 by Dione, | | | AMRR | | | /[id number] | | Freddie Rothman DO at [facility] | | Lumbar | | | | 0-023 | | [facility] | | | | | | /38-34 | | | | | | | | 54 | + +------+--------+ +--------+--------+--------+ | Screw Beto Solera 6.5x45mm - | | Right: | SOFAMOR | | | [id number] | | [id number]: Qty: 1 on | | Spine | DANEK - DIV | | | [id number] | | 07/18/2015 by Freddie Parham | | | [employer] | | | / / | | DO Lorna at [facility] | | Lumbar | - SFDK | | | | | [facility] | | | | | | | + +------+--------+ +--------+--------+--------+ | Screw Beto Solera 6.5x50mm - | | Right: | SOFAMOR | | | [id number] | | [id number]: Qty: 1 on | | Spine | DANEK - DIV | | | [id number] | | 07/18/2015 by Freddie Parham | | | [employer] | | | / / | | DO Lorna at [facility] | | Lumbar | - SFDK | | | | | [facility] | | | | | | | + +------+--------+ +--------+--------+--------+ | Screw Mas G5 Slra 7.5x40 Cn - | | Right: | SOFAMOR | | | [id number] | | [id number]: Qty: 2 | | Spine | DANEK - DIV | | | [id number] | | on 07/18/2015 by Dione | | | [employer] | | | / / | | Freddie Rothman DO at [facility] | | Lumbar | - SFDK | | | | | [facility] | | | | | | | + +------+--------+ +--------+--------+--------+ | Set Scrw Ns G5 Brk Off Ti | | Right: | SOFAMOR | | | [id number] | | 4.75 - [id number]: | | Spine | DANEK - DIV | | | 0 / / | | Qty: 4 on 07/18/2015 by | | | [employer] | | | | | Freddie Parham DO at [facility] | | Lumbar | - SFDK | | | | | [facility] | | | | | | | | [place] | | | | | | | + +------+--------+ +--------+--------+--------+ | Thom Sext Solera [id number] - | | Right: | SOFAMOR | | | [id number] | | [id number]: Qty: 2 on | | Spine | DANEK - DIV | | | [id number] / | | 07/18/2015 by Freddie Parham | | | [employer] | | | / | Mau Rothman DO at [facility] | | Lumbar | - SFDK | | | | | [facility] | | | | | | | + +------+--------+ +--------+--------+--------+ | Impl Spn Spcr Capstone | | Right: | [employer] - | | 05/15/ | [id number] | | [id number] - [id number]: | | Spine | MEDT | | 2023 | 0 / | | Qty: 1 on 07/18/2015 by | | | | | | /[id number] | | Freddie Parham DO at [facility] | | Lumbar | | | | 235 | | [facility] | | | | | | | | [place] | | | | | | | + +------+--------+ +--------+--------+--------+ Results Not on filefrom Last 3 Months Insurance + +--------+ +--------+ +---------+------+ | Payer | Benefi | Subscriber | Effect | Phone | Address | Type | | | t Plan | ID | aurea | | | | | | / | | Dates | | | | | | Group | | | | | | + +--------+ +--------+ +---------+------+ | [employer] | PACIFI | [id number] | 12/01/19 | [phone] | | PPO | | | [employer] | | 20-Pre | 2 | | | | | E | | sent | | | | | | FIRST | | | | | | | | CHOICE | | | | | | + +--------+ +--------+ +---------+------+ | [facility] | PHP | [id number] | 12/01/19 | [phone] | | PPO [...] + +--------+ +--------+ + + | Mady Munoz | Person | Self | [birth year] | [address] | | | al/Fam | | 1960 | [phone] | [place] | | | jimmie | | | [address] (Home) | [phone] | + +--------+ +--------+ + + | Mady Munoz | Person | Self | [birth year] | [address] | | | al/Fam | | 1960 | [phone] | [place], [place] | | | jimmie | | | [address] (Home) | [phone] | + +--------+ +--------+ + + | Mady Munoz | Person | Self | [birth year] | | [address] | | | al/Fam | | 1960 | [phone] | [place], [place] | | | jimmie | | | [address] ([place]) | [phone] | + +--------+ +--------+ + + Advance Directives + + + + + | Type | Date Recorded | Patient | Explanation | | | | Director Of Psychology | | + + + + + | Power of | | | | | Wringer Machine Operator | | | | + + + [...]
--- OUTSIDE RECORDS SUMMARY | ~2020-08-04 | XMS | Encounter Summary ---
Demographics + + + | Address | [address] | | | [place] [address] | + + + | Home Phone | | + + + | Preferred Language | Unknown | + + + | Marital Status | | + + + | Methodist Affiliation | 1027 | + + + [...] Team Providers + +------+ + | Care Irrigation Technician Name | Role | Phone | [...] | | | | | | | [facility] | | | | | | [...] ST | Chris Kearney | | | 2014 | Event | [facility] | P, MD [address] | | | | | [address] | [address] [place] | | | | | [place] | [address] | | | | | [address] | | | | | | | [...] Site | drain; 07/20/15; 1145 | | JOHN Tillman | +--------+ + + + | [...] encounter OR Notes Anesthesia Postprocedure Evaluation - Chris Kearney MD - 07/18/2015 2:09 PM PDTForm atting of this note might be different from the original. ANESTHESIA POSTANESTHESIA EVALUATION Mady Munoz 55 y.o. female 1960 [id number] Procedure(s) L5-S1 Transforaminal Lumbar Interbody Fusion (Right Spine Lumbar) Filed Vitals: 07/18/15 1355 07/18/15 1400 07/18/15 1405 BP: 90/34 89/34 Pulse: 63 65 62 Temp: Resp: 11 9 8 SpO2: 95% 93% 99% Cooperates? Yes Mental Status Performs simple tasks. Respiratory Satisfactory - Airway patent (self maintained). Cardiovascular Satisfactory Blood pressure and heart rate acceptable Temperature Satisfactory Pain Satisfactory N/V Control Satisfactory Hydration Satisfactory No signs of dehydration Complications None apparent Electronically signed by Chris Kearney MD 07/18/2015 14:09 [facility] nesthesia Prepro cedure Evaluation - Chris Kearney MD - 07/17/2015 2:09 PM PDT ANESTHESIA PREANESTHESIA EVALUATION Mady Munoz 55 y.o. female 1960 [id number] Procedure(s): L5-S1 Transforaminal Lumbar Interbody Fusion (N/A ) Medical history, anesthesia, medications, allergy histories reviewed. ROS / Med History Ane No anesthesia complications. (+) PONV. NPO status verified. CV Negative except where noted below. Pulm Negative except where noted below. Neuro Negative except where noted below. (+) back pain, numbness/tingling. Psych Negative except where noted below. Renal Negative except where noted below. GI/Hep Negative except where noted below. Endo Negative except where noted below. Physical Exam Airway MP II, TM >3 FB, Mouth opening >2 FB. Neck: full ROM, Jaw protrusion normal. Dental G rossly normal except where noted below.; CV Rhythm regular. Rate Normal. (-) murmur. Pulm Clear to auscultation bilaterally. Anesthesia Plan ASA 2 Type: General. Induction: Intravenous. Potential problems: None anticipated, none anticipated. Monitors: Standard ASA monitors. Consent statement:Anesthetic plan, alternatives, risks and benefits discussed with patient. Risks discussed included (but were not limited to): sore throat, pain, disability, perioper ative CV events, infection, muscle aches, voice injury, drug reaction, heart problems, nause a, respiratory events, . Consenting person understands and agrees to proceed. Patient Active Problem List: Anemia S/P hysterectomy Drug Intolerance - Morphine PONV (postoperative nausea and vomiting) Lumbosacral spondylosis without myelopathy Lumbar radicular pain . Electronically Signed by: Chris Kearney MD [facility] date/time: 07/17/2015 14:09 documented in thi s encounter Plan of Treatment +--------+ + + [...] [place] | | | | | | [id number] | | | | | | | [...] | | | | to Incision, Starting Tue | | | | | | | [...] | | | | PRN, Pain, Starting Tuestephania 07/18/15 | | PM PDT | | [...] | | | | | Anxiety, Starting Fri07/18/15 at | | PM PDT | | | | | 1210, Anesthesia Intra-op | | | | | | + +-------+ +------+---+---+ +---+---+ | | | +---+---+ + +-------+ +------+---+---+ | ondansetron (ZOFRAN) injection | Given | 07/18/20 | 4 mg | | | | Intravenous, PRN, Nausea, | | 15 12:10 | | | | | Vomiting, Starting Fri07/18/15 at | | PM PDT [...]
--- OUTSIDE RECORDS SUMMARY | ~2020-08-04 | XMS | Encounter Summary ---
Demographics + + + | Address | [address] | | | [place] [address] | + + + | Home Phone | | + + + | Preferred Language | Unknown | + + + | Marital Status | | + + + | Quaker Affiliation | 1027 | + + + [...] Providers + +------+ + | Care Manager Zone Name | Role | Phone | + [...] + + | 05/17/ | Office | [facility] | Hussein Mayers, | S/P lumbar fusion | | 2016 | Visit | NEUROSURGERY [address] | PA-C [address] | (Primary Dx); Lumbar | | | | [address] | [address] [place] | strain, initial | | | | [place] | [place] [address] | encounter | | | | [address] | [phone] | | | | | [phone] | | | +--------+---------+ + + + [...] brace anytime you're getting up and walking arou nd for more than a few minutes. I [...] f rom the original. TAMMY Bui [address] [facility], [address] [place], [place] [id number] FAX: NEUROSURGERY FOLLOW-UP CHIEF COMPLAINT: Chief Complaint Patient presents with Follow-up s/p fusion, follow up on symptoms HISTORY OF PRESENT ILLNESS: The patient is a 56 y.o. female that had a L5-S1 fusion by me for back and leg pain on July 2015. She returns and overall is doing fair. Prior to [facility] patient had significant leg pain. 6 months [...] Fusion; Surgeon: Freddie Parham, DO; Ryan ocation: [facility] OR CURRENT MEDICATIONS: Current Outpatient Prescriptions [...] [place] | | | | | | [address] | | | | | | | | +--------+ + + + + documented as of this encounter Visit Diagnoses + + | Diagnosis | + + | S/P lumbar fusion - Primary Arthrodesis status | + + | Lumbar strain, initial encounter | + + documented in this encounter
--- OUTSIDE RECORDS SUMMARY | ~2020-08-04 | XMS | Encounter Summary ---
Demographics + + + | Address | [address] | | | [place] [address] | + + + | Home Phone | | + + + | Preferred Language | Unknown | + + + | Marital Status | | + + + | Episcopalian Affiliation | 1027 | + + + [...] Team Providers + +------+ + | Care Business Operations Manager Name | Role | Phone | + +------+ + | Brendon Loaiza MD | PCP | | + +------+ + Reason for Visit + + + | Reason | Comments | + + + | Follow-up | | + + + | Cough | | + + + | Shortness of Breath | | + + + | Fatigue | | + + + Encounter Details +--------+ + + + + | Date | Type | Department | Care Team | Description | +--------+ + + + + | 06/20/ | Virtual | [facility] | Josr Garcia MD | Sarcoidosis (Primary | | 2020 | Office | PULMONOLOGY [address] | Dx) | | | Visit | [address] | [place], [place] | | | | | [place] | [address] | | | | | [address] | | | | | | [phone] | | | +--------+ + + + [...] documented as of this encounter Progress Notes Radha, Josr, MD - 06/20/2020 1:00 PM PDT This exam was initially conducted via a secure 256-bit AES encrypted bidirectional video se ssion. Service was provided [id number] with the patient via interactive videoconferencing Coding will be based on Medical Decision Making. You have chosen to receive care through the use of telemedicine. Telemedicine enables [facility] care providers at different locations to provide [...] they are located in a state where Josr Miller MD am licensed . This exam was initially conducted via a secure 256-bit AES encrypted bidirectional video se ssion. Service was provided [id number] with the patient via interactive videoconferencing Coding will be based on Medical Decision Making. Subjective: Patient ID: Mady Munoz 60 y.o. is here for follow up for cough and shortness of br eath. HPI Patient's medications, allergies, past medical, surgical, social and family histories were obtained and reviewed as appropriate. The patient is a pleasant 59-year-old female who was in her usual state of health until Dec of this year when she visited [place]. She went to see a [employer] park and when she came back from where she came back with severe cough along with shortness of breath. She complai pool of severe myalgias, fever. She was very sick and could barely move out of the bed. Her and her son also had similar symptoms. When she came back to her house in [facility] she was in touch with 2 other people from [place] who got similar illness and then respecti [...] and is here to discuss the results. Interim history 06/20/2020 The patient was able to tolerate the prednisone down to 20 mg daily. After couple of days of bringing it down to 20 mg she started having symptoms of chest heaviness. She was compla ining of cough and feels like she is breathing through straws. Her fatigue is come back. Review of Systems Constitutional: Negative. HENT: Negative. [...] "chest heaviness". Went on va cation in [place] Dysphagia pills, foods, meats Exertional shortness of [...] file Gets together: Not on file Attends buddhist service: Not on file Active member of [...] a week. (Patient not taking: Reported on 06/20/2020.) 30 tablet 3 valACYclovir (VALTREX) 500 mg [...] has radiological, histopathological finding suggestive of sarcoidosis. We trie d to taper down the prednisone but we were not able to tolerate it . I have advised the pat ient to increase the prednisone to 40 mg for the next 2 weeks. She will restart using Bactr im. I will follow her up in 2 weeks. She had a very nice radiological response and her pul monary function test was normal. If her symptoms improve I will consider starting her on methotrexate. Thank you for allowing me to participate in your patient's care. We will review test result s that we have ordered with the patient once they become available. A return visit has been scheduled in 2 weeks. Josr Garcia MD Pulmonary and Critical Care Medicine [address] [facility] [place] [address] documented in this enco unter Plan of [...] [place] | | | | | | [address] | | | | | | | | +--------+ + + + + documented as of this encounter Visit Diagnoses + + | Diagnosis | + + | Sarcoidosis - Primary | + + documented in this encounter
--- OUTSIDE RECORDS SUMMARY | ~2020-08-04 | XMS | Encounter Summary ---
Demographics + + + | Address | [address] | | | [place] [address] | + + + | Home Phone | | + + + | Preferred Language | Unknown | + + + | Marital Status | | + + + | Jew Affiliation | 1027 | + + + [...] Team Providers + +------+ + | Care Director Athletic Name | Role | Phone | + +------+ + | Brendon Loaiza MD | PCP | | + +------+ + Encounter Details +--------+ + + + + | Date | Type | Department | Care Team | Description | +--------+ + + + + | 07/12/ | Hospital | [facility] | Freddie Parham, | Anemia, unspecified | | 2015 | Encounter | MED CTR XRAY [address] | DO [address] | anemia type; | | | | [place] | [address] [place], [place] | Lumbosacral | | | | [place] [address] | [address] | spondylosis without | | | | [phone] | | myelopathy; | | | | [...] | 61 | 0 | 07/20/20 | 09/15/201 | | HYDROcodone-acetamin | mouth every 4 [...] | | Visit | | [place] | | | | | | [address] | | | | | | | | +--------+ + + + + documented as of this encounter Procedures + +--------+ + + + | Procedure Name | Priori | Date/Time | Associated Diagnosis | Comments | | | ty | | | | + +--------+ + + + | XR CHEST PA AND | Routin | 07/12/2015 | Anemia, | Results for this | | LATERAL | e | 11:00 AM | unspecified anemia | procedure are [...] + documented in this encounter Results XR Chest PA and [...] | + + + + + | [facility] | [address] | [place] | [phone] | | [facility] | | [address] | | | - IMAGING | | [...]
--- OUTSIDE RECORDS SUMMARY | ~2020-08-04 | XMS | Encounter Summary ---
Demographics + + + | Address | [address] | | | [place] [address] | + + + | Home Phone [...] Team Providers + +------+ + | Care Immunohematologist Name | Role | Phone | + [...] | Closed | | | Diagnoses | Radha | [facility] | | | | | Sarcoidosis | Josr, MD | HOSPITAL | | | | | Procedures | [address] | | | | | CT Chest w | [address] | [address] | | | | | Contrast | [address] | [place], [place] | | | | | | [place], [place] | [address] | | | | | | [address] | Phone: | | | | | | Phone: | [phone] | | | | | | [phone] | Fax: | | | | | | Fax: | [phone] | | | | | | [phone] | | +--------+--------+ + + + + Diagnostic/Screening (Routine) + +--------+ + + + + | Status | Reason | Specialty | Diagnoses / | Referred By | Referred To | | | | | Procedures | Contact | Contact | + +--------+ + + + + | Authorizatio | | | Diagnoses | Radha, | [facility] | | n not | | | Sarcoidosis | MD Josr | HOSPITAL | | Required | | | Procedures | [address] | [address] | | | | | ECHO | [address] | [address] | | | | | Complete | [address] | [place], [place] | | | | | | [place], [place] | [address] | | | | | | [address] | Phone: | | | | | | Phone: | [phone] | | | | | | [phone] | Fax: | | | | | | Fax: | [phone] | | | | | | [phone] | | + +--------+ + + + + Reason for Visit + + + | Reason | Comments | + + + | Follow-up | | + + + Evaluate & [...] | | | | [address] | [place], [place] | | | | | | [place], | [address] Phone: | | | | | | [place] [address] | [phone] | | | | | | Phone: | Fax: | | | | | | [phone] | [phone] | | | | | | Fax: | | | | | | | [phone] | | + +--------+ + + + + Encounter Details +--------+ + + + + | Date | Type | Department | Care Team | Description | +--------+ + + + + | 04/06/ | Virtual | [facility] | Josr Garcia MD | Sarcoidosis (Primary | | 2020 | Office | PULMONOLOGY [address] | Dx) | | | Visit | [address] | [place] [facility] | | | | | [facility] [place] | [address] | | | | | [address] | | | | | | [phone] | | | +--------+ + + + [...] encounter Progress Notes Josr Garcia MD - 04/06/2020 11:20 AM PDT This exam was initially conducted via a secure 256-bit AES encrypted bidirectional video [employer]. Service was provided [id number] with the patient via interactive videoconferencing Video start time 1120 Video end time 1125 Total time (in minutes) including non bkcp-qk-zvhy time (reviewing records, documentation, etc..) 25 You have chosen to receive care through the use of telemedicine. Telemedicine enables [facility] care providers at different locations to provide [...] where Josr Miller MD am licensed . Subjective: Patient ID: Mady Munoz 59 y.o. is here for follow up for cough and shortness of br eath. HPI Patient's medications, allergies, past medical, surgical, social and family histories were obtained and reviewed as appropriate. The patient is a pleasant 59-year-old female who was in her usual state of health until Uriel trey of this year when she visited [place]. She went to see a [employer] park and when she came back from where she came back with severe cough along with shortness of breath. She complai pool of severe myalgias, fever. She was very sick and could barely move out of the bed. Her and her son also had similar symptoms. When she came back to her house in [facility] she was in touch with 2 other people from [place] who got similar illness and then falloni umberto their families got the similar symptoms. Over [...] a lifetime non-smoker and denies using drugs. Interim history 04/06/2020 Since the last visit the patient underwent a endobronchial ultrasound with biopsy of the me diastinal lymph nodes. The biopsy was consistent with noncaseating granulomas. She was sta rted on prednisone 60 mg daily for 2 weeks and has been using 40 mg now. She has been using Septra. Her cough has slowly been improving. Review of Systems Constitutional: Negative. HENT: Negative. [...] "chest heaviness". Went on va cation in [place] Dysphagia pills, foods, meats Exertional shortness of [...] file Gets together: Not on file Attends jain service: Not on file Active member of [...] MAGNESIUM-POTASSIUM PO Take by mouth nightly. RLS promethazine (PHENERGAN) 12.5 MG tablet Take 12.5 [...] lymphadenopathy. Scattered granulomatous Assessment and plan 1. Sarcoidosis The patient [...] be doing better with the steroids . Her autoimmune work-up was negative. I have advised her to continue using prednisone at 40 mg. I will get an echocardiogram, pulmonary function test and a follow-up CT before the next vi sit. Thank you for allowing me to participate in your patient's care. We will review test result s that we have ordered with the patient once they become available. A return visit has been scheduled in 6 weeks. Josr Garcia MD Pulmonary and Critical Care Medicine [facility] [address] [facility] , [place] [address] documented in this enco unter Plan of [...] [place] | | | | | | [address] | | | | | | | | +--------+ + + + + + + +--------+ + + | Name | Type | Priori | Associated Diagnoses | Order Schedule | | | | ty | | | + + +--------+ + + | Pulmonary function | PFT | Routin | Sarcoidosis | 1 Occurrences | | test | | e | | starting 04/06/2020 | | | | | | until 04/06/2021 | + + +--------+ + + | ECHO Complete | Echocardiog | Routin | Sarcoidosis | Expected: | | | jazmyn | e | | 04/06/2020, Expires: | | | | | | 04/06/2021 | + + +--------+ + + | CT Chest w Contrast | Imaging | Routin | Sarcoidosis | Expected: | | | | e | | 05/07/2020, Expires: | | | | | | 04/06/2021 | + + +--------+ + + documented as of this encounter Visit Diagnoses + + | Diagnosis | + + | Sarcoidosis - Primary | + + documented in this encounter
--- OUTSIDE RECORDS SUMMARY | ~2020-08-04 | XMS | Encounter Summary ---
Demographics + + + | Address | [address] | | | [place] [address] | + + + | Home Phone [...] Providers + +------+ + | Care Medical Associate Name | Role | Phone | + +------+ + | Brendon Loaiza MD | PCP | | + +------+ + Reason for Visit +---------+--------+ + | Reason | Onset | Comments | | | Date | | +---------+--------+ + | Results | 07/06/ | | | | 2020 | | +---------+--------+ + Encounter Details +--------+ + + + + | Date | Type | Department | Care Team | Description | +--------+ + + + + | 07/06/ | Telephone | [facility] | Vita Loo RN | Results | | 2020 | | PULMONOLOGY [address] | | | | | | [address] | | | | | | [facility] | | | | | | [address] | | | | | | [phone] | | | +--------+ + + + [...] Telephone Encounter - Vita Loo RN - 07/06/2020 3:16 PM PDTCalled and gave jannie results of recent normal vitamin D 25 levels with instructions to continue vitamin D supplementation . documented in this encou nter Plan of [...] [place] | | | | | | [id number] | | | | | | | | +--------+ + + + + documented as of this encounter Visit Diagnoses Not on filedocumented in this encounter"
--- OUTSIDE RECORDS SUMMARY | ~2020-08-04 | XMS | Encounter Summary ---
Demographics + + + | Address | [address] | | | [place] [address] | + + + | Home Phone | | + + + | Preferred Language | Unknown | + + + | Marital Status | | + + + | Jainism Affiliation | 1027 | + + + | Race | White | + + + | Ethnic Group | Not or | + + + Author + + + | Author | [facility] | | | and [place] | + + + | Organization | [facility] | | [...] Team Providers + +------+ + | Care Erp Analyst Name | Role | Phone | + +------+ + | Brendon Loaiza MD | PCP | | + +------+ + Encounter Details +--------+ + + + + | Date | Type | Department | Care Team | Description | +--------+ + + + + | 07/12/ | Hospital | [facility] | Freddie Parham, | Anemia, unspecified | | 2015 | Encounter | MED CTR | DO [address] | anemia type; | | | | ELECTRODIAGNOSTICS | [address] [place], [place] | Lumbosacral | | | | [address] [place] | [address] | spondylosis without | | | | [place] [address] | | myelopathy; | | | | [phone] | | Displacement of | | | [...] | | Visit | | [place] | | | | | | [address] | | | | | | | [...]
[~2020-08-04 17:49] MED LIST changes: +PREDNISONE10 MG PO; +SULFAMETHOXAZO1 EAC1 PO
== END 2020-08-04 19:48 | disposition home or self-care (01) ==
LOC: ED 17:49
DX: S86.112A Strain of other muscle(s) and tendon(s) of posterior muscle group at lower leg level, left leg, initial encounter (principal); D64.9 Anemia, unspecified; Z88.5 Allergy status to narcotic agent; Z79.899 Other long term (current) drug therapy; X50.1XXA Overexertion from prolonged static or awkward postures, initial encounter; Z79.52 Long term (current) use of systemic steroids
CPT/HCPCS: 73610; 99284-25

== ENCOUNTER 2022-10-05 09:32 | Emergency (ER) | payer OTHER ==
[~2022-10-05] VITALS: Ht 167.6 cm; Wt 55.3 kg
[2022-10-05] MEDS ORDERED: VALACYCLOVIR500 MG PO (09:44)
[2022-10-05] MEDS ORDERED: FLUTICASONE PRO12 G1 INH (09:45)
[2022-10-05] MEDS ORDERED: REMICADE100 MG/10 IV (09:46)
[2022-10-05] MEDS ORDERED: ZITHROMAX250 MG PO (10:31)
[2022-10-05] MEDS ORDERED: PERCOCET 5-3251 EACH PO (10:31)
[2022-10-05] MEDS ORDERED: DIFLUCAN150 MG PO (10:31)
== END 2022-10-05 10:53 | disposition home or self-care (01) ==
LOC: ED 09:32
DX: J02.9 Acute pharyngitis, unspecified (principal); D64.9 Anemia, unspecified; Z88.0 Allergy status to penicillin; Z88.5 Allergy status to narcotic agent; Z79.899 Other long term (current) drug therapy; Z20.822 Contact with and (suspected) exposure to COVID-19
CPT/HCPCS: 87502; 87880; 99283; C9803; U0003

== ENCOUNTER 2023-11-30 16:55 | Emergency (ER) | payer OTHER ==
[~2023-11-30] VITALS: Ht 167.6 cm; Wt 62.3 kg
[~2023-11-30 16:55] MED LIST changes: +DIFLUCAN150 MG PO; +FLOVENT HFA12 G1; +FLUTICASONE PRO12 G1 INH; +METOPROLOL SUCC25 MG PO; +PERCOCET 5-3251 EACH PO; +PREDNISONE20 MG PO; +REMICADE100 MG/10 IV; +VALACYCLOVIR500 MG PO; +ZITHROMAX250 MG PO
[2023-11-30 17:21] LABS: BASOPHILS 0.4 % (0-2); EOSINOPHILS 1.8 % (0-6); HEMATOCRIT 39.7 % (35.0-50.0); HEMOGLOBIN 13.7 g/dL (12.0-18.0); LYMPHOCYTES 38.1 % (24-44); MCH 35.5 (27-36); MCHC 34.4 g/dl (30-36); MCV 103.2 fl (81-99); MONOCYTES 8.6 % (0-12); NEUTROPHILS 51.1 % (39-80); PLATELET COUNT 225 K/uL (140-440); RBC 3.85 M/ul (4.3-5.7); RDW 13.4 (10.5-15.0)
[2023-11-30 17:32] LABS: ALBUMIN 3.9 g/dL (3.4-5.0); ALBUMIN/GLOBULIN RATIO 1.08 (1.1-2.4); ANION GAP 10.5 (7-21); BILIRUBIN, TOTAL 0.2 ng/dL (0.2-1.0); BUN/CREATININE RATIO 23.33 (6.0-28.6); CALCIUM 8.6 mg/dL (8.5-10.1); CREATININE, SERUM 0.9 mg/dL (0.55-1.02); MAGNESIUM 1.9 mg/dL (1.8-2.4); POTASSIUM 3.5 mmol/L (3.5-5.1); PROTEIN, TOTAL 7.5 g/dL (6.4-8.2)
[2023-11-30 18:18] VITALS: BP 129/71
--- NOTE | 2023-11-30 22:16 | EKG ---
[facility] [address] [facility] [place] [address] Signed Sinus rhythm with marked sinus arrhythmia with occasional premature ventricular complexes Rightward axis Nonspecific ST and T wave abnormality Abnormal ECG When compared with ECG of 11-APR-2023 15:36, premature ventricular complexes are now present Confirmed by Rosemarie Tomas MD () on 11/30/2023 10:15:56 PM Electronically Signed By: ROSEMARIE TOMAS MD 11/30/23 2216 PATIENT NAME: WILFREDO MANLEY Electrocardiogram DATE OF : 62 PHYSICIAN: ROSEMARIE TOMAS MD REPORT #: [id number] REPORT IS CONFIDENTIAL AND NOT TO BE RELEASED WITHOUT AUTHORIZATION
== END 2023-11-30 18:16 | disposition home or self-care (01) ==
LOC: ED 16:55
PROVIDERS: Emergency Medicine
DX: D86.0 Sarcoidosis of lung (principal); R00.2 Palpitations; Z88.0 Allergy status to penicillin; Z88.5 Allergy status to narcotic agent; Z79.899 Other long term (current) drug therapy; Z79.51 Long term (current) use of inhaled steroids
CPT/HCPCS: 36415; 71045; 80053; 83735; 84484; 85025; 93005; 93010

== ENCOUNTER 2024-09-08 17:34 | Emergency (ER) | payer OTHER ==
[~2024-09-08] VITALS: Ht 167.6 cm; Wt 58.8 kg
[2024-09-08 19:56] VITALS: BP 128/52
== END 2024-09-08 19:55 | disposition home or self-care (01) ==
LOC: ED 17:34
DX: M79.651 Pain in right thigh (principal); D86.0 Sarcoidosis of lung; Z88.5 Allergy status to narcotic agent; Z98.1 Arthrodesis status; Z79.899 Other long term (current) drug therapy
CPT/HCPCS: 93971; 99283-25